=== PATIENT | female | born 1935 | race Caucasian/White ===

== ENCOUNTER 2018-02-11 18:05 | Inpatient (IN) | payer OTHER ==
[2018-02-11 19:30] LABS: Protime INR 1.28
[2018-02-11 19:32] LABS: Absolute Lymphocytes (CBC) 0.6 K/uL (0.7-4.9); Absolute Monocytes 0.7 K/uL (0.1-1.3); Absolute Neutrophil 10.5 K/uL (1.8-8.0); Basophils % 0.3 % (0-1.3); Hematocrit 36.9 % (36.0-45.0); Lymphocytes % 5.2 % (15.3-44.8); MCH 27.1 pg (27.0-35.0); MCV 83.9 fL (80-100); MPV 8.5 fL (7.6-11.3); Monocytes % 6.3 % (3.3-12.3)
--- NOTE | 2018-02-11 19:43 | RAD REPORT ---
EXAM DESCRIPTION: CT - CTHCSPWOC - 02/11/2018 7:22 pm CLINICAL HISTORY: Fall, patient found on ground, dementia, head and neck injury COMPARISON: None. TECHNIQUE: Axial 5 mm thick images of the head were obtained. Axial 2 mm thick images of the cervic al spine were obtained with sagittal and coronal reconstruction images generated and reviewed. All CT scans are performed using dose optimization technique as appropriate and may include automated exposure control or mA/KV adjustment according to patient size. FINDINGS: No intracranial hemorrhage, mass, edema or acute intracranial finding. No cortical edema or sulcal ef facement. Moderate severity atrophy and chronic ischemic changes are present. Ventricles are in propo rtion to volume loss. Mastoid air cells are clear. No significant paranasal sinus finding. Dense deepika rial tree calcifications are present. No globe or orbit abnormality seen. Cervical bodies are normal in height. No fracture or acute vertebral body finding. C3 and C4 retrolis thesis present secondary to facet degenerative change. C3-4 spinal stenosis down to 6-7 mm noted radha g with significant bilateral bony foraminal stenosis. C4-5 spinal stenosis to 6 mm from prominent pos terior endplate spurring. A more mild to moderate bilateral foraminal encroachment is present. Signif icant C6-7 disc space narrowing seen with mild central spinal stenosis. Significant left foraminal en croachment at this level. No pathologic bone process. No paraspinal mass or hematoma. IMPRESSION: Moderate atrophy and chronic ischemic change with no acute intracranial finding. Very advanced degenerative changes are present with multilevel significant central spinal stenosis an d bilateral foraminal stenosis. No fracture is seen. Given the fall history and severity of spinal stenosis, traumatic disc herniatio n or cord contusion cannot be excluded on CT imaging. Negative CT cervical spine examination for acute or significant finding.
[2018-02-11 19:51] LABS: ALT/SGPT 16 U/L (12-78); AST/SGOT 16 U/L (15-37); Albumin 2.6 g/dL (3.4-5.0); Alkaline Phosphatase 111 U/L (45-117); BUN Blood Urea Nitrogen 12 mg/dL (7-18); Bicarbonate 35 mmol/L (21-32); Bilirubin Direct 0.3 mg/dL (0-0.2); Bilirubin Total 0.6 mg/dL (0.2-1.0); Creatine Phosphokinase 68 U/L (26-192); Glucose Level 109 mg/dL (74-106); Magnesium 1.9 mg/dL (1.8-2.4); NT PRO-BNP 710 pg/mL (<450); Potassium 3.1 mmol/L (3.5-5.1); Sodium Level 140 mmol/L (136-145); Troponin (Emerg Dept Use Only) < 0.02 ng/mL (0.0-0.045)
[2018-02-11 19:59] LABS: Anisocytosis SLIGHT; Blood Morphology Comment NOT SEEN (NOT SEEN); Hypochromasia 1+; Platelet Estimate ADEQ; Urine White Blood Cell Casts OK
[2018-02-11 20:00] LABS: Polychromasia SLIGHT
[2018-02-11] MEDS ORDERED: NA CHLORIDE 0.9% 1,000 ML ONE (20:42)
--- NOTE | 2018-02-11 20:55 | RAD REPORT ---
EXAM DESCRIPTION: RAD - Chest Single View - 02/11/2018 7:53 pm CLINICAL HISTORY: Unwitnessed fall, left hip pain COMPARISON: July 2015 TECHNIQUE: AP portable chest image was obtained 1920 hours . FINDINGS: Focal consolidation is present in the left midlung field. In the acute clinical setting th is is likely a consolidated pneumonia. Pulmonary contusion is possible given the fall history. No rib fractures seen in this location. There is no pneumothorax. Heart and vasculature are normal. No sign ificant pleural fluid collection. Skin fold artifact overlies the lateral lower right chest. No acute bony abnormality seen. No acute aortic findings suspected. IMPRESSION: Masslike consolidation in the left midlung field is most likely pneumonia in the acute c linical setting. Malignant mass is not excluded. Pulmonary contusion is not excluded but felt to be less likely.
--- NOTE | 2018-02-11 20:56 | RAD REPORT ---
EXAM DESCRIPTION: RAD - Pelvis - 02/11/2018 7:53 pm CLINICAL HISTORY: Fall, pelvic and hip pain COMPARISON: None. TECHNIQUE: AP imaging of the pelvis was obtained. FINDINGS: Prominent lower lumbar degenerative change present only partially imaged. Moderate severit y SI joint degenerative changes are present. Sacral ala are too obscured for assessment. No fracture of the bony pelvis. No fracture or dislocation of either proximal femur. IMPRESSION: Degenerative change with no fracture identifiable. Sacral ala are obscured.
--- NOTE | 2018-02-11 20:57 | RAD REPORT ---
EXAM DESCRIPTION: RAD - Hip Left 2 View - 02/11/2018 7:53 pm CLINICAL HISTORY: Fall, hip pain COMPARISON: None. FINDINGS: AP and cross-table lateral views were obtained. No acute fracture changes are identifiable . Subcapital region of the proximal left femur is not optimally visualized. No fracture of the bony p maxim. No AVN or focal femoral head abnormality seen. No acute or destructive bony process seen. No soft tissue abnormality. IMPRESSION: No fracture or acute left hip finding identifiable. Positioning is not optimal. If the patient has continued unexplained symptoms, CT imaging of the pelv is could be obtained to fully exclude proximal femur fracture.
--- NOTE | 2018-02-11 22:01 | RAD REPORT ---
EXAM DESCRIPTION: CT - Thorax Wo Con - 02/11/2018 9:48 pm CLINICAL HISTORY: Fall, chest pain COMPARISON: Chest films same TECHNIQUE: Axial 5 mm thick images of the chest were obtained without IV contrast. All CT scans are performed using dose optimization technique as appropriate and may include automated exposure control or mA/KV adjustment according to patient size. FINDINGS: Large 7 centimeter mass is present in the left midlung field. This is localized to the lef t lower lobe. There is extension to the hilum and lateral pleural margin. There are no air bronchogra ms. Patient apparently has no acute pneumonia symptoms. This is most likely a malignancy. A few small nonspecific mediastinal lymph nodes are present. No chest wall mass or abnormal axillary lymphadenop athy. No pneumothorax or pulmonary contusion. No displaced or nondisplaced rib fractures identifiable. No p leural effusion or pneumothorax. IMPRESSION: Large 7 centimeter irregular soft tissue mass in the superior segment left lower lobe. T here is extension to the pleura and hilum. Malignancy is strongly favored over pneumonia. Pulmonary c ontusion is not suspected. Nonspecific mediastinal lymph nodes. No rib fracture or other acute traumatic injury.
--- NOTE | 2018-02-11 22:27 | ER ---
Nurse's Notes [facility] Name: Jeanna Ruvalcaba Age: 82 yrs Sex: Female : 1935 Arrival Date: 02/11/2018 Time: 18:10 Bed 27 Private MD: Issa Holguin T Diagnosis: Fall due to bumping against object;Contusion of left hip;Abnormal findings on diagnostic imaging of lung-7 cm left lung mass;Anemia, unspecified;Hypokalemia;Cystitis;Nondisplaced fracture of base of neck of left femur-[facility] Presentation: 02/11 18:38 Presenting complaint: Child states: Unwitnessed fall at home this afternoon, was home ph alone, found on ground by family who reports that pt was shivering, reports pain in L hip, denies other injury or use of blood thinners, pt does not remember cause of fall, family reports recent dementia dx. Care prior to arrival: Medication(s) given: Motrin, 600 mg, at 1600. Mechanism of Injury: Fall from standing position. Trauma event details: Injury occurred in the [facility], Injury occurred: at home. Injury occurred: February 11, 2018. 18:38 Acuity: MONI 3 ph 18:38 Method Of Arrival: Wheelchair ph 19:00 Transition of care: patient was not received from another setting of care. Onset of bb symptoms was February 11, 2018. Risk Assessment: Do you want to hurt yourself or someone else? Patient reports no desire to harm self or others. Initial Sepsis Screen: Does the patient meet any 2 criteria? No. Patient's initial sepsis screen is negative. Does the patient have a suspected source of infection? No. Patient's initial sepsis screen is negative. Historical: - Allergies: 18:42 No Known Allergies; ph - Home Meds: 18:42 Namenda oral oral [Active]; donepezil oral oral [Active]; levothyroxine oral [Active]; ph - PMHx: 18:42 Dementia; Hypothyroidism; ph - Immunization history: Last tetanus immunization: unknown. - Social history:: Smoking status: unknown. - Family history:: not pertinent. - Ebola Screening: : No symptoms or risks identified at this time. Screenin:38 Abuse screen: Denies threats or abuse. Denies injuries from another. Nutritional ed1 screening: No deficits noted. Tuberculosis screening: No symptoms or risk factors identified. Fall Risk Fall in past 12 months (25 points). No secondary diagnosis (0 pts). IV access (20 points). Ambulatory Aid- None/Bed Rest/Nurse Assist (0 pts). Gait- Normal/Bed Rest/Wheelchair (0 pts). Primary Survey: 18:42 A: Airway: patent, No supplemental oxygen in use on arrival. Oral cavity: clear, ph Trachea midline. Breathing/Chest: Respiratory pattern: regular, Respiratory effort: spontaneous, unlabored, Chest inspection: symmetrical rise and fall of the chest. Circulation: Skin color: pink, Skin temperature: warm, dry. Disability Alert. Secondary Survey: 18:42 HEENT: No deficits noted. Gastrointestinal: No deficits noted. Musculoskeletal: Reports ph pain in left hip. Assessment: 19:40 General: Appears uncomfortable, Behavior is calm, cooperative. Pain: Complains of pain ed1 in pelvis and left hip Pain does not radiate. Pain currently is 7 out of 10 on a pain scale. Quality of pain is described as aching, Pain began 2 hours ago. Is continuous. Neuro: Level of Consciousness is awake, alert, obeys commands, Oriented to person, place, time, situation. Cardiovascular: Denies chest pain, Heart tones S1 S2 present. Respiratory: Airway is patent Respiratory effort is even, unlabored, Respiratory pattern is regular, symmetrical, Breath sounds are clear bilaterally. GI: No signs and/or symptoms were reported involving the gastrointestinal system. : No signs and/or symptoms were reported regarding the genitourinary system. EENT: No signs and/or symptoms were reported regarding the EENT system. Derm: Skin is intact, is healthy with good turgor, Skin is dry, Skin is normal, Skin temperature is warm. Musculoskeletal: Circulation, motion, and sensation intact. Capillary refill < 3 seconds, in bilateral fingers. Range of motion: intact in all extremities, Swelling absent. 20:00 Reassessment: I agree with this assessment. bb 20:36 Reassessment: Patient appears in no apparent distress at this time. No changes from ed1 previously documented assessment. Patient and/or family updated on plan of care and expected duration. Pain level reassessed. Patient is alert, oriented x 3, equal unlabored respirations, skin warm/dry/pink. Patient states symptoms have not improved. 21:30 Reassessment: Patient and/or family updated on plan of care and expected duration. Pain bb level reassessed. Patient is alert, oriented x 3, equal unlabored respirations, skin warm/dry/pink. family at bedside. 22:30 Reassessment: Patient and/or family updated on plan of care and expected duration. Pain bb level reassessed. Patient is alert, oriented x 3, equal unlabored respirations, skin warm/dry/pink. IV site intact, family at bedside. 23:30 Reassessment: pt to CT scan via stretcher with military technology specialist. bb 02/12 01:00 Reassessment: Patient and/or family updated on plan of care and expected duration. Pain bb level reassessed. Patient is alert, oriented x 3, equal unlabored respirations, skin warm/dry/pink. pt resting quietly Dr Cook notified of pt BP new orders received pt medicated see MAR pt awaiting transfer to room until hemodynamically stable, family at bedside, IV is intact, patent with fluids infusing. Vital Signs: 02/11 18:42 BP 125 / 98; Pulse 88; Resp 18; Temp 98.3; Pulse Ox 94% on R/A; Weight 56.25 kg; Height ph 5 ft. 5 in. (165.10 cm); Pain 7/10; 19:40 BP 108 / 76; Pulse 83; Resp 17; Pulse Ox 94% on R/A; Pain 7/10; ed1 20:36 BP 80 / 57; Pulse 73; Resp 18; Temp 97.6(O); Pulse Ox 94% on R/A; Pain 7/10; ed1 21:07 BP 87 / 64; Pulse 72; Resp 18; Temp 97.2(O); Pulse Ox 94% on R/A; Pain 6/10; ed1 22:00 BP 90 / 56; Pulse 90; Resp 18; Pulse Ox 95% ; ms 02/12 00:02 BP 85 / ???; ag4 00:02 BP 85 / 63; Pulse 83; Resp 16; Temp 97.7; Pulse Ox 93% on R/A; ag4 01:00 BP 81 / 62; Pulse 78; Resp 16 S; Temp 99(O); Pulse Ox 92% on R/A; Pain 6/10; bb 01:45 BP 98 / 69; Pulse 78; Resp 16 S; Pulse Ox 92% on R/A; bb 02/11 18:42 Body Mass Index 20.63 (56.25 kg, 165.10 cm) ph 02/11 20:36 Dr. Nicolas notified ed1 [place] Coma Score: 18:42 Eye Response: spontaneous(4). Verbal Response: oriented(5). Motor Response: obeys ph commands(6). Total: 15. Trauma Score (Adult): 18:42 Eye Response: spontaneous(1); Verbal Response: oriented(1); Motor Response: obeys ph commands(2); Systolic BP: > 89 mm Hg(4); Respiratory Rate: 10 to 29 per min(4); [place] Score: 15; Trauma Score: 12 19:40 Eye Response: spontaneous(1); Verbal Response: oriented(1); Motor Response: obeys ed1 commands(2); Systolic BP: > 89 mm Hg(4); Respiratory Rate: 10 to 29 per min(4); [place] Score: 15; Trauma Score: 12 20:36 Eye Response: spontaneous(1); Verbal Response: oriented(1); Motor Response: obeys ed1 commands(2); Systolic BP: > 89 mm Hg(4); Respiratory Rate: 10 to 29 per min(4); [place] Score: 15; Trauma Score: 12 ED Course: 18:10 Patient arrived in ED. mr 18:11 Issa Holguin MD is Private Physician. mr 18:28 Delisa Payne LVN is Primary Nurse. ed1 18:33 Daren Nicolas MD is Attending Physician. gs 18:38 Patient has correct armband on for positive identification. Placed in gown. Bed in low ed1 position. Call light in reach. Side rails up X2. Adult w/ patient. personnel monitor on. Pulse ox on. NIBP on. Warm blanket given. 18:40 Triage completed. ph 18:44 Arm band placed on. ph 19:19 Inserted saline lock: 22 gauge in right antecubital area, using aseptic technique. ag4 forearm, using aseptic technique. Blood collected. 19:22 CT Head C Spine In Process Unspecified. EDMS 19:35 CT completed. Patient tolerated procedure well. Patient moved to CT via stretcher. Patient moved to radiology via stretcher. 19:54 XRAY Chest (1 view) In Process Unspecified. EDMS 19:54 Hip Left 2 View XRAY In Process Unspecified. EDMS 19:54 Pelvis XRAY In Process Unspecified. EDMS 20:45 EKG done, by garage door technician. ag4 21:49 CT Chest Wo Con In Process Unspecified. EDMS 22:05 Primary Nurse role handed off by Delisa Payne LVN ed1 22:18 Attending Physician role handed off by Daren Nicolas MD jennifer 22:18 Jimy Cook MD is Attending Physician. jennifer 22:25 Melyssa Nolen MD is Hospitalizing Provider. jennifer 23:[address] via stretcher. kw1 23:41 Pelvis Wo Cont In Process Unspecified. EDMS 23:45 CT completed. Patient tolerated procedure well. Patient moved back from CT. kw1 12/12 00:43 Humphries cath inserted, using sterile technique, 16 Fr., by dc, balloon inflated, to mt gravity drainage. 01:19 Patient admitted, IV remains in place. bb 01:20 No provider procedures requiring assistance completed. bb Administered Medications: 02/11 20:38 Drug: NS 0.9% 1000 ml Route: IV; Rate: 1 bolus; Site: right antecubital; ed1 21:38 Follow up: IV Status: Completed infusion; IV Intake: 1000ml bb 22:51 Drug: Rocephin - (cefTRIAXone) 1 grams {Note: per protocol 10 mL syringe.} Route: IVPB; bb Infused Over: 30 mins; Site: right antecubital; 22:57 Follow up: IV Status: Completed infusion; IV Intake: 10ml bb 22:51 Drug: Zithromax 500 mg Route: IVPB; Infused Over: 1 hrs; Site: right antecubital; bb 23:51 Follow up: IV Status: Completed infusion; IV Intake: 250ml bb 22:51 Drug: Potassium Effervescent Tablet 25 mEq Route: PO; bb 02/12 01:20 Follow up: Response: No adverse reaction bb 01:09 Drug: NS 0.9% 1000 ml Route: IV; Rate: 1000 ml; Site: right antecubital; bb 01:49 Follow up: IV Status: Infusion continued upon admission; IV Intake: 500ml bb Intake: 02/11 18:42 PO: 0ml; Total: 0ml. ph 19:40 PO: 0ml; Total: 0ml. ed1 20:36 PO: 0ml; Total: 0ml. ed1 21:38 IV: 1000ml; Total: 1000ml. bb 22:57 IV: 10ml; Total: 1010ml. bb 23:51 IV: 250ml; Total: 1260ml. bb 02/12 01:49 IV: 500ml; Total: 1760ml. bb Output: 02/11 18:42 Urine: 0ml; Total: 0ml. ph 19:40 Urine: 0ml; Total: 0ml. ed1 20:36 Urine: 0ml; Total: 0ml. ed1 Outcome: 22:27 Decision to Hospitalize by Provider. jennifer 23:48 Instructed on the need for admit. litzy 02/12 01:49 Admitted to Med/surg accompanied by tech, via stretcher, room 232, on monitor, with litzy chart, Report called to Petra ORTEGA Condition: stable 02:13 Patient left the ED. bb Signatures: Dispatcher [employer] EDMS Jimy Cook MD MD cha Rivera, Shira mr Skyla, Jerrica Montoya, RN RN Obdulia Cotto ms Kerry, Delisa, MEDICAL BILLER CODER MEDICAL BILLER CODER ed1 Dayanara López, RN RN lawrence Lucio, Daren Cruz mt, MD MD gs Wilhelm, Kimberly kw1 Brayan, Thomas ag4
--- NOTE | 2018-02-11 22:27 | EDPHYS ---
Physician Documentation [facility] Name: Jeanna Ruvalcaba Age: 82 yrs Sex: Female : 1935 Arrival Date: 02/11/2018 Time: 18:10 Bed 27 Private MD: Issa Holguin T ED Physician Jimy Cook HPI: 02/11 22:21 This 82 yrs old Female presents to ER via Wheelchair with complaints of Fall jennifer Injury. 22:21 Details of fall: The patient fell from an upright position, while walking. Onset: The jennifer symptoms/episode began/occurred just prior to arrival. Associated injuries: The patient sustained left femoral area and left hip, decreased range of motion, painful injury. Severity of symptoms: At their worst the symptoms were mild, moderate, in the emergency department the symptoms are unchanged. The patient has not experienced similar symptoms in the past. Historical: - Allergies: 18:42 No Known Allergies; ph - Home Meds: 18:42 Namenda oral oral [Active]; donepezil oral oral [Active]; levothyroxine oral [Active]; ph - PMHx: 18:42 Dementia; Hypothyroidism; ph - Immunization history: Last tetanus immunization: unknown. - Social history:: Smoking status: unknown. - Family history:: not pertinent. - Ebola Screening: : No symptoms or risks identified at this time. ROS: 22:21 Constitutional: Negative for fever, chills, and weight loss, Eyes: Negative for injury, jennifer pain, redness, and discharge, ENT: Negative for injury, pain, and discharge, Neck: Negative for injury, pain, and swelling, Cardiovascular: Negative for chest pain, palpitations, and edema, Respiratory: Negative for shortness of breath, cough, wheezing, and pleuritic chest pain, Abdomen/GI: Negative for abdominal pain, nausea, vomiting, diarrhea, and constipation, Back: Negative for injury and pain, : Negative for injury, bleeding, discharge, and swelling, Skin: Negative for injury, rash, and discoloration, Psych: Negative for depression, anxiety, suicide ideation, homicidal ideation, and hallucinations, Allergy/Immunology: Negative for hives, rash, and allergies, Endocrine: Negative for neck swelling, polydipsia, polyuria, polyphagia, and marked weight changes, Hematologic/Lymphatic: Negative for swollen nodes, abnormal bleeding, and unusual bruising. 22:21 MS/extremity: Positive for decreased range of motion, pain, tenderness, of the left hip. Exam: 22:21 Constitutional: This is a well developed, well nourished patient who is awake, alert, jennifer and in no acute distress. Head/Face: Normocephalic, atraumatic. Eyes: Pupils equal round and reactive to light, extra-ocular motions intact. Lids and lashes normal. Conjunctiva and sclera are non-icteric and not injected. Cornea within normal limits. Periorbital areas with no swelling, redness, or edema. ENT: Nares patent. No nasal discharge, no septal abnormalities noted. Tympanic membranes are normal and external auditory canals are clear. Oropharynx with no redness, swelling, or masses, exudates, or evidence of obstruction, uvula midline. Mucous membranes moist. Neck: Trachea midline, no thyromegaly or masses palpated, and no cervical lymphadenopathy. Supple, full range of motion without nuchal rigidity, or vertebral point tenderness. No Meningismus. Chest/axilla: Normal chest wall appearance and motion. Nontender with no deformity. No lesions are appreciated. Cardiovascular: Regular rate and rhythm with a normal S1 and S2. No gallops, murmurs, or rubs. Normal PMI, no JVD. No pulse deficits. Respiratory: Lungs have equal breath sounds bilaterally, clear to auscultation and percussion. No rales, rhonchi or wheezes noted. No increased work of breathing, no retractions or nasal flaring. Abdomen/GI: Soft, non-tender, with normal bowel sounds. No distension or tympany. No guarding or rebound. No evidence of tenderness throughout. Skin: Warm, dry with normal turgor. Normal color with no rashes, no lesions, and no evidence of cellulitis. Neuro: Awake and alert, GCS 15, oriented to person, place, time, and situation. Cranial nerves II-XII grossly intact. Motor strength 5/5 in all extremities. Sensory grossly intact. Cerebellar exam normal. Normal gait. Psych: Awake, alert, with orientation to person, place and time. Behavior, mood, and affect are within normal limits. 22:21 Musculoskeletal/extremity: ROM: limited active range of motion, limited passive range of motion, in the left hip, Circulation is intact in all extremities. Sensation intact. Compartment Syndrome exam of affected extremity: is normal. DVT Exam: negative Homans' sign noted on exam, no appreciated bluish discoloration, no erythema, no increased warmth, pain, swelling, tenderness. Vital Signs: 18:42 BP 125 / 98; Pulse 88; Resp 18; Temp 98.3; Pulse Ox 94% on R/A; Weight 56.25 kg; Height ph 5 ft. 5 in. (165.10 cm); Pain 7/10; 19:40 BP 108 / 76; Pulse 83; Resp 17; Pulse Ox 94% on R/A; Pain 7/10; ed1 20:36 BP 80 / 57; Pulse 73; Resp 18; Temp 97.6(O); Pulse Ox 94% on R/A; Pain 7/10; ed1 21:07 BP 87 / 64; Pulse 72; Resp 18; Temp 97.2(O); Pulse Ox 94% on R/A; Pain 6/10; ed1 22:00 BP 90 / 56; Pulse 90; Resp 18; Pulse Ox 95% ; ms 12/12 00:02 BP 85 / ???; ag4 00:02 BP 85 / 63; Pulse 83; Resp 16; Temp 97.7; Pulse Ox 93% on R/A; ag4 01:00 BP 81 / 62; Pulse 78; Resp 16 S; Temp 99(O); Pulse Ox 92% on R/A; Pain 6/10; bb 01:45 BP 98 / 69; Pulse 78; Resp 16 S; Pulse Ox 92% on R/A; bb 02/11 18:42 Body Mass Index 20.63 (56.25 kg, 165.10 cm) ph 02/11 20:36 Dr. Nicolas notified ed1 Barnard Coma Score: 18:42 Eye Response: spontaneous(4). Verbal Response: oriented(5). Motor Response: obeys ph commands(6). Total: 15. Trauma Score (Adult): 18:42 Eye Response: spontaneous(1); Verbal Response: oriented(1); Motor Response: obeys ph commands(2); Systolic BP: > 89 mm Hg(4); Respiratory Rate: 10 to 29 per min(4); Dea Score: 15; Trauma Score: 12 19:40 Eye Response: spontaneous(1); Verbal Response: oriented(1); Motor Response: obeys ed1 commands(2); Systolic BP: > 89 mm Hg(4); Respiratory Rate: 10 to 29 per min(4); Barnard Score: 15; Trauma Score: 12 20:36 Eye Response: spontaneous(1); Verbal Response: oriented(1); Motor Response: obeys ed1 commands(2); Systolic BP: > 89 mm Hg(4); Respiratory Rate: 10 to 29 per min(4); Dea Score: 15; Trauma Score: 12 MDM: 18:42 Patient medically screened. 22:24 Data reviewed: vital signs, nurses notes, lab test result(s), EKG, radiologic studies, jennifer CT scan, plain films. 02/11 18:43 Order name: Basic Metabolic Panel 02/11 18:43 Order name: CBC with Diff; Complete Time: 20:05 02/11 18:43 Order name: LFT's; Complete Time: 20:05 02/11 18:43 Order name: Magnesium; Complete Time: 20:05 02/11 18:43 Order name: NT PRO-BNP; Complete Time: 20:05 02/11 18:43 Order name: PT-INR; Complete Time: 20:05 02/11 18:43 Order name: Troponin (emerg Dept Use Only); Complete Time: 20:05 02/11 18:43 Order name: CPK; Complete Time: 20:05 02/11 18:44 Order name: Basic Metabolic Panel; Complete Time: 20:05 [facility] 02/11 19:36 Order name: CBC Smear Scan; Complete Time: 20:05 [facility] 02/11 20:32 Order name: Urine Microscopic Only 02/11 21:17 Order name: Blood Culture* 02/11 21:17 Order name: Lactate; Complete Time: 23:42 02/11 21:17 Order name: Procalcitonin; Complete Time: 23:42 02/11 18:43 Order name: XRAY Chest (1 view); Complete Time: 21:16 02/11 18:43 Order name: EKG; Complete Time: 18:44 02/11 18:43 Order name: Cardiac monitoring; Complete Time: 19:26 02/11 18:43 Order name: EKG - Nurse/Tech; Complete Time: 20:39 02/11 18:43 Order name: CT Head C Spine; Complete Time: 20:05 02/11 18:43 Order name: Hip Left 2 View XRAY; Complete Time: 21:16 02/11 18:43 Order name: Pelvis XRAY; Complete Time: 21:16 02/11 21:17 Order name: CT Chest Wo Con; Complete Time: 22:20 02/11 22:32 Order name: Pelvis Wo Cont EDND 02/11 23:36 Order name: Urine Dipstick--Ancillary (enter results); Complete Time: 23:42 gm 02/12 00:15 Order name: Urine Culture EDND 02/11 18:43 Order name: IV Saline Lock; Complete Time: 19:26 02/11 18:43 Order name: Labs collected and sent; Complete Time: 19:26 02/11 18:43 Order name: O2 Per Protocol; Complete Time: 19:26 02/11 18:43 Order name: O2 Sat Monitoring; Complete Time: 19:26 02/11 20:32 Order name: Urine Dipstick-Ancillary (obtain specimen); Complete Time: 01:31 02/11 22:31 Order name: PO challenge: juice; Complete Time: 22:51 jennifer Administered Medications: 20:38 Drug: NS 0.9% 1000 ml Route: IV; Rate: 1 bolus; Site: right antecubital; ed1 21:38 Follow up: IV Status: Completed infusion; IV Intake: 1000ml bb 22:51 Drug: Rocephin - (cefTRIAXone) 1 grams {Note: per protocol 10 mL syringe.} Route: IVPB; bb Infused Over: 30 mins; Site: right antecubital; 22:57 Follow up: IV Status: Completed infusion; IV Intake: 10ml bb 22:51 Drug: Zithromax 500 mg Route: IVPB; Infused Over: 1 hrs; Site: right antecubital; bb 23:51 Follow up: IV Status: Completed infusion; IV Intake: 250ml bb 22:51 Drug: Potassium Effervescent Tablet 25 mEq Route: PO; bb 02/12 01:20 Follow up: Response: No adverse reaction bb 01:09 Drug: NS 0.9% 1000 ml Route: IV; Rate: 1000 ml; Site: right antecubital; bb 01:49 Follow up: IV Status: Infusion continued upon admission; IV Intake: 500ml bb Disposition: 02/11/18 22:27 Hospitalization ordered by Melyssa Nolen for Observation. Preliminary diagnosis are Fall due to bumping against object, Contusion of left hip, Abnormal findings on diagnostic imaging of lung - 7 cm left lung mass, Anemia, unspecified, Hypokalemia, Cystitis, Nondisplaced fracture of base of neck of left femur - [facility]. - Bed requested for Telemetry/MedSurg (observation). - Status is Observation. bb - Condition is Fair. - Problem is new. - Symptoms have improved. UTI on Admission? Yes Signatures: Dispatcher [employer] EDMS Eva Rivas RN RN mw Anderson, Corey, MD MD cha Ballard, Brenda, RN RN bb Riggs, Erika, CREDIT AND COLLECTIONS REPRESENTATIVE CREDIT AND COLLECTIONS REPRESENTATIVE ed1 Dayanara López RN RN Daren Nicolas MD MD gs Corrections: (The following items were deleted from the chart) 02/11 22:32 22:27 Hospitalization Ordered by Melyssa Nolen MD for Observation. Preliminary jennifer diagnosis is Fall due to bumping against object; Contusion of left hip; Abnormal findings on diagnostic imaging of lung - 7 cm left lung mass; Anemia, unspecified. Bed requested for Telemetry/MedSurg (observation). Status is Observation. Condition is Fair. Problem is new. Symptoms have improved. UTI on Admission? No. jennifer 22:52 22:32 02/11/2018 22:27 Hospitalization Ordered by Melyssa Nolen MD for Observation. monika Preliminary diagnosis is Fall due to bumping against object; Contusion of left hip; Abnormal findings on diagnostic imaging of lung - 7 cm left lung mass; Anemia, unspecified; Hypokalemia. Bed requested for Telemetry/MedSurg (observation). Status is Observation. Condition is Fair. Problem is new. Symptoms have improved. UTI on Admission? No. jennifer 23:43 22:52 02/11/2018 22:27 Hospitalization Ordered by Melyssa Nolen MD for Observation. jennifer Preliminary diagnosis is Fall due to bumping against object; Contusion of left hip; Abnormal findings on diagnostic imaging of lung - 7 cm left lung mass; Anemia, unspecified; Hypokalemia. Bed requested for Telemetry/MedSurg (observation). Status is Observation. Condition is Fair. Problem is new. Symptoms have improved. UTI on Admission? No. mw 02/12 00:18 02/11 23:43 02/11/2018 22:27 Hospitalization Ordered by Melyssa Nolen MD for [facility] Observation. Preliminary diagnosis is Fall due to bumping against object; Contusion of left hip; Abnormal findings on diagnostic imaging of lung - 7 cm left lung mass; Anemia, unspecified; Hypokalemia; Cystitis. Bed requested for Telemetry/MedSurg (observation). Status is Observation. Condition is Fair. Problem is new. Symptoms have improved. UTI on Admission? Yes. [facility] 02/12 02:13 00:18 02/11/2018 22:27 Hospitalization Ordered by Melyssa Nolen MD for Observation. bb Preliminary diagnosis is Fall due to bumping against object; Contusion of left hip; Abnormal findings on diagnostic imaging of lung - 7 cm left lung mass; Anemia, unspecified; Hypokalemia; Cystitis; Nondisplaced fracture of base of neck of left femur - [facility]. Bed requested for Telemetry/MedSurg (observation). Status is Observation. Condition is Fair. Problem is new. Symptoms have improved. UTI on Admission? Yes. [facility]
[2018-02-11] MEDS ORDERED: CEFTRIAXONE/SWI 1gm 1 GM/10 ML SYR ONE (22:41)
[2018-02-11] MEDS ORDERED: AZITHROMYCIN 500 MG/250 ML BAG ONE (22:44)
[2018-02-11] MEDS ORDERED: POTASSIUM 25 MEQ EFFERV TAB ONE (22:44)
[2018-02-11 23:41] LABS: Urine Blood TRACE (NEG); Urine Glucose NEGATIVE (NEG); Urine Protein 2+ (NEG); Urine pH 5.5 (5.0-7.0)
[2018-02-12 00:03] LABS: Urine Bacteria 20-50 /HPF (<20); Urine Culture Reflex Order REFLEXED; Urine Mucus HEAVY /HPF (NONE SEEN); Urine RBC <5 /HPF (NONE SEEN)
--- NOTE | 2018-02-12 00:49 | P.HP ---
Certification for Inpatient Patient admitted to: Inpatient With expected LOS: >2 Midnights Practitioner: I am a practitioner with admitting privileges, knowledge of patient current condition, hospital course, and medical plan of care. Services: Services provided to patient in accordance with Admission requirements found in Title 42 Section 412.3 of the Code of Federal Regulations Patient History Date of Service: 02/12/18 Reason for admission: hip fracture History of Present Illness: Ms Ruvalcaba is an 82 years old woman with history of Dementia, hypothyroidism, who sustained an unwitnessed fall today. She was alone at home, and was found by her neighbour. Daughter says that she was shivering. No history of fever or chills. The patient is a heavy smoker, and family noted that she has been coughing more lately, dry cough. The patient has lose significant amount of weight in the last few months. CXR and CT chest remarkable for a 7 cm mass on the left lung, highly suspicious for malignancy. Lab work shows 11.8K WBC, potassium 3.1, UA abnormal consistent with UTI. After the fall, the patient was complaining of severe left hip pain. Plain XR shows no acute abnormalities. Subsequent CT pelvis showed left subcapital non-displaced femoral fracture. Allergies No Known Allergies Allergy (Unverified 02/11/18 22:27) - Past Medical/Surgical History -: dementia -: hypothyroidism Past Surgical History: Reviewed- Non-Contributory - Family History Family History: Reviewed- Non-Contributory - Social History Smoking Status: Current every day smoker Counseled patient to stop smoking for: less than 10 minutes Smoking therapy provided: Yes Patient receptive to therapy: No CD- Drugs: No Place of Residence: Home Review of Systems 10-point ROS is otherwise unremarkable Physical Examination - Physical Exam General: Alert, In no apparent distress HEENT: Atraumatic, PERRLA, Mucous membr. moist/pink, EOMI, Sclerae nonicteric Neck: Supple, 2+ carotid pulse no bruit, No LAD, Without JVD or thyroid abnormality Respiratory: Diminished, Expiratory wheezes Cardiovascular: Regular rate/rhythm, Normal S1 S2 Gastrointestinal: Normal bowel sounds, No tenderness Musculoskeletal: No tenderness Integumentary: No rashes Neurological: Normal speech, Normal tone, Normal affect Lymphatics: No axilla or inguinal lymphadenopathy - Studies Laboratory Data (last 24 hrs) 02/11/18 19:11: PT 15.2 H, INR 1.28 02/11/18 19:11: WBC 11.8 H, Hgb 11.9 L, Hct 36.9, Plt Count 281 02/11/18 19:11: Sodium 140, Potassium 3.1 L, BUN 12, Creatinine 1.10, Glucose 109 H, Magnesium 1.9, Total Bilirubin 0.6, AST 16, ALT 16, Alkaline Phosphatase 111 Assessment and Plan - Problems (Diagnosis) (1) Hip fracture Current Visit: Yes Status: Acute Qualifiers: Encounter type: initial encounter Fracture type: closed Laterality: left Qualified Code(s): S72.002A - Fracture of unspecified part of neck of left femur, initial encounter for closed fracture (2) Lung mass Current Visit: Yes Status: Acute (3) Hypothyroidism Current Visit: Yes Status: Acute Qualifiers: Hypothyroidism type: unspecified Qualified Code(s): E03.9 - Hypothyroidism , unspecified (4) Dementia Current Visit: Yes Status: Acute Qualifiers: Dementia type: Alzheimer's disease Alzheimer's disease onset: late-onset Dementia behavioral disturbance: without behavioral disturbance Qualified Code (s): G30.1 - Alzheimer's disease with late onset; F02.80 - Dementia in other diseases classified elsewhere without behavioral disturbance (5) Fall Current Visit: Yes Status: Acute Qualifiers: Encounter type: initial encounter Qualified Code(s): W19.XXXA - Unspecified fall, initial encounter (6) UTI (urinary tract infection) Current Visit: Yes Status: Acute Qualifiers: Urinary tract infection type: acute cystitis Hematuria presence: without hematuria Qualified Code(s): N30.00 - Acute cystitis without hematuria (7) Hypokalemia Current Visit: Yes Status: Acute - Plan The patient will be admitted to the hospital due to a nondisplaced left subcapital femoral fracture due to a fall at home. She has also a left lung mass suspicious for malignancy, that needs to be addressed down the road. Will consult Dr Prince for evaluation and recommendations on her hip fracute. Will keep her NPO. Order Rocephin for UTI. - Advance Directives Does patient have a Living Will: No Does patient have a Durable POA for Healthcare: No - Code Status/Comfort Care Code Status Assessed: Yes Code Status: Full Code
[2018-02-12] MEDS ORDERED: NA CHLORIDE 0.9% 1,000 ML ONE ×2 (01:21→02:23)
[2018-02-12] MEDS ORDERED: ACETAMINOPHEN 500 MG TAB PO PRN (02:07)
[2018-02-12] MEDS ORDERED: KETOROLAC 30 MG/ML INJ IV PRN ×2 (02:07→02:16)
[2018-02-12] MEDS ORDERED: ONDANSETRON 4 MG/2 ML VIAL IV PRN ×2 (02:07→02:16)
[2018-02-12] MEDS ORDERED: IPRATROPIUM BROM 0.5MG/2.5ML NEB PRN (02:07)
[2018-02-12] MEDS ORDERED: ALBUTEROL 2.5 MG/3 ML NEB SOL NEB PRN ×2 (02:07→02:16)
[2018-02-12] MEDS ORDERED: NA CHLORIDE 0.9% 1,000 ML IV SCH (02:07)
[2018-02-12] MEDS: NA CHLORIDE 0.9% 1,000 ML IV SCH ×2 (02:53→13:00)
[2018-02-12 03:35] VITALS: BMI 20.3
[2018-02-12] MEDS ORDERED: INFLUENZA VACCINE (for 3y+) 0.5 ML DOSE IMVAC ONE (06:00)
[2018-02-12] MEDS ORDERED: PNEUMOCOCCAL VACCINE 0.5 ML IMVAC ONE (06:00)
[2018-02-12 06:12] LABS: Absolute Lymphocytes (CBC) 0.8 K/uL (0.7-4.9); Absolute Monocytes 0.6 K/uL (0.1-1.3); Basophils % 0.8 % (0-1.3); Eosinophils % 2.7 % (0-4.4); Lymphocytes % 10.9 % (15.3-44.8); MCH 28.1 pg (27.0-35.0); MCV 84.2 fL (80-100); MPV 8.2 fL (7.6-11.3); Monocytes % 7.9 % (3.3-12.3); RBC Red Blood Cell Count 3.81 M/uL (3.86-4.86)
[2018-02-12 06:33] LABS: BUN Blood Urea Nitrogen 11 mg/dL (7-18); Bicarbonate 31 mmol/L (21-32); Glucose Level 85 mg/dL (74-106); Sodium Level 142 mmol/L (136-145)
[2018-02-12] MEDS: KCL 20 MEQ/100 mL IVPB 20 MEQ/100 ML BAG IV SCH ×2 (06:43→09:14)
--- NOTE | 2018-02-12 06:59 | EKG ---
Test Date: 2018-02-11 Test Time: 20:41:56 Systems Integration Advisor: [email or web address] MEASUREMENT RESULTS: Intervals: Rate: 71 AL: 166 QRSD: 96 QT: 460 QTc: 499 Sibley: P: 76 AL: 166 QRS: 50 T: 18 INTERPRETIVE STATEMENTS: Normal sinus rhythm Possible Left atrial enlargement Prolonged QT Abnormal ECG Compared to ECG 08/17/2008 07:34:05 Prolonged QT interval now present Electronically Signed On 02-12-18 10:37:45 PROCUREMENT ASSISTANT by Khris Lafleur
--- NOTE | 2018-02-12 08:23 | RAD REPORT ---
EXAM DESCRIPTION: CT - Pelvis Wo Cont - 02/12/2018 2:19 am CLINICAL HISTORY: Left hip pain status post fall COMPARISON: February 11 x-ray TECHNIQUE: Computed axial tomography of the pelvis was obtained with coronal and sagittal reconstruc tion A preliminary report generated by [employer] and reviewed prior to dictation. All CT scans are performed using dose optimization technique as appropriate and may include automated exposure control or mA/KV adjustment according to patient size. FINDINGS: A nondisplaced subcapital left femoral fracture. No dislocation Small to moderate joint effusion. Left hip muscles normal size and density. IMPRESSION: Nondisplaced subcapital left femoral fracture
[2018-02-12] MEDS: ARFORMOTEROL TARTRATE 15 MCG/2 ML VIAL.NEB NEB SCH ×2 (08:35→21:30)
[2018-02-12] MEDS ORDERED: CEFTRIAXONE 1 GM/NS 50 ML 1 GM/50 ML BAG IV SCH ×2 (09:00)
[2018-02-12] MEDS: CEFTRIAXONE/SWI 1gm 1 GM/10 ML SYR IV SCH (09:15)
[2018-02-12] MEDS ORDERED: Ringers Lactate 1,000 ML IV ONE ×2 (13:09→18:11)
--- NOTE | 2018-02-12 15:04 | P.PN ---
Subjective Date of Service: 02/12/18 Primary Care Provider: Dr. Holguin Chief Complaint: hip fracture Subjective: Other (Patient doing well this time.) Physical Examination - Vital Signs Temperature: 97.0 F Blood Pressure: 101/67 Pulse: 88 Respirations: 17 Pulse Ox (%): 97 - Physical Exam General: Alert, In no apparent distress, Cooperative HEENT: Atraumatic Neck: Supple Respiratory: Clear to auscultation bilaterally, Normal air movement Cardiovascular: Normal pulses, Regular rate/rhythm Gastrointestinal: Normal bowel sounds, Soft and benign, Non-distended, No masses , No rebound, No guarding Musculoskeletal: No erythema, No tenderness, No warmth Integumentary: No tenderness/swelling, No erythema, No warmth, No cyanosis Neurological: Normal speech, Normal strength at 5/5 x4 extr, Normal tone, Normal affect, Dementia (Mild dementia) - Studies Laboratory Data (last 24 hrs) 02/11/18 19:11: PT 15.2 H, INR 1.28 02/11/18 19:11: WBC 11.8 H, Hgb 11.9 L, Hct 36.9, Plt Count 281 02/11/18 19:11: Sodium 140, Potassium 3.1 L, BUN 12, Creatinine 1.10, Glucose 109 H, Magnesium 1.9, Total Bilirubin 0.6, AST 16, ALT 16, Alkaline Phosphatase 111 Medications List Reviewed: Yes Assessment & Plan Discharge Plan: Other (Inpatient rehab) Plan to discharge in: Greater than 2 days Physician Review Additional Text: Impression: Fall leading to a nondisplaced subcapital left femoral fracture UTI CT scan showing large 7 cm he regular soft tissue mass in the superior segment of the left lower lobe likely malignant Hypothyroidism Depression Dementia Anemia likely of chronic disease COPD with history of distant tobacco use Plan: Fall leading to a nondisplaced subcapital left femoral fracture: Patient NPO at this time. Case discussed with orthopedics. Orthopedics plans for surgical intervention today. Patient will be a good candidate for inpatient rehab. Will discuss with social services assistant. UTI: Urine culture pending. Will continue with Rocephin. CT scan showing large 7 cm irregular soft tissue mass in the superior segment of the left lower lobe likely malignant: Patient with history of distant tobacco use. Mass may be cancer in nature. Will have pulmonology evaluate this further. Patient may require biopsy in the near future. Hypothyroidism: Will continue with her medication Levoxyl 125 mcg daily Depression: Will need to continue with her medication Lexapro 10 mg daily Dementia: Will continue with Namenda XR 20 mg daily. Dementia mild. Anemia likely of chronic disease: Will monitor closely. Will check iron and B12 studies. COPD with history of distant tobacco use: Will provide COPD treatment. Will maintain sats above 90%. Will provide incentive spirometer after surgery. Time Spent Managing Pts Care (In Minutes): 55
--- NOTE | 2018-02-12 15:16 | CON ---
Date of Consultation: 02/12/2018 Additional Consulting Physician: Dr. Chetan Prince. Reason For Consultation: Left hip pain. History Of Present Illness: Ms. Ruvalcaba is an 82-year-old female who presented to the ER yesterday af ter falling onto her left side with subsequent pain to her left hip. X-rays in the ER demonstrated a left femoral neck fracture. On evaluation, the patient was also noted to have a lung mass noted on chest x-ray as well as CT scan. She has no history of workup for that mass and will be worked up and is currently being evaluated by Dr. Abel. She does have a long smoking history of 1 pack per da y. She denies any other musculoskeletal complaints at this time. Prior to the fall, she did not use any assist devices. Review of Systems: As above, otherwise negative. Past Medical History: Includes dementia, hypothyroidism. Past Surgical History: None. Allergies: NO KNOWN DRUG ALLERGIES. Social History: Reports tobacco use of a pack per day. Physical Examination: General: No apparent distress. HEENT: Normocephalic, atraumatic. Neck: Supple. Cardiovascular: Brisk cap refill to all digits. Chest: Nonlabored breathing. Abdomen: Nondistended. Psychiatric: Response to exam. Musculoskeletal: Bilateral upper extremities functional range of motion without pain, no gross defor mities, no obvious dislocations. Right lower extremity functional range of motion without pain, no g ross deformities, no obvious dislocations. Left lower extremity pain with range of motion of the lef t hip. Tenderness okay to palpation of the left hip. No tenderness to palpation of the left knee, t ibia, or foot. Neurovascularly intact distally. X-rays: X-rays and CAT scan demonstrate a minimally displaced left femoral neck fracture. Assessment And Plan: Ms. Ruvalcaba is an 82-year-old female with a left minimally displaced femoral nec k fracture. I discussed with the patient and her daughter at length her diagnosis as well as risks a nd benefits associated with operative treatment. Given its stable fracture pattern, I recommended cl osed reduction and percutaneous fixation with cannulated screws. Risks and benefits associated with the procedure were discussed with the patient and family at length; they expressed understanding. We will proceed with surgery later this afternoon. She will remain NPO. Dr. Colunga will continue to m onitor the patient medically. CV/MODL Voice ID: [id number] Report ID: [id number]
[2018-02-12] MEDS ORDERED: PROPOFOL 200 MG/20 ML VIAL IV ONE (16:19)
[2018-02-12] MEDS ORDERED: FENTANYL CITR 100 MCG/2 ML ONE (16:19)
[2018-02-12] MEDS ORDERED: BUPIVACA 0.25%/EPI 0.0005% MDV 50 ML VIAL ONE (16:26)
[2018-02-12] MEDS ORDERED: CEFAZOLIN 1GM (PREMIX IV) 1 GM/50 ML BAG ONE (16:58)
[2018-02-12] MEDS ORDERED: Phenylephrine HCl 10 MG/ML 1 ML VIAL ONE (17:02)
--- NOTE | 2018-02-12 17:44 | P.BOP ---
Preoperative diagnosis: left femoral neck fracture Postoperative diagnosis: same Primary procedure: closed reduction percutaneous screw fixation of left femoral neck fracture Scallop Shucker: NONE,NONE Estimated blood loss: 10 cc Specimen: none Findings: see dictation Anesthesia: General Complications: None Implants: 90 mm, 80 mm, 80 mm 6.5 mm cannulated short thread screws Fluids & blood products: per anesthesia Transferred to: Recovery Room Condition: Good
[2018-02-12] MEDS: MORPHINE 4 MG/ML SYR ONE ×3 (18:01→18:10)
[2018-02-12] MEDS ORDERED: KETOROLAC 30 MG/ML INJ ONE (18:05)
[2018-02-12] MEDS ORDERED: DOCUSATE NA 100 MG CAP PO PRN (18:05)
[2018-02-12] MEDS ORDERED: MORPHINE 2 MG/ML SYR IV PRN (18:05)
--- NOTE | 2018-02-12 18:06 | RAD REPORT ---
EXAM DESCRIPTION: RAD - Hip In Or - 02/12/2018 5:55 pm CLINICAL HISTORY: LEFT HIP PINNING COMPARISON: Pelvis dated 02/11/2018; Hip Left 2 View dated 02/11/2018; Pelvis Wo Cont dated 02/12/20 18 FINDINGS: Fluoroscopy is submitted from pinning procedure proximal left femur fracture. Details of p rocedure not available. Total fluoro time 1 minutes.
[2018-02-12] MEDS: NACHLORIDE 0.45% 1,000 ML IV SCH (18:32)
--- NOTE | 2018-02-12 18:38 | RAD REPORT ---
EXAM DESCRIPTION: RAD - Hip Left 2 View - 02/12/2018 6:31 pm CLINICAL HISTORY: post op History of left hip fracture COMPARISON: Hip Left 2 View dated 02/11/2018 FINDINGS: Three dynamic compression screws have been placed in the proximal left femur. No unusual o r unexpected postoperative finding.
[2018-02-12 18:49] LABS: Hematocrit 30.9 % (36.0-45.0)
[2018-02-12] MEDS: IPRATROPIUM BROM 0.5MG/2.5ML NEB PRN (21:35)
[2018-02-12] MEDS: HYDROCODONE/APAP 7.5/325 MG TAB PO PRN (23:26)
[2018-02-13] MEDS: ACETAMINOPHEN 500 MG TAB PO PRN ×2 (00:35→11:55)
--- NOTE | 2018-02-13 04:41 | OP ---
Date of Procedure: 02/12/2018 Surgeon: Chetan Prince MD Preoperative Diagnosis: Left femoral neck fracture. Postoperative Diagnosis: Left femoral neck fracture. Procedure Performed: Closed reduction and percutaneous screw fixation of left femoral neck fracture. Anesthesia: General LMA. Fluids: Per Anesthesia record. Ebl: 10 cc. Implants: Three 6.5 mm cannulated screws, length 80 mm, 80 mm, and 90 mm. Indication For Procedure: Ms. Ruvalcaba is an 82-year-old female, who presented to the ER yesterday aft er sustaining a fall onto her left side with subsequent pain to her left hip and inability to bear we ight. fracture. I discussed with the patient and her family at length risks and benefits associated with operative and nonoperative treatment. She expressed understanding and elected to pro ceed with operative treatment. Description Of Procedure: After informed consent was obtained, the patient was identified in the pre operative holding area. The left lower extremity was marked. The patient was then taken back to the operating room, transferred to the operating table in supine fashion, and placed under general LMA a nesthesia. She was placed on the fracture table with her extremities well padded. Fluoroscopy was t hen used to evaluate the left hip, and there was overall good alignment of the fracture. The left lo wer extremity was then prepped and draped in usual sterile fashion. A time-out was initiated. Corre ct patient and procedure were confirmed and identified. The patient did receive her preoperative pro phylactic antibiotics. Via fluoroscopy, a stab incision was then made over the lateral aspect of the proximal femur. A single pin was then placed over the lateral cortex of the proximal femur in line with the femoral neck and head in the inferior central position. Once into proper position confirmed by fluoroscopy in both the AP and lateral views, 2 stab incisions were made superiorly anterior and posterior to the prior made incision, and 2 more pins were placed in a parallel fashion in a superior -anterior and a superior-posterior position creating an inverted triangle configuration. They were pl aced near the subchondral bone of the femoral head, measured, and the outer cortex was then drilled o francisco javier each pin, and three 6.5 cannulated screws were placed in proper position and confirmed using fluo roscopy. The wounds were then irrigated thoroughly with normal saline. Subcutaneous tissue was appr oximated using a 2-0 Vicryl. The skin was approximated using marisa. Sterile dressings were applie d. The patient was awakened and transferred to PACU in stable condition. Postoperative Plan: Physical therapy will be consulted to aid with mobilization. The patient will b e touchdown weightbearing on her left lower extremity. Dr. Colunga will continue to manage the patien t medically. ESME/FERNANDO Voice ID: [id number] Report ID: [id number]
[2018-02-13 06:21] LABS: Absolute Lymphocytes (CBC) 1.1 K/uL (0.7-4.9); Absolute Monocytes 0.6 K/uL (0.1-1.3); Basophils % 0.8 % (0-1.3); Eosinophils % 6.4 % (0-4.4); Hematocrit 28.4 % (36.0-45.0); Lymphocytes % 15.3 % (15.3-44.8); MCH 27.9 pg (27.0-35.0); MCV 83.9 fL (80-100); MPV 8.9 fL (7.6-11.3); Monocytes % 8.7 % (3.3-12.3); RBC Red Blood Cell Count 3.38 M/uL (3.86-4.86)
[2018-02-13] MEDS: LEVOTHYROXINE SOD 0.125 MG TAB PO SCH (06:41)
[2018-02-13] MEDS: NACHLORIDE 0.45% 1,000 ML IV SCH ×2 (06:41→17:58)
[2018-02-13] MEDS: IPRATROPIUM BROM 0.5MG/2.5ML NEB PRN ×2 (07:30→20:18)
[2018-02-13] MEDS: ARFORMOTEROL TARTRATE 15 MCG/2 ML VIAL.NEB NEB SCH ×2 (07:30→20:00)
[2018-02-13 08:12] LABS: BUN Blood Urea Nitrogen 7 mg/dL (7-18); Bicarbonate 32 mmol/L (21-32); Ferritin 656.8 ng/mL (8-388); Glucose Level 96 mg/dL (74-106); Magnesium 1.8 mg/dL (1.8-2.4); Sodium Level 144 mmol/L (136-145); Transferrin 96 mg/dL (200-360)
[2018-02-13] MEDS ORDERED: POTASSIUM CL SA 10 MEQ TAB PO ONE ×2 (08:21→17:07)
[2018-02-13] MEDS: CEFTRIAXONE/SWI 1gm 1 GM/10 ML SYR IV SCH (09:00)
[2018-02-13] MEDS ORDERED: HOME MED 1 EA UNK (Escitalopram Oxalate [Lexapro] 10 MG) PO SCH (09:00)
[2018-02-13] MEDS ORDERED: HOME MED 1 EA UNK (Memantine Hcl [Namenda Xr] 28 MG) PO SCH (09:00)
[2018-02-13] MEDS: ESCITALOPRAM 20 MG TAB PO SCH (09:32)
[2018-02-13] MEDS: NICOTINE 21 MG/PAT TD SCH (09:32)
[2018-02-13] MEDS: ENOXAPARIN 40 MG/0.4 ML SQ SCH (09:32)
[2018-02-13] MEDS: HYDROCODONE/APAP 7.5/325 MG TAB PO PRN ×2 (09:33→15:09)
--- NOTE | 2018-02-13 11:49 | P.PN ---
Subjective Date of Service: 02/13/18 Primary Care Provider: Dr. Holguin Chief Complaint: hip fracture pain controlled Physical Examination - Vital Signs Temperature: 97.7 F Blood Pressure: 96/55 Pulse: 75 Respirations: 17 Pulse Ox (%): 94 - Physical Exam General: Alert, In no apparent distress Musculoskeletal: Other (LLE: dressing c/d/i; NVI distally; bcr in all digits) - Studies Microbiology Data (last 24 hrs): 02/11/18 23:30 Clean Catch Urine [place] Count - Final <10,000 CFU/ML. 02/11/18 23:30 Clean Catch Urine - Final Medications List Reviewed: Yes Assessment And Plan - Plan Jeanna is an 82 yo female s/p CRPP Left hip POD#1 -PT to mobilize; TDWB LLE -lovenox for DVT prophylaxis -Dr. Colunga for medical management and Dr. Abel for lung mass workup Physician Review Additional Text: Impression: Fall leading to a nondisplaced subcapital left femoral fracture UTI CT scan showing large 7 cm he regular soft tissue mass in the superior segment of the left lower lobe likely malignant Hypothyroidism Depression Dementia Anemia likely of chronic disease COPD with history of distant tobacco use Plan: Fall leading to a nondisplaced subcapital left femoral fracture: Patient NPO at this time. Case discussed with orthopedics. Orthopedics plans for surgical intervention today. Patient will be a good candidate for inpatient rehab. Will discuss with health and social care teacher. UTI: Urine culture pending. Will continue with Rocephin. CT scan showing large 7 cm irregular soft tissue mass in the superior segment of the left lower lobe likely malignant: Patient with history of distant tobacco use. Mass may be cancer in nature. Will have pulmonology evaluate this further. Patient may require biopsy in the near future. Hypothyroidism: Will continue with her medication Levoxyl 125 mcg daily Depression: Will need to continue with her medication Lexapro 10 mg daily Dementia: Will continue with Namenda XR 20 mg daily. Dementia mild. Anemia likely of chronic disease: Will monitor closely. Will check iron and B12 studies. COPD with history of distant tobacco use: Will provide COPD treatment. Will maintain sats above 90%. Will provide incentive spirometer after surgery.
--- NOTE | 2018-02-13 11:50 | P.CNS ---
Date of Consult: 02/13/18 Primary Care Provider: Dr. Holguin Chief Complaint: Left upper lobe mass History of Present Illness: Patient is 82 years of age admitted with a left hip fracture that was repaired yesterday she has a left upper lobe mass. Patient is an active smoker she denies any pulmonary complaints apart from history of significant weight loss denies any hemoptysis of chest pain no prior history of malignancy history of COPD in addition to dementia Allergies No Known Allergies Allergy (Verified 02/12/18 02:27) Home Medications: Escitalopram Oxalate [Lexapro] 10 mg PO DAILY 02/12/18 Fluticasone/Salmeterol [Advair 250-50 Diskus] 1 each IH BID 02/12/18 Levothyroxine [Synthroid] 125 mcg PO [id number] 02/12/18 Memantine HCl [Namenda Xr] 28 mg PO DAILY 02/12/18 - Past Medical/Surgical History Diabetic: No -: Dementia -: Hypothyroidism -: COPD -: BackSurgery -: Cholecystectomy -: Tonsillectomy - Family History Mother Medical History: Cancer - Social History Smoking Status: Unknown if ever smoked Alcohol use: No CD- Drugs: No Caffeine use: Yes Place of Residence: Home Review of Systems Significant weight loss General: Weakness Musculoskeletal: Other (The recent hip replacement left pain) Physical Examination Temp Pulse Resp BP Pulse Ox 97.7 F 75 17 96/55 L 94 02/13/18 08:00 02/13/18 08:00 02/13/18 08:00 02/13/18 08:00 02/13/18 08:00 General: Alert, Oriented x3 HEENT: Atraumatic Respiratory: Clear to auscultation bilaterally, Diminished Cardiovascular: No edema, Regular rate/rhythm, Normal S1 S2 - Problems (1) Lung cancer Current Visit: Yes Status: Acute Plan: Patient is 82 years of age has very large left upper lobe mass extending to the hilum and the chest wall history of COPD active smoker discuss with the patient she is going to need a bronchoscopy was scheduled for Saturday blood pressure is a little low continue with IV fluids discussed with the patient the benefits and risks of bronchoscopy including bleeding infection and lung collapse in the patient and a relative agrees chemistries reviewed mildly anemic Qualifiers: Laterality: left
[2018-02-13] MEDS ORDERED: TRAMADOL HCL 50 MG TAB PO PRN (13:39)
--- NOTE | 2018-02-13 13:39 | P.PN ---
Subjective Date of Service: 02/13/18 Primary Care Provider: Dr. Holguin Chief Complaint: Left upper lobe mass Subjective: Doing well Physical Examination - Vital Signs Temperature: 97.0 F Blood Pressure: 95/61 Pulse: 86 Respirations: 18 Pulse Ox (%): 94 - Physical Exam General: Alert, In no apparent distress, Oriented x3, Cooperative HEENT: Atraumatic Neck: Supple Respiratory: Clear to auscultation bilaterally, Normal air movement Cardiovascular: Normal pulses, Regular rate/rhythm Gastrointestinal: Normal bowel sounds, Soft and benign, Non-distended, No ascites, No tenderness, No masses, No rebound, No guarding Musculoskeletal: No erythema, No tenderness, No warmth Integumentary: No tenderness/swelling, No erythema, No warmth, No cyanosis Neurological: Normal speech, Normal strength at 5/5 x4 extr, Normal tone, Normal affect - Studies Microbiology Data (last 24 hrs): 02/11/18 23:30 Clean Catch Urine [place] Count - Final <10,000 CFU/ML. 02/11/18 23:30 Clean Catch Urine - Final Medications List Reviewed: Yes Assessment & Plan Discharge Plan: Other (Patient Re) Plan to discharge in: Greater than 2 days Physician Review Additional Text: Impression: Fall leading to a nondisplaced subcapital left femoral fracture CT scan showing large 7 cm he regular soft tissue mass in the superior segment of the left lower lobe likely malignant Hypothyroidism Depression Dementia Anemia likely of chronic disease with noted iron and B12 deficiency COPD with history of distant tobacco use Hypokalemia Plan: Fall leading to a nondisplaced subcapital left femoral fracture status post repair, postop day 1: Patient patient doing well this time. Will continue with pain control. Provide incentive spirometer. Patient on DVT prophylaxis. Patient to work with physical therapy. Anticipate possible acceptance to inpatient rehab likely early next week. Discuss case further with orthopedics. No UTI identified. Discontinue Rocephin. CT scan showing large 7 cm irregular soft tissue mass in the superior segment of the left lower lobe likely malignant with prior history of distant tobacco abuse: Patient with history of distant tobacco use. Case discussed with pulmonology. This appears cancer in nature. Pulmonology recommends bronchoscopy likely on Saturday. Hypothyroidism: Will continue with her medication Levoxyl 125 mcg daily Depression: Will need to continue with her medication Lexapro 10 mg daily Dementia: Will continue with Namenda XR 20 mg daily. Dementia mild. Anemia likely of chronic disease with noted iron and B12 deficiency: Will monitor closely. Will start iron supplementation along with B12 supplementation. COPD with history of distant tobacco use: Will continue COPD treatment. Will maintain sats above 90%. Continue with incentive spirometer Hypokalemia: Will continue monitor and adjust appropriately Time Spent Managing Pts Care (In Minutes): 55
[2018-02-13 21:18] VITALS: O2SAT 96
[2018-02-14] MEDS: HYDROCODONE/APAP 7.5/325 MG TAB PO PRN ×2 (00:27→08:49)
[2018-02-14 04:09] VITALS: BP 105/66; TEMP 98.8
[2018-02-14] MEDS: LEVOTHYROXINE SOD 0.125 MG TAB PO SCH (06:18)
[2018-02-14] MEDS: NACHLORIDE 0.45% 1,000 ML IV SCH ×2 (06:18→08:00)
[2018-02-14 06:49] LABS: Absolute Lymphocytes (CBC) 0.9 K/uL (0.7-4.9); Absolute Monocytes 0.6 K/uL (0.1-1.3); Absolute Neutrophil 4.8 K/uL (1.8-8.0); Basophils % 0.8 % (0-1.3); Eosinophils % 6.5 % (0-4.4); Hematocrit 30.6 % (36.0-45.0); MCH 28.6 pg (27.0-35.0); MCV 84.2 fL (80-100); MPV 8.9 fL (7.6-11.3); RBC Red Blood Cell Count 3.63 M/uL (3.86-4.86)
[2018-02-14 07:06] LABS: BUN Blood Urea Nitrogen 6 mg/dL (7-18); Bicarbonate 29 mmol/L (21-32); Glucose Level 82 mg/dL (74-106); Magnesium 1.7 mg/dL (1.8-2.4); Potassium 3.9 mmol/L (3.5-5.1); Sodium Level 142 mmol/L (136-145)
[2018-02-14] MEDS ORDERED: MAGNESIUM SULFATE 1 gm IVPB 1 GM/100 ML BAG IV ONE (07:25)
[2018-02-14] MEDS ORDERED: POTASSIUM CL SA 10 MEQ TAB PO ONE (07:53)
[2018-02-14] MEDS: ARFORMOTEROL TARTRATE 15 MCG/2 ML VIAL.NEB NEB SCH (08:00)
[2018-02-14] MEDS: ESCITALOPRAM 20 MG TAB PO SCH (08:50)
[2018-02-14] MEDS: ENOXAPARIN 40 MG/0.4 ML SQ SCH (08:50)
[2018-02-14] MEDS: NICOTINE 21 MG/PAT TD SCH (08:52)
[2018-02-14] MEDS ORDERED: CYANOCOBALAMIN 1,000 MCG TAB PO SCH (09:00)
[2018-02-14] MEDS ORDERED: SOD FERRIC GLUC COMPLX/SUCROSE 125 MG in NA CHLORIDE 0.9% 100 ML IV SCH (09:00)
--- NOTE | 2018-02-14 10:09 | P.PN ---
Subjective Date of Service: 02/14/18 Primary Care Provider: Dr. Holguin Chief Complaint: s/p left hip fixation Subjective: Ambulating, Working w/ PT pain controlled Physical Examination - Vital Signs Temperature: 98.8 F Blood Pressure: 105/66 Pulse: 77 Respirations: 20 Pulse Ox (%): 94 - Physical Exam General: Alert, In no apparent distress Musculoskeletal: Other (LLE: dressing c/d/i; NVI distally) - Studies Microbiology Data (last 24 hrs): 02/11/18 23:30 Clean Catch Urine [place] Count - Final <10,000 CFU/ML. 02/11/18 23:30 Clean Catch Urine - Final Medications List Reviewed: Yes Assessment And Plan - Plan Jeanna is an 82 yo female s/p CRPP Left hip POD#2 -PT to mobilize; TDWB LLE -lovenox for DVT prophylaxis Physician Review Additional Text: Impression: Fall leading to a nondisplaced subcapital left femoral fracture CT scan showing large 7 cm he regular soft tissue mass in the superior segment of the left lower lobe likely malignant Hypothyroidism Depression Dementia Anemia likely of chronic disease with noted iron and B12 deficiency COPD with history of distant tobacco use Hypokalemia Plan: Fall leading to a nondisplaced subcapital left femoral fracture status post repair, postop day 1: Patient patient doing well this time. Will continue with pain control. Provide incentive spirometer. Patient on DVT prophylaxis. Patient to work with physical therapy. Anticipate possible acceptance to inpatient rehab likely early next week. Discuss case further with orthopedics. No UTI identified. Discontinue Rocephin. CT scan showing large 7 cm irregular soft tissue mass in the superior segment of the left lower lobe likely malignant with prior history of distant tobacco abuse: Patient with history of distant tobacco use. Case discussed with pulmonology. This appears cancer in nature. Pulmonology recommends bronchoscopy likely on Saturday. Hypothyroidism: Will continue with her medication Levoxyl 125 mcg daily Depression: Will need to continue with her medication Lexapro 10 mg daily Dementia: Will continue with Namenda XR 20 mg daily. Dementia mild. Anemia likely of chronic disease with noted iron and B12 deficiency: Will monitor closely. Will start iron supplementation along with B12 supplementation. COPD with history of distant tobacco use: Will continue COPD treatment. Will maintain sats above 90%. Continue with incentive spirometer Hypokalemia: Will continue monitor and adjust appropriately
--- NOTE | 2018-02-14 13:09 | P.DS ---
Admission Date: 02/12/18 Discharge Date: 02/14/18 Primary Care Provider: Dr. Holguin Disposition: TRANSFER TO INPATIENT REHAB Discharge Condition: GOOD Reason for Admission: s/p left hip fixation Consultations: Orthopedics-Dr. Prince Pulmonary-Dr. Abel Procedures: CT chest scan: COMPARISON: Chest films same TECHNIQUE: Axial 5 mm thick images of the chest were obtained without IV contrast. All CT scans are performed using dose optimization technique as appropriate and may include automated exposure control or mA/KV adjustment according to patient size. FINDINGS: Large 7 centimeter mass is present in the left midlung field. This is localized to the left lower lobe. There is extension to the hilum and lateral pleural margin. There are no air bronchograms. Patient apparently has no acute pneumonia symptoms. This is most likely a malignancy. A few small nonspecific mediastinal lymph nodes are present. No chest wall mass or abnormal axillary lymphadenopathy. No pneumothorax or pulmonary contusion. No displaced or nondisplaced rib fractures identifiable. No pleural effusion or pneumothorax. IMPRESSION: Large 7 centimeter irregular soft tissue mass in the superior segment left lower lobe. There is extension to the pleura and hilum. Malignancy is strongly favored over pneumonia. Pulmonary contusion is not suspected. Nonspecific mediastinal lymph nodes. No rib fracture or other acute traumatic injury. CT pelvix: COMPARISON: February 11 x-ray TECHNIQUE: Computed axial tomography of the pelvis was obtained with coronal and sagittal reconstruction A preliminary report generated by [employer] and reviewed prior to dictation. All CT scans are performed using dose optimization technique as appropriate and may include automated exposure control or mA/KV adjustment according to patient size. FINDINGS: A nondisplaced subcapital left femoral fracture. No dislocation Small to moderate joint effusion. Left hip muscles normal size and density. IMPRESSION: Nondisplaced subcapital left femoral fracture Surgery: Date of Procedure: 02/12/2018 Surgeon: Chetan Prince MD Preoperative Diagnosis: Left femoral neck fracture. Postoperative Diagnosis: Left femoral neck fracture. Procedure Performed: Closed reduction and percutaneous screw fixation of left femoral neck fracture. Anesthesia: General LMA. Fluids: Per Anesthesia record. Ebl: 10 cc. Implants: Three 6.5 mm cannulated screws, length 80 mm, 80 mm, and 90 mm. Medical problem list: Fall leading to a nondisplaced subcapital left femoral fracture status post close reduction and percutaneous screw fixation of left femoral neck fracture, postop day [address] scan showing large 7 cm he regular soft tissue mass in the superior segment of the left lower lobe likely malignant Hypothyroidism Depression Dementia Anemia likely of chronic disease with noted iron and B12 deficiency COPD with history of distant tobacco use Hypokalemia Brief History of Present Illness: 82-year-old female presented to the emergency room after a fall. She was found to have a left femur fracture. Patient was admitted for further evaluation. Hospital Course: Patient suffered a fall. Patient found to have nondisplaced subcapital left femoral fracture. Patient seen and evaluated by orthopedics. Orthopedics recommended intervention. Patient had close reduction and percutaneous screw fixation of the left femoral neck fracture. Patient tolerated procedure well. Patient has done well with physical therapy. Patient evaluated for inpatient rehab. Patient has been accepted. Patient will be discharged to inpatient rehab to continue her care. Patient will continue with DVT prophylaxis-Lovenox 40 mg daily and pain control-tramadol 50 mg 1 pill 3 times a day as needed for pain. Fall precautions in place. Patient with history of COPD and distant tobacco abuse. During her workup CT scan revealed a large 7 cm irregular soft tissue mass in the superior segment of the left lower lobe likely malignant. Patient seen and evaluated by pulmonology. Pulmonology recommends bronchoscopy. This will be done as an outpatient after inpatient rehab. Patient will continue with her COPD medication-Advair 1 puff twice daily and Pro air 2 puffs 3 times a day as needed for shortness of breath. Encourage incentive spirometer. Patient to maintain sats above 90%. Oxygen can be weaned off. Patient has hypothyroidism. Patient will continue with her medication Levoxyl 125 mcg daily. Patient with depression. She will continue the medication-Lexapro 10 mg daily. Patient has dementia. This is mild. Patient will continue with Namenda XR 28 mg daily. Patient with anemia. Iron and B12 deficiency noted. Patient will continue with iron and B12 supplementation. Vital Signs/Physical Exam: Temp Pulse Resp BP Pulse Ox 98.8 F 77 20 105/66 94 02/14/18 10:09 02/14/18 10:02/14/18 10:09 02/14/18 10:02/14/18 10:09 General: Alert, In no apparent distress, Oriented x3, Cooperative HEENT: Atraumatic Neck: Supple Respiratory: Clear to auscultation bilaterally, Normal air movement Cardiovascular: Normal pulses, Regular rate/rhythm Gastrointestinal: Normal bowel sounds, Soft and benign, Non-distended, No tenderness, No masses, No rebound, No guarding Musculoskeletal: No erythema, No tenderness, No warmth Integumentary: No tenderness/swelling, No erythema, No warmth, No cyanosis Neurological: Normal speech, Normal strength at 5/5 x4 extr, Normal tone, Normal affect Laboratory Data at Discharge: WBC 6.8 K/uL (4.3-10.9) 02/14/18 06:19 Hgb 10.4 g/dL (12.0-15.0) L 02/14/18 06:19 Hct 30.6 % (36.0-45.0) L 02/14/18 06:19 Plt Count 212 K/uL (152-406) 02/14/18 06:19 PT 15.2 SECONDS (9.5-12.5) H 02/11/18 19:11 INR 1.28 02/11/18 19:11 Sodium 142 mmol/L (136-145) 02/14/18 06:19 Potassium 3.9 mmol/L (3.5-5.1) 02/14/18 06:19 BUN 6 mg/dL (7-18) L 02/14/18 06:19 Creatinine 0.40 mg/dL (0.55-1.3) L 02/14/18 06:19 Glucose 82 mg/dL (74-106) 02/14/18 06:19 Magnesium 1.7 mg/dL (1.8-2.4) L 02/14/18 06:19 Total Bilirubin 0.6 mg/dL (0.2-1.0) 02/11/18 19:11 AST 16 U/L (15-37) 02/11/18 19:11 ALT 16 U/L (12-78) 02/11/18 19:11 Alkaline Phosphatase 111 U/L (45-117) 02/11/18 19:11 Home Medications: Escitalopram Oxalate [Lexapro] 10 mg PO DAILY 02/12/18 Fluticasone/Salmeterol [Advair 250-50 Diskus] 1 each IH BID 02/12/18 Levothyroxine [Synthroid*] 125 mcg PO [id number] 02/12/18 Memantine HCl [Namenda Xr] 28 mg PO DAILY 02/12/18 Albuterol Sulfate [Proair Hfa] 2 puff IH TID PRN #1 hfa.aer.ad 02/14/18 Cyanocobalamin [Vitamin B-12*] 1,000 mcg PO DAILY #90 tab 02/14/18 Docusate [Colace Cap*] 100 mg PO DAILY PRN #30 cap 02/14/18 Ferrous Sulfate [Iron] 325 mg PO DAILY #30 tablet 02/14/18 New Medications: Albuterol Sulfate [Proair Hfa] 2 puff IH TID PRN #1 hfa.aer.ad PRN Reason: Shortness Of Breath Cyanocobalamin [Vitamin B-12*] 1,000 mcg PO DAILY #90 tab Docusate [Colace Cap*] 100 mg PO DAILY PRN #30 cap PRN Reason: Constipation Ferrous Sulfate [Iron] 325 mg PO DAILY #30 tablet Patient Discharge Instructions: 1. Patient will be transferred to inpatient rehab to continue her care. 2. Patient suffered a fall. Patient found to have nondisplaced subcapital left femoral fracture. Patient seen and evaluated by orthopedics. Orthopedics recommended intervention. Patient had close reduction and percutaneous screw fixation of the left femoral neck fracture. Patient tolerated procedure well. Patient has done well with physical therapy. Patient evaluated for inpatient rehab. Patient has been accepted. Patient will be discharged to inpatient rehab to continue her care. Patient will continue with DVT prophylaxis-Lovenox 40 mg daily and pain control-tramadol 50 mg 1 pill 3 times a day as needed for pain. Fall precautions in place. 3. Patient with history of COPD and distant tobacco abuse. During her workup CT scan revealed a large 7 cm irregular soft tissue mass in the superior segment of the left lower lobe likely malignant. Patient seen and evaluated by pulmonology. Pulmonology recommends bronchoscopy. This will be done as an outpatient after inpatient rehab. Patient will continue with her COPD medication-Advair 1 puff twice daily and Pro air 2 puffs 3 times a day as needed for shortness of breath. Encourage incentive spirometer. Patient to maintain sats above 90%. Oxygen can be weaned off. 4. Patient has hypothyroidism. Patient will continue with her medication Levoxyl 125 mcg daily. 5. Patient with depression. She will continue the medication-Lexapro 10 mg daily. 6. Patient has dementia. This is mild. Patient will continue with Namenda XR 28 mg daily. 7. Patient with anemia. Iron and B12 deficiency noted. Patient will continue with iron 325 mg daily and B12 1000 mcg daily. Diet: Regular Activity: Fall precautions Time spent managing pt's care (in minutes): 55
== END 2018-02-14 15:51 | DRG 481 ==
LOC: ER 18:05 → ERHOLD 02-12 00:54 → UNDODISIN 02-12 01:40 → 2ND 02-12 01:51
PROVIDERS: ADMIT Internal Medicine; ATTEND Family Medicine
PROC: 0QS734Z Reposition Left Upper Femur with Internal Fixation Device, Percutaneous Approach (ICD-10-PCS; principal; 2018-02-12 12:15)
DX: S72.012A Unspecified intracapsular fracture of left femur, initial encounter for closed fracture (principal); N39.0 Urinary tract infection, site not specified; C34.32 Malignant neoplasm of lower lobe, left bronchus or lung; W01.0XXA Fall on same level from slipping, tripping and stumbling without subsequent striking against object, initial encounter; Y93.01 Activity, walking, marching and hiking; Y92.019 Unspecified place in single-family (private) house as the place of occurrence of the external cause; E03.9 Hypothyroidism, unspecified; F17.210 Nicotine dependence, cigarettes, uncomplicated; G30.1 Alzheimer's disease with late onset; F02.80 Dementia in other diseases classified elsewhere, unspecified severity, without behavioral disturbance, psychotic disturbance, mood disturbance, and anxiety; E87.6 Hypokalemia; F32.9 Major depressive disorder, single episode, unspecified; D63.8 Anemia in other chronic diseases classified elsewhere; J44.9 Chronic obstructive pulmonary disease, unspecified; E61.1 Iron deficiency; E53.8 Deficiency of other specified B group vitamins
CPT/HCPCS: 36415; 51702; 70450; 71045; 71250; 72125; 72170; 72192; 73530; 80048; 80076; 81003; 81015; 82550; 82607; 82728; 83540; 83605; 83735; 83880; 84132; 84145; 84466; 84484; 85014; 85018; 85025; 85610; 87040; 87086; 87088; 90670; 93005; 94640; 96361; 96365; 96375; 97110; 97116; 97163; 97530; 99285; G0008; G0009; J0456; J0690; J0696; J1650; J2370; J2704; J2916; J3010; J3475; J7030; J7605; Q2035

== ENCOUNTER 2018-02-13 14:31 | Inpatient (IN) | payer OTHER ==
--- NOTE | 2018-02-14 14:06 | R.PREADM ---
SCREENING DATE AND TIME 02/13/2018 15:04 (BACON SKINNER) ANTICIPATED REHAB ADMISSION DATE 02/15/2018 REFERRING FACILITY [facility] REFERRAL DATE AND TIME 02/13/2018 15:07 (BACON SKINNER) ACUTE ADMIT DATE 02/12/2018 Previous Rehabilitation(s): No. REFERRING PHYSICIAN Chetan Prince REHAB FACILITY [facility] CLINICAL LIAISON Jhony Staton PHYSICIAN REVIEWER Dr. Javier Zaldivar M.D. MR# [id number] NAME AKIL BLAKELY AD[address]ESS [address] [id number] [address] [facility] PHONE [facility] [id number] DATE OF 1935 AGE 82 SSN# [id number] GENDER female MARITAL STATUS RACE white ADMIT FROM 02 - [facility] PRE-HOSPITAL LIVING SETTING 01 - Home (private home/apt. board/care, assisted living, retirement, transitional living) HOME TYPE AND DETAILS Type of home: single family house # of steps to enter the residence: 0 # of steps within the residence: 0 # of levels in the residence: 1 PRE-HOSPITAL LIVING WITH Family/Relatives FAMILY SUPPORT Yes PHONE PRIMARY FAMILY CONTACT ON ADM.? no IS PRIMARY FAMILY CONTACT AUTH. REP.? no PHONE 1ST CONTACT ON ADM. no IS 1ST CONTACT AUTH. REP.? no PHONE 2ND CONTACT ON ADM.? no PATIENT EMPLOYMENT STATUS Retired (for age) PATIENT EMPLOYER No Employer PAYOR INFORMATION: 1ST PAYOR NAME MEDICARE 1ST PAYOR PHONE 1ST PAYOR INJURY/ILLNESS DUE TO ACCIDENT? No ANOTHER DEMOCRAT RESPONSIBLE? No PRIMARY REHAB/ACUTE DIAGNOSIS: left femoral neck fracture ONSET DATE 02/12/2018 REHAB IMPAIRMENT CATEGORY (HUNTER): 07 Fracture of LE (FracLE) MEETS 60% rule AFFECTED EXTREMITIES: LLE PRIMARY DIAGNOSIS-RELATED SURGERIES: Emergency closed reduction and percutaneous screw fixation of left femoral neck fracture - performed by Chetan Prince on 02/12/2018 COMORBID REHAB/ACUTE DIAGNOSES: - Non-Tiered dementia uti Hypokalemia (E87.6) - N/A lung mass hypothyroidism SUMMARY OF ACUTE HOSPITALIZATION: Pt. is a 82 yo Right-handed white female. On 02/12/2018 she was admitted to [facility] and underwent emergency surgery fo r left femoral neck fracture (closed reduction and percutaneous screw fixation of left femoral neck f racture) by Chetan Prince. Pre-morbidly, Pt. was independent/mod-I in Self-Care, Sphincter Control, Transfers Control, Communica tion, Social Cognition, and Locomotion; and she had good Sphincter Control. Currently, she has deficits of Endurance, Safety Awareness, Transfers Control, Communication, Social Cognition, Balance, Locomotion, and Self-Care. Pt. is now referred to [facility] for acute in-patient rehabilitation in order to maximize patient's functional independence in activities of daily living, strength, ROM, and mobi lity. Patient has realistic goal of being discharged at assistance level 3-modA to reside at Home with Fam mecca/Relatives. PAST MEDICAL HISTORY Hypokalemia (E87.6) dementia hypothyroidism lung mass uti MEDICATION ALLERGIES: No Known Drug Allergies (NKDA) ENVIRONMENTAL ALLERGIES: - Substance Allergies None Known - Other Allergies None Known CODE STATUS: Do not resuscitate(DNR) WEIGHT/HEIGHT/BMI: WEIGHT 125 lbs HEIGHT 5' 6" BMI 20.2 DIET: - Diet Type Regular - Diet - Solid Texture Regular - Diet - Liquid Texture Regular - Tube Feed N/A SKIN DIAGRAM: Incision on Left hip; extent - small; stage - NS(Not Stageable). Treatment - Per Physician's Orders. REVIEW OF SYSTEMS: - Gen Alert and awake Lying in bed No apparent distress Oriented to: person, time, and place - CVS RRR VITAL SIGNS Temperature: 97.0 F SBP/DBP: 95/61 Pulse: 86 Resp: 18 Vital signs stable, afebrile CURRENT SPHINCTER CONTROL: Pre-hospital bladder status: continent # of bladder accidents in the last 7 days prior to screenin Pre-hospital bowel status: continent # of bowel accidents in the last 7 days prior to screenin Last Bowel Movement Date: 02/13/2018 DETAILED CURRENT FUNCTIONAL STATUS: - Bladder accident frequency: Ind - No accidents in the past 7 days - Bowel accident frequency: Ind - No accidents in the past 7 days - Walking score based on distance walked: 1(<=50ft) FUNCTIONAL STATUS: - Self-Care A. Eating Ind Ind B. Grooming Ind Ind C. Bathing Ind Ind D. Dressing - Upper Ind Ind E. Dressing - Lower Ind modA F. Toileting Ind modA - Sphincter Control G: Bladder control Ind Ind H: Bowel control Ind Ind - Transfers Control I. Bed/Chair/Wheelchair Ind modA J. Toilet Ind modA K. Tub/Shower Ind modA - Locomotion L. Walk/Wheelchair (B) Ind modA M. Stairs Ind ADNO - Communication N. Comprehension (B) Ind sup O. Expression (B) Ind sup - Social Cognition P. Social Interaction Ind sup Q. Problem Solving Ind sup R. Memory Ind sup - Endurance Poor - Balance Poor - Safety Awareness Poor CURRENT FUNC. DEFICITS: Endurance, Safety Awareness, Transfers Control, Communication, Social Cognition, Balance, Locomotion, and Self-Care THERAPY NOTES FROM ACUTE CARE: Attached. SPECIAL NEEDS: - Safety Concerns Skin breakdown precautions needed due to skin breakdown risk PRECAUTIONS: - Posterior Hip Precaution No adduction across midline No external rotation No hip flexion >90 degrees No internal rotation No wheel chair propulsion - Weight Bearing Precaution TTWB left LE PATIENT NEEDS ACTIVE AND ONGOING THERAPEUTIC INTERVENTION OF MULTIPLE THERAPY DISCIPLINES, INCLUDING: - Occupational Therapy Evaluate and Treat. - Physical Therapy Evaluate and Treat. PATIENT NEEDS CLOSE MEDICAL SUPERVISION BY A REHABILITATION PHYSICIAN FOR: Bowel and Bladder Management Coordination of Treatment Team Medical and Co-Morbidity Management Post-Op Complications Wound Care PATIENT REQUIRES 24X7 REHAB NURSING FOR MEDICAL AND FUNCTIONAL MGT. OF THE FOLLOWING DEFICITS: ADL's Ambulation Bowel and Bladder Management Cognition Communication Disease Management Medication Management Patient/Family Education Providing Safe Environment Skin Integrity Transfers PATIENT REQUIRES INTENSIVE, COORDINATED INTERDISCIPLINARY APPROACH TO REHAB: Arranging Home Equipment/Services Discharge Planning Family Intervention/Training Dispensary Attendant/Case Management PATIENT REHAB POTENTIAL: Expected level of measurable improvement will be of a practical value to patient's functional capacit y or adaptations to impairments Has a viable Discharge Plan Medically appropriate; condition is sufficiently stable to participate in intensive rehab program Patient is able and expected to receive 3 hours of individualized therapy daily on at least 5 of ever y 7 days Patient's prognosis for significant practical improvement within a reasonable period of time appears Good DISCHARGE PLAN: - Estimated Length of Stay (days) 14. - Consensus on plan Discharge plan has been discussed with primary caregiver. Patient/Family is in agreement with the randi n. Primary caregiver is in agreement with the plan. - Patient/Family Goals Return home with assistance. - Planned Living Setting Upon Discharge Home, to live with Family/Relatives. RECOMMENDED CARE LEVEL: IRF RECOMMENDATION DETAILS: Recommended Admission to Comprehensive Rehabilitation Program to Increase Functional Kegley SCREENER'S COMPLETENESS CONFIRMATION: - Screening Confirmation The patient data collection on this preadmission screening form is finished - Ms. Blkaely has multiple active medical problems which require close medical observation, supervision and management as provided by our inpatient rehabilitation unit. Furthermore, she requires acute medi jose management following surgical repair of her left hip fracture to manage her wound site, minimize her risk of deep vein thrombosis and address her pain while performing aggressive daily inpatient phy sical and occupational therapy. Admission to the acute inpatient rehabilitation unit is necessary and appropriate. PHYSICIANS REVIEW AND ADMISSION DETERMINATION Admit - Based on my review of the Pre-Admission Screening results, in my medical judgment and experie nce, I concur with the findings and recommend admission to [facility], as this patient requires an IRF level of care. SIGNATURE PANEL: Clinical Liaison - [electronically] signed by Waleska Eaton on 02/13/2018 at 15:24 (BACON SKINNER) Clinical Liaison - [electronically] signed by Jhony Staton on 02/14/2018 at 08:26 (BACON SKINNER) Physician Reviewer - [electronically] signed by Dr. Javier Zaldivar M.D. on 02/14/2018 at 14:04 (BACON SKINNER )
--- NOTE | 2018-02-14 16:32 | FAST ---
ENCOUNTER DATE AND TIME: 02/14/2018 08:00 (TAPPER BALANCE WHEEL SCREW HOLE) NAME AKIL BLAKELY DATE OF : 1935 DATE OF ADMISSION: 02/14/2018 16:03 (TAPPER BALANCE WHEEL SCREW HOLE) PHONE: AGE: 82 N# [id number] GENDER: Female ENCOUNTER PHYSICIAN: Dr. Javier Zaldivar M.D. ADMISSION DIAGNOSIS: - Orthopaedic Disorders 08 - Unilateral Hip Fracture (08.11) left femoral neck fracture. EATING: Activity did not occur on this shift EATING - SCORE: 0-UNK GROOMING: Activity did not occur on this shift GROOMING - SCORE: 0-UNK BATHING: Activity did not occur on this shift BATHING - SCORE: 0-UNK DRESSING - UPPER BODY: Activity did not occur on this shift Patient is not dressing in public clothing ARTICLES SCORE Total number of steps: 0 DRESSING - UPPER BODY - SCORE: 0-UNK DRESSING - LOWER BODY: Activity did not occur on this shift Patient is not dressing in public clothing ARTICLES SCORE Total number of steps: 0 DRESSING - LOWER BODY - SCORE: 0-UNK TOILETING: Activity did not occur on this shift TOILETING - SCORE: 0-UNK BLADDER MANAGEMENT: Activity did not occur on this shift BLADDER MANAGEMENT - SCORE: 7-IND BOWEL MANAGEMENT: Activity did not occur on this shift BOWEL MANAGEMENT - SCORE: 7-IND TRANSFERS: BED, CHAIR, WHEELCHAIR: TRANSFERS: BED, CHAIR, WHEELCHAIR - STEP 1: Does the patient require assistance of a person or device, or need extra time with bed, chair, or whe elchair transfers? Yes. TRANSFERS: BED, CHAIR, WHEELCHAIR - STEP 2: Does the patient require the assistance of a helper? Yes. TRANSFERS: BED, CHAIR, WHEELCHAIR - STEP 3: How much assistance does the patient require from the helper? Lifting of the patient TRANSFERS: BED, CHAIR, WHEELCHAIR - STEP 4: Does the helper lift the patient ONLY up? ONLY down? Up AND Down? ONLY up. TRANSFERS: BED, CHAIR, WHEELCHAIR - SCORE: 3-MOD TRANSFERS: TOILET: Activity did not occur on this shift TRANSFERS: TOILET - SCORE: 0-UNK TRANSFERS: SHOWER: Activity did not occur on this shift TRANSFERS: SHOWER - SCORE: 0-UNK TRANSFERS: TUB: Activity did not occur on this shift TRANSFERS: TUB - SCORE: 0-UNK LOCOMOTION: WALK: Patient walks less than 50 feet LOCOMOTION: WALK - SCORE: 1-DEP LOCOMOTION: WHEELCHAIR: LOCOMOTION: WHEELCHAIR - STEP 1: Does the patient need help to go 150 feet in a wheelchair? Yes. LOCOMOTION: WHEELCHAIR - STEP 2: How much assistance does the patient need from the helper? Patient goes less than 150 feet - but more than 50 feet - with the assistance of only one helper LOCOMOTION: WHEELCHAIR - SCORE: 2-MAX LOCOMOTION: STAIRS: Activity did not occur on this shift LOCOMOTION: STAIRS - SCORE: 0-UNK COMPREHENSION: COMPREHENSION - SCORE: 0-UNK EXPRESSION EXPRESSION - SCORE: 0-UNK SOCIAL INTERACTION: SOCIAL INTERACTION - SCORE: 0-UNK PROBLEM SOLVING: PROBLEM SOLVING - SCORE: 0-UNK MEMORY: MEMORY - SCORE: 0-UNK SIGNATURE PANEL: The following modified sections: Transfers: Bed, Chair, Wheelchair - Score, Transfers: Toilet - Score , Locomotion: Walk - Score, Locomotion: Wheelchair - Score, Locomotion: Stairs - Score were [electron icarebeka] signed by Enrico Valentine PT on SatFeb 14 2018 16:31:14 GMT-0600 (Central Standard Time)
[2018-02-14] MEDS ORDERED: DOCUSATE NA 100 MG CAP PO PRN (16:59)
[2018-02-14] MEDS ORDERED: TRAMADOL HCL 50 MG TAB PO PRN (16:59)
[2018-02-14] MEDS ORDERED: ACETAMINOPHEN 500 MG TAB PO PRN (16:59)
[2018-02-14] MEDS: HYDROCODONE/APAP 7.5/325 MG TAB PO PRN (18:40)
--- NOTE | 2018-02-14 19:34 | RAD REPORT ---
EXAM DESCRIPTION: RAD - Hip Left 2 View - 02/14/2018 7:16 pm CLINICAL HISTORY: Left hip pain FINDINGS: Screws affix a proximal left femoral fracture in good alignment. No dislocation
--- NOTE | 2018-02-14 19:35 | RAD REPORT ---
EXAM DESCRIPTION: RAD - Shoulder Right 2 View - 02/14/2018 7:17 pm CLINICAL HISTORY: Right shoulder pain FINDINGS: No fracture or dislocation is seen. The bones are osteoporotic
--- NOTE | 2018-02-14 19:47 | RAD REPORT ---
EXAM DESCRIPTION: CT - Head Brain Wo Cont - 02/14/2018 6:54 pm CLINICAL HISTORY: Head injury status post fall COMPARISON: February 11, 2018 TECHNIQUE: Computed axial tomography of the head was obtained. IV contrast was not requested. All CT scans are performed using dose optimization technique as appropriate and may include automated exposure control or mA/KV adjustment according to patient size. FINDINGS: An intracranial bleed is not seen . The ventricles are normal in caliber. No extra-axial fluid collection is noted. Fluid within the sinuses/ mastoids is not seen. IMPRESSION: No acute intracranial abnormality is seen. If patient's symptoms persist MRI of the bra in would be recommended.
[2018-02-14] MEDS: ARFORMOTEROL TARTRATE 15 MCG/2 ML VIAL.NEB NEB SCH (19:48)
[2018-02-14] MEDS: DOCUSATE NA/SENNA CONC 1 TAB PO SCH (21:20)
[2018-02-14] MEDS: GABAPENTIN 100 MG CAP PO SCH (21:20)
[2018-02-15] MEDS: TRAMADOL HCL 50 MG TAB PO PRN ×3 (00:06→15:12)
--- NOTE | 2018-02-15 02:10 | FAST ---
SHIFT START DATE/TIME: 02/14/2018 19:00 (FIBER ARTIST) SHIFT END DATE/TIME: 02/15/2018 07:00 (FIBER ARTIST) NAME AKIL BLAKELY DATE OF : 1935 DATE OF ADMISSION: 02/14/2018 16:03 (FIBER ARTIST) PHONE: AGE: 82 SSN# [id number] GENDER: Female ENCOUNTER PHYSICIAN: Dr. Javier Zaldivar M.D. ADMISSION DIAGNOSIS: - Orthopaedic Disorders 08 - Unilateral Hip Fracture (08.11) left femoral neck fracture. EATING: Activity did not occur on this shift EATING - SCORE: 0-UNK GROOMING: Activity did not occur on this shift GROOMING - SCORE: 0-UNK BATHING: Activity did not occur on this shift BATHING - SCORE: 0-UNK DRESSING - UPPER BODY: Patient is not dressing in public clothing ARTICLES SCORE Total number of steps: 0 DRESSING - UPPER BODY - SCORE: 0-UNK DRESSING - LOWER BODY: Patient is not dressing in public clothing ARTICLES SCORE Total number of steps: 0 DRESSING - LOWER BODY - SCORE: 0-UNK TOILETING: TOILETING - STEP 1: Does the patient require the assistance of a person or device, or need extra time with toileting? Yes . TOILETING - STEP 2: Does the patient require the assistance of a helper? Yes. TOILETING - STEP 3: How much assistance does the patient require from the helper? Hands-on assistance from the helper TOILETING - STEP 4: Of the 3 tasks: 1) Adjusting clothing prior to use, 2) Cleansing of perineal area, 3) Adjusting clot abebe after use; How many tasks does the patient perform WITHOUT assistance of the helper? Three tasks with steadying assistance from the helper TOILETING - SCORE: 4-MIN BLADDER MANAGEMENT: [place] cares for thao catheter including emptying drainage bag. BLADDER MANAGEMENT - SCORE: 1-DEP BOWEL MANAGEMENT: BOWEL MANAGEMENT - STEP 1: Does the patient control bowels completely and intentionally without equipment devices or medications AND is always continent? No. BOWEL MANAGEMENT - STEP 2: Does the patient require the assistance of a helper? Yes. BOWEL MANAGEMENT - STEP 3: How much assistance does the patient require from the helper? Patient requires minimal contact assist ance / incidental help to maintain an external device such as removing / applying wafer BOWEL MANAGEMENT - SCORE: 4-MIN TRANSFERS: BED, CHAIR, WHEELCHAIR: TRANSFERS: BED, CHAIR, WHEELCHAIR - STEP 1: Does the patient require assistance of a person or device, or need extra time with bed, chair, or whe elchair transfers? Yes. TRANSFERS: BED, CHAIR, WHEELCHAIR - STEP 2: Does the patient require the assistance of a helper? Yes. TRANSFERS: BED, CHAIR, WHEELCHAIR - STEP 3: How much assistance does the patient require from the helper? Lifting of the legs TRANSFERS: BED, CHAIR, WHEELCHAIR - STEP 4: How many legs does the patient require the helper to lift? both legs TRANSFERS: BED, CHAIR, WHEELCHAIR - SCORE: 3-MOD TRANSFERS: TOILET: TRANSFERS: TOILET - STEP 1: Does the patient require the assistance of a person or device, or need extra time with toilet transfe rs? Yes. TRANSFERS: TOILET - STEP 2: Does the patient require the assistance of a helper? Yes. TRANSFERS: TOILET - STEP 3: How much assistance does the patient require from the helper? Patient performs half or more of the tr ansferring tasks TRANSFERS: TOILET - STEP 4: Does the patient need only incidental help such as contact guard or steadying during toilet transfer? Yes. TRANSFERS: TOILET - SCORE: 4-MIN TRANSFERS: SHOWER: Activity did not occur on this shift TRANSFERS: SHOWER - SCORE: 0-UNK TRANSFERS: TUB: Activity did not occur on this shift TRANSFERS: TUB - SCORE: 0-UNK LOCOMOTION: WALK: Activity did not occur on this shift LOCOMOTION: WALK - SCORE: 0-UNK LOCOMOTION: WHEELCHAIR: Activity did not occur on this shift LOCOMOTION: WHEELCHAIR - SCORE: 0-UNK COMPREHENSION: COMPREHENSION: TYPE: Both COMPREHENSION - STEP 1: Does the patient require help from a person or device, or need extra time to understand complex and a bstract ideas (such as current events, finances, discharge planning, medical issues, relationships, e tc)? Yes. COMPREHENSION - STEP 2: Does the patient require help to understand questions or statements about basic needs or ideas (such as hunger, thirst, sleep, safety, daily schedule, room location, or discomfort) half or more of the t rogelio? No. COMPREHENSION - STEP 3: How often does the patient need help to understand directions and conversation about basic needs? Les s than 10% of the time COMPREHENSION - SCORE: 5-SUP EXPRESSION EXPRESSION: TYPE: Both EXPRESSION - STEP 1: Does the patient require help from a person or device, or need extra time expressing complex and abst ract ideas (such as current events, finances, discharge planning, medical issues, relationships, etc) ? Yes. EXPRESSION - STEP 2: Does the patient require help to express basic necessities or ideas (such as hunger, thirst, sleep, s afety, daily schedule, room location, or discomfort) half or more of the time? No. EXPRESSION - STEP 3: How often does the patient need help to express directions and conversation about basic needs? Less t pastrana 10% of the time EXPRESSION - SCORE: 5-SUP SOCIAL INTERACTION: SOCIAL INTERACTION - STEP 1: Does the patient require a helper to interact with others in social and therapeutic situations? No. SOCIAL INTERACTION - STEP 2: Does the patient need extra time in social situations, OR does s/he interact with staff, other patien ts, and family members ONLY in structured environments, OR does s/he require medication for social in teraction? Yes, patient needs extra time SOCIAL INTERACTION - SCORE: 6-NIKOLAS PROBLEM SOLVING: PROBLEM SOLVING - STEP 1: Does the patient need help from a person or device, or need extra time to solve complex problems such as managing a checking account or confronting interpersonal problems? Yes. PROBLEM SOLVING - STEP 2: Does the patient solve basic routine problems half or more of the time? Yes. PROBLEM SOLVING - STEP 3: How often does the patient need help to solve basic routine problems? Less than 10% of the time PROBLEM SOLVING - SCORE: 5-SUP MEMORY: MEMORY - STEP 1: Does the patient need help from a person or device, or need extra time to remember frequently encount ered people, daily routines, and executing requests? Yes. MEMORY - STEP 2: How often does the patient need help to remember frequently encountered people, daily routines, and e xecuting requests? Less than 10% of the time MEMORY - SCORE: 5-SUP
[2018-02-15] MEDS: HYDROCODONE/APAP 7.5/325 MG TAB PO PRN ×2 (05:15→20:30)
[2018-02-15] MEDS: ALBUTEROL 2.5 MG/3 ML NEB SOL NEB PRN ×2 (05:40→17:46)
[2018-02-15] MEDS ORDERED: LEVOTHYROXINE SOD 0.125 MG TAB PO SCH (06:30)
[2018-02-15] MEDS: ENOXAPARIN 40 MG/0.4 ML SQ SCH (07:21)
[2018-02-15 07:28] LABS: Absolute Lymphocytes (CBC) 0.8 K/uL (0.7-4.9); Absolute Monocytes 0.6 K/uL (0.1-1.3); Basophils % 0.7 % (0-1.3); Eosinophils % 4.9 % (0-4.4); Hematocrit 30.7 % (36.0-45.0); Lymphocytes % 11.5 % (15.3-44.8); MPV 8.8 fL (7.6-11.3); Monocytes % 8.6 % (3.3-12.3); RBC Red Blood Cell Count 3.66 M/uL (3.86-4.86)
[2018-02-15 07:40] LABS: Albumin 1.9 g/dL (3.4-5.0); BUN Blood Urea Nitrogen 4 mg/dL (7-18); Bicarbonate 31 mmol/L (21-32); Glucose Level 82 mg/dL (74-106); Potassium 3.4 mmol/L (3.5-5.1); Prealbumin 4.3 mg/dL (20-40); Sodium Level 140 mmol/L (136-145)
[2018-02-15] MEDS: ARFORMOTEROL TARTRATE 15 MCG/2 ML VIAL.NEB NEB SCH ×2 (08:00→20:10)
[2018-02-15] MEDS: GABAPENTIN 100 MG CAP PO SCH ×2 (08:20→20:30)
[2018-02-15] MEDS: NICOTINE 21 MG/PAT TD SCH (08:20)
[2018-02-15] MEDS: ESCITALOPRAM 20 MG TAB PO SCH (08:20)
[2018-02-15] MEDS: CYANOCOBALAMIN 1,000 MCG TAB PO SCH (08:20)
[2018-02-15] MEDS: FERROUS SULFATE 325 MG TAB PO SCH (08:20)
--- NOTE | 2018-02-15 12:31 | FAST ---
ENCOUNTER DATE AND TIME: 02/15/2018 08:00 (TICKET COUNTER) NAME AKIL BLAKELY DATE OF : 1935 DATE OF ADMISSION: 02/14/2018 16:03 (TICKET COUNTER) PHONE: AGE: 82 N# [id number] GENDER: Female ENCOUNTER PHYSICIAN: Dr. Javier Zaldivar M.D. ADMISSION DIAGNOSIS: - Orthopaedic Disorders 08 - Unilateral Hip Fracture (08.11) left femoral neck fracture. EATING: Activity did not occur on this shift EATING - SCORE: 0-UNK GROOMING: Wash, rinse, and dry face Wash, rinse, and dry hands GROOMING - STEP 1: Does the patient require the assistance of a person or device, or need extra time when grooming? Yes. GROOMING - STEP 2: Does the patient require the assistance of a helper? Yes. GROOMING - STEP 3: How much assistance does the patient require from the helper? Cuing, coaxing, instructions, or encour agement for completion of grooming GROOMING - SCORE: 5-SUP BATHING: Abdomen Buttocks Chest Left arm Left lower leg and foot Left upper leg Perineal area Right arm Right lower leg and foot Right upper leg BATHING - STEP 1: Does the patient require the assistance of a person or device, or need extra time when bathing? Yes. BATHING - STEP 2: Does the patient require the assistance of a helper? Yes. BATHING - STEP 3: How much assistance does the patient require from the helper? Only incidental help such as placement of a wash cloth in his/her hand a few times as s/he bathes OR help to bathe just one or two areas of the body BATHING - SCORE: 4-MIN DRESSING - UPPER BODY: T-shirt/pullover shirt (four steps) ARTICLES SCORE Total number of steps: 4 DRESSING - UPPER BODY - STEP 1: Does the patient require help from a person or device, or need extra time when dressing above the ene st? Yes. DRESSING - UPPER BODY - STEP 2: Does the patient require the assistance of a helper? Yes. DRESSING - UPPER BODY - STEP 3: Does the helper touch the patient while dressing? No. DRESSING - UPPER BODY - SCORE: 5-SUP DRESSING - LOWER BODY: Elastic waist pants (three steps) Sock - Left foot (one step) Sock - Right foot (one step) Underwear (three steps) ARTICLES SCORE Total number of steps: 8 DRESSING - LOWER BODY - STEP 1: Does the patient require help from a person or device, or need extra time when dressing below the ene st? Yes. DRESSING - LOWER BODY - STEP 2: Does the patient require the assistance of a helper? Yes. DRESSING - LOWER BODY - STEP 3: Does the helper touch the patient while dressing? Yes. DRESSING - LOWER BODY - STEP 4: How many of the total steps does the patient complete on his/her own? 5 DRESSING - LOWER BODY - SCORE: 3-MOD TOILETING: TOILETING - STEP 1: Does the patient require the assistance of a person or device, or need extra time with toileting? Yes . TOILETING - STEP 2: Does the patient require the assistance of a helper? Yes. TOILETING - STEP 3: How much assistance does the patient require from the helper? Hands-on assistance from the helper TOILETING - STEP 4: Of the 3 tasks: 1) Adjusting clothing prior to use, 2) Cleansing of perineal area, 3) Adjusting clot abebe after use; How many tasks does the patient perform WITHOUT assistance of the helper? Three tasks with steadying assistance from the helper TOILETING - SCORE: 4-MIN BLADDER MANAGEMENT: Activity did not occur on this shift BLADDER MANAGEMENT - SCORE: 7-IND BOWEL MANAGEMENT: Activity did not occur on this shift BOWEL MANAGEMENT - SCORE: 7-IND TRANSFERS: BED, CHAIR, WHEELCHAIR: Activity did not occur on this shift TRANSFERS: BED, CHAIR, WHEELCHAIR - SCORE: 0-UNK TRANSFERS: TOILET: TRANSFERS: TOILET - STEP 1: Does the patient require the assistance of a person or device, or need extra time with toilet transfe rs? Yes. TRANSFERS: TOILET - STEP 2: Does the patient require the assistance of a helper? Yes. TRANSFERS: TOILET - STEP 3: How much assistance does the patient require from the helper? Patient performs half or more of the tr ansferring tasks TRANSFERS: TOILET - STEP 4: Does the patient need only incidental help such as contact guard or steadying during toilet transfer? Yes. TRANSFERS: TOILET - SCORE: 4-MIN TRANSFERS: SHOWER: Activity did not occur on this shift TRANSFERS: SHOWER - SCORE: 0-UNK TRANSFERS: TUB: TRANSFERS: TUB - STEP 1: Does the patient require the assistance of a person or device, or need extra time with tub transfers? Yes. TRANSFERS: TUB - STEP 2: Does the patient require the assistance of a helper? Yes. TRANSFERS: TUB - STEP 3: How much assistance does the patient require from the helper? Incidental help such as contact guardin g or steadying, OR help to lift one leg into the tub TRANSFERS: TUB - SCORE: 4-MIN LOCOMOTION: WALK: Activity did not occur on this shift LOCOMOTION: WALK - SCORE: 0-UNK LOCOMOTION: WHEELCHAIR: Activity did not occur on this shift LOCOMOTION: WHEELCHAIR - SCORE: 0-UNK LOCOMOTION: STAIRS: Activity did not occur on this shift LOCOMOTION: STAIRS - SCORE: 0-UNK COMPREHENSION: COMPREHENSION: TYPE: Both COMPREHENSION - STEP 1: Does the patient require help from a person or device, or need extra time to understand complex and a bstract ideas (such as current events, finances, discharge planning, medical issues, relationships, e tc)? Yes. COMPREHENSION - STEP 2: Does the patient require help to understand questions or statements about basic needs or ideas (such as hunger, thirst, sleep, safety, daily schedule, room location, or discomfort) half or more of the t rogelio? No. COMPREHENSION - STEP 3: How often does the patient need help to understand directions and conversation about basic needs? 25% - 49% of the time COMPREHENSION - SCORE: 3-MOD EXPRESSION EXPRESSION: TYPE: Both EXPRESSION - STEP 1: Does the patient require help from a person or device, or need extra time expressing complex and abst ract ideas (such as current events, finances, discharge planning, medical issues, relationships, etc) ? Yes. EXPRESSION - STEP 2: Does the patient require help to express basic necessities or ideas (such as hunger, thirst, sleep, s afety, daily schedule, room location, or discomfort) half or more of the time? No. EXPRESSION - STEP 3: How often does the patient need help to express directions and conversation about basic needs? 10-24% of the time EXPRESSION - SCORE: 4-MIN SOCIAL INTERACTION: SOCIAL INTERACTION - STEP 1: Does the patient require a helper to interact with others in social and therapeutic situations? No. SOCIAL INTERACTION - STEP 2: Does the patient need extra time in social situations, OR does s/he interact with staff, other patien ts, and family members ONLY in structured environments, OR does s/he require medication for social in teraction? Yes, patient needs extra time SOCIAL INTERACTION - SCORE: 6-NIKOLAS PROBLEM SOLVING: PROBLEM SOLVING - STEP 1: Does the patient need help from a person or device, or need extra time to solve complex problems such as managing a checking account or confronting interpersonal problems? Yes. PROBLEM SOLVING - STEP 2: Does the patient solve basic routine problems half or more of the time? No. PROBLEM SOLVING - STEP 3: Does the patient need help to solve problems all the time or is s/he unable to solve problems? No. Barron erwin can sometimes solve problems PROBLEM SOLVING - SCORE: 2-MAX MEMORY: MEMORY - STEP 1: Does the patient need help from a person or device, or need extra time to remember frequently encount ered people, daily routines, and executing requests? Yes. MEMORY - STEP 2: How often does the patient need help to remember frequently encountered people, daily routines, and e xecuting requests? More than 50% of the time MEMORY - STEP 3: Does the patient need help to remember all of the time OR does s/he not effectively recognize and rem ember? No. Patient does not need help all the time MEMORY - SCORE: 2-MAX SIGNATURE PANEL: The following modified sections: Eating - Score, Grooming - Score, Bathing - Score, Dressing - Upper Body - Score, Dressing - Lower Body - Score, Toileting - Score, Transfers: Bed, Chair, Wheelchair - S core, Transfers: Toilet - Score, Transfers: Shower - Score, Transfers: Tub - Score, Comprehension - S core, Expression - Score, Social Interaction - Score, Problem Solving - Score, Memory - Score were [e lectronically] signed by Dora Smith OT on SatFeb 15 2018 12:30:25 T-0600 ([facility])
--- NOTE | 2018-02-15 13:53 | FAST ---
SHIFT START DATE/TIME: 02/15/2018 07:00 (ENTRY LEVEL MACHINE OPERATOR) SHIFT END DATE/TIME: 02/15/2018 19:00 (ENTRY LEVEL MACHINE OPERATOR) NAME AKIL BLAKELY DATE OF : 1935 DATE OF ADMISSION: 02/14/2018 16:03 (ENTRY LEVEL MACHINE OPERATOR) PHONE: AGE: 82 N# [id number] GENDER: Female ENCOUNTER PHYSICIAN: Dr. Javier Zaldivar M.D. ADMISSION DIAGNOSIS: - Orthopaedic Disorders 08 - Unilateral Hip Fracture (08.11) left femoral neck fracture. EATING: EATING - STEP 1: Does the patient require the assistance of a person or device, or need extra time when eating? Yes. EATING - STEP 2: Does the patient require the assistance of a helper? Yes. EATING - STEP 3: Does the patient perform half or more of the eating tasks? Yes. EATING - STEP 4: Does the patient need only supervision, cuing, coaxing OR help to apply an orthosis OR help to cut fo od, open containers, pour liquids, or butter bread? Yes. EATING - SCORE: 5-SUP GROOMING: Activity did not occur on this shift GROOMING - SCORE: 0-UNK BATHING: Activity did not occur on this shift BATHING - SCORE: 0-UNK DRESSING - UPPER BODY: Activity did not occur on this shift ARTICLES SCORE Total number of steps: 0 DRESSING - UPPER BODY - SCORE: 0-UNK DRESSING - LOWER BODY: Activity did not occur on this shift ARTICLES SCORE Total number of steps: 0 DRESSING - LOWER BODY - SCORE: 0-UNK TOILETING: TOILETING - STEP 1: Does the patient require the assistance of a person or device, or need extra time with toileting? Yes . TOILETING - STEP 2: Does the patient require the assistance of a helper? Yes. TOILETING - STEP 3: How much assistance does the patient require from the helper? Hands-on assistance from the helper TOILETING - STEP 4: Of the 3 tasks: 1) Adjusting clothing prior to use, 2) Cleansing of perineal area, 3) Adjusting clot abebe after use; How many tasks does the patient perform WITHOUT assistance of the helper? Three tasks with steadying assistance from the helper TOILETING - SCORE: 4-MIN BLADDER MANAGEMENT: BLADDER MANAGEMENT - STEP 1: Does the patient control the bladder completely and intentionally without equipment or devices or med ications, and is always continent? No. BLADDER MANAGEMENT - STEP 2: Does the patient require the assistance of a helper? No, patient requires and independently uses an a ssistive device, such as a urinal, bedpan, bedside commode, catheter, absorbent pad, or collecting de vice BLADDER MANAGEMENT - SCORE: 6-NIKOLAS BOWEL MANAGEMENT: Activity did not occur on this shift BOWEL MANAGEMENT - SCORE: 7-IND TRANSFERS: BED, CHAIR, WHEELCHAIR: TRANSFERS: BED, CHAIR, WHEELCHAIR - STEP 1: Does the patient require assistance of a person or device, or need extra time with bed, chair, or whe elchair transfers? Yes. TRANSFERS: BED, CHAIR, WHEELCHAIR - STEP 2: Does the patient require the assistance of a helper? Yes. TRANSFERS: BED, CHAIR, WHEELCHAIR - STEP 3: How much assistance does the patient require from the helper? Steadying/guiding assistance TRANSFERS: BED, CHAIR, WHEELCHAIR - SCORE: 4-MIN TRANSFERS: TOILET: TRANSFERS: TOILET - STEP 1: Does the patient require the assistance of a person or device, or need extra time with toilet transfe rs? Yes. TRANSFERS: TOILET - STEP 2: Does the patient require the assistance of a helper? Yes. TRANSFERS: TOILET - STEP 3: How much assistance does the patient require from the helper? Patient performs half or more of the tr ansferring tasks TRANSFERS: TOILET - STEP 4: Does the patient need only incidental help such as contact guard or steadying during toilet transfer? No. Patient needs more than incidental help TRANSFERS: TOILET - SCORE: 3-MOD TRANSFERS: SHOWER: Activity did not occur on this shift TRANSFERS: SHOWER - SCORE: 0-UNK TRANSFERS: TUB: Activity did not occur on this shift TRANSFERS: TUB - SCORE: 0-UNK LOCOMOTION: WALK: Activity did not occur on this shift LOCOMOTION: WALK - SCORE: 0-UNK LOCOMOTION: WHEELCHAIR: Activity did not occur on this shift LOCOMOTION: WHEELCHAIR - SCORE: 0-UNK COMPREHENSION: COMPREHENSION: TYPE: Both COMPREHENSION - STEP 1: Does the patient require help from a person or device, or need extra time to understand complex and a bstract ideas (such as current events, finances, discharge planning, medical issues, relationships, e tc)? Yes. COMPREHENSION - STEP 2: Does the patient require help to understand questions or statements about basic needs or ideas (such as hunger, thirst, sleep, safety, daily schedule, room location, or discomfort) half or more of the t rogelio? No. COMPREHENSION - STEP 3: How often does the patient need help to understand directions and conversation about basic needs? Les s than 10% of the time COMPREHENSION - SCORE: 5-SUP EXPRESSION EXPRESSION: TYPE: Both EXPRESSION - STEP 1: Does the patient require help from a person or device, or need extra time expressing complex and abst ract ideas (such as current events, finances, discharge planning, medical issues, relationships, etc) ? Yes. EXPRESSION - STEP 2: Does the patient require help to express basic necessities or ideas (such as hunger, thirst, sleep, s afety, daily schedule, room location, or discomfort) half or more of the time? No. EXPRESSION - STEP 3: How often does the patient need help to express directions and conversation about basic needs? Less t pastrana 10% of the time EXPRESSION - SCORE: 5-SUP SOCIAL INTERACTION: SOCIAL INTERACTION - STEP 1: Does the patient require a helper to interact with others in social and therapeutic situations? Yes. SOCIAL INTERACTION - STEP 2: Does the patient interact appropriately half or more of the time? Yes. SOCIAL INTERACTION - STEP 3: How often does the patient need help to interact appropriately? Less than 10% of the time SOCIAL INTERACTION - SCORE: 5-SUP PROBLEM SOLVING: PROBLEM SOLVING - STEP 1: Does the patient need help from a person or device, or need extra time to solve complex problems such as managing a checking account or confronting interpersonal problems? Yes. PROBLEM SOLVING - STEP 2: Does the patient solve basic routine problems half or more of the time? Yes. PROBLEM SOLVING - STEP 3: How often does the patient need help to solve basic routine problems? Less than 10% of the time PROBLEM SOLVING - SCORE: 5-SUP MEMORY: MEMORY - STEP 1: Does the patient need help from a person or device, or need extra time to remember frequently encount ered people, daily routines, and executing requests? Yes. MEMORY - STEP 2: How often does the patient need help to remember frequently encountered people, daily routines, and e xecuting requests? Less than 10% of the time MEMORY - SCORE: 5-SUP SIGNATURE PANEL: The following modified sections: Eating - Score, Grooming - Score, Bathing - Score, Dressing - Upper Body - Score, Dressing - Lower Body - Score, Toileting - Score, Bladder Management - Score, Bowel Man agement - Score, Transfers: Bed, Chair, Wheelchair - Score, Transfers: Toilet - Score, Transfers: Julianne wer - Score, Transfers: Tub - Score, Locomotion: Walk - Score, Locomotion: Wheelchair - Score, Compre hension - Score, Expression - Score, Social Interaction - Score, Problem Solving - Score, Memory - Sc ore were [electronically] signed by Sav Eduardo on Sat Feb 15 2018 13:52:07 GMT-0600 (Central Standard Time)
[2018-02-15] MEDS: IPRATROPIUM BROM 0.5MG/2.5ML NEB PRN (17:46)
--- NOTE | 2018-02-15 19:09 | R.HP ---
FACILITY: [facility] ENCOUNTER DATE AND TIME: 02/15/2018 19:06 (CONTROL AREA OPERATOR) MR#: [id number] NAME AKIL BLAKELY ADDRESS: [address] [place] [address] CITY: [place] [address]IP [id number] PHONE: DATE OF : 1935 AGE: 82 SSN# [id number] GENDER: Female DEXTERITY Right-handed MARITAL STATUS RACE White PRE-HOSPITAL LIVING SETTING 01 - Home (private home/apt. board/care, assisted living, senior living, transitional living) PRE-HOSPITAL LIVING WITH Family/Relatives ENCOUNTER PHYSICIAN: Dr. Javier Zaldivar M.D. REFERRING DOCTOR: Chetan Prince DATE OF ADMISSION: 02/14/2018 16:03 (CONTROL AREA OPERATOR) REFERRING FACILITY [facility] TYPE AND DETAILS: Type of home: single family house # of steps to enter the residence: 0 # of steps within the residence: 0 # of levels in the residence: 1 ADMISSION DIAGNOSIS: left femoral neck fracture ONSET DATE: 02/12/2018 PRIMARY DIAGNOSIS-RELATED SURGERIES: Emergency closed reduction and percutaneous screw fixation of left femoral neck fracture - performed by Chetan Prince on 02/12/2018 SECONDARY/COMORBID DIAGNOSES (TIERED): - Non-Tiered dementia uti Hypokalemia (E87.6) - N/A lung mass hypothyroidism HISTORY OF PRESENT ILLNESS (HPI): Pt. is a 82 yo Right-handed white female. On 02/12/2018 she was admitted to [facility] and underwent emergency surgery fo r left femoral neck fracture (closed reduction and percutaneous screw fixation of left femoral neck f racture) by Chetan Prince. Pre-morbidly, Pt. was independent/mod-I in Self-Care, Sphincter Control, Transfers Control, Communica tion, Social Cognition, and Locomotion; and she had good Sphincter Control. Currently, she has deficits of Endurance, Safety Awareness, Transfers Control, Communication, Social Cognition, Balance, Locomotion, and Self-Care. Pt. is now referred to [facility] for acute in-patient rehabilitation in order to maximize patient's functional independence in activities of daily living, strength, ROM, and mobi lity. Patient has realistic goal of being discharged at assistance level 3-modA to reside at Home with Fam mecca/Relatives. MEDICATION ALLERGIES: No Known Drug Allergies (NKDA) ENVIRONMENTAL ALLERGIES: - Substance Allergies None Known - Other Allergies None Known PAST MEDICAL HISTORY: Hypokalemia (E87.6) dementia hypothyroidism lung mass uti FAMILY HISTORY: Family history is not contributory. SOCIAL HISTORY: - Home Living Family/Relatives REVIEW OF SYSTEMS: - Gen No Chills Fatigue No Fever - Eyes No Double Vision No itchiness - ENMT No Difficulty Swallowing - CVS No Chest Discomfort No Chest Pain Fatigue No Weight Gain - Resp No Cough No Shortness of Breath - GI Continent No Abdominal Pain No Constipation No Diarrhea - Continent No Kidney Pain No Painful Urination No Urinary Urgency - MSK Joint Pain Muscle Cramps Stiffness - Skin No Itching No Rash No Suspicious Lesions - Neuro Coordination Difficulty No Difficulty with Concentration No Memory Loss No Seizures Weakness - Psych No Anxiety No Depression No HIV Exposure No Persistent Infections No Seasonal Allergies - Endo No Cold/Heat Intolerance No Excessive Hunger No Excessive Thirst No Excessive Urination PHYSICAL EXAM - Gen Alert and awake Lying in bed No apparent distress Oriented to: person, time, and place - Skin No skin breakdown. Normacephalic - Eyes No abnormalities - ENMT No abnormalities - Neck No abnormalities - CVS RRR - Chest No abnormalities - Resp Clear to auscultation - Abd Soft - GI nondistended Deferred - No abnormalities - Ext Mild left lower extremity edema. - MSK 4+/5 weakness in left lower extremity - Neuro 4/5 strength left lower extremity. - Psych No abnormalities VITAL SIGNS Temperature: 97.0 F SBP/DBP: 95/61 Pulse: 86 Resp: 18 NURSING: - Shower allowing shower - Skin care per protocol PRECAUTIONS: - Posterior Hip Precaution No adduction across midline No external rotation No hip flexion >90 degrees No internal rotation No wheel chair propulsion - Weight Bearing Precaution TTWB left LE ACTIVITIES OOB only with supervision FUNCTIONAL STATUS: - Self-Care A. Eating Ind Ind B. Grooming Ind Ind C. Bathing Ind Ind D. Dressing - Upper Ind Ind E. Dressing - Lower Ind modA F. Toileting Ind modA - Sphincter Control G: Bladder control Ind Ind H: Bowel control Ind Ind - Transfers Control I. Bed/Chair/Wheelchair Ind modA J. Toilet Ind modA K. Tub/Shower Ind modA - Locomotion L. Walk/Wheelchair (B) Ind modA M. Stairs Ind ADNO - Communication N. Comprehension (B) Ind sup O. Expression (B) Ind sup - Social Cognition P. Social Interaction Ind sup Q. Problem Solving Ind sup R. Memory Ind sup - Endurance Poor - Balance Poor - Safety Awareness Poor CURRENT FUNC. DEFICITS: Endurance, Safety Awareness, Transfers Control, Communication, Social Cognition, Balance, Locomotion, and Self-Care ASSESSMENT: Pt. is a 82 yo Right-handed white female.On 02/12/2018 she was admitted to [facility] and underwent emergency surgery for left femoral neck fracture (closed reduction and percutane ous screw fixation of left femoral neck fracture) by Chetan Prince.Pre-morbidly, Pt. was independent/m od-I in Self-Care, Sphincter Control, Transfers Control, Communication, Social Cognition, and Locomot ion; and she had good Sphincter Control.Currently, she has deficits of Endurance, Safety Awareness, T ransfers Control, Communication, Social Cognition, Balance, Locomotion, and Self-Care.Pt. is now refe rred to [facility] for acute in-patient rehabilitation in order to maximize harvey erwin's functional independence in activities of daily living, strength, ROM, and mobility.- Rehab Go al Patient has realistic goal of being discharged at assistance level 3-modA to reside at Home with Fam mecca/Relatives. REHAB PLAN: - Physical Therapy Decreased range of motion - to improve, our physical therapists will perform initial evaluation of pt 's status upon admission and devise an individualized program for increasing patient's Range of Motio n. Gait dysfunction - to improve, our physical therapists will perform initial evaluation of pt's status upon admission and devise an individualized program for Gait Training, and Wheel Chair mobility Inability to transfer - to improve, our physical therapists will perform initial evaluation of pt's s tatus upon admission and devise an individualized program for Bed mobility Need for home safety evaluation - to improve, our physical therapists will perform initial evaluation of pt's status upon admission and devise an individualized program for Home Evaluation Need in caregiver upon discharge - to improve, our physical therapists will perform initial evaluatio n of pt's status upon admission and devise an individualized program for Caregiver Training New precaution - to improve, our physical therapists will perform initial evaluation of pt's status u joanne admission and devise an individualized program for Patient precaution education Edema - to improve, our physical therapists will perform initial evaluation of pt's status upon admi ssion and devise an individualized program for Elevation Training, and Lymphedema Therapy Poor balance - to improve, our physical therapists will perform initial evaluation of pt's status upo n admission and devise an individualized program for Balance Training Poor endurance - to improve, our physical therapists will perform initial evaluation of pt's status u joanne admission and devise an individualized program for Endurance Training Weakness - to improve, our physical therapists will perform initial evaluation of pt's status upon ad mission and devise an individualized program for Aquatic Therapy, Neuromuscular Reeducation, and Stre ngthening Achieving independence - to improve, our physical therapists will perform initial evaluation of pt's status upon admission and devise an individualized program for Community Reintegration Activities - Occupational Therapy ADL deficits - to improve, our occupation therapists will perform initial evaluation of pt's status u joanne admission and devise an individualized program for Bathing, Bed mobility, Community Reintegration , Cooking, Dressing, Eating, Fine Motor Skills, Grooming, Homemaking, Kitchen Mobility, Laundry, Lisa ent Education, Safety Awareness, Splinting - Positioning, Transfers(Toilet, Tub, Shower), and Wheel C hair Management Cognitive deficits - to improve, our occupation therapists will perform initial evaluation of pt's st atus upon admission and devise an individualized program for Cognition - orientation Need for career counselor - to improve, our occupation therapists will perform initial evaluation of pt's s tatus upon admission and devise an individualized program for Caregiver Training Weakness - to improve, our occupation therapists will perform initial evaluation of pt's status upon admission and devise an individualized program for Aquatic Therapy, Balance, Endurance, UE ROM, and U E strengthening MEDICAL PLAN: - Anterior Hip Precaution No abduction No active extension No adduction across midline No external rotation No hip flexion >90 degrees No internal rotation - Diet - Liquid Texture Start Regular - Tube Feed Start N/A - Diet Type Start Regular - Posterior Hip Precaution No adduction across midline No external rotation No hip flexion >90 degrees No internal rotation No wheel chair propulsion - Weight Bearing Precaution TTWB left LE - Skin care per protocol - Diet - Solid Texture Regular - Shower shower DISCHARGE PLAN: - Estimated Length of Stay (days) 14. - Consensus on plan Discharge plan has been discussed with primary caregiver. Patient/Family is in agreement with the randi n. Primary caregiver is in agreement with the plan. - Patient/Family Goals Return home with assistance. - Planned Living Setting Upon Discharge Home, to live with Family/Relatives. SIGNATURE PANEL: (CONTROL AREA OPERATOR)
--- NOTE | 2018-02-15 19:10 | PAPE ---
PATIENT: [facility] MR# [id number] REFERRING DOCTOR Chetan Prince EVALUATION DATE AND TIME 02/15/2018 19:09 (DIRT SHOVELER) NAME AKIL BLAKELY DATE OF 1935 AGE 82 PHONE N# [id number] GENDER female EVALUATING PHYSICIAN Dr. Javier Zaldivar M.D. ADMISSION DIAGNOSIS: left femoral neck fracture ONSET DATE 02/12/2018 SECONDARY/COMORBID DIAGNOSES TIERED: - Non-Tiered dementia uti Hypokalemia (E87.6) - N/A lung mass hypothyroidism POST-ADMISSION FUNCTIONAL/MEDICAL STATUS: - Bladder Same accident frequency: Ind - No accidents in the past 7 days - Bowel Same accident frequency: Ind - No accidents in the past 7 days - Walking Same score based on distance walked: 1(<=50ft) STATUS CHANGE EVALUATION: No change in Functional or Medical Status is identified compared with Pre-Admission screening. PATIENT NEEDS CLOSE MEDICAL SUPERVISION BY A REHABILITATION PHYSICIAN FOR: Bowel and Bladder Management Coordination of Treatment Team Medical and Co-Morbidity Management Post-Op Complications Wound Care PATIENT REQUIRES 24X7 REHAB NURSING FOR MEDICAL AND FUNCTIONAL MGT. OF THE FOLLOWING DEFICITS: ADL's Ambulation Bowel and Bladder Management Cognition Communication Disease Management Medication Management Patient/Family Education Providing Safe Environment Skin Integrity Transfers PATIENT REQUIRES INTENSIVE, COORDINATED INTERDISCIPLINARY APPROACH TO REHAB: Arranging Home Equipment/Services Discharge Planning Family Intervention/Training Solution Make Up Operator/Case Management LIST OF IDENTIFIED AND POTENTIAL PROBLEMS: Alteration in leisure activities Bladder, Incontinence Bowel, Incontinence Infection, Actual or Potential Mobility Impaired Pain, Alteration in Comfort Self Care Deficit Skin Integrity, Actual or Potential Urinary Tract Infection (UTI), Actual or Potential PATIENT COULD BE AT RISK FOR COMPLICATIONS FROM ADVERSE MEDICAL CONDITIONS DUE TO HIS/HER COMORBIDITI ES AND THE RIGORS OF THE INTENSIVE REHABILLITATION PROGRAM. METHODS OR INTERVENTIONS TO AVOID COMPLIC ATIONS INCLUDE: - Bleeding Assess lab values and manage abnormalities. Nursing to teach precautions for anti-coagulation therapy . Wound to be assessed every shift. - Infection Clinical staff to assess and manage the signs and symptoms of infection including fever, redness, war mth, etc. - Urinary Tract Infection - Falls Patient will be evaluated for Fall Precautions and will be placed on Fall Precautions as indicated pe r protocol. - Skin Breakdown Nursing will assess skin daily using assessment tool and will place on Skin Breakdown Precautions as indicated per protocol. - Pain Clinical staff may employ non-medication methods such as massage, distraction, decrease stimulus, etc . as needed. Clinical staff will assess patient's pain level every shift per protocol to assess and e nsure pain management effectiveness. Medications will be given and the pain level re-assessed. PRELIMINARY PLAN OF CARE: - Physical Therapy Patient needs Physical Therapy for a daily minimum of 1.5 hours at least 5 out of 7 days, to improve: Mobility, Strengthening, Transfers, Stretching, ROM, Endurance, Ability to manage stairs, Gait, and Balance. - Rehabilitation Nursing Patient requires 24x7 Rehabilitation Nursing for: Pain Issues, Identifying and preventing risk factor s, Monitoring and reporting current medical conditions, Assisting with ambulation and transfer, Kusum ting with all ADL-s, Teaching patients about disease process and medications, Family teaching, Provid ing safe environment, Bowel and Bladder Issues, Skin Integrity, and Medication Management. Patient needs Solution Make Up Operator and/or Case Management for: Discharge Planning, Arranging Home Equipmen t or Services, and Family Interventions. - Dietary and Nutrition Services Patient needs Dietary and Nutrition Services for: Adequate Nutrition, Nutritional Supplements, and Nu tritional Education. - Occupational Therapy Patient needs Occupational Therapy for a daily minimum of 1.5 hours at least 5 out of 7 days, to impr ove Activities of Daily Living, including: Eating, Grooming, Bathing, Dressing, Toileting, Toilet Tra nsfers, Community Reintegration, Higher functional activities, Adaptive Equipment, Splinting, Househo ld Tasks, and Other activities as determined. POTENTIAL FUNCTIONAL GOALS FOR PATIENT TO ACHIEVE BY DISCHARGE: - Safety Precaution Patient will remain free from falls or injury at time of discharge. - Bed Mobility Patient will perform bed mobility at 4-John level of assistance. - Transfers Patient will complete transfers from bed to chair at 4-John level of assistance. - Mobility Patient will ambulate 150 ft with 4-John level of assistance with RW. PATIENT REHAB POTENTIAL Expected level of measurable improvement will be of a practical value to patient's functional capacit y or adaptations to impairments Has a viable Discharge Plan Medically appropriate; condition is sufficiently stable to participate in intensive rehab program Patient is able and expected to receive 3 hours of individualized therapy daily on at least 5 of ever y 7 days Patient's prognosis for significant practical improvement within a reasonable period of time appears Good DISCHARGE PLAN: - Estimated Length of Stay (days) 14. - Consensus on plan Discharge plan has been discussed with primary caregiver. Patient/Family is in agreement with the randi n. Primary caregiver is in agreement with the plan. - Patient/Family Goals Return home with assistance. - Planned Living Setting Upon Discharge Home, to live with Family/Relatives. CONCLUSION ON REHABILITATION NECESSITY: I have evaluated patient's pre-admission functional status and, comparing it to the patient's post-ad mission functional status now, I conclude that the pre-admission assessment was accurate. Patient's c ondition on admission supports the medical necessity of admission to IRF. It is safe to proceed with patient's therapy program. SIGNATURE PANEL: (DIRT SHOVELER)
[2018-02-15] MEDS: CRANBERRY FRUIT EXTRACT 200 MG CAP PO SCH (20:30)
[2018-02-15] MEDS: DOCUSATE NA/SENNA CONC 1 TAB PO SCH (20:30)
[2018-02-15] MEDS: PROMOD 30 ML DOSE PO SCH (20:30)
[2018-02-15] MEDS: MELATONIN 3 MG TABLET PO PRN (20:32)
--- NOTE | 2018-02-16 01:48 | FAST ---
SHIFT START DATE/TIME: 02/15/2018 19:00 (BEAM BUILDER) SHIFT END DATE/TIME: 02/16/2018 07:00 (BEAM BUILDER) NAME AKIL BLAKELY DATE OF : 1935 DATE OF ADMISSION: 02/14/2018 16:03 (BEAM BUILDER) PHONE: AGE: 82 SSN# [id number] GENDER: Female ENCOUNTER PHYSICIAN: Dr. Javier Zaldivar M.D. ADMISSION DIAGNOSIS: - Orthopaedic Disorders 08 - Unilateral Hip Fracture (08.11) left femoral neck fracture. EATING: Activity did not occur on this shift EATING - SCORE: 0-UNK GROOMING: Activity did not occur on this shift GROOMING - SCORE: 0-UNK BATHING: Activity did not occur on this shift BATHING - SCORE: 0-UNK DRESSING - UPPER BODY: Activity did not occur on this shift ARTICLES SCORE Total number of steps: 0 DRESSING - UPPER BODY - SCORE: 0-UNK DRESSING - LOWER BODY: Activity did not occur on this shift ARTICLES SCORE Total number of steps: 0 DRESSING - LOWER BODY - SCORE: 0-UNK TOILETING: TOILETING - STEP 1: Does the patient require the assistance of a person or device, or need extra time with toileting? Yes . TOILETING - STEP 2: Does the patient require the assistance of a helper? Yes. TOILETING - STEP 3: How much assistance does the patient require from the helper? Hands-on assistance from the helper TOILETING - STEP 4: Of the 3 tasks: 1) Adjusting clothing prior to use, 2) Cleansing of perineal area, 3) Adjusting clot abebe after use; How many tasks does the patient perform WITHOUT assistance of the helper? Three tasks with steadying assistance from the helper TOILETING - SCORE: 4-MIN BLADDER MANAGEMENT: BLADDER MANAGEMENT - STEP 1: Does the patient control the bladder completely and intentionally without equipment or devices or med ications, and is always continent? No. BLADDER MANAGEMENT - STEP 2: Does the patient require the assistance of a helper? Yes. BLADDER MANAGEMENT - STEP 3: How much assistance does the patient require from the helper? Only supervision, stand-by, cuing, or c oaxing BLADDER MANAGEMENT - SCORE: 5-SUP BOWEL MANAGEMENT: Activity did not occur on this shift BOWEL MANAGEMENT - SCORE: 7-IND TRANSFERS: BED, CHAIR, WHEELCHAIR: TRANSFERS: BED, CHAIR, WHEELCHAIR - STEP 1: Does the patient require assistance of a person or device, or need extra time with bed, chair, or whe elchair transfers? Yes. TRANSFERS: BED, CHAIR, WHEELCHAIR - STEP 2: Does the patient require the assistance of a helper? Yes. TRANSFERS: BED, CHAIR, WHEELCHAIR - STEP 3: How much assistance does the patient require from the helper? Lifting of the legs TRANSFERS: BED, CHAIR, WHEELCHAIR - STEP 4: How many legs does the patient require the helper to lift? one leg TRANSFERS: BED, CHAIR, WHEELCHAIR - SCORE: 4-MIN TRANSFERS: TOILET: TRANSFERS: TOILET - STEP 1: Does the patient require the assistance of a person or device, or need extra time with toilet transfe rs? Yes. TRANSFERS: TOILET - STEP 2: Does the patient require the assistance of a helper? Yes. TRANSFERS: TOILET - STEP 3: How much assistance does the patient require from the helper? Patient performs half or more of the tr ansferring tasks TRANSFERS: TOILET - STEP 4: Does the patient need only incidental help such as contact guard or steadying during toilet transfer? Yes. TRANSFERS: TOILET - SCORE: 4-MIN TRANSFERS: SHOWER: Activity did not occur on this shift TRANSFERS: SHOWER - SCORE: 0-UNK TRANSFERS: TUB: Activity did not occur on this shift TRANSFERS: TUB - SCORE: 0-UNK LOCOMOTION: WALK: Activity did not occur on this shift LOCOMOTION: WALK - SCORE: 0-UNK LOCOMOTION: WHEELCHAIR: Activity did not occur on this shift LOCOMOTION: WHEELCHAIR - SCORE: 0-UNK COMPREHENSION: COMPREHENSION: TYPE: Both COMPREHENSION - STEP 1: Does the patient require help from a person or device, or need extra time to understand complex and a bstract ideas (such as current events, finances, discharge planning, medical issues, relationships, e tc)? Yes. COMPREHENSION - STEP 2: Does the patient require help to understand questions or statements about basic needs or ideas (such as hunger, thirst, sleep, safety, daily schedule, room location, or discomfort) half or more of the t rogelio? No. COMPREHENSION - STEP 3: How often does the patient need help to understand directions and conversation about basic needs? Les s than 10% of the time COMPREHENSION - SCORE: 5-SUP EXPRESSION EXPRESSION: TYPE: Both EXPRESSION - STEP 1: Does the patient require help from a person or device, or need extra time expressing complex and abst ract ideas (such as current events, finances, discharge planning, medical issues, relationships, etc) ? Yes. EXPRESSION - STEP 2: Does the patient require help to express basic necessities or ideas (such as hunger, thirst, sleep, s afety, daily schedule, room location, or discomfort) half or more of the time? No. EXPRESSION - STEP 3: How often does the patient need help to express directions and conversation about basic needs? Less t pastrana 10% of the time EXPRESSION - SCORE: 5-SUP SOCIAL INTERACTION: SOCIAL INTERACTION - STEP 1: Does the patient require a helper to interact with others in social and therapeutic situations? Yes. SOCIAL INTERACTION - STEP 2: Does the patient interact appropriately half or more of the time? Yes. SOCIAL INTERACTION - STEP 3: How often does the patient need help to interact appropriately? Less than 10% of the time SOCIAL INTERACTION - SCORE: 5-SUP PROBLEM SOLVING: Patient requires bed/chair alarms due to attempts to get up unassisted when helper is needed. PROBLEM SOLVING - STEP 1: How often do the bed/chair alarms go off? Most of the time - the alarms go off about 75% of the time PROBLEM SOLVING - SCORE: 2-MAX MEMORY: MEMORY - STEP 1: How often do the bed/chair alarms go off? Most of the time - the alarms go off about 75% of the time MEMORY - SCORE: 2-MAX SIGNATURE PANEL: The following modified sections: Eating - Score, Grooming - Score, Bathing - Score, Dressing - Upper Body - Score, Dressing - Lower Body - Score, Toileting - Score, Bladder Management - Score, Bowel Man agement - Score, Transfers: Bed, Chair, Wheelchair - Score, Transfers: Toilet - Score, Transfers: Julianne wer - Score, Transfers: Tub - Score, Locomotion: Walk - Score, Locomotion: Wheelchair - Score, Compre hension - Score, Expression - Score, Social Interaction - Score, Problem Solving - Score, Memory - Sc ore were [electronically] signed by Katie Walker RN on SatFeb 16 2018 01:36:02 GMT-0600 (Central Stand nargis Time)
[2018-02-16] MEDS: LEVOTHYROXINE SOD 0.125 MG TAB PO SCH (05:09)
[2018-02-16] MEDS: ARFORMOTEROL TARTRATE 15 MCG/2 ML VIAL.NEB NEB SCH ×2 (07:30→20:32)
[2018-02-16] MEDS: PROMOD 30 ML DOSE PO SCH ×2 (08:00→20:08)
[2018-02-16] MEDS: CRANBERRY FRUIT EXTRACT 200 MG CAP PO SCH ×2 (08:13→20:09)
[2018-02-16] MEDS: ENOXAPARIN 40 MG/0.4 ML SQ SCH (08:14)
[2018-02-16] MEDS: FERROUS SULFATE 325 MG TAB PO SCH (08:14)
[2018-02-16] MEDS: GABAPENTIN 100 MG CAP PO SCH ×2 (08:14→20:09)
[2018-02-16] MEDS: CYANOCOBALAMIN 1,000 MCG TAB PO SCH (08:14)
[2018-02-16] MEDS: ESCITALOPRAM 20 MG TAB PO SCH (08:14)
[2018-02-16] MEDS: NICOTINE 21 MG/PAT TD SCH (08:55)
[2018-02-16] MEDS: TRAMADOL HCL 50 MG TAB PO PRN (08:55)
[2018-02-16] MEDS: guaiFENesin 100 MG/5 ML UCUP PO PRN (12:09)
[2018-02-16] MEDS: POLYETHYL GLY 3350 17 GM/DOSE PO PRN (12:10)
--- NOTE | 2018-02-16 12:47 | FAST ---
SHIFT START DATE/TIME: 02/16/2018 07:00 (CERAMIC WORKER) SHIFT END DATE/TIME: 02/16/2018 19:00 (CERAMIC WORKER) NAME AKIL BLAKELY DATE OF : 1935 DATE OF ADMISSION: 02/14/2018 16:03 (CERAMIC WORKER) PHONE: AGE: 82 N# [id number] GENDER: Female ENCOUNTER PHYSICIAN: Dr. Javier Zaldivar M.D. ADMISSION DIAGNOSIS: - Orthopaedic Disorders 08 - Unilateral Hip Fracture (08.11) left femoral neck fracture. EATING: EATING - STEP 1: Does the patient require the assistance of a person or device, or need extra time when eating? Yes. EATING - STEP 2: Does the patient require the assistance of a helper? Yes. EATING - STEP 3: Does the patient perform half or more of the eating tasks? Yes. EATING - STEP 4: Does the patient need only supervision, cuing, coaxing OR help to apply an orthosis OR help to cut fo od, open containers, pour liquids, or butter bread? Yes. EATING - SCORE: 5-SUP GROOMING: Comb/brush hair Oral care GROOMING - STEP 1: Does the patient require the assistance of a person or device, or need extra time when grooming? Yes. GROOMING - STEP 2: Does the patient require the assistance of a helper? Yes. GROOMING - STEP 3: How much assistance does the patient require from the helper? Only prior equipment preparation/set up from the helper GROOMING - SCORE: 5-SUP BATHING: Activity did not occur on this shift BATHING - SCORE: 0-UNK DRESSING - UPPER BODY: T-shirt/pullover shirt (four steps) ARTICLES SCORE Total number of steps: 4 DRESSING - UPPER BODY - STEP 1: Does the patient require help from a person or device, or need extra time when dressing above the ene st? Yes. DRESSING - UPPER BODY - STEP 2: Does the patient require the assistance of a helper? Yes. DRESSING - UPPER BODY - STEP 3: Does the helper touch the patient while dressing? Yes. DRESSING - UPPER BODY - STEP 4: How many of the total steps does the patient complete on his/her own? 4 DRESSING - UPPER BODY - SCORE: 4-MIN DRESSING - LOWER BODY: ARTICLES SCORE Total number of steps: 3 DRESSING - LOWER BODY - STEP 1: Does the patient require help from a person or device, or need extra time when dressing below the ene st? Yes. DRESSING - LOWER BODY - STEP 2: Does the patient require the assistance of a helper? Yes. DRESSING - LOWER BODY - STEP 3: Does the helper touch the patient while dressing? Yes. DRESSING - LOWER BODY - STEP 4: How many of the total steps does the patient complete on his/her own? 2 DRESSING - LOWER BODY - SCORE: 3-MOD TOILETING: TOILETING - STEP 1: Does the patient require the assistance of a person or device, or need extra time with toileting? Yes . TOILETING - STEP 2: Does the patient require the assistance of a helper? Yes. TOILETING - STEP 3: How much assistance does the patient require from the helper? Hands-on assistance from the helper TOILETING - STEP 4: Of the 3 tasks: 1) Adjusting clothing prior to use, 2) Cleansing of perineal area, 3) Adjusting clot abebe after use; How many tasks does the patient perform WITHOUT assistance of the helper? Two tasks TOILETING - SCORE: 3-MOD BLADDER MANAGEMENT: BLADDER MANAGEMENT - STEP 1: Does the patient control the bladder completely and intentionally without equipment or devices or med ications, and is always continent? No. BLADDER MANAGEMENT - STEP 2: Does the patient require the assistance of a helper? No, patient only requires medication for control , such as Ditropan, uripas, urecholine, detrol, etc. BLADDER MANAGEMENT - SCORE: 6-NIKOLAS BOWEL MANAGEMENT: Activity did not occur on this shift BOWEL MANAGEMENT - SCORE: 7-IND TRANSFERS: BED, CHAIR, WHEELCHAIR: TRANSFERS: BED, CHAIR, WHEELCHAIR - STEP 1: Does the patient require assistance of a person or device, or need extra time with bed, chair, or whe elchair transfers? Yes. TRANSFERS: BED, CHAIR, WHEELCHAIR - STEP 2: Does the patient require the assistance of a helper? Yes. TRANSFERS: BED, CHAIR, WHEELCHAIR - STEP 3: How much assistance does the patient require from the helper? Steadying/guiding assistance TRANSFERS: BED, CHAIR, WHEELCHAIR - SCORE: 4-MIN TRANSFERS: TOILET: TRANSFERS: TOILET - STEP 1: Does the patient require the assistance of a person or device, or need extra time with toilet transfe rs? Yes. TRANSFERS: TOILET - STEP 2: Does the patient require the assistance of a helper? Yes. TRANSFERS: TOILET - STEP 3: How much assistance does the patient require from the helper? Patient performs half or more of the tr ansferring tasks TRANSFERS: TOILET - STEP 4: Does the patient need only incidental help such as contact guard or steadying during toilet transfer? Yes. TRANSFERS: TOILET - SCORE: 4-MIN TRANSFERS: SHOWER: Activity did not occur on this shift TRANSFERS: SHOWER - SCORE: 0-UNK TRANSFERS: TUB: Activity did not occur on this shift TRANSFERS: TUB - SCORE: 0-UNK LOCOMOTION: WALK: Activity did not occur on this shift LOCOMOTION: WALK - SCORE: 0-UNK LOCOMOTION: WHEELCHAIR: Activity did not occur on this shift LOCOMOTION: WHEELCHAIR - SCORE: 0-UNK COMPREHENSION: COMPREHENSION: TYPE: Both COMPREHENSION - STEP 1: Does the patient require help from a person or device, or need extra time to understand complex and a bstract ideas (such as current events, finances, discharge planning, medical issues, relationships, e tc)? Yes. COMPREHENSION - STEP 2: Does the patient require help to understand questions or statements about basic needs or ideas (such as hunger, thirst, sleep, safety, daily schedule, room location, or discomfort) half or more of the t rogelio? No. COMPREHENSION - STEP 3: How often does the patient need help to understand directions and conversation about basic needs? 10% - 24% of the time COMPREHENSION - SCORE: 4-MIN EXPRESSION EXPRESSION: TYPE: Both EXPRESSION - STEP 1: Does the patient require help from a person or device, or need extra time expressing complex and abst ract ideas (such as current events, finances, discharge planning, medical issues, relationships, etc) ? Yes. EXPRESSION - STEP 2: Does the patient require help to express basic necessities or ideas (such as hunger, thirst, sleep, s afety, daily schedule, room location, or discomfort) half or more of the time? No. EXPRESSION - STEP 3: How often does the patient need help to express directions and conversation about basic needs? Less t pastrana 10% of the time EXPRESSION - SCORE: 5-SUP SOCIAL INTERACTION: SOCIAL INTERACTION - STEP 1: Does the patient require a helper to interact with others in social and therapeutic situations? Yes. SOCIAL INTERACTION - STEP 2: Does the patient interact appropriately half or more of the time? Yes. SOCIAL INTERACTION - STEP 3: How often does the patient need help to interact appropriately? Less than 10% of the time SOCIAL INTERACTION - SCORE: 5-SUP PROBLEM SOLVING: PROBLEM SOLVING - STEP 1: Does the patient need help from a person or device, or need extra time to solve complex problems such as managing a checking account or confronting interpersonal problems? Yes. PROBLEM SOLVING - STEP 2: Does the patient solve basic routine problems half or more of the time? Yes. PROBLEM SOLVING - STEP 3: How often does the patient need help to solve basic routine problems? Less than 10% of the time PROBLEM SOLVING - SCORE: 5-SUP MEMORY: MEMORY - STEP 1: Does the patient need help from a person or device, or need extra time to remember frequently encount ered people, daily routines, and executing requests? Yes. MEMORY - STEP 2: How often does the patient need help to remember frequently encountered people, daily routines, and e xecuting requests? 10% - 24% of the time MEMORY - SCORE: 4-MIN SIGNATURE PANEL: The following modified sections: Eating - Score, Grooming - Score, Bathing - Score, Dressing - Upper Body - Score, Dressing - Lower Body - Score, Toileting - Score, Bladder Management - Score, Bowel Man agement - Score, Transfers: Bed, Chair, Wheelchair - Score, Transfers: Toilet - Score, Transfers: Julianne wer - Score, Transfers: Tub - Score, Locomotion: Walk - Score, Locomotion: Wheelchair - Score, Compre hension - Score, Expression - Score, Social Interaction - Score, Problem Solving - Score, Memory - Sc ore were [electronically] signed by Sav Eduardo on SatFeb 16 2018 12:46:14 GMT-0600 (Central Standard Time)
[2018-02-16] MEDS: MELATONIN 3 MG TABLET PO PRN (20:09)
[2018-02-16] MEDS: DOCUSATE NA/SENNA CONC 1 TAB PO SCH (20:09)
--- NOTE | 2018-02-17 01:23 | FAST ---
SHIFT START DATE/TIME: 02/16/2018 19:00 (BOX TOE CEMENTER) SHIFT END DATE/TIME: 02/17/2018 07:00 (BOX TOE CEMENTER) NAME AKIL BLAKELY DATE OF : 1935 DATE OF ADMISSION: 02/14/2018 16:03 (BOX TOE CEMENTER) PHONE: AGE: 82 SSN# [id number] GENDER: Female ENCOUNTER PHYSICIAN: Dr. Javier Zaldivar M.D. ADMISSION DIAGNOSIS: - Orthopaedic Disorders 08 - Unilateral Hip Fracture (08.11) left femoral neck fracture. EATING: Activity did not occur on this shift EATING - SCORE: 0-UNK GROOMING: Activity did not occur on this shift GROOMING - SCORE: 0-UNK BATHING: Activity did not occur on this shift BATHING - SCORE: 0-UNK DRESSING - UPPER BODY: Patient is not dressing in public clothing ARTICLES SCORE Total number of steps: 0 DRESSING - UPPER BODY - SCORE: 0-UNK DRESSING - LOWER BODY: Patient is not dressing in public clothing ARTICLES SCORE Total number of steps: 0 DRESSING - LOWER BODY - SCORE: 0-UNK TOILETING: TOILETING - STEP 1: Does the patient require the assistance of a person or device, or need extra time with toileting? Yes . TOILETING - STEP 2: Does the patient require the assistance of a helper? Yes. TOILETING - STEP 3: How much assistance does the patient require from the helper? Hands-on assistance from the helper TOILETING - STEP 4: Of the 3 tasks: 1) Adjusting clothing prior to use, 2) Cleansing of perineal area, 3) Adjusting clot abebe after use; How many tasks does the patient perform WITHOUT assistance of the helper? Three tasks with steadying assistance from the helper TOILETING - SCORE: 4-MIN BLADDER MANAGEMENT: BLADDER MANAGEMENT - STEP 1: Does the patient control the bladder completely and intentionally without equipment or devices or med ications, and is always continent? Yes. BLADDER MANAGEMENT - SCORE: 7-IND BOWEL MANAGEMENT: Activity did not occur on this shift BOWEL MANAGEMENT - SCORE: 7-IND TRANSFERS: BED, CHAIR, WHEELCHAIR: TRANSFERS: BED, CHAIR, WHEELCHAIR - STEP 1: Does the patient require assistance of a person or device, or need extra time with bed, chair, or whe elchair transfers? Yes. TRANSFERS: BED, CHAIR, WHEELCHAIR - STEP 2: Does the patient require the assistance of a helper? Yes. TRANSFERS: BED, CHAIR, WHEELCHAIR - STEP 3: How much assistance does the patient require from the helper? Steadying/guiding assistance TRANSFERS: BED, CHAIR, WHEELCHAIR - SCORE: 4-MIN TRANSFERS: TOILET: TRANSFERS: TOILET - STEP 1: Does the patient require the assistance of a person or device, or need extra time with toilet transfe rs? Yes. TRANSFERS: TOILET - STEP 2: Does the patient require the assistance of a helper? Yes. TRANSFERS: TOILET - STEP 3: How much assistance does the patient require from the helper? Only supervision, cuing, coaxing, OR he lp to set out transfer equipment or to lock brakes and/or lift foot rests TRANSFERS: TOILET - SCORE: 5-SUP TRANSFERS: SHOWER: Activity did not occur on this shift TRANSFERS: SHOWER - SCORE: 0-UNK TRANSFERS: TUB: Activity did not occur on this shift TRANSFERS: TUB - SCORE: 0-UNK LOCOMOTION: WALK: Activity did not occur on this shift LOCOMOTION: WALK - SCORE: 0-UNK LOCOMOTION: WHEELCHAIR: Activity did not occur on this shift LOCOMOTION: WHEELCHAIR - SCORE: 0-UNK COMPREHENSION: COMPREHENSION: TYPE: Both COMPREHENSION - STEP 1: Does the patient require help from a person or device, or need extra time to understand complex and a bstract ideas (such as current events, finances, discharge planning, medical issues, relationships, e tc)? Yes. COMPREHENSION - STEP 2: Does the patient require help to understand questions or statements about basic needs or ideas (such as hunger, thirst, sleep, safety, daily schedule, room location, or discomfort) half or more of the t rogelio? No. COMPREHENSION - STEP 3: How often does the patient need help to understand directions and conversation about basic needs? 10% - 24% of the time COMPREHENSION - SCORE: 4-MIN EXPRESSION EXPRESSION: TYPE: Both EXPRESSION - STEP 1: Does the patient require help from a person or device, or need extra time expressing complex and abst ract ideas (such as current events, finances, discharge planning, medical issues, relationships, etc) ? No. EXPRESSION - STEP 2: Does the patient need extra time, require an assistive device (such as augmentive communication syste m or a communication board), OR does s/he have mild difficulty expressing complex and abstract ideas (including mild dysarthria or mild word-find problems)? No. EXPRESSION - SCORE: 7-IND SOCIAL INTERACTION: SOCIAL INTERACTION - STEP 1: Does the patient require a helper to interact with others in social and therapeutic situations? No. SOCIAL INTERACTION - STEP 2: Does the patient need extra time in social situations, OR does s/he interact with staff, other patien ts, and family members ONLY in structured environments, OR does s/he require medication for social in teraction? Yes, patient needs extra time SOCIAL INTERACTION - SCORE: 6-NIKOLAS PROBLEM SOLVING: Patient requires bed/chair alarms due to attempts to get up unassisted when helper is needed. PROBLEM SOLVING - STEP 1: How often do the bed/chair alarms go off? Sometimes - the alarms go off about half the time PROBLEM SOLVING - SCORE: 3-MOD MEMORY: MEMORY - STEP 1: How often do the bed/chair alarms go off? Sometimes - the alarms go off about half the time MEMORY - SCORE: 3-MOD SIGNATURE PANEL: The following modified sections: Eating - Score, Grooming - Score, Dressing - Upper Body - Score, Rich ssing - Lower Body - Score, Toileting - Score, Bladder Management - Score, Bowel Management - Score, Transfers: Bed, Chair, Wheelchair - Score, Transfers: Toilet - Score, Transfers: Shower - Score, Hand sfers: Tub - Score, Locomotion: Walk - Score, Locomotion: Wheelchair - Score, Comprehension - Score, Expression - Score, Social Interaction - Score, Problem Solving - Score, Memory - Score were [electro nically] signed by Loretta Witt CNA on SatFeb 17 2018 01:22:06 GMT-0600 (Central Standard Time)
[2018-02-17] MEDS: LEVOTHYROXINE SOD 0.125 MG TAB PO SCH (05:01)
[2018-02-17] MEDS: ARFORMOTEROL TARTRATE 15 MCG/2 ML VIAL.NEB NEB SCH ×2 (08:00→20:32)
[2018-02-17] MEDS: PROMOD 30 ML DOSE PO SCH ×2 (08:00→20:13)
[2018-02-17] MEDS: POLYETHYL GLY 3350 17 GM/DOSE PO PRN (08:11)
[2018-02-17] MEDS: NICOTINE 21 MG/PAT TD SCH (08:13)
[2018-02-17] MEDS: GABAPENTIN 100 MG CAP PO SCH ×2 (08:14→20:12)
[2018-02-17] MEDS: CRANBERRY FRUIT EXTRACT 200 MG CAP PO SCH ×2 (08:14→20:13)
[2018-02-17] MEDS: CYANOCOBALAMIN 1,000 MCG TAB PO SCH (08:14)
[2018-02-17] MEDS: FERROUS SULFATE 325 MG TAB PO SCH (08:14)
[2018-02-17] MEDS: ESCITALOPRAM 20 MG TAB PO SCH (08:14)
[2018-02-17] MEDS: TRAMADOL HCL 50 MG TAB PO PRN ×3 (08:15→20:14)
[2018-02-17] MEDS: ENOXAPARIN 40 MG/0.4 ML SQ SCH (08:19)
[2018-02-17] MEDS ORDERED: BISACODYL 10 MG RECTAL SUPP PR PRN (12:51)
[2018-02-17] MEDS: guaiFENesin 100 MG/5 ML UCUP PO PRN (12:57)
--- NOTE | 2018-02-17 14:01 | FAST ---
ENCOUNTER DATE AND TIME: 02/17/2018 08:00 (SMALL LOT OPERATOR) NAME AKIL BLAKELY DATE OF : 1935 DATE OF ADMISSION: 02/14/2018 16:03 (SMALL LOT OPERATOR) PHONE: AGE: 82 N# [id number] GENDER: Female ENCOUNTER PHYSICIAN: Dr. Javier Zaldivar M.D. ADMISSION DIAGNOSIS: - Orthopaedic Disorders 08 - Unilateral Hip Fracture (08.11) left femoral neck fracture. EATING: Activity did not occur on this shift EATING - SCORE: 0-UNK GROOMING: Activity did not occur on this shift GROOMING - SCORE: 0-UNK BATHING: Activity did not occur on this shift BATHING - SCORE: 0-UNK DRESSING - UPPER BODY: Activity did not occur on this shift Patient is not dressing in public clothing ARTICLES SCORE Total number of steps: 0 DRESSING - UPPER BODY - SCORE: 0-UNK DRESSING - LOWER BODY: Activity did not occur on this shift Patient is not dressing in public clothing ARTICLES SCORE Total number of steps: 0 DRESSING - LOWER BODY - SCORE: 0-UNK TOILETING: Activity did not occur on this shift TOILETING - SCORE: 0-UNK BLADDER MANAGEMENT: Activity did not occur on this shift BLADDER MANAGEMENT - SCORE: 7-IND BOWEL MANAGEMENT: Activity did not occur on this shift BOWEL MANAGEMENT - SCORE: 7-IND TRANSFERS: BED, CHAIR, WHEELCHAIR: TRANSFERS: BED, CHAIR, WHEELCHAIR - STEP 1: Does the patient require assistance of a person or device, or need extra time with bed, chair, or whe elchair transfers? Yes. TRANSFERS: BED, CHAIR, WHEELCHAIR - STEP 2: Does the patient require the assistance of a helper? Yes. TRANSFERS: BED, CHAIR, WHEELCHAIR - STEP 3: How much assistance does the patient require from the helper? Lifting of the patient TRANSFERS: BED, CHAIR, WHEELCHAIR - STEP 4: Does the helper lift the patient ONLY up? ONLY down? Up AND Down? ONLY up. TRANSFERS: BED, CHAIR, WHEELCHAIR - SCORE: 3-MOD TRANSFERS: TOILET: Activity did not occur on this shift TRANSFERS: TOILET - SCORE: 0-UNK TRANSFERS: SHOWER: Activity did not occur on this shift TRANSFERS: SHOWER - SCORE: 0-UNK TRANSFERS: TUB: Activity did not occur on this shift TRANSFERS: TUB - SCORE: 0-UNK LOCOMOTION: WALK: LOCOMOTION: WALK - STEP 1: Does the patient need help from a person or device, or need extra time to walk 150 feet? Yes. LOCOMOTION: WALK - STEP 2: How much assistance does the patient require to walk a minimum of 150 feet? Patient walks less than 1 50 feet - but more than 50 feet - with the assistance of only one helper LOCOMOTION: WALK - SCORE: 2-MAX LOCOMOTION: WHEELCHAIR: Activity did not occur on this shift LOCOMOTION: WHEELCHAIR - SCORE: 0-UNK LOCOMOTION: STAIRS: Activity did not occur on this shift LOCOMOTION: STAIRS - SCORE: 0-UNK COMPREHENSION: COMPREHENSION - SCORE: 0-UNK EXPRESSION EXPRESSION - SCORE: 0-UNK SOCIAL INTERACTION: SOCIAL INTERACTION - SCORE: 0-UNK PROBLEM SOLVING: PROBLEM SOLVING - SCORE: 0-UNK MEMORY: MEMORY - SCORE: 0-UNK SIGNATURE PANEL: The following modified sections: Transfers: Bed, Chair, Wheelchair - Score, Transfers: Toilet - Score , Locomotion: Walk - Score, Locomotion: Wheelchair - Score, Locomotion: Stairs - Score were [roosevelt carter] signed by Enrico Valentine PT on SatFeb 17 2018 14:01:05 GMT-0600 (Central Standard Time)
--- NOTE | 2018-02-17 14:10 | FAST ---
SHIFT START DATE/TIME: 02/17/2018 07:00 (TAX SERVICES MANAGER) SHIFT END DATE/TIME: 02/17/2018 19:00 (TAX SERVICES MANAGER) NAME AKIL BLAKELY DATE OF : 1935 DATE OF ADMISSION: 02/14/2018 16:03 (TAX SERVICES MANAGER) PHONE: AGE: 82 N# [id number] GENDER: Female ENCOUNTER PHYSICIAN: Dr. Javier Zaldivar M.D. ADMISSION DIAGNOSIS: - Orthopaedic Disorders 08 - Unilateral Hip Fracture (08.11) left femoral neck fracture. EATING: EATING - STEP 1: Does the patient require the assistance of a person or device, or need extra time when eating? Yes. EATING - STEP 2: Does the patient require the assistance of a helper? Yes. EATING - STEP 3: Does the patient perform half or more of the eating tasks? Yes. EATING - STEP 4: Does the patient need only supervision, cuing, coaxing OR help to apply an orthosis OR help to cut fo od, open containers, pour liquids, or butter bread? Yes. EATING - SCORE: 5-SUP GROOMING: Comb/brush hair Oral care Wash, rinse, and dry face GROOMING - STEP 1: Does the patient require the assistance of a person or device, or need extra time when grooming? Yes. GROOMING - STEP 2: Does the patient require the assistance of a helper? Yes. GROOMING - STEP 3: How much assistance does the patient require from the helper? Only prior equipment preparation/set up from the helper GROOMING - SCORE: 5-SUP BATHING: Activity did not occur on this shift BATHING - SCORE: 0-UNK DRESSING - UPPER BODY: T-shirt/pullover shirt (four steps) ARTICLES SCORE Total number of steps: 4 DRESSING - UPPER BODY - STEP 1: Does the patient require help from a person or device, or need extra time when dressing above the ene st? Yes. DRESSING - UPPER BODY - STEP 2: Does the patient require the assistance of a helper? Yes. DRESSING - UPPER BODY - STEP 3: Does the helper touch the patient while dressing? Yes. DRESSING - UPPER BODY - STEP 4: How many of the total steps does the patient complete on his/her own? 4 DRESSING - UPPER BODY - SCORE: 4-MIN DRESSING - LOWER BODY: Elastic waist pants (three steps) ARTICLES SCORE Total number of steps: 3 DRESSING - LOWER BODY - STEP 1: Does the patient require help from a person or device, or need extra time when dressing below the ene st? Yes. DRESSING - LOWER BODY - STEP 2: Does the patient require the assistance of a helper? Yes. DRESSING - LOWER BODY - STEP 3: Does the helper touch the patient while dressing? Yes. DRESSING - LOWER BODY - STEP 4: How many of the total steps does the patient complete on his/her own? 2 DRESSING - LOWER BODY - SCORE: 3-MOD TOILETING: TOILETING - STEP 1: Does the patient require the assistance of a person or device, or need extra time with toileting? Yes . TOILETING - STEP 2: Does the patient require the assistance of a helper? Yes. TOILETING - STEP 3: How much assistance does the patient require from the helper? Hands-on assistance from the helper TOILETING - STEP 4: Of the 3 tasks: 1) Adjusting clothing prior to use, 2) Cleansing of perineal area, 3) Adjusting clot abebe after use; How many tasks does the patient perform WITHOUT assistance of the helper? Two tasks TOILETING - SCORE: 3-MOD BLADDER MANAGEMENT: BLADDER MANAGEMENT - STEP 1: Does the patient control the bladder completely and intentionally without equipment or devices or med ications, and is always continent? No. BLADDER MANAGEMENT - STEP 2: Does the patient require the assistance of a helper? No, patient only requires extra time BLADDER MANAGEMENT - SCORE: 6-NIKOLAS BLADDER MANAGEMENT - FREQUENCY OF ACCIDENTS: BLADDER MANAGEMENT(FA) - STEP 1: How many accidents has the patient had during the current shift? 0 BOWEL MANAGEMENT: Activity did not occur on this shift BOWEL MANAGEMENT - SCORE: 7-IND BOWEL MANAGEMENT - FREQUENCY OF ACCIDENTS: BOWEL MANAGEMENT(FA) - STEP 1: How many accidents has the patient had during the current shift? 0 TRANSFERS: BED, CHAIR, WHEELCHAIR: TRANSFERS: BED, CHAIR, WHEELCHAIR - STEP 1: Does the patient require assistance of a person or device, or need extra time with bed, chair, or whe elchair transfers? Yes. TRANSFERS: BED, CHAIR, WHEELCHAIR - STEP 2: Does the patient require the assistance of a helper? Yes. TRANSFERS: BED, CHAIR, WHEELCHAIR - STEP 3: How much assistance does the patient require from the helper? Steadying/guiding assistance TRANSFERS: BED, CHAIR, WHEELCHAIR - SCORE: 4-MIN TRANSFERS: TOILET: TRANSFERS: TOILET - STEP 1: Does the patient require the assistance of a person or device, or need extra time with toilet transfe rs? Yes. TRANSFERS: TOILET - STEP 2: Does the patient require the assistance of a helper? Yes. TRANSFERS: TOILET - STEP 3: How much assistance does the patient require from the helper? Patient performs half or more of the tr ansferring tasks TRANSFERS: TOILET - STEP 4: Does the patient need only incidental help such as contact guard or steadying during toilet transfer? Yes. TRANSFERS: TOILET - SCORE: 4-MIN TRANSFERS: SHOWER: Activity did not occur on this shift TRANSFERS: SHOWER - SCORE: 0-UNK TRANSFERS: TUB: Activity did not occur on this shift TRANSFERS: TUB - SCORE: 0-UNK LOCOMOTION: WALK: Activity did not occur on this shift LOCOMOTION: WALK - SCORE: 0-UNK LOCOMOTION: WHEELCHAIR: Activity did not occur on this shift LOCOMOTION: WHEELCHAIR - SCORE: 0-UNK COMPREHENSION: COMPREHENSION: TYPE: Both COMPREHENSION - STEP 1: Does the patient require help from a person or device, or need extra time to understand complex and a bstract ideas (such as current events, finances, discharge planning, medical issues, relationships, e tc)? Yes. COMPREHENSION - STEP 2: Does the patient require help to understand questions or statements about basic needs or ideas (such as hunger, thirst, sleep, safety, daily schedule, room location, or discomfort) half or more of the t rogelio? No. COMPREHENSION - STEP 3: How often does the patient need help to understand directions and conversation about basic needs? Les s than 10% of the time COMPREHENSION - SCORE: 5-SUP EXPRESSION EXPRESSION: TYPE: Both EXPRESSION - STEP 1: Does the patient require help from a person or device, or need extra time expressing complex and abst ract ideas (such as current events, finances, discharge planning, medical issues, relationships, etc) ? Yes. EXPRESSION - STEP 2: Does the patient require help to express basic necessities or ideas (such as hunger, thirst, sleep, s afety, daily schedule, room location, or discomfort) half or more of the time? No. EXPRESSION - STEP 3: How often does the patient need help to express directions and conversation about basic needs? Less t pastrana 10% of the time EXPRESSION - SCORE: 5-SUP SOCIAL INTERACTION: SOCIAL INTERACTION - STEP 1: Does the patient require a helper to interact with others in social and therapeutic situations? Yes. SOCIAL INTERACTION - STEP 2: Does the patient interact appropriately half or more of the time? Yes. SOCIAL INTERACTION - STEP 3: How often does the patient need help to interact appropriately? Less than 10% of the time SOCIAL INTERACTION - SCORE: 5-SUP PROBLEM SOLVING: PROBLEM SOLVING - STEP 1: Does the patient need help from a person or device, or need extra time to solve complex problems such as managing a checking account or confronting interpersonal problems? Yes. PROBLEM SOLVING - STEP 2: Does the patient solve basic routine problems half or more of the time? Yes. PROBLEM SOLVING - STEP 3: How often does the patient need help to solve basic routine problems? Less than 10% of the time PROBLEM SOLVING - SCORE: 5-SUP MEMORY: MEMORY - STEP 1: Does the patient need help from a person or device, or need extra time to remember frequently encount ered people, daily routines, and executing requests? Yes. MEMORY - STEP 2: How often does the patient need help to remember frequently encountered people, daily routines, and e xecuting requests? Less than 10% of the time MEMORY - SCORE: 5-SUP SIGNATURE PANEL: The following modified sections: Eating - Score, Grooming - Score, Bathing - Score, Dressing - Upper Body - Score, Dressing - Lower Body - Score, Toileting - Score, Bladder Management - Score, Bowel Man agement - Score, Transfers: Bed, Chair, Wheelchair - Score, Transfers: Toilet - Score, Transfers: Julianne wer - Score, Transfers: Tub - Score, Locomotion: Walk - Score, Locomotion: Wheelchair - Score, Compre hension - Score, Expression - Score, Social Interaction - Score, Problem Solving - Score, Memory - Sc ore were [electronically] signed by Jesusita FletcherNRoxann on SatFeb 17 2018 14:09:18 GMT-0600 ([facility] Standard Time)
--- NOTE | 2018-02-17 18:08 | R.PN ---
ENCOUNTER DATE AND TIME: 02/17/2018 18:04 (SUPERVISING LIBRARIAN) NAME AKIL BLAKELY DATE OF : 1935 DATE OF ADMISSION: 02/14/2018 16:03 (SUPERVISING LIBRARIAN) left femoral neck fractureCHIEF COMPLAINT: Left hip fracture SUBJECTIVE: Pt denied any depression. Pt denied any Shortness of Breath. Activities of daily living was done with minimal assistance to independence. Ambulated 270' with cont act guard assistance using a rolling walker. VITAL SIGNS Temperature: 97.6 F SBP/DBP: 104/66 Pulse: 82 Resp: 16 MEDICATION ALLERGIES: No Known Drug Allergies (NKDA) ENVIRONMENTAL ALLERGIES: - Substance Allergies None Known - Other Allergies None Known NURSING: - Shower allowing shower - Skin care per protocol PRECAUTIONS: - Posterior Hip Precaution No adduction across midline No external rotation No hip flexion >90 degrees No internal rotation No wheel chair propulsion - Weight Bearing Precaution TTWB left LE ACTIVITIES OOB only with supervision THERAPIES: - Occupational Therapy Evaluate and Treat. - Physical Therapy Evaluate and Treat. PHYSICAL EXAM - Gen Alert and awake Lying in bed No apparent distress Oriented to: person, time, and place - Skin No skin breakdown. Normacephalic - Eyes No abnormalities - ENMT No abnormalities - Neck No abnormalities - CVS RRR - Chest No abnormalities - Resp Clear to auscultation - Abd Soft - GI nondistended Deferred - No abnormalities - Ext Mild left lower extremity edema. - MSK 4+/5 weakness in left lower extremity - Neuro 4/5 strength left lower extremity. - Psych No abnormalities ASSESSMENT: Pt. is a 82 yo Right-handed white female.On 02/12/2018 she was admitted to [facility] and underwent emergency surgery for left femoral neck fracture (closed reduction and percutane ous screw fixation of left femoral neck fracture) by Chetan Prince.Pre-morbidly, Pt. was independent/m od-I in Self-Care, Sphincter Control, Transfers Control, Communication, Social Cognition, and Locomot ion; and she had good Sphincter Control.Currently, she has deficits of Endurance, Safety Awareness, T ransfers Control, Communication, Social Cognition, Balance, Locomotion, and Self-Care.Pt. is now refe rred to [facility] for acute in-patient rehabilitation in order to maximize harvey erwin's functional independence in activities of daily living, strength, ROM, and mobility.- Rehab Go al Patient has realistic goal of being discharged at assistance level 3-modA to reside at Home with Fam mecca/Relatives. MDM/PLAN: - Physical Therapy Decreased range of motion - to improve, our physical therapists will perform initial evaluation of p t's status upon admission and devise an individualized program for increasing patient's Range of Renny on. Gait dysfunction - to improve, our physical therapists will perform initial evaluation of pt's statu s upon admission and devise an individualized program for Gait Training, and Wheel Chair mobility Inability to transfer - to improve, our physical therapists will perform initial evaluation of pt's status upon admission and devise an individualized program for Bed mobility Need for home safety evaluation - to improve, our physical therapists will perform initial evaluatio n of pt's status upon admission and devise an individualized program for Home Evaluation Need in caregiver upon discharge - to improve, our physical therapists will perform initial evaluati on of pt's status upon admission and devise an individualized program for Caregiver Training New precaution - to improve, our physical therapists will perform initial evaluation of pt's status upon admission and devise an individualized program for Patient precaution education Edema - to improve, our physical therapists will perform initial evaluation of pt's status upon admis corona and devise an individualized program for Elevation Training, and Lymphedema Therapy Poor balance - to improve, our physical therapists will perform initial evaluation of pt's status up on admission and devise an individualized program for Balance Training Poor endurance - to improve, our physical therapists will perform initial evaluation of pt's status upon admission and devise an individualized program for Endurance Training Weakness - to improve, our physical therapists will perform initial evaluation of pt's status upon a dmission and devise an individualized program for Aquatic Therapy, Neuromuscular Reeducation, and Str engthening Achieving independence - to improve, our physical therapists will perform initial evaluation of pt's status upon admission and devise an individualized program for Community Reintegration Activities - Occupational Therapy ADL deficits - to improve, our occupation therapists will perform initial evaluation of pt's status upon admission and devise an individualized program for Bathing, Bed mobility, Community Reintegratio n, Cooking, Dressing, Eating, Fine Motor Skills, Grooming, Homemaking, Kitchen Mobility, Laundry, Pat ient Education, Safety Awareness, Splinting - Positioning, Transfers(Toilet, Tub, Shower), and Wheel Chair Management Cognitive deficits - to improve, our occupation therapists will perform initial evaluation of pt's s tatus upon admission and devise an individualized program for Cognition - orientation Need for career services director - to improve, our occupation therapists will perform initial evaluation of pt's status upon admission and devise an individualized program for Caregiver Training Weakness - to improve, our occupation therapists will perform initial evaluation of pt's status upon admission and devise an individualized program for Aquatic Therapy, Balance, Endurance, UE ROM, and UE strengthening - Anterior Hip Precaution No abduction No active extension No adduction across midline No external rotation No hip flexion >90 degrees No internal rotation - Diet - Liquid Texture Continue Regular - Tube Feed Continue N/A - Diet Type Continue Regular - Posterior Hip Precaution No adduction across midline No external rotation No hip flexion >90 degrees No internal rotation No wheel chair propulsion - Weight Bearing Precaution TTWB left LE - Skin care per protocol - Diet - Solid Texture Continue Regular - Shower allowing shower FUNCTIONAL STATUS: UPDATED AT WEEKLY TEAM CONFERENCE - Bladder Same accident frequency: 7-Ind - No accidents in the past 7 days - Bowel Same accident frequency: 7-Ind - No accidents in the past 7 days - Walking Same score based on distance walked: 1(<=50ft) FUNCTIONAL STATUS: - Self-Care A. Eating Ind B. Grooming Ind C. Bathing Ind D. Dressing - Upper Ind E. Dressing - Lower modA F. Toileting modA - Sphincter Control G: Bladder control Ind H: Bowel control Ind - Transfers Control I. Bed/Chair/Wheelchair modA J. Toilet modA K. Tub/Shower modA - Locomotion L. Walk/Wheelchair (B) modA M. Stairs ADNO - Communication N. Comprehension (B) sup O. Expression (B) sup - Social Cognition P. Social Interaction sup Q. Problem Solving sup R. Memory sup - Endurance Poor - Balance Poor - Safety Awareness Poor CURRENT FUNC. DEFICITS: Endurance, Safety Awareness, Transfers Control, Communication, Social Cognition, Balance, Locomotion, and Self-Care SIGNATURE PANEL: ([facility])
[2018-02-17] MEDS: DOCUSATE NA/SENNA CONC 1 TAB PO SCH (20:13)
[2018-02-17] MEDS: IPRATROPIUM BROM 0.5MG/2.5ML NEB PRN ×2 (20:32→21:23)
--- NOTE | 2018-02-18 01:01 | FAST ---
SHIFT START DATE/TIME: 02/17/2018 19:00 (BILLING COORDINATOR) SHIFT END DATE/TIME: 02/18/2018 07:00 (BILLING COORDINATOR) NAME AKIL BLAKELY DATE OF : 1935 DATE OF ADMISSION: 02/14/2018 16:03 (BILLING COORDINATOR) PHONE: AGE: 82 SSN# [id number] GENDER: Female ENCOUNTER PHYSICIAN: Dr. Javier Zaldivar M.D. ADMISSION DIAGNOSIS: - Orthopaedic Disorders 08 - Unilateral Hip Fracture (08.11) left femoral neck fracture. EATING: Activity did not occur on this shift EATING - SCORE: 0-UNK GROOMING: Activity did not occur on this shift GROOMING - SCORE: 0-UNK BATHING: Activity did not occur on this shift BATHING - SCORE: 0-UNK DRESSING - UPPER BODY: Patient is not dressing in public clothing ARTICLES SCORE Total number of steps: 0 DRESSING - UPPER BODY - SCORE: 0-UNK DRESSING - LOWER BODY: Patient is not dressing in public clothing ARTICLES SCORE Total number of steps: 0 DRESSING - LOWER BODY - SCORE: 0-UNK TOILETING: TOILETING - STEP 1: Does the patient require the assistance of a person or device, or need extra time with toileting? Yes . TOILETING - STEP 2: Does the patient require the assistance of a helper? Yes. TOILETING - STEP 3: How much assistance does the patient require from the helper? Hands-on assistance from the helper TOILETING - STEP 4: Of the 3 tasks: 1) Adjusting clothing prior to use, 2) Cleansing of perineal area, 3) Adjusting clot abebe after use; How many tasks does the patient perform WITHOUT assistance of the helper? Three tasks with steadying assistance from the helper TOILETING - SCORE: 4-MIN BLADDER MANAGEMENT: BLADDER MANAGEMENT - STEP 1: Does the patient control the bladder completely and intentionally without equipment or devices or med ications, and is always continent? Yes. BLADDER MANAGEMENT - SCORE: 7-IND BOWEL MANAGEMENT: Activity did not occur on this shift BOWEL MANAGEMENT - SCORE: 7-IND TRANSFERS: BED, CHAIR, WHEELCHAIR: TRANSFERS: BED, CHAIR, WHEELCHAIR - STEP 1: Does the patient require assistance of a person or device, or need extra time with bed, chair, or whe elchair transfers? Yes. TRANSFERS: BED, CHAIR, WHEELCHAIR - STEP 2: Does the patient require the assistance of a helper? Yes. TRANSFERS: BED, CHAIR, WHEELCHAIR - STEP 3: How much assistance does the patient require from the helper? Steadying/guiding assistance TRANSFERS: BED, CHAIR, WHEELCHAIR - SCORE: 4-MIN TRANSFERS: TOILET: TRANSFERS: TOILET - STEP 1: Does the patient require the assistance of a person or device, or need extra time with toilet transfe rs? Yes. TRANSFERS: TOILET - STEP 2: Does the patient require the assistance of a helper? Yes. TRANSFERS: TOILET - STEP 3: How much assistance does the patient require from the helper? Only supervision, cuing, coaxing, OR he lp to set out transfer equipment or to lock brakes and/or lift foot rests TRANSFERS: TOILET - SCORE: 5-SUP TRANSFERS: SHOWER: Activity did not occur on this shift TRANSFERS: SHOWER - SCORE: 0-UNK TRANSFERS: TUB: Activity did not occur on this shift TRANSFERS: TUB - SCORE: 0-UNK LOCOMOTION: WALK: Activity did not occur on this shift LOCOMOTION: WALK - SCORE: 0-UNK LOCOMOTION: WHEELCHAIR: Activity did not occur on this shift LOCOMOTION: WHEELCHAIR - SCORE: 0-UNK COMPREHENSION: COMPREHENSION: TYPE: Both COMPREHENSION - STEP 1: Does the patient require help from a person or device, or need extra time to understand complex and a bstract ideas (such as current events, finances, discharge planning, medical issues, relationships, e tc)? No. COMPREHENSION - STEP 2: Does the patient need extra time, require an assistive device (such as glasses for visual comprehensi on or a hearing aid for auditory comprehension) or does s/he have mild difficulty understanding compl ex and abstract information? Yes. COMPREHENSION - SCORE: 6-NIKOLAS EXPRESSION EXPRESSION: TYPE: Both EXPRESSION - STEP 1: Does the patient require help from a person or device, or need extra time expressing complex and abst ract ideas (such as current events, finances, discharge planning, medical issues, relationships, etc) ? No. EXPRESSION - STEP 2: Does the patient need extra time, require an assistive device (such as augmentive communication syste m or a communication board), OR does s/he have mild difficulty expressing complex and abstract ideas (including mild dysarthria or mild word-find problems)? Yes. EXPRESSION - SCORE: 6-NIKOLAS SOCIAL INTERACTION: SOCIAL INTERACTION - STEP 1: Does the patient require a helper to interact with others in social and therapeutic situations? No. SOCIAL INTERACTION - STEP 2: Does the patient need extra time in social situations, OR does s/he interact with staff, other patien ts, and family members ONLY in structured environments, OR does s/he require medication for social in teraction? Yes, patient needs extra time SOCIAL INTERACTION - SCORE: 6-NIKOLAS PROBLEM SOLVING: PROBLEM SOLVING - STEP 1: Does the patient need help from a person or device, or need extra time to solve complex problems such as managing a checking account or confronting interpersonal problems? Yes. PROBLEM SOLVING - STEP 2: Does the patient solve basic routine problems half or more of the time? Yes. PROBLEM SOLVING - STEP 3: How often does the patient need help to solve basic routine problems? 10%-24% of the time PROBLEM SOLVING - SCORE: 4-MIN MEMORY: MEMORY - STEP 1: Does the patient need help from a person or device, or need extra time to remember frequently encount ered people, daily routines, and executing requests? No. MEMORY - STEP 2: Does the patient have slight difficulty recognizing frequently encountered people, daily routines, or executing requests without the need for repetition or using self-initiated or environmental cues to remember? Yes. MEMORY - SCORE: 6-NIKOLAS SIGNATURE PANEL: The following modified sections: Eating - Score, Grooming - Score, Dressing - Upper Body - Score, Rich ssing - Lower Body - Score, Toileting - Score, Bladder Management - Score, Bowel Management - Score, Transfers: Bed, Chair, Wheelchair - Score, Transfers: Toilet - Score, Transfers: Shower - Score, Hand sfers: Tub - Score, Locomotion: Walk - Score, Locomotion: Wheelchair - Score, Comprehension - Score, Expression - Score, Social Interaction - Score, Problem Solving - Score, Memory - Score were [electro nically] signed by Loretta Witt CNA on SatFeb 18 2018 01:00:30 GMT-0600 (Central Standard Time)
[2018-02-18] MEDS: LEVOTHYROXINE SOD 0.125 MG TAB PO SCH (05:09)
[2018-02-18] MEDS: NYSTATIN PWDR 100000 UNIT/GM TOP PRN (07:00)
[2018-02-18] MEDS: ENOXAPARIN 40 MG/0.4 ML SQ SCH (07:00)
[2018-02-18] MEDS: NICOTINE 21 MG/PAT TD SCH (07:01)
[2018-02-18] MEDS: CRANBERRY FRUIT EXTRACT 200 MG CAP PO SCH ×2 (08:15→20:51)
[2018-02-18] MEDS: FERROUS SULFATE 325 MG TAB PO SCH (08:16)
[2018-02-18] MEDS: GABAPENTIN 100 MG CAP PO SCH ×2 (08:16→20:49)
[2018-02-18] MEDS: HYDROCODONE/APAP 7.5/325 MG TAB PO PRN (08:17)
[2018-02-18] MEDS: PROMOD 30 ML DOSE PO SCH ×2 (08:17→20:51)
[2018-02-18] MEDS: CYANOCOBALAMIN 1,000 MCG TAB PO SCH (08:17)
[2018-02-18] MEDS: ESCITALOPRAM 20 MG TAB PO SCH (08:17)
[2018-02-18] MEDS: ARFORMOTEROL TARTRATE 15 MCG/2 ML VIAL.NEB NEB SCH ×2 (08:50→19:40)
--- NOTE | 2018-02-18 10:28 | FAST ---
ENCOUNTER DATE AND TIME: 02/18/2018 08:00 (HUMAN RESOURCE ADVISOR) NAME AKIL BLAKELY DATE OF : 1935 DATE OF ADMISSION: 02/14/2018 16:03 (HUMAN RESOURCE ADVISOR) PHONE: AGE: 82 N# [id number] GENDER: Female ENCOUNTER PHYSICIAN: Dr. Javier Zaldivar M.D. ADMISSION DIAGNOSIS: - Orthopaedic Disorders 08 - Unilateral Hip Fracture (08.11) left femoral neck fracture. EATING: Activity did not occur on this shift EATING - SCORE: 0-UNK GROOMING: Activity did not occur on this shift GROOMING - SCORE: 0-UNK BATHING: Activity did not occur on this shift BATHING - SCORE: 0-UNK DRESSING - UPPER BODY: Activity did not occur on this shift Patient is not dressing in public clothing ARTICLES SCORE Total number of steps: 0 DRESSING - UPPER BODY - SCORE: 0-UNK DRESSING - LOWER BODY: Activity did not occur on this shift Patient is not dressing in public clothing ARTICLES SCORE Total number of steps: 0 DRESSING - LOWER BODY - SCORE: 0-UNK TOILETING: Activity did not occur on this shift TOILETING - SCORE: 0-UNK BLADDER MANAGEMENT: Activity did not occur on this shift BLADDER MANAGEMENT - SCORE: 7-IND BOWEL MANAGEMENT: Activity did not occur on this shift BOWEL MANAGEMENT - SCORE: 7-IND TRANSFERS: BED, CHAIR, WHEELCHAIR: TRANSFERS: BED, CHAIR, WHEELCHAIR - STEP 1: Does the patient require assistance of a person or device, or need extra time with bed, chair, or whe elchair transfers? Yes. TRANSFERS: BED, CHAIR, WHEELCHAIR - STEP 2: Does the patient require the assistance of a helper? Yes. TRANSFERS: BED, CHAIR, WHEELCHAIR - STEP 3: How much assistance does the patient require from the helper? Steadying/guiding assistance TRANSFERS: BED, CHAIR, WHEELCHAIR - SCORE: 4-MIN TRANSFERS: TOILET: Activity did not occur on this shift TRANSFERS: TOILET - SCORE: 0-UNK TRANSFERS: SHOWER: Activity did not occur on this shift TRANSFERS: SHOWER - SCORE: 0-UNK TRANSFERS: TUB: Activity did not occur on this shift TRANSFERS: TUB - SCORE: 0-UNK LOCOMOTION: WALK: LOCOMOTION: WALK - STEP 1: Does the patient need help from a person or device, or need extra time to walk 150 feet? Yes. LOCOMOTION: WALK - STEP 2: How much assistance does the patient require to walk a minimum of 150 feet? Patient walks less than 1 50 feet - but more than 50 feet - with the assistance of only one helper LOCOMOTION: WALK - SCORE: 2-MAX LOCOMOTION: WHEELCHAIR: Activity did not occur on this shift LOCOMOTION: WHEELCHAIR - SCORE: 0-UNK LOCOMOTION: STAIRS: Activity did not occur on this shift LOCOMOTION: STAIRS - SCORE: 0-UNK COMPREHENSION: COMPREHENSION - SCORE: 0-UNK EXPRESSION EXPRESSION - SCORE: 0-UNK SOCIAL INTERACTION: SOCIAL INTERACTION - SCORE: 0-UNK PROBLEM SOLVING: PROBLEM SOLVING - SCORE: 0-UNK MEMORY: MEMORY - SCORE: 0-UNK SIGNATURE PANEL: The following modified sections: Transfers: Bed, Chair, Wheelchair - Score, Transfers: Toilet - Score , Locomotion: Walk - Score, Locomotion: Wheelchair - Score, Locomotion: Stairs - Score were [electron ically] signed by Enrico Valentine PT on SatFeb 18 2018 10:27:21 T-0600 (Central Standard Time)
--- NOTE | 2018-02-18 14:33 | FAST ---
SHIFT START DATE/TIME: 02/18/2018 07:00 (MARKET SURVEY REPRESENTATIVE) SHIFT END DATE/TIME: 02/18/2018 19:00 (MARKET SURVEY REPRESENTATIVE) NAME AKIL BLAKELY DATE OF : 1935 DATE OF ADMISSION: 02/14/2018 16:03 (MARKET SURVEY REPRESENTATIVE) PHONE: AGE: 82 N# [id number] GENDER: Female ENCOUNTER PHYSICIAN: Dr. Javier Zaldivar M.D. ADMISSION DIAGNOSIS: - Orthopaedic Disorders 08 - Unilateral Hip Fracture (08.11) left femoral neck fracture. EATING: EATING - STEP 1: Does the patient require the assistance of a person or device, or need extra time when eating? Yes. EATING - STEP 2: Does the patient require the assistance of a helper? Yes. EATING - STEP 3: Does the patient perform half or more of the eating tasks? Yes. EATING - STEP 4: Does the patient need only supervision, cuing, coaxing OR help to apply an orthosis OR help to cut fo od, open containers, pour liquids, or butter bread? Yes. EATING - SCORE: 5-SUP GROOMING: Oral care Wash, rinse, and dry face Wash, rinse, and dry hands GROOMING - STEP 1: Does the patient require the assistance of a person or device, or need extra time when grooming? Yes. GROOMING - STEP 2: Does the patient require the assistance of a helper? Yes. GROOMING - STEP 3: How much assistance does the patient require from the helper? Only prior equipment preparation/set up from the helper GROOMING - SCORE: 5-SUP BATHING: Activity did not occur on this shift BATHING - SCORE: 0-UNK DRESSING - UPPER BODY: T-shirt/pullover shirt (four steps) ARTICLES SCORE Total number of steps: 4 DRESSING - UPPER BODY - STEP 1: Does the patient require help from a person or device, or need extra time when dressing above the ene st? Yes. DRESSING - UPPER BODY - STEP 2: Does the patient require the assistance of a helper? Yes. DRESSING - UPPER BODY - STEP 3: Does the helper touch the patient while dressing? Yes. DRESSING - UPPER BODY - STEP 4: How many of the total steps does the patient complete on his/her own? 4 DRESSING - UPPER BODY - SCORE: 4-MIN DRESSING - LOWER BODY: Elastic waist pants (three steps) Slip-on shoe - Left foot (one step) Slip-on shoe - Right foot (one step) ARTICLES SCORE Total number of steps: 5 DRESSING - LOWER BODY - STEP 1: Does the patient require help from a person or device, or need extra time when dressing below the ene st? Yes. DRESSING - LOWER BODY - STEP 2: Does the patient require the assistance of a helper? Yes. DRESSING - LOWER BODY - STEP 3: Does the helper touch the patient while dressing? Yes. DRESSING - LOWER BODY - STEP 4: How many of the total steps does the patient complete on his/her own? 3 DRESSING - LOWER BODY - SCORE: 3-MOD TOILETING: TOILETING - STEP 1: Does the patient require the assistance of a person or device, or need extra time with toileting? Yes . TOILETING - STEP 2: Does the patient require the assistance of a helper? Yes. TOILETING - STEP 3: How much assistance does the patient require from the helper? Hands-on assistance from the helper TOILETING - STEP 4: Of the 3 tasks: 1) Adjusting clothing prior to use, 2) Cleansing of perineal area, 3) Adjusting clot abebe after use; How many tasks does the patient perform WITHOUT assistance of the helper? Two tasks TOILETING - SCORE: 3-MOD BLADDER MANAGEMENT: BLADDER MANAGEMENT - STEP 1: Does the patient control the bladder completely and intentionally without equipment or devices or med ications, and is always continent? No. BLADDER MANAGEMENT - STEP 2: Does the patient require the assistance of a helper? No, patient only requires extra time BLADDER MANAGEMENT - SCORE: 6-NIKOLAS BLADDER MANAGEMENT - FREQUENCY OF ACCIDENTS: BLADDER MANAGEMENT(FA) - STEP 1: How many accidents has the patient had during the current shift? 0 BOWEL MANAGEMENT: Activity did not occur on this shift BOWEL MANAGEMENT - SCORE: 7-IND TRANSFERS: BED, CHAIR, WHEELCHAIR: TRANSFERS: BED, CHAIR, WHEELCHAIR - STEP 1: Does the patient require assistance of a person or device, or need extra time with bed, chair, or whe elchair transfers? Yes. TRANSFERS: BED, CHAIR, WHEELCHAIR - STEP 2: Does the patient require the assistance of a helper? Yes. TRANSFERS: BED, CHAIR, WHEELCHAIR - STEP 3: How much assistance does the patient require from the helper? Steadying/guiding assistance TRANSFERS: BED, CHAIR, WHEELCHAIR - SCORE: 4-MIN TRANSFERS: TOILET: TRANSFERS: TOILET - STEP 1: Does the patient require the assistance of a person or device, or need extra time with toilet transfe rs? Yes. TRANSFERS: TOILET - STEP 2: Does the patient require the assistance of a helper? Yes. TRANSFERS: TOILET - STEP 3: How much assistance does the patient require from the helper? Patient performs half or more of the tr ansferring tasks TRANSFERS: TOILET - STEP 4: Does the patient need only incidental help such as contact guard or steadying during toilet transfer? Yes. TRANSFERS: TOILET - SCORE: 4-MIN TRANSFERS: SHOWER: Activity did not occur on this shift TRANSFERS: SHOWER - SCORE: 0-UNK TRANSFERS: TUB: Activity did not occur on this shift TRANSFERS: TUB - SCORE: 0-UNK LOCOMOTION: WALK: Activity did not occur on this shift LOCOMOTION: WALK - SCORE: 0-UNK LOCOMOTION: WHEELCHAIR: Activity did not occur on this shift LOCOMOTION: WHEELCHAIR - SCORE: 0-UNK COMPREHENSION: COMPREHENSION: TYPE: Both COMPREHENSION - STEP 1: Does the patient require help from a person or device, or need extra time to understand complex and a bstract ideas (such as current events, finances, discharge planning, medical issues, relationships, e tc)? Yes. COMPREHENSION - STEP 2: Does the patient require help to understand questions or statements about basic needs or ideas (such as hunger, thirst, sleep, safety, daily schedule, room location, or discomfort) half or more of the t rogelio? No. COMPREHENSION - STEP 3: How often does the patient need help to understand directions and conversation about basic needs? Les s than 10% of the time COMPREHENSION - SCORE: 5-SUP EXPRESSION EXPRESSION: TYPE: Both EXPRESSION - STEP 1: Does the patient require help from a person or device, or need extra time expressing complex and abst ract ideas (such as current events, finances, discharge planning, medical issues, relationships, etc) ? No. EXPRESSION - STEP 2: Does the patient need extra time, require an assistive device (such as augmentive communication syste m or a communication board), OR does s/he have mild difficulty expressing complex and abstract ideas (including mild dysarthria or mild word-find problems)? Yes. EXPRESSION - SCORE: 6-NIKOLAS SOCIAL INTERACTION: SOCIAL INTERACTION - STEP 1: Does the patient require a helper to interact with others in social and therapeutic situations? No. SOCIAL INTERACTION - STEP 2: Does the patient need extra time in social situations, OR does s/he interact with staff, other patien ts, and family members ONLY in structured environments, OR does s/he require medication for social in teraction? Yes, patient needs extra time SOCIAL INTERACTION - SCORE: 6-NIKOLAS PROBLEM SOLVING: PROBLEM SOLVING - STEP 1: Does the patient need help from a person or device, or need extra time to solve complex problems such as managing a checking account or confronting interpersonal problems? Yes. PROBLEM SOLVING - STEP 2: Does the patient solve basic routine problems half or more of the time? Yes. PROBLEM SOLVING - STEP 3: How often does the patient need help to solve basic routine problems? Less than 10% of the time PROBLEM SOLVING - SCORE: 5-SUP MEMORY: MEMORY - STEP 1: Does the patient need help from a person or device, or need extra time to remember frequently encount ered people, daily routines, and executing requests? Yes. MEMORY - STEP 2: How often does the patient need help to remember frequently encountered people, daily routines, and e xecuting requests? Less than 10% of the time MEMORY - SCORE: 5-SUP SIGNATURE PANEL: The following modified sections: Eating - Score, Grooming - Score, Bathing - Score, Dressing - Upper Body - Score, Dressing - Lower Body - Score, Toileting - Score, Bladder Management - Score, Bowel Man agement - Score, Transfers: Bed, Chair, Wheelchair - Score, Transfers: Toilet - Score, Transfers: Julianne wer - Score, Transfers: Tub - Score, Locomotion: Walk - Score, Locomotion: Wheelchair - Score, Compre hension - Score, Expression - Score, Social Interaction - Score, Problem Solving - Score, Memory - Sc ore were [electronically] signed by Lizzy Jain C.N.A. on SatFeb 18 2018 14:33:01 GMT-0600 (Centra l Standard Time)
--- NOTE | 2018-02-18 19:04 | R.PN ---
ENCOUNTER DATE AND TIME: 02/18/2018 19:01 (HOSTAGE NEGOTIATOR) NAME AKIL BLAKELY DATE OF : 1935 DATE OF ADMISSION: 02/14/2018 16:03 (HOSTAGE NEGOTIATOR) left femoral neck fractureCHIEF COMPLAINT: Left hip fracture SUBJECTIVE: Pt denied any depression. Pt denied any Shortness of Breath. Activities of daily living was done with minimal assistance to independence. Ambulated 250' with cont act guard assistance using a rolling walker. VITAL SIGNS Temperature: 97.6 F SBP/DBP: 110/66 Pulse: 74 Resp: 14 MEDICATION ALLERGIES: No Known Drug Allergies (NKDA) ENVIRONMENTAL ALLERGIES: - Substance Allergies None Known - Other Allergies None Known NURSING: - Shower allowing shower - Skin care per protocol PRECAUTIONS: - Posterior Hip Precaution No adduction across midline No external rotation No hip flexion >90 degrees No internal rotation No wheel chair propulsion - Weight Bearing Precaution TTWB left LE ACTIVITIES OOB only with supervision THERAPIES: - Occupational Therapy Evaluate and Treat. - Physical Therapy Evaluate and Treat. PHYSICAL EXAM - Gen Alert and awake Lying in bed No apparent distress Oriented to: person, time, and place - Skin No skin breakdown. Normacephalic - Eyes No abnormalities - ENMT No abnormalities - Neck No abnormalities - CVS RRR - Chest No abnormalities - Resp Clear to auscultation - Abd Soft - GI nondistended Deferred - No abnormalities - Ext Mild left lower extremity edema. - MSK 4+/5 weakness in left lower extremity - Neuro 4/5 strength left lower extremity. - Psych No abnormalities ASSESSMENT: Pt. is a 82 yo Right-handed white female.On 02/12/2018 she was admitted to [facility] and underwent emergency surgery for left femoral neck fracture (closed reduction and percutane ous screw fixation of left femoral neck fracture) by Chetan Prince.Pre-morbidly, Pt. was independent/m od-I in Self-Care, Sphincter Control, Transfers Control, Communication, Social Cognition, and Locomot ion; and she had good Sphincter Control.Currently, she has deficits of Endurance, Safety Awareness, T ransfers Control, Communication, Social Cognition, Balance, Locomotion, and Self-Care.Pt. is now refe rred to [facility] for acute in-patient rehabilitation in order to maximize harvey erwin's functional independence in activities of daily living, strength, ROM, and mobility.- Rehab Go al Patient has realistic goal of being discharged at assistance level 3-modA to reside at Home with Fam mecca/Relatives. MDM/PLAN: - Physical Therapy Decreased range of motion - to improve, our physical therapists will perform initial evaluation of p t's status upon admission and devise an individualized program for increasing patient's Range of Renny on. Gait dysfunction - to improve, our physical therapists will perform initial evaluation of pt's statu s upon admission and devise an individualized program for Gait Training, and Wheel Chair mobility Inability to transfer - to improve, our physical therapists will perform initial evaluation of pt's status upon admission and devise an individualized program for Bed mobility Need for home safety evaluation - to improve, our physical therapists will perform initial evaluatio n of pt's status upon admission and devise an individualized program for Home Evaluation Need in caregiver upon discharge - to improve, our physical therapists will perform initial evaluati on of pt's status upon admission and devise an individualized program for Caregiver Training New precaution - to improve, our physical therapists will perform initial evaluation of pt's status upon admission and devise an individualized program for Patient precaution education Edema - to improve, our physical therapists will perform initial evaluation of pt's status upon admi ssion and devise an individualized program for Elevation Training, and Lymphedema Therapy Poor balance - to improve, our physical therapists will perform initial evaluation of pt's status up on admission and devise an individualized program for Balance Training Poor endurance - to improve, our physical therapists will perform initial evaluation of pt's status upon admission and devise an individualized program for Endurance Training Weakness - to improve, our physical therapists will perform initial evaluation of pt's status upon a dmission and devise an individualized program for Aquatic Therapy, Neuromuscular Reeducation, and Str engthening Achieving independence - to improve, our physical therapists will perform initial evaluation of pt's status upon admission and devise an individualized program for Community Reintegration Activities - Occupational Therapy ADL deficits - to improve, our occupation therapists will perform initial evaluation of pt's status upon admission and devise an individualized program for Bathing, Bed mobility, Community Reintegratio n, Cooking, Dressing, Eating, Fine Motor Skills, Grooming, Homemaking, Kitchen Mobility, Laundry, Pat ient Education, Safety Awareness, Splinting - Positioning, Transfers(Toilet, Tub, Shower), and Wheel Chair Management Cognitive deficits - to improve, our occupation therapists will perform initial evaluation of pt's s tatus upon admission and devise an individualized program for Cognition - orientation Need for healthcare administration internship - to improve, our occupation therapists will perform initial evaluation of pt's status upon admission and devise an individualized program for Caregiver Training Weakness - to improve, our occupation therapists will perform initial evaluation of pt's status upon admission and devise an individualized program for Aquatic Therapy, Balance, Endurance, UE ROM, and UE strengthening - Anterior Hip Precaution No abduction No active extension No adduction across midline No external rotation No hip flexion >90 degrees No internal rotation - Diet - Liquid Texture Continue Regular - Tube Feed Continue N/A - Diet Type Continue Regular - Posterior Hip Precaution No adduction across midline No external rotation No hip flexion >90 degrees No internal rotation No wheel chair propulsion - Weight Bearing Precaution TTWB left LE - Skin care per protocol - Diet - Solid Texture Continue Regular - Shower allowing shower FUNCTIONAL STATUS: UPDATED AT WEEKLY TEAM CONFERENCE - Bladder Same accident frequency: 7-Ind - No accidents in the past 7 days - Bowel Same accident frequency: 7-Ind - No accidents in the past 7 days - Walking Same score based on distance walked: 1(<=50ft) FUNCTIONAL STATUS: - Self-Care A. Eating Ind B. Grooming Ind C. Bathing Ind D. Dressing - Upper Ind E. Dressing - Lower modA F. Toileting modA - Sphincter Control G: Bladder control Ind H: Bowel control Ind - Transfers Control I. Bed/Chair/Wheelchair modA J. Toilet modA K. Tub/Shower modA - Locomotion L. Walk/Wheelchair (B) modA M. Stairs ADNO - Communication N. Comprehension (B) sup O. Expression (B) sup - Social Cognition P. Social Interaction sup Q. Problem Solving sup R. Memory sup - Endurance Poor - Balance Poor - Safety Awareness Poor CURRENT FUNC. DEFICITS: Endurance, Safety Awareness, Transfers Control, Communication, Social Cognition, Balance, Locomotion, and Self-Care SIGNATURE PANEL: ([facility])
[2018-02-18] MEDS: IPRATROPIUM BROM 0.5MG/2.5ML NEB PRN (19:40)
[2018-02-18] MEDS: TRAMADOL HCL 50 MG TAB PO PRN (20:50)
[2018-02-18] MEDS: MELATONIN 3 MG TABLET PO PRN (20:50)
[2018-02-18] MEDS: DOCUSATE NA/SENNA CONC 1 TAB PO SCH (20:51)
[2018-02-19] MEDS: LEVOTHYROXINE SOD 0.125 MG TAB PO SCH (05:09)
[2018-02-19] MEDS: ENOXAPARIN 40 MG/0.4 ML SQ SCH (07:01)
[2018-02-19] MEDS: PROMOD 30 ML DOSE PO SCH ×2 (08:04→19:57)
[2018-02-19] MEDS: NICOTINE 21 MG/PAT TD SCH (08:05)
[2018-02-19] MEDS: ESCITALOPRAM 20 MG TAB PO SCH (08:05)
[2018-02-19] MEDS: CYANOCOBALAMIN 1,000 MCG TAB PO SCH (08:06)
[2018-02-19] MEDS: GABAPENTIN 100 MG CAP PO SCH ×2 (08:06→19:59)
[2018-02-19] MEDS: CRANBERRY FRUIT EXTRACT 200 MG CAP PO SCH ×2 (08:06→19:59)
[2018-02-19] MEDS: FERROUS SULFATE 325 MG TAB PO SCH (08:06)
[2018-02-19] MEDS: ARFORMOTEROL TARTRATE 15 MCG/2 ML VIAL.NEB NEB SCH ×2 (09:08→20:54)
[2018-02-19] MEDS: TRAMADOL HCL 50 MG TAB PO PRN (09:21)
--- NOTE | 2018-02-19 14:16 | FAST ---
SHIFT START DATE/TIME: 02/19/2018 07:00 (TRIMMING MACHINE OPERATOR) SHIFT END DATE/TIME: 02/19/2018 19:00 (TRIMMING MACHINE OPERATOR) NAME AKIL BLAKELY DATE OF : 1935 DATE OF ADMISSION: 02/14/2018 16:03 (TRIMMING MACHINE OPERATOR) PHONE: AGE: 82 N# [id number] GENDER: Female ENCOUNTER PHYSICIAN: Dr. Javier Zaldivar M.D. ADMISSION DIAGNOSIS: - Orthopaedic Disorders 08 - Unilateral Hip Fracture (08.11) left femoral neck fracture. EATING: EATING - STEP 1: Does the patient require the assistance of a person or device, or need extra time when eating? Yes. EATING - STEP 2: Does the patient require the assistance of a helper? Yes. EATING - STEP 3: Does the patient perform half or more of the eating tasks? Yes. EATING - STEP 4: Does the patient need only supervision, cuing, coaxing OR help to apply an orthosis OR help to cut fo od, open containers, pour liquids, or butter bread? Yes. EATING - SCORE: 5-SUP GROOMING: Comb/brush hair Oral care GROOMING - STEP 1: Does the patient require the assistance of a person or device, or need extra time when grooming? Yes. GROOMING - STEP 2: Does the patient require the assistance of a helper? No. The patient only requires an assistive devic e, OR takes more than reasonable time to groom, OR there is a concern for safety as the patient groom s GROOMING - SCORE: 6-NIKOLAS BATHING: Activity did not occur on this shift BATHING - SCORE: 0-UNK DRESSING - UPPER BODY: Activity did not occur on this shift ARTICLES SCORE Total number of steps: 0 DRESSING - UPPER BODY - SCORE: 0-UNK DRESSING - LOWER BODY: Activity did not occur on this shift ARTICLES SCORE Total number of steps: 0 DRESSING - LOWER BODY - SCORE: 0-UNK TOILETING: TOILETING - STEP 1: Does the patient require the assistance of a person or device, or need extra time with toileting? Yes . TOILETING - STEP 2: Does the patient require the assistance of a helper? Yes. TOILETING - STEP 3: How much assistance does the patient require from the helper? Hands-on assistance from the helper TOILETING - STEP 4: Of the 3 tasks: 1) Adjusting clothing prior to use, 2) Cleansing of perineal area, 3) Adjusting clot abebe after use; How many tasks does the patient perform WITHOUT assistance of the helper? Two tasks TOILETING - SCORE: 3-MOD BLADDER MANAGEMENT: BLADDER MANAGEMENT - STEP 1: Does the patient control the bladder completely and intentionally without equipment or devices or med ications, and is always continent? No. BLADDER MANAGEMENT - STEP 2: Does the patient require the assistance of a helper? No, patient requires and independently uses an a ssistive device, such as a urinal, bedpan, bedside commode, catheter, absorbent pad, or collecting de vice BLADDER MANAGEMENT - SCORE: 6-NIKOLAS BOWEL MANAGEMENT: BOWEL MANAGEMENT - STEP 1: Does the patient control bowels completely and intentionally without equipment devices or medications AND is always continent? No. BOWEL MANAGEMENT - STEP 2: Does the patient require the assistance of a helper? No, patient requires medication for control such as stool softeners, suppositories, laxatives, enemas, or OTC medications BOWEL MANAGEMENT - SCORE: 6-NIKOLAS TRANSFERS: BED, CHAIR, WHEELCHAIR: TRANSFERS: BED, CHAIR, WHEELCHAIR - STEP 1: Does the patient require assistance of a person or device, or need extra time with bed, chair, or whe elchair transfers? Yes. TRANSFERS: BED, CHAIR, WHEELCHAIR - STEP 2: Does the patient require the assistance of a helper? Yes. TRANSFERS: BED, CHAIR, WHEELCHAIR - STEP 3: How much assistance does the patient require from the helper? Lifting of the legs TRANSFERS: BED, CHAIR, WHEELCHAIR - STEP 4: How many legs does the patient require the helper to lift? one leg TRANSFERS: BED, CHAIR, WHEELCHAIR - SCORE: 4-MIN TRANSFERS: TOILET: TRANSFERS: TOILET - STEP 1: Does the patient require the assistance of a person or device, or need extra time with toilet transfe rs? Yes. TRANSFERS: TOILET - STEP 2: Does the patient require the assistance of a helper? Yes. TRANSFERS: TOILET - STEP 3: How much assistance does the patient require from the helper? Patient performs half or more of the tr ansferring tasks TRANSFERS: TOILET - STEP 4: Does the patient need only incidental help such as contact guard or steadying during toilet transfer? Yes. TRANSFERS: TOILET - SCORE: 4-MIN TRANSFERS: SHOWER: Activity did not occur on this shift TRANSFERS: SHOWER - SCORE: 0-UNK TRANSFERS: TUB: Activity did not occur on this shift TRANSFERS: TUB - SCORE: 0-UNK LOCOMOTION: WALK: Activity did not occur on this shift LOCOMOTION: WALK - SCORE: 0-UNK LOCOMOTION: WHEELCHAIR: Activity did not occur on this shift LOCOMOTION: WHEELCHAIR - SCORE: 0-UNK COMPREHENSION: COMPREHENSION: TYPE: Both COMPREHENSION - STEP 1: Does the patient require help from a person or device, or need extra time to understand complex and a bstract ideas (such as current events, finances, discharge planning, medical issues, relationships, e tc)? No. COMPREHENSION - STEP 2: Does the patient need extra time, require an assistive device (such as glasses for visual comprehensi on or a hearing aid for auditory comprehension) or does s/he have mild difficulty understanding compl ex and abstract information? Yes. COMPREHENSION - SCORE: 6-NIKOLAS EXPRESSION EXPRESSION: TYPE: Both EXPRESSION - STEP 1: Does the patient require help from a person or device, or need extra time expressing complex and abst ract ideas (such as current events, finances, discharge planning, medical issues, relationships, etc) ? Yes. EXPRESSION - STEP 2: Does the patient require help to express basic necessities or ideas (such as hunger, thirst, sleep, s afety, daily schedule, room location, or discomfort) half or more of the time? No. EXPRESSION - STEP 3: How often does the patient need help to express directions and conversation about basic needs? Less t pasrtana 10% of the time EXPRESSION - SCORE: 5-SUP SOCIAL INTERACTION: SOCIAL INTERACTION - STEP 1: Does the patient require a helper to interact with others in social and therapeutic situations? No. SOCIAL INTERACTION - STEP 2: Does the patient need extra time in social situations, OR does s/he interact with staff, other patien ts, and family members ONLY in structured environments, OR does s/he require medication for social in teraction? Yes, patient needs extra time SOCIAL INTERACTION - SCORE: 6-NIKOLAS PROBLEM SOLVING: PROBLEM SOLVING - STEP 1: Does the patient need help from a person or device, or need extra time to solve complex problems such as managing a checking account or confronting interpersonal problems? Yes. PROBLEM SOLVING - STEP 2: Does the patient solve basic routine problems half or more of the time? Yes. PROBLEM SOLVING - STEP 3: How often does the patient need help to solve basic routine problems? Less than 10% of the time PROBLEM SOLVING - SCORE: 5-SUP MEMORY: MEMORY - STEP 1: Does the patient need help from a person or device, or need extra time to remember frequently encount ered people, daily routines, and executing requests? Yes. MEMORY - STEP 2: How often does the patient need help to remember frequently encountered people, daily routines, and e xecuting requests? Less than 10% of the time MEMORY - SCORE: 5-SUP SIGNATURE PANEL: The following modified sections: Eating - Score, Grooming - Score, Bathing - Score, Dressing - Upper Body - Score, Dressing - Lower Body - Score, Toileting - Score, Bladder Management - Score, Bowel Man agement - Score, Transfers: Bed, Chair, Wheelchair - Score, Transfers: Toilet - Score, Transfers: Julianne wer - Score, Transfers: Tub - Score, Locomotion: Walk - Score, Locomotion: Wheelchair - Score, Compre hension - Score, Expression - Score, Social Interaction - Score, Problem Solving - Score, Memory - Sc ore were [electronically] signed by Sav Eduardo on SatFeb 19 2018 14:14:47 GMT-0600 (Central Standard Time)
--- NOTE | 2018-02-19 16:48 | R.PN ---
ENCOUNTER DATE AND TIME: 02/19/2018 16:45 (EQUIPMENT OPERATING ENGINEER) NAME AKIL BLAKELY DATE OF : 1935 DATE OF ADMISSION: 02/14/2018 16:03 (EQUIPMENT OPERATING ENGINEER) left femoral neck fractureCHIEF COMPLAINT: Left hip fracture SUBJECTIVE: Pt denied any depression. Pt denied any Shortness of Breath. Activities of daily living was done with minimal assistance to independence. Ambulated 400' with cont act guard assistance using a rolling walker. VITAL SIGNS Temperature: 97.6 F SBP/DBP: 92/60 Pulse: 83 Resp: 16 MEDICATION ALLERGIES: No Known Drug Allergies (NKDA) ENVIRONMENTAL ALLERGIES: - Substance Allergies None Known - Other Allergies None Known NURSING: - Shower allowing shower - Skin care per protocol PRECAUTIONS: - Posterior Hip Precaution No adduction across midline No external rotation No hip flexion >90 degrees No internal rotation No wheel chair propulsion - Weight Bearing Precaution TTWB left LE ACTIVITIES OOB only with supervision THERAPIES: - Occupational Therapy Evaluate and Treat. - Physical Therapy Evaluate and Treat. PHYSICAL EXAM - Gen Alert and awake Lying in bed No apparent distress Oriented to: person, time, and place - Skin No skin breakdown. Normacephalic - Eyes No abnormalities - ENMT No abnormalities - Neck No abnormalities - CVS RRR - Chest No abnormalities - Resp Clear to auscultation - Abd Soft - GI nondistended Deferred - No abnormalities - Ext Mild left lower extremity edema. - MSK 4+/5 weakness in left lower extremity - Neuro 4/5 strength left lower extremity. - Psych No abnormalities ASSESSMENT: Pt. is a 82 yo Right-handed white female.On 02/12/2018 she was admitted to [facility] and underwent emergency surgery for left femoral neck fracture (closed reduction and percutane ous screw fixation of left femoral neck fracture) by Chetan Prince.Pre-morbidly, Pt. was independent/m od-I in Self-Care, Sphincter Control, Transfers Control, Communication, Social Cognition, and Locomot ion; and she had good Sphincter Control.Currently, she has deficits of Endurance, Safety Awareness, T ransfers Control, Communication, Social Cognition, Balance, Locomotion, and Self-Care.Pt. is now refe rred to [facility] for acute in-patient rehabilitation in order to maximize harvey erwin's functional independence in activities of daily living, strength, ROM, and mobility.- Rehab Go al Patient has realistic goal of being discharged at assistance level 3-modA to reside at Home with Fam mecca/Relatives. MDM/PLAN: - Physical Therapy Decreased range of motion - to improve, our physical therapists will perform initial evaluation of p t's status upon admission and devise an individualized program for increasing patient's Range of Renny on. Gait dysfunction - to improve, our physical therapists will perform initial evaluation of pt's statu s upon admission and devise an individualized program for Gait Training, and Wheel Chair mobility Inability to transfer - to improve, our physical therapists will perform initial evaluation of pt's status upon admission and devise an individualized program for Bed mobility Need for home safety evaluation - to improve, our physical therapists will perform initial evaluatio n of pt's status upon admission and devise an individualized program for Home Evaluation Need in caregiver upon discharge - to improve, our physical therapists will perform initial evaluati on of pt's status upon admission and devise an individualized program for Caregiver Training New precaution - to improve, our physical therapists will perform initial evaluation of pt's status upon admission and devise an individualized program for Patient precaution education Edema - to improve, our physical therapists will perform initial evaluation of pt's status upon admi ssion and devise an individualized program for Elevation Training, and Lymphedema Therapy Poor balance - to improve, our physical therapists will perform initial evaluation of pt's status up on admission and devise an individualized program for Balance Training Poor endurance - to improve, our physical therapists will perform initial evaluation of pt's status upon admission and devise an individualized program for Endurance Training Weakness - to improve, our physical therapists will perform initial evaluation of pt's status upon a dmission and devise an individualized program for Aquatic Therapy, Neuromuscular Reeducation, and Str engthening Achieving independence - to improve, our physical therapists will perform initial evaluation of pt's status upon admission and devise an individualized program for Community Reintegration Activities - Occupational Therapy ADL deficits - to improve, our occupation therapists will perform initial evaluation of pt's status upon admission and devise an individualized program for Bathing, Bed mobility, Community Reintegratio n, Cooking, Dressing, Eating, Fine Motor Skills, Grooming, Homemaking, Kitchen Mobility, Laundry, Pat ient Education, Safety Awareness, Splinting - Positioning, Transfers(Toilet, Tub, Shower), and Wheel Chair Management Cognitive deficits - to improve, our occupation therapists will perform initial evaluation of pt's s tatus upon admission and devise an individualized program for Cognition - orientation Need for palliative care coordinator - to improve, our occupation therapists will perform initial evaluation of pt's status upon admission and devise an individualized program for Caregiver Training Weakness - to improve, our occupation therapists will perform initial evaluation of pt's status upon admission and devise an individualized program for Aquatic Therapy, Balance, Endurance, UE ROM, and UE strengthening - Anterior Hip Precaution No abduction No active extension No adduction across midline No external rotation No hip flexion >90 degrees No internal rotation - Diet - Liquid Texture Continue Regular - Tube Feed Continue N/A - Diet Type Continue Regular - Posterior Hip Precaution No adduction across midline No external rotation No hip flexion >90 degrees No internal rotation No wheel chair propulsion - Weight Bearing Precaution TTWB left LE - Skin care per protocol - Diet - Solid Texture Continue Regular - Shower allowing shower FUNCTIONAL STATUS: UPDATED AT WEEKLY TEAM CONFERENCE - Bladder Same accident frequency: 7-Ind - No accidents in the past 7 days - Bowel Same accident frequency: 7-Ind - No accidents in the past 7 days - Walking Same score based on distance walked: 1(<=50ft) FUNCTIONAL STATUS: - Self-Care A. Eating Ind B. Grooming Ind C. Bathing Ind D. Dressing - Upper Ind E. Dressing - Lower modA F. Toileting modA - Sphincter Control G: Bladder control Ind H: Bowel control Ind - Transfers Control I. Bed/Chair/Wheelchair modA J. Toilet modA K. Tub/Shower modA - Locomotion L. Walk/Wheelchair (B) modA M. Stairs ADNO - Communication N. Comprehension (B) sup O. Expression (B) sup - Social Cognition P. Social Interaction sup Q. Problem Solving sup R. Memory sup - Endurance Poor - Balance Poor - Safety Awareness Poor CURRENT FUNC. DEFICITS: Endurance, Safety Awareness, Transfers Control, Communication, Social Cognition, Balance, Locomotion, and Self-Care SIGNATURE PANEL: (EQUIPMENT OPERATING ENGINEER)
--- NOTE | 2018-02-19 17:13 | FAST ---
ENCOUNTER DATE AND TIME: 02/19/2018 08:00 (PAVING AND SURFACING LABOURER) NAME AKIL BLAKELY DATE OF : 1935 DATE OF ADMISSION: 02/14/2018 16:03 (PAVING AND SURFACING LABOURER) PHONE: AGE: 82 N# [id number] GENDER: Female ENCOUNTER PHYSICIAN: Dr. Javier Zaldivar M.D. ADMISSION DIAGNOSIS: - Orthopaedic Disorders 08 - Unilateral Hip Fracture (08.11) left femoral neck fracture. EATING: Activity did not occur on this shift EATING - SCORE: 0-UNK GROOMING: Activity did not occur on this shift GROOMING - SCORE: 0-UNK BATHING: Activity did not occur on this shift BATHING - SCORE: 0-UNK DRESSING - UPPER BODY: Activity did not occur on this shift Patient is not dressing in public clothing ARTICLES SCORE Total number of steps: 0 DRESSING - UPPER BODY - SCORE: 0-UNK DRESSING - LOWER BODY: Activity did not occur on this shift Patient is not dressing in public clothing ARTICLES SCORE Total number of steps: 0 DRESSING - LOWER BODY - SCORE: 0-UNK TOILETING: Activity did not occur on this shift TOILETING - SCORE: 0-UNK BLADDER MANAGEMENT: Activity did not occur on this shift BLADDER MANAGEMENT - SCORE: 7-IND BOWEL MANAGEMENT: Activity did not occur on this shift BOWEL MANAGEMENT - SCORE: 7-IND TRANSFERS: BED, CHAIR, WHEELCHAIR: TRANSFERS: BED, CHAIR, WHEELCHAIR - STEP 1: Does the patient require assistance of a person or device, or need extra time with bed, chair, or whe elchair transfers? Yes. TRANSFERS: BED, CHAIR, WHEELCHAIR - STEP 2: Does the patient require the assistance of a helper? Yes. TRANSFERS: BED, CHAIR, WHEELCHAIR - STEP 3: How much assistance does the patient require from the helper? Only supervision TRANSFERS: BED, CHAIR, WHEELCHAIR - SCORE: 5-SUP TRANSFERS: TOILET: Activity did not occur on this shift TRANSFERS: TOILET - SCORE: 0-UNK TRANSFERS: SHOWER: Activity did not occur on this shift TRANSFERS: SHOWER - SCORE: 0-UNK TRANSFERS: TUB: Activity did not occur on this shift TRANSFERS: TUB - SCORE: 0-UNK LOCOMOTION: WALK: LOCOMOTION: WALK - STEP 1: Does the patient need help from a person or device, or need extra time to walk 150 feet? Yes. LOCOMOTION: WALK - STEP 2: How much assistance does the patient require to walk a minimum of 150 feet? Only incidental help such as contact guarding or steadying LOCOMOTION: WALK - SCORE: 4-MIN LOCOMOTION: WHEELCHAIR: Activity did not occur on this shift LOCOMOTION: WHEELCHAIR - SCORE: 0-UNK LOCOMOTION: STAIRS: Activity did not occur on this shift LOCOMOTION: STAIRS - SCORE: 0-UNK COMPREHENSION: COMPREHENSION - SCORE: 0-UNK EXPRESSION EXPRESSION - SCORE: 0-UNK SOCIAL INTERACTION: SOCIAL INTERACTION - SCORE: 0-UNK PROBLEM SOLVING: PROBLEM SOLVING - SCORE: 0-UNK MEMORY: MEMORY - SCORE: 0-UNK SIGNATURE PANEL: The following modified sections: Transfers: Bed, Chair, Wheelchair - Score, Transfers: Toilet - Score , Locomotion: Walk - Score, Locomotion: Wheelchair - Score, Locomotion: Stairs - Score were [electron ically] signed by Enrico Valentine PT on SatFeb 19 2018 17:12:25 GMT-0600 (Central Standard Time)
[2018-02-19] MEDS: DOCUSATE NA/SENNA CONC 1 TAB PO SCH (19:59)
[2018-02-19] MEDS: IPRATROPIUM BROM 0.5MG/2.5ML NEB PRN (20:54)
[2018-02-19] MEDS: MELATONIN 3 MG TABLET PO PRN (21:18)
--- NOTE | 2018-02-20 01:14 | FAST ---
SHIFT START DATE/TIME: 02/19/2018 19:00 (TOURIST INFORMATION ASSISTANT) SHIFT END DATE/TIME: 02/20/2018 07:00 (TOURIST INFORMATION ASSISTANT) NAME AKIL BLAKELY DATE OF : 1935 DATE OF ADMISSION: 02/14/2018 16:03 (TOURIST INFORMATION ASSISTANT) PHONE: AGE: 82 SSN# [id number] GENDER: Female ENCOUNTER PHYSICIAN: Dr. Javier Zaldivar M.D. ADMISSION DIAGNOSIS: - Orthopaedic Disorders 08 - Unilateral Hip Fracture (08.11) left femoral neck fracture. EATING: Activity did not occur on this shift EATING - SCORE: 0-UNK GROOMING: Activity did not occur on this shift GROOMING - SCORE: 0-UNK BATHING: Activity did not occur on this shift BATHING - SCORE: 0-UNK DRESSING - UPPER BODY: Patient is not dressing in public clothing ARTICLES SCORE Total number of steps: 0 DRESSING - UPPER BODY - SCORE: 0-UNK DRESSING - LOWER BODY: Patient is not dressing in public clothing ARTICLES SCORE Total number of steps: 0 DRESSING - LOWER BODY - SCORE: 0-UNK TOILETING: TOILETING - STEP 1: Does the patient require the assistance of a person or device, or need extra time with toileting? Yes . TOILETING - STEP 2: Does the patient require the assistance of a helper? Yes. TOILETING - STEP 3: How much assistance does the patient require from the helper? Only supervision TOILETING - SCORE: 5-SUP BLADDER MANAGEMENT: BLADDER MANAGEMENT - STEP 1: Does the patient control the bladder completely and intentionally without equipment or devices or med ications, and is always continent? Yes. BLADDER MANAGEMENT - SCORE: 7-IND BOWEL MANAGEMENT: Activity did not occur on this shift BOWEL MANAGEMENT - SCORE: 7-IND TRANSFERS: BED, CHAIR, WHEELCHAIR: TRANSFERS: BED, CHAIR, WHEELCHAIR - STEP 1: Does the patient require assistance of a person or device, or need extra time with bed, chair, or whe elchair transfers? Yes. TRANSFERS: BED, CHAIR, WHEELCHAIR - STEP 2: Does the patient require the assistance of a helper? Yes. TRANSFERS: BED, CHAIR, WHEELCHAIR - STEP 3: How much assistance does the patient require from the helper? Steadying/guiding assistance TRANSFERS: BED, CHAIR, WHEELCHAIR - SCORE: 4-MIN TRANSFERS: TOILET: TRANSFERS: TOILET - STEP 1: Does the patient require the assistance of a person or device, or need extra time with toilet transfe rs? Yes. TRANSFERS: TOILET - STEP 2: Does the patient require the assistance of a helper? Yes. TRANSFERS: TOILET - STEP 3: How much assistance does the patient require from the helper? Only supervision, cuing, coaxing, OR he lp to set out transfer equipment or to lock brakes and/or lift foot rests TRANSFERS: TOILET - SCORE: 5-SUP TRANSFERS: SHOWER: Activity did not occur on this shift TRANSFERS: SHOWER - SCORE: 0-UNK TRANSFERS: TUB: Activity did not occur on this shift TRANSFERS: TUB - SCORE: 0-UNK LOCOMOTION: WALK: Activity did not occur on this shift LOCOMOTION: WALK - SCORE: 0-UNK LOCOMOTION: WHEELCHAIR: Activity did not occur on this shift LOCOMOTION: WHEELCHAIR - SCORE: 0-UNK COMPREHENSION: COMPREHENSION: TYPE: Both COMPREHENSION - STEP 1: Does the patient require help from a person or device, or need extra time to understand complex and a bstract ideas (such as current events, finances, discharge planning, medical issues, relationships, e tc)? Yes. COMPREHENSION - STEP 2: Does the patient require help to understand questions or statements about basic needs or ideas (such as hunger, thirst, sleep, safety, daily schedule, room location, or discomfort) half or more of the t rogelio? No. COMPREHENSION - STEP 3: How often does the patient need help to understand directions and conversation about basic needs? 10% - 24% of the time COMPREHENSION - SCORE: 4-MIN EXPRESSION EXPRESSION: TYPE: Both EXPRESSION - STEP 1: Does the patient require help from a person or device, or need extra time expressing complex and abst ract ideas (such as current events, finances, discharge planning, medical issues, relationships, etc) ? No. EXPRESSION - STEP 2: Does the patient need extra time, require an assistive device (such as augmentive communication syste m or a communication board), OR does s/he have mild difficulty expressing complex and abstract ideas (including mild dysarthria or mild word-find problems)? Yes. EXPRESSION - SCORE: 6-NIKOLAS SOCIAL INTERACTION: SOCIAL INTERACTION - STEP 1: Does the patient require a helper to interact with others in social and therapeutic situations? No. SOCIAL INTERACTION - STEP 2: Does the patient need extra time in social situations, OR does s/he interact with staff, other patien ts, and family members ONLY in structured environments, OR does s/he require medication for social in teraction? Yes, patient needs extra time SOCIAL INTERACTION - SCORE: 6-NIKOLAS PROBLEM SOLVING: Patient requires bed/chair alarms due to attempts to get up unassisted when helper is needed. PROBLEM SOLVING - STEP 1: How often do the bed/chair alarms go off? Sometimes - the alarms go off about half the time PROBLEM SOLVING - SCORE: 3-MOD MEMORY: MEMORY - STEP 1: How often do the bed/chair alarms go off? Sometimes - the alarms go off about half the time MEMORY - SCORE: 3-MOD SIGNATURE PANEL: The following modified sections: Eating - Score, Grooming - Score, Dressing - Upper Body - Score, Rich ssing - Lower Body - Score, Toileting - Score, Bladder Management - Score, Bowel Management - Score, Transfers: Bed, Chair, Wheelchair - Score, Transfers: Toilet - Score, Transfers: Shower - Score, Ahnd sfers: Tub - Score, Locomotion: Walk - Score, Locomotion: Wheelchair - Score, Comprehension - Score, Expression - Score, Social Interaction - Score, Problem Solving - Score, Memory - Score were [electro nically] signed by Loretta Witt CNA on SatFeb 20 2018 01:13:26 GMT-0600 (Central Standard Time)
[2018-02-20] MEDS: LEVOTHYROXINE SOD 0.125 MG TAB PO SCH (05:10)
[2018-02-20 06:39] LABS: Absolute Lymphocytes (CBC) 1.1 K/uL (0.7-4.9); Absolute Monocytes 0.8 K/uL (0.1-1.3); Absolute Neutrophil 3.9 K/uL (1.8-8.0); Basophils % 0.6 % (0-1.3); Eosinophils % 4.5 % (0-4.4); Hematocrit 30.3 % (36.0-45.0); Lymphocytes % 17.6 % (15.3-44.8); MPV 8.1 fL (7.6-11.3); Monocytes % 12.9 % (3.3-12.3); RBC Red Blood Cell Count 3.61 M/uL (3.86-4.86)
[2018-02-20 06:54] LABS: BUN Blood Urea Nitrogen 7 mg/dL (7-18); Bicarbonate 34 mmol/L (21-32); Glucose Level 88 mg/dL (74-106); Potassium 3.6 mmol/L (3.5-5.1); Prealbumin 5.8 mg/dL (20-40); Sodium Level 139 mmol/L (136-145)
[2018-02-20] MEDS: ENOXAPARIN 40 MG/0.4 ML SQ SCH (07:16)
[2018-02-20] MEDS: ARFORMOTEROL TARTRATE 15 MCG/2 ML VIAL.NEB NEB SCH ×2 (07:45→20:00)
[2018-02-20] MEDS: NICOTINE 21 MG/PAT TD SCH (08:22)
[2018-02-20] MEDS: HYDROCODONE/APAP 7.5/325 MG TAB PO PRN (08:23)
[2018-02-20] MEDS: CYANOCOBALAMIN 1,000 MCG TAB PO SCH (08:23)
[2018-02-20] MEDS: CRANBERRY FRUIT EXTRACT 200 MG CAP PO SCH ×2 (08:23→19:22)
[2018-02-20] MEDS: FERROUS SULFATE 325 MG TAB PO SCH (08:24)
[2018-02-20] MEDS: PROMOD 30 ML DOSE PO SCH ×2 (08:24→19:22)
[2018-02-20] MEDS: GABAPENTIN 100 MG CAP PO SCH ×2 (08:24→19:22)
[2018-02-20] MEDS: ESCITALOPRAM 20 MG TAB PO SCH (08:24)
--- NOTE | 2018-02-20 11:49 | FAST ---
SHIFT START DATE/TIME: 02/20/2018 07:00 (MIDDLE SCHOOL PROFESSIONAL) SHIFT END DATE/TIME: 02/20/2018 19:00 (MIDDLE SCHOOL PROFESSIONAL) NAME AKIL BLAKELY DATE OF : 1935 DATE OF ADMISSION: 02/14/2018 16:03 (MIDDLE SCHOOL PROFESSIONAL) PHONE: AGE: 82 N# [id number] GENDER: Female ENCOUNTER PHYSICIAN: Dr. Javier Zaldivar M.D. ADMISSION DIAGNOSIS: - Orthopaedic Disorders 08 - Unilateral Hip Fracture (08.11) left femoral neck fracture. EATING: EATING - STEP 1: Does the patient require the assistance of a person or device, or need extra time when eating? Yes. EATING - STEP 2: Does the patient require the assistance of a helper? No, patient only requires an assistive device, O R s/he takes more than reasonable time to eat, OR there is a safety concern, OR s/he requires modifie d food consistency EATING - SCORE: 6-NIKOLAS GROOMING: Activity did not occur on this shift GROOMING - SCORE: 0-UNK BATHING: Activity did not occur on this shift BATHING - SCORE: 0-UNK DRESSING - UPPER BODY: T-shirt/pullover shirt (four steps) ARTICLES SCORE Total number of steps: 4 DRESSING - UPPER BODY - STEP 1: Does the patient require help from a person or device, or need extra time when dressing above the ene st? Yes. DRESSING - UPPER BODY - STEP 2: Does the patient require the assistance of a helper? Yes. DRESSING - UPPER BODY - STEP 3: Does the helper touch the patient while dressing? No. DRESSING - UPPER BODY - SCORE: 5-SUP DRESSING - LOWER BODY: ARTICLES SCORE Total number of steps: 3 DRESSING - LOWER BODY - STEP 1: Does the patient require help from a person or device, or need extra time when dressing below the ene st? Yes. DRESSING - LOWER BODY - STEP 2: Does the patient require the assistance of a helper? Yes. DRESSING - LOWER BODY - STEP 3: Does the helper touch the patient while dressing? Yes. DRESSING - LOWER BODY - STEP 4: How many of the total steps does the patient complete on his/her own? 3 DRESSING - LOWER BODY - SCORE: 4-MIN TOILETING: TOILETING - STEP 1: Does the patient require the assistance of a person or device, or need extra time with toileting? Yes . TOILETING - STEP 2: Does the patient require the assistance of a helper? Yes. TOILETING - STEP 3: How much assistance does the patient require from the helper? Hands-on assistance from the helper TOILETING - STEP 4: Of the 3 tasks: 1) Adjusting clothing prior to use, 2) Cleansing of perineal area, 3) Adjusting clot abebe after use; How many tasks does the patient perform WITHOUT assistance of the helper? Two tasks TOILETING - SCORE: 3-MOD BLADDER MANAGEMENT: BLADDER MANAGEMENT - STEP 1: Does the patient control the bladder completely and intentionally without equipment or devices or med ications, and is always continent? No. BLADDER MANAGEMENT - STEP 2: Does the patient require the assistance of a helper? No, patient requires and independently uses an a ssistive device, such as a urinal, bedpan, bedside commode, catheter, absorbent pad, or collecting de vice BLADDER MANAGEMENT - SCORE: 6-NIKOLAS BOWEL MANAGEMENT: Activity did not occur on this shift BOWEL MANAGEMENT - SCORE: 7-IND TRANSFERS: BED, CHAIR, WHEELCHAIR: TRANSFERS: BED, CHAIR, WHEELCHAIR - STEP 1: Does the patient require assistance of a person or device, or need extra time with bed, chair, or whe elchair transfers? Yes. TRANSFERS: BED, CHAIR, WHEELCHAIR - STEP 2: Does the patient require the assistance of a helper? Yes. TRANSFERS: BED, CHAIR, WHEELCHAIR - STEP 3: How much assistance does the patient require from the helper? Steadying/guiding assistance TRANSFERS: BED, CHAIR, WHEELCHAIR - SCORE: 4-MIN TRANSFERS: TOILET: TRANSFERS: TOILET - STEP 1: Does the patient require the assistance of a person or device, or need extra time with toilet transfe rs? Yes. TRANSFERS: TOILET - STEP 2: Does the patient require the assistance of a helper? Yes. TRANSFERS: TOILET - STEP 3: How much assistance does the patient require from the helper? Patient performs half or more of the tr ansferring tasks TRANSFERS: TOILET - STEP 4: Does the patient need only incidental help such as contact guard or steadying during toilet transfer? Yes. TRANSFERS: TOILET - SCORE: 4-MIN TRANSFERS: SHOWER: Activity did not occur on this shift TRANSFERS: SHOWER - SCORE: 0-UNK TRANSFERS: TUB: Activity did not occur on this shift TRANSFERS: TUB - SCORE: 0-UNK LOCOMOTION: WALK: Activity did not occur on this shift LOCOMOTION: WALK - SCORE: 0-UNK LOCOMOTION: WHEELCHAIR: Activity did not occur on this shift LOCOMOTION: WHEELCHAIR - SCORE: 0-UNK COMPREHENSION: COMPREHENSION: TYPE: Both COMPREHENSION - STEP 1: Does the patient require help from a person or device, or need extra time to understand complex and a bstract ideas (such as current events, finances, discharge planning, medical issues, relationships, e tc)? No. COMPREHENSION - STEP 2: Does the patient need extra time, require an assistive device (such as glasses for visual comprehensi on or a hearing aid for auditory comprehension) or does s/he have mild difficulty understanding compl ex and abstract information? Yes. COMPREHENSION - SCORE: 6-NIKOLAS EXPRESSION EXPRESSION: TYPE: Both EXPRESSION - STEP 1: Does the patient require help from a person or device, or need extra time expressing complex and abst ract ideas (such as current events, finances, discharge planning, medical issues, relationships, etc) ? Yes. EXPRESSION - STEP 2: Does the patient require help to express basic necessities or ideas (such as hunger, thirst, sleep, s afety, daily schedule, room location, or discomfort) half or more of the time? No. EXPRESSION - STEP 3: How often does the patient need help to express directions and conversation about basic needs? Less t pastrana 10% of the time EXPRESSION - SCORE: 5-SUP SOCIAL INTERACTION: SOCIAL INTERACTION - STEP 1: Does the patient require a helper to interact with others in social and therapeutic situations? No. SOCIAL INTERACTION - STEP 2: Does the patient need extra time in social situations, OR does s/he interact with staff, other patien ts, and family members ONLY in structured environments, OR does s/he require medication for social in teraction? Yes, patient needs extra time SOCIAL INTERACTION - SCORE: 6-NIKOLAS PROBLEM SOLVING: PROBLEM SOLVING - STEP 1: Does the patient need help from a person or device, or need extra time to solve complex problems such as managing a checking account or confronting interpersonal problems? No. PROBLEM SOLVING - STEP 2: Does the patient require extra time to make decisions or solve problems, OR does s/he have slight dif ficulty reading, initiating, or self-correcting in unfamiliar situations? Yes, patient needs extra ti me. PROBLEM SOLVING - SCORE: 6-NIKOLAS MEMORY: MEMORY - STEP 1: Does the patient need help from a person or device, or need extra time to remember frequently encount ered people, daily routines, and executing requests? Yes. MEMORY - STEP 2: How often does the patient need help to remember frequently encountered people, daily routines, and e xecuting requests? Less than 10% of the time MEMORY - SCORE: 5-SUP SIGNATURE PANEL: The following modified sections: Eating - Score, Grooming - Score, Bathing - Score, Dressing - Upper Body - Score, Dressing - Lower Body - Score, Toileting - Score, Bladder Management - Score, Bowel Man agement - Score, Transfers: Bed, Chair, Wheelchair - Score, Transfers: Toilet - Score, Transfers: Julianne wer - Score, Transfers: Tub - Score, Locomotion: Walk - Score, Locomotion: Wheelchair - Score, Compre hension - Score, Expression - Score, Social Interaction - Score, Problem Solving - Score, Memory - Sc ore were [electronically] signed by Sav Eduardo on SatFeb 20 2018 11:47:25 GMT-0600 (Central Standard Time)
--- NOTE | 2018-02-20 15:35 | FAST ---
ENCOUNTER DATE AND TIME: 02/20/2018 08:00 (PIZZA DELIVERY DRIVER) NAME AKIL BLAKELY DATE OF : 1935 DATE OF ADMISSION: 02/14/2018 16:03 (PIZZA DELIVERY DRIVER) PHONE: AGE: 82 N# [id number] GENDER: Female ENCOUNTER PHYSICIAN: Dr. Javier Zaldivar M.D. ADMISSION DIAGNOSIS: - Orthopaedic Disorders 08 - Unilateral Hip Fracture (08.11) left femoral neck fracture. EATING: Activity did not occur on this shift EATING - SCORE: 0-UNK GROOMING: Activity did not occur on this shift GROOMING - SCORE: 0-UNK BATHING: Activity did not occur on this shift BATHING - SCORE: 0-UNK DRESSING - UPPER BODY: Activity did not occur on this shift Patient is not dressing in public clothing ARTICLES SCORE Total number of steps: 0 DRESSING - UPPER BODY - SCORE: 0-UNK DRESSING - LOWER BODY: Activity did not occur on this shift Patient is not dressing in public clothing ARTICLES SCORE Total number of steps: 0 DRESSING - LOWER BODY - SCORE: 0-UNK TOILETING: Activity did not occur on this shift TOILETING - SCORE: 0-UNK BLADDER MANAGEMENT: Activity did not occur on this shift BLADDER MANAGEMENT - SCORE: 7-IND BOWEL MANAGEMENT: Activity did not occur on this shift BOWEL MANAGEMENT - SCORE: 7-IND TRANSFERS: BED, CHAIR, WHEELCHAIR: TRANSFERS: BED, CHAIR, WHEELCHAIR - STEP 1: Does the patient require assistance of a person or device, or need extra time with bed, chair, or whe elchair transfers? Yes. TRANSFERS: BED, CHAIR, WHEELCHAIR - STEP 2: Does the patient require the assistance of a helper? Yes. TRANSFERS: BED, CHAIR, WHEELCHAIR - STEP 3: How much assistance does the patient require from the helper? Only supervision TRANSFERS: BED, CHAIR, WHEELCHAIR - SCORE: 5-SUP TRANSFERS: TOILET: Activity did not occur on this shift TRANSFERS: TOILET - SCORE: 0-UNK TRANSFERS: SHOWER: Activity did not occur on this shift TRANSFERS: SHOWER - SCORE: 0-UNK TRANSFERS: TUB: Activity did not occur on this shift TRANSFERS: TUB - SCORE: 0-UNK LOCOMOTION: WALK: LOCOMOTION: WALK - STEP 1: Does the patient need help from a person or device, or need extra time to walk 150 feet? Yes. LOCOMOTION: WALK - STEP 2: How much assistance does the patient require to walk a minimum of 150 feet? Only incidental help such as contact guarding or steadying LOCOMOTION: WALK - SCORE: 4-MIN LOCOMOTION: WHEELCHAIR: LOCOMOTION: WHEELCHAIR - STEP 1: Does the patient need help to go 150 feet in a wheelchair? Yes. LOCOMOTION: WHEELCHAIR - STEP 2: How much assistance does the patient need from the helper? Only supervision, cuing, or coaxing LOCOMOTION: WHEELCHAIR - SCORE: 5-SUP LOCOMOTION: STAIRS: Activity did not occur on this shift LOCOMOTION: STAIRS - SCORE: 0-UNK COMPREHENSION: COMPREHENSION - SCORE: 0-UNK EXPRESSION EXPRESSION - SCORE: 0-UNK SOCIAL INTERACTION: SOCIAL INTERACTION - SCORE: 0-UNK PROBLEM SOLVING: PROBLEM SOLVING - SCORE: 0-UNK MEMORY: MEMORY - SCORE: 0-UNK SIGNATURE PANEL: The following modified sections: Transfers: Bed, Chair, Wheelchair - Score, Transfers: Toilet - Score , Locomotion: Walk - Score, Locomotion: Wheelchair - Score, Locomotion: Stairs - Score were [electron raul] signed by Ryan Duong PTA on SatFeb 20 2018 15:34:42 GMT-0600 (Central Standard Time)
--- NOTE | 2018-02-20 17:22 | R.PN ---
ENCOUNTER DATE AND TIME: 02/20/2018 17:19 (MANAGER BUDGET) NAME AKIL BLAKELY DATE OF : 1935 DATE OF ADMISSION: 02/14/2018 16:03 (MANAGER BUDGET) left femoral neck fractureCHIEF COMPLAINT: Left hip fracture SUBJECTIVE: Pt denied any depression. Pt denied any Shortness of Breath. Activities of daily living was done with minimal assistance to independence. Ambulated 400' with cont act guard assistance using a rolling walker. Propelled wheelchair 250' with standby assistance. VITAL SIGNS Temperature: 97.9 F SBP/DBP: 87/55 Pulse: 75 Resp: 16 MEDICATION ALLERGIES: No Known Drug Allergies (NKDA) ENVIRONMENTAL ALLERGIES: - Substance Allergies None Known - Other Allergies None Known NURSING: - Shower allowing shower - Skin care per protocol PRECAUTIONS: - Posterior Hip Precaution No adduction across midline No external rotation No hip flexion >90 degrees No internal rotation No wheel chair propulsion - Weight Bearing Precaution TTWB left LE ACTIVITIES OOB only with supervision THERAPIES: - Occupational Therapy Evaluate and Treat. - Physical Therapy Evaluate and Treat. PHYSICAL EXAM - Gen Alert and awake Lying in bed No apparent distress Oriented to: person, time, and place - Skin No skin breakdown. Normacephalic - Eyes No abnormalities - ENMT No abnormalities - Neck No abnormalities - CVS RRR - Chest No abnormalities - Resp Clear to auscultation - Abd Soft - GI nondistended Deferred - No abnormalities - Ext Mild left lower extremity edema. - MSK 4+/5 weakness in left lower extremity - Neuro 4/5 strength left lower extremity. - Psych No abnormalities ASSESSMENT: Pt. is a 82 yo Right-handed white female.On 02/12/2018 she was admitted to [facility] and underwent emergency surgery for left femoral neck fracture (closed reduction and percutane ous screw fixation of left femoral neck fracture) by Chetan Prince.Pre-morbidly, Pt. was independent/m od-I in Self-Care, Sphincter Control, Transfers Control, Communication, Social Cognition, and Locomot ion; and she had good Sphincter Control.Currently, she has deficits of Endurance, Safety Awareness, T ransfers Control, Communication, Social Cognition, Balance, Locomotion, and Self-Care.Pt. is now refe rred to [facility] for acute in-patient rehabilitation in order to maximize pa tient's functional independence in activities of daily living, strength, ROM, and mobility.- Rehab Go al Patient has realistic goal of being discharged at assistance level 3-modA to reside at Home with Fam mecca/Relatives. MDM/PLAN: - Physical Therapy Decreased range of motion - to improve, our physical therapists will perform initial evaluation of p t's status upon admission and devise an individualized program for increasing patient's Range of Renny on. Gait dysfunction - to improve, our physical therapists will perform initial evaluation of pt's statu s upon admission and devise an individualized program for Gait Training, and Wheel Chair mobility Inability to transfer - to improve, our physical therapists will perform initial evaluation of pt's status upon admission and devise an individualized program for Bed mobility Need for home safety evaluation - to improve, our physical therapists will perform initial evaluatio n of pt's status upon admission and devise an individualized program for Home Evaluation Need in caregiver upon discharge - to improve, our physical therapists will perform initial evaluati on of pt's status upon admission and devise an individualized program for Caregiver Training New precaution - to improve, our physical therapists will perform initial evaluation of pt's status upon admission and devise an individualized program for Patient precaution education Edema - to improve, our physical therapists will perform initial evaluation of pt's status upon admi ssion and devise an individualized program for Elevation Training, and Lymphedema Therapy Poor balance - to improve, our physical therapists will perform initial evaluation of pt's status up on admission and devise an individualized program for Balance Training Poor endurance - to improve, our physical therapists will perform initial evaluation of pt's status upon admission and devise an individualized program for Endurance Training Weakness - to improve, our physical therapists will perform initial evaluation of pt's status upon a dmission and devise an individualized program for Aquatic Therapy, Neuromuscular Reeducation, and Str engthening Achieving independence - to improve, our physical therapists will perform initial evaluation of pt's status upon admission and devise an individualized program for Community Reintegration Activities - Occupational Therapy ADL deficits - to improve, our occupation therapists will perform initial evaluation of pt's status upon admission and devise an individualized program for Bathing, Bed mobility, Community Reintegratio n, Cooking, Dressing, Eating, Fine Motor Skills, Grooming, Homemaking, Kitchen Mobility, Laundry, Pat ient Education, Safety Awareness, Splinting - Positioning, Transfers(Toilet, Tub, Shower), and Wheel Chair Management Cognitive deficits - to improve, our occupation therapists will perform initial evaluation of pt's s tatus upon admission and devise an individualized program for Cognition - orientation Need for transitional care nurse - to improve, our occupation therapists will perform initial evaluation of pt's status upon admission and devise an individualized program for Caregiver Training Weakness - to improve, our occupation therapists will perform initial evaluation of pt's status upon admission and devise an individualized program for Aquatic Therapy, Balance, Endurance, UE ROM, and UE strengthening - Anterior Hip Precaution No abduction No active extension No adduction across midline No external rotation No hip flexion >90 degrees No internal rotation - Diet - Liquid Texture Continue Regular - Tube Feed Continue N/A - Diet Type Continue Regular - Posterior Hip Precaution No adduction across midline No external rotation No hip flexion >90 degrees No internal rotation No wheel chair propulsion - Weight Bearing Precaution TTWB left LE - Skin care per protocol - Diet - Solid Texture Continue Regular - Shower allowing shower FUNCTIONAL STATUS: UPDATED AT WEEKLY TEAM CONFERENCE - Bladder Same accident frequency: 7-Ind - No accidents in the past 7 days - Bowel Same accident frequency: 7-Ind - No accidents in the past 7 days - Walking Same score based on distance walked: 1(<=50ft) FUNCTIONAL STATUS: - Self-Care A. Eating Ind B. Grooming Ind C. Bathing Ind D. Dressing - Upper Ind E. Dressing - Lower modA F. Toileting modA - Sphincter Control G: Bladder control Ind H: Bowel control Ind - Transfers Control I. Bed/Chair/Wheelchair modA J. Toilet modA K. Tub/Shower modA - Locomotion L. Walk/Wheelchair (B) modA M. Stairs ADNO - Communication N. Comprehension (B) sup O. Expression (B) sup - Social Cognition P. Social Interaction sup Q. Problem Solving sup R. Memory sup - Endurance Poor - Balance Poor - Safety Awareness Poor CURRENT FUNC. DEFICITS: Endurance, Safety Awareness, Transfers Control, Communication, Social Cognition, Balance, Locomotion, and Self-Care SIGNATURE PANEL: ([facility])
[2018-02-20] MEDS: DOCUSATE NA/SENNA CONC 1 TAB PO SCH (21:03)
[2018-02-20] MEDS: MELATONIN 3 MG TABLET PO PRN (21:03)
[2018-02-20] MEDS: guaiFENesin 100 MG/5 ML UCUP PO PRN (23:52)
--- NOTE | 2018-02-21 02:30 | FAST ---
SHIFT START DATE/TIME: 02/20/2018 19:00 (CORPORATE TRAVEL EXPERT) SHIFT END DATE/TIME: 02/21/2018 07:00 (CORPORATE TRAVEL EXPERT) NAME AKIL BLAKELY DATE OF : 1935 DATE OF ADMISSION: 02/14/2018 16:03 (CORPORATE TRAVEL EXPERT) PHONE: AGE: 82 SSN# [id number] GENDER: Female ENCOUNTER PHYSICIAN: Dr. Javier Zaldivar M.D. ADMISSION DIAGNOSIS: - Orthopaedic Disorders 08 - Unilateral Hip Fracture (08.11) left femoral neck fracture. EATING: Activity did not occur on this shift EATING - SCORE: 0-UNK GROOMING: Activity did not occur on this shift GROOMING - SCORE: 0-UNK BATHING: Activity did not occur on this shift BATHING - SCORE: 0-UNK DRESSING - UPPER BODY: Patient is not dressing in public clothing ARTICLES SCORE Total number of steps: 0 DRESSING - UPPER BODY - SCORE: 0-UNK DRESSING - LOWER BODY: Patient is not dressing in public clothing ARTICLES SCORE Total number of steps: 0 DRESSING - LOWER BODY - SCORE: 0-UNK TOILETING: TOILETING - STEP 1: Does the patient require the assistance of a person or device, or need extra time with toileting? Yes . TOILETING - STEP 2: Does the patient require the assistance of a helper? Yes. TOILETING - STEP 3: How much assistance does the patient require from the helper? Only supervision TOILETING - SCORE: 5-SUP BLADDER MANAGEMENT: BLADDER MANAGEMENT - STEP 1: Does the patient control the bladder completely and intentionally without equipment or devices or med ications, and is always continent? No. BLADDER MANAGEMENT - STEP 2: Does the patient require the assistance of a helper? No, patient only requires extra time BLADDER MANAGEMENT - SCORE: 6-NIKOLAS BOWEL MANAGEMENT: Activity did not occur on this shift BOWEL MANAGEMENT - SCORE: 7-IND TRANSFERS: BED, CHAIR, WHEELCHAIR: TRANSFERS: BED, CHAIR, WHEELCHAIR - STEP 1: Does the patient require assistance of a person or device, or need extra time with bed, chair, or whe elchair transfers? Yes. TRANSFERS: BED, CHAIR, WHEELCHAIR - STEP 2: Does the patient require the assistance of a helper? Yes. TRANSFERS: BED, CHAIR, WHEELCHAIR - STEP 3: How much assistance does the patient require from the helper? Steadying/guiding assistance TRANSFERS: BED, CHAIR, WHEELCHAIR - SCORE: 4-MIN TRANSFERS: TOILET: TRANSFERS: TOILET - STEP 1: Does the patient require the assistance of a person or device, or need extra time with toilet transfe rs? Yes. TRANSFERS: TOILET - STEP 2: Does the patient require the assistance of a helper? Yes. TRANSFERS: TOILET - STEP 3: How much assistance does the patient require from the helper? Only supervision, cuing, coaxing, OR he lp to set out transfer equipment or to lock brakes and/or lift foot rests TRANSFERS: TOILET - SCORE: 5-SUP TRANSFERS: SHOWER: Activity did not occur on this shift TRANSFERS: SHOWER - SCORE: 0-UNK TRANSFERS: TUB: Activity did not occur on this shift TRANSFERS: TUB - SCORE: 0-UNK LOCOMOTION: WALK: Activity did not occur on this shift LOCOMOTION: WALK - SCORE: 0-UNK LOCOMOTION: WHEELCHAIR: Activity did not occur on this shift LOCOMOTION: WHEELCHAIR - SCORE: 0-UNK COMPREHENSION: COMPREHENSION: TYPE: Both COMPREHENSION - STEP 1: Does the patient require help from a person or device, or need extra time to understand complex and a bstract ideas (such as current events, finances, discharge planning, medical issues, relationships, e tc)? Yes. COMPREHENSION - STEP 2: Does the patient require help to understand questions or statements about basic needs or ideas (such as hunger, thirst, sleep, safety, daily schedule, room location, or discomfort) half or more of the t rogelio? No. COMPREHENSION - STEP 3: How often does the patient need help to understand directions and conversation about basic needs? Les s than 10% of the time COMPREHENSION - SCORE: 5-SUP EXPRESSION EXPRESSION: TYPE: Both EXPRESSION - STEP 1: Does the patient require help from a person or device, or need extra time expressing complex and abst ract ideas (such as current events, finances, discharge planning, medical issues, relationships, etc) ? No. EXPRESSION - STEP 2: Does the patient need extra time, require an assistive device (such as augmentive communication syste m or a communication board), OR does s/he have mild difficulty expressing complex and abstract ideas (including mild dysarthria or mild word-find problems)? Yes. EXPRESSION - SCORE: 6-NIKOLAS SOCIAL INTERACTION: SOCIAL INTERACTION - STEP 1: Does the patient require a helper to interact with others in social and therapeutic situations? No. SOCIAL INTERACTION - STEP 2: Does the patient need extra time in social situations, OR does s/he interact with staff, other patien ts, and family members ONLY in structured environments, OR does s/he require medication for social in teraction? Yes, patient needs extra time SOCIAL INTERACTION - SCORE: 6-NIKOLAS PROBLEM SOLVING: PROBLEM SOLVING - STEP 1: Does the patient need help from a person or device, or need extra time to solve complex problems such as managing a checking account or confronting interpersonal problems? Yes. PROBLEM SOLVING - STEP 2: Does the patient solve basic routine problems half or more of the time? Yes. PROBLEM SOLVING - STEP 3: How often does the patient need help to solve basic routine problems? Less than 10% of the time PROBLEM SOLVING - SCORE: 5-SUP MEMORY: MEMORY - STEP 1: Does the patient need help from a person or device, or need extra time to remember frequently encount ered people, daily routines, and executing requests? Yes. MEMORY - STEP 2: How often does the patient need help to remember frequently encountered people, daily routines, and e xecuting requests? Less than 10% of the time MEMORY - SCORE: 5-SUP
[2018-02-21] MEDS: LEVOTHYROXINE SOD 0.125 MG TAB PO SCH (05:00)
[2018-02-21] MEDS: ARFORMOTEROL TARTRATE 15 MCG/2 ML VIAL.NEB NEB SCH ×2 (08:00→19:36)
[2018-02-21] MEDS: GABAPENTIN 100 MG CAP PO SCH ×2 (08:41→20:29)
[2018-02-21] MEDS: ENOXAPARIN 40 MG/0.4 ML SQ SCH (08:42)
[2018-02-21] MEDS: NICOTINE 21 MG/PAT TD SCH (08:42)
[2018-02-21] MEDS: FERROUS SULFATE 325 MG TAB PO SCH (08:42)
[2018-02-21] MEDS: NYSTATIN PWDR 100000 UNIT/GM TOP PRN (08:42)
[2018-02-21] MEDS: CRANBERRY FRUIT EXTRACT 200 MG CAP PO SCH ×2 (08:42→20:29)
[2018-02-21] MEDS: CYANOCOBALAMIN 1,000 MCG TAB PO SCH (08:42)
[2018-02-21] MEDS: PROMOD 30 ML DOSE PO SCH ×2 (08:43→20:00)
[2018-02-21] MEDS: ESCITALOPRAM 20 MG TAB PO SCH (08:43)
--- NOTE | 2018-02-21 10:04 | P.RH.PN ---
Estimated Length of Stay: 13 Expected Discharge Date: 02/27/18 Discharge Disposition Plan: Home Family Support: Yes Correction Goal: Mobility, Transfers, Self Care Vital Signs: Last Vital Signs Temp 97.8 F 02/21/18 09:23 Pulse 81 02/21/18 09:23 Resp 16 02/21/18 09:23 BP 91/61 02/21/18 09:23 Pulse Ox 98 02/21/18 09:23 Laboratory: Laboratory Last Values WBC 6.0 K/uL (4.3-10.9) 02/20/18 06:01 RBC 3.61 M/uL (3.86-4.86) L 02/20/18 06:01 Hgb 10.1 g/dL (12.0-15.0) L 02/20/18 06:01 Hct 30.3 % (36.0-45.0) L 02/20/18 06:01 MCV 84.0 fL (80-100) 02/20/18 06:01 MCH 27.9 pg (27.0-35.0) 02/20/18 06:01 MCHC 33.3 g/dL (32.0-36.0) 02/20/18 06:01 RDW 15.4 % (12.1-15.2) H 02/20/18 06:01 Plt Count 267 K/uL (152-406) 02/20/18 06:01 MPV 8.1 fL (7.6-11.3) 02/20/18 06:01 Neutrophils % 64.4 % (41.7-73.7) 02/20/18 06:01 Lymphocytes % 17.6 % (15.3-44.8) 02/20/18 06:01 Monocytes % 12.9 % (3.3-12.3) H 02/20/18 06:01 Eosinophils % 4.5 % (0-4.4) H 02/20/18 06:01 Basophils % 0.6 % (0-1.3) 02/20/18 06:01 Absolute Neutrophils 3.9 K/uL (1.8-8.0) 02/20/18 06:01 Absolute Lymphocytes 1.1 K/uL (0.7-4.9) 02/20/18 06:01 Absolute Monocytes 0.8 K/uL (0.1-1.3) 02/20/18 06:01 Absolute Eosinophils 0.3 K/uL (0-0.5) 02/20/18 06:01 Absolute Basophils 0.0 K/uL (0-0.5) 02/20/18 06:01 Sodium 139 mmol/L (136-145) 02/20/18 06:01 Potassium 3.6 mmol/L (3.5-5.1) 02/20/18 06:01 Chloride 101 mmol/L (98-107) 02/20/18 06:01 Carbon Dioxide 34 mmol/L (21-32) H 02/20/18 06:01 BUN 7 mg/dL (7-18) 02/20/18 06:01 Creatinine 0.30 mg/dL (0.55-1.3) L 02/20/18 06:01 Estimated GFR > 90 mL/min (=/>90) 02/20/18 06:01 Glucose 88 mg/dL (74-106) 02/20/18 06:01 Calcium 8.6 mg/dL (8.5-10.1) 02/20/18 06:01 Magnesium 2.0 mg/dL (1.8-2.4) 02/15/18 06:14 Albumin 2.0 g/dL (3.4-5.0) L 02/20/18 06:01 Prealbumin 5.8 mg/dL (20-40) L 02/20/18 06:01 Urine Color Cancelled 02/15/18 01:56 Urine Appearance Cancelled 02/15/18 01:56 Urine pH Cancelled 02/15/18 01:56 Ur Specific [place] Cancelled 02/15/18 01:56 Urine Ketones Cancelled 02/15/18 01:56 Urine Blood Cancelled 02/15/18 01:56 Urine Nitrite Cancelled 02/15/18 01:56 Urine Bilirubin Cancelled 02/15/18 01:56 Urine Urobilinogen Cancelled 02/15/18 01:56 Ur Leukocyte Esterase Cancelled 02/15/18 01:56 Urine RBC Cancelled 02/15/18 01:56 Urine WBC Cancelled 02/15/18 01:56 Ur Squamous Epith Cells Cancelled 02/15/18 01:56 Ur Urothelial Cells Cancelled 02/15/18 01:56 Calcium Oxalate Crystal Cancelled 02/15/18 01:56 Uric Acid Crystals Cancelled 02/15/18 01:56 Triple Phos Crystals Cancelled 02/15/18 01:56 Other Crystals Cancelled 02/15/18 01:56 Amorphous Sediment Cancelled 02/15/18 01:56 Glitter Cells Cancelled 02/15/18 01:56 Urine Bacteria Cancelled 02/15/18 01:56 Hyaline Casts Cancelled 02/15/18 01:56 Fine Granular Casts Cancelled 02/15/18 01:56 Coarse Granular Casts Cancelled 02/15/18 01:56 Waxy Casts Cancelled 02/15/18 01:56 RBC Casts Cancelled 02/15/18 01:56 WBC Casts Cancelled 02/15/18 01:56 Urine Mucus Cancelled 02/15/18 01:56 Urine Other Cancelled 02/15/18 01:56 Urine Trichomonas Cancelled 02/15/18 01:56 Urine Yeast Cancelled 02/15/18 01:56 Ur Yeast w Hyphae Cancelled 02/15/18 01:56 Urine Yeast (Budding) Cancelled 02/15/18 01:56 Urine Sperm Cancelled 02/15/18 01:56 Urine Culture Reflexed Cancelled 02/15/18 01:56 Urine Total Volume Cancelled 02/15/18 01:56 Urine Glucose Cancelled 02/15/18 01:56 Urine Total Protein Cancelled 02/15/18 01:56 Weight: 132 lb 12.8 oz Wound Present: No Closed Surgical Incision Present: Yes Negative Pressure Wound Therapy Present: No Physician Update: She is at standby assistance with a walker up to 150'. She is at supervision with occupational therapy. She has poor memory and problem solving. She requires moderate assistance for cognition. Her labs have been reviewed. Hgb is 10.1 and stable. Her prealbumin is low at 5.8. She is taking promod and hemocyte plus. Medical Issues: DVT Prophylaxis- Lovenox 40mg SQ Daily Pain Issues: [place] 7.5mg Q4H PRN. Tramadol 50mg Q4H PRN Functional Improvement: Patient has met all short-term goals at this time and is progressing well toward long-term goals. Patient follows TDWB well throughout transfers and gait tx. Functional Improvement Occupational Therapy: pt can benifit with further therapy to address pt's UB strength to assist with sit to stands and static standing balance to assist with LB due to TDWB on the left. Cont to increase pt' s Adl tasks by training pt on using A/E as needed. Cont with the POC and the goals by the supervising OTR. Speech Therapy Update: Patient is at MIN A for auditory comprehension, SUPERVISION for verbal expression, MOD I for social interactions, MOD A for problem solving, and MAX A for memory. She cont to require moderate prompts and cues for use of compensatory strategies and is very forgetful of new information. She requires frequent repetition and simplification of complex commands to facilitate carryover and safety within tasks. Summary: Patient's care plan and retirement goals have been reviewed and revised as necessary. Please see the Rehabilitation Signature page for all necessary signatures.
--- NOTE | 2018-02-21 13:08 | FAST ---
SHIFT START DATE/TIME: 02/21/2018 07:00 (BOWL ATTENDANT) SHIFT END DATE/TIME: 02/21/2018 19:00 (BOWL ATTENDANT) NAME AKIL BLAKELY DATE OF : 1935 DATE OF ADMISSION: 02/14/2018 16:03 (BOWL ATTENDANT) PHONE: AGE: 82 N# [id number] GENDER: Female ENCOUNTER PHYSICIAN: Dr. Javier Zaldivar M.D. ADMISSION DIAGNOSIS: - Orthopaedic Disorders 08 - Unilateral Hip Fracture (08.11) left femoral neck fracture. EATING: EATING - STEP 1: Does the patient require the assistance of a person or device, or need extra time when eating? No. EATING - SCORE: 7-IND GROOMING: GROOMING - STEP 1: Does the patient require the assistance of a person or device, or need extra time when grooming? Yes. GROOMING - STEP 2: Does the patient require the assistance of a helper? No. The patient only requires an assistive devic e, OR takes more than reasonable time to groom, OR there is a concern for safety as the patient groom s GROOMING - SCORE: 6-NIKOLAS BATHING: Activity did not occur on this shift BATHING - SCORE: 0-UNK DRESSING - UPPER BODY: Activity did not occur on this shift ARTICLES SCORE Total number of steps: 0 DRESSING - UPPER BODY - SCORE: 0-UNK DRESSING - LOWER BODY: Activity did not occur on this shift ARTICLES SCORE Total number of steps: 0 DRESSING - LOWER BODY - SCORE: 0-UNK TOILETING: TOILETING - STEP 1: Does the patient require the assistance of a person or device, or need extra time with toileting? Yes . TOILETING - STEP 2: Does the patient require the assistance of a helper? Yes. TOILETING - STEP 3: How much assistance does the patient require from the helper? Only supervision TOILETING - SCORE: 5-SUP BLADDER MANAGEMENT: BLADDER MANAGEMENT - STEP 1: Does the patient control the bladder completely and intentionally without equipment or devices or med ications, and is always continent? Yes. BLADDER MANAGEMENT - SCORE: 7-IND BLADDER MANAGEMENT - FREQUENCY OF ACCIDENTS: BLADDER MANAGEMENT(FA) - STEP 1: How many accidents has the patient had during the current shift? 0 BOWEL MANAGEMENT: BOWEL MANAGEMENT - STEP 1: Does the patient control bowels completely and intentionally without equipment devices or medications AND is always continent? Yes. BOWEL MANAGEMENT - SCORE: 7-IND BOWEL MANAGEMENT - FREQUENCY OF ACCIDENTS: BOWEL MANAGEMENT(FA) - STEP 1: How many accidents has the patient had during the current shift? 0 TRANSFERS: BED, CHAIR, WHEELCHAIR: TRANSFERS: BED, CHAIR, WHEELCHAIR - STEP 1: Does the patient require assistance of a person or device, or need extra time with bed, chair, or whe elchair transfers? Yes. TRANSFERS: BED, CHAIR, WHEELCHAIR - STEP 2: Does the patient require the assistance of a helper? Yes. TRANSFERS: BED, CHAIR, WHEELCHAIR - STEP 3: How much assistance does the patient require from the helper? Steadying/guiding assistance TRANSFERS: BED, CHAIR, WHEELCHAIR - SCORE: 4-MIN TRANSFERS: TOILET: TRANSFERS: TOILET - STEP 1: Does the patient require the assistance of a person or device, or need extra time with toilet transfe rs? Yes. TRANSFERS: TOILET - STEP 2: Does the patient require the assistance of a helper? Yes. TRANSFERS: TOILET - STEP 3: How much assistance does the patient require from the helper? Patient performs half or more of the tr ansferring tasks TRANSFERS: TOILET - STEP 4: Does the patient need only incidental help such as contact guard or steadying during toilet transfer? Yes. TRANSFERS: TOILET - SCORE: 4-MIN TRANSFERS: SHOWER: Activity did not occur on this shift TRANSFERS: SHOWER - SCORE: 0-UNK TRANSFERS: TUB: Activity did not occur on this shift TRANSFERS: TUB - SCORE: 0-UNK LOCOMOTION: WALK: Activity did not occur on this shift LOCOMOTION: WALK - SCORE: 0-UNK LOCOMOTION: WHEELCHAIR: Activity did not occur on this shift LOCOMOTION: WHEELCHAIR - SCORE: 0-UNK COMPREHENSION: COMPREHENSION - SCORE: 0-UNK EXPRESSION EXPRESSION - SCORE: 0-UNK SOCIAL INTERACTION: SOCIAL INTERACTION - SCORE: 0-UNK PROBLEM SOLVING: PROBLEM SOLVING - SCORE: 0-UNK MEMORY: MEMORY - SCORE: 0-UNK SIGNATURE PANEL: The following modified sections: Eating - Score, Grooming - Score, Bathing - Score, Dressing - Upper Body - Score, Dressing - Lower Body - Score, Toileting - Score, Bladder Management - Score, Bowel Man agement - Score, Transfers: Bed, Chair, Wheelchair - Score, Transfers: Toilet - Score, Transfers: Julianne wer - Score, Transfers: Tub - Score, Locomotion: Walk - Score, Locomotion: Wheelchair - Score, Compre hension - Score, Expression - Score, Social Interaction - Score, Problem Solving - Score, Memory - Sc ore were [electronically] signed by Celi Wren CNA on SatFeb 21 2018 13:07:35 GMT-0600 ([facility] Time)
--- NOTE | 2018-02-21 13:23 | FAST ---
ENCOUNTER DATE AND TIME: 02/17/2018 08:00 (FIELD MERCHANDISER) NAME AKIL BLAKELY DATE OF : 1935 DATE OF ADMISSION: 02/14/2018 16:03 (FIELD MERCHANDISER) PHONE: AGE: 82 N# [id number] GENDER: Female ENCOUNTER PHYSICIAN: Dr. Javier Zaldivar M.D. ADMISSION DIAGNOSIS: - Orthopaedic Disorders 08 - Unilateral Hip Fracture (08.11) left femoral neck fracture. EATING: Activity did not occur on this shift EATING - SCORE: 0-UNK GROOMING: Comb/brush hair Oral care Wash, rinse, and dry face Wash, rinse, and dry hands GROOMING - STEP 1: Does the patient require the assistance of a person or device, or need extra time when grooming? No. GROOMING - SCORE: 7-IND BATHING: Abdomen Buttocks Chest Left arm Left lower leg and foot Left upper leg Perineal area Right arm Right lower leg and foot Right upper leg BATHING - STEP 1: Does the patient require the assistance of a person or device, or need extra time when bathing? Yes. BATHING - STEP 2: Does the patient require the assistance of a helper? Yes. BATHING - STEP 3: How much assistance does the patient require from the helper? Only incidental help such as placement of a wash cloth in his/her hand a few times as s/he bathes OR help to bathe just one or two areas of the body BATHING - SCORE: 4-MIN DRESSING - UPPER BODY: T-shirt/pullover shirt (four steps) ARTICLES SCORE Total number of steps: 4 DRESSING - UPPER BODY - STEP 1: Does the patient require help from a person or device, or need extra time when dressing above the ene st? No. DRESSING - UPPER BODY - SCORE: 7-IND DRESSING - LOWER BODY: Elastic waist pants (three steps) Slip-on shoe - Left foot (one step) Slip-on shoe - Right foot (one step) Underwear (three steps) ARTICLES SCORE Total number of steps: 8 DRESSING - LOWER BODY - STEP 1: Does the patient require help from a person or device, or need extra time when dressing below the ene st? Yes. DRESSING - LOWER BODY - STEP 2: Does the patient require the assistance of a helper? Yes. DRESSING - LOWER BODY - STEP 3: Does the helper touch the patient while dressing? Yes. DRESSING - LOWER BODY - STEP 4: How many of the total steps does the patient complete on his/her own? 8 DRESSING - LOWER BODY - SCORE: 4-MIN TOILETING: Activity did not occur on this shift TOILETING - SCORE: 0-UNK BLADDER MANAGEMENT: Activity did not occur on this shift BLADDER MANAGEMENT - SCORE: 7-IND BOWEL MANAGEMENT: Activity did not occur on this shift BOWEL MANAGEMENT - SCORE: 7-IND TRANSFERS: BED, CHAIR, WHEELCHAIR: Activity did not occur on this shift TRANSFERS: BED, CHAIR, WHEELCHAIR - SCORE: 0-UNK TRANSFERS: TOILET: Activity did not occur on this shift TRANSFERS: TOILET - SCORE: 0-UNK TRANSFERS: SHOWER: Activity did not occur on this shift TRANSFERS: SHOWER - SCORE: 0-UNK TRANSFERS: TUB: TRANSFERS: TUB - STEP 1: Does the patient require the assistance of a person or device, or need extra time with tub transfers? Yes. TRANSFERS: TUB - STEP 2: Does the patient require the assistance of a helper? Yes. TRANSFERS: TUB - STEP 3: How much assistance does the patient require from the helper? Incidental help such as contact guardin g or steadying, OR help to lift one leg into the tub TRANSFERS: TUB - SCORE: 4-MIN LOCOMOTION: WALK: Activity did not occur on this shift LOCOMOTION: WALK - SCORE: 0-UNK LOCOMOTION: WHEELCHAIR: Activity did not occur on this shift LOCOMOTION: WHEELCHAIR - SCORE: 0-UNK LOCOMOTION: STAIRS: Activity did not occur on this shift LOCOMOTION: STAIRS - SCORE: 0-UNK COMPREHENSION: COMPREHENSION: TYPE: Both COMPREHENSION - STEP 1: Does the patient require help from a person or device, or need extra time to understand complex and a bstract ideas (such as current events, finances, discharge planning, medical issues, relationships, e tc)? No. COMPREHENSION - STEP 2: Does the patient need extra time, require an assistive device (such as glasses for visual comprehensi on or a hearing aid for auditory comprehension) or does s/he have mild difficulty understanding compl ex and abstract information? Yes. COMPREHENSION - SCORE: 6-NIKOLAS EXPRESSION EXPRESSION: TYPE: Both EXPRESSION - STEP 1: Does the patient require help from a person or device, or need extra time expressing complex and abst ract ideas (such as current events, finances, discharge planning, medical issues, relationships, etc) ? No. EXPRESSION - STEP 2: Does the patient need extra time, require an assistive device (such as augmentive communication syste m or a communication board), OR does s/he have mild difficulty expressing complex and abstract ideas (including mild dysarthria or mild word-find problems)? Yes. EXPRESSION - SCORE: 6-NIKOLAS SOCIAL INTERACTION: SOCIAL INTERACTION - STEP 1: Does the patient require a helper to interact with others in social and therapeutic situations? No. SOCIAL INTERACTION - STEP 2: Does the patient need extra time in social situations, OR does s/he interact with staff, other patien ts, and family members ONLY in structured environments, OR does s/he require medication for social in teraction? No. SOCIAL INTERACTION - SCORE: 7-IND PROBLEM SOLVING: PROBLEM SOLVING - STEP 1: Does the patient need help from a person or device, or need extra time to solve complex problems such as managing a checking account or confronting interpersonal problems? Yes. PROBLEM SOLVING - STEP 2: Does the patient solve basic routine problems half or more of the time? Yes. PROBLEM SOLVING - STEP 3: How often does the patient need help to solve basic routine problems? 10%-24% of the time PROBLEM SOLVING - SCORE: 4-MIN MEMORY: MEMORY - STEP 1: Does the patient need help from a person or device, or need extra time to remember frequently encount ered people, daily routines, and executing requests? Yes. MEMORY - STEP 2: How often does the patient need help to remember frequently encountered people, daily routines, and e xecuting requests? 10% - 24% of the time MEMORY - SCORE: 4-MIN SIGNATURE PANEL: The following modified sections: Eating - Score, Grooming - Score, Bathing - Score, Dressing - Upper Body - Score, Dressing - Lower Body - Score, Toileting - Score, Transfers: Bed, Chair, Wheelchair - S core, Transfers: Toilet - Score, Transfers: Shower - Score, Transfers: Tub - Score, Comprehension - S core, Expression - Score, Social Interaction - Score, Problem Solving - Score, Memory - Score were [e lectronically] signed by July Traylor OT on SatFeb 21 2018 13:23:14 T-0600 (Central Standard T rogelio)
[2018-02-21] MEDS: TRAMADOL HCL 50 MG TAB PO PRN (13:27)
--- NOTE | 2018-02-21 14:17 | FAST ---
ENCOUNTER DATE AND TIME: 02/21/2018 08:00 (TRANSPORTATION ATTENDANT) NAME AKIL BLAKELY DATE OF : 1935 DATE OF ADMISSION: 02/14/2018 16:03 (TRANSPORTATION ATTENDANT) PHONE: AGE: 82 N# [id number] GENDER: Female ENCOUNTER PHYSICIAN: Dr. Javier Zaldivar M.D. ADMISSION DIAGNOSIS: - Orthopaedic Disorders 08 - Unilateral Hip Fracture (08.11) left femoral neck fracture. EATING: Activity did not occur on this shift EATING - SCORE: 0-UNK GROOMING: Comb/brush hair Wash, rinse, and dry face Wash, rinse, and dry hands GROOMING - STEP 1: Does the patient require the assistance of a person or device, or need extra time when grooming? No. GROOMING - SCORE: 7-IND BATHING: Abdomen Buttocks Chest Left arm Left lower leg and foot Left upper leg Perineal area Right arm Right lower leg and foot Right upper leg BATHING - STEP 1: Does the patient require the assistance of a person or device, or need extra time when bathing? Yes. BATHING - STEP 2: Does the patient require the assistance of a helper? Yes. BATHING - STEP 3: How much assistance does the patient require from the helper? Only incidental help such as placement of a wash cloth in his/her hand a few times as s/he bathes OR help to bathe just one or two areas of the body BATHING - SCORE: 4-MIN DRESSING - UPPER BODY: T-shirt/pullover shirt (four steps) ARTICLES SCORE Total number of steps: 4 DRESSING - UPPER BODY - STEP 1: Does the patient require help from a person or device, or need extra time when dressing above the ene st? No. DRESSING - UPPER BODY - SCORE: 7-IND DRESSING - LOWER BODY: Elastic waist pants (three steps) Sock - Left foot (one step) Sock - Right foot (one step) Underwear (three steps) ARTICLES SCORE Total number of steps: 8 DRESSING - LOWER BODY - STEP 1: Does the patient require help from a person or device, or need extra time when dressing below the ene st? Yes. DRESSING - LOWER BODY - STEP 2: Does the patient require the assistance of a helper? Yes. DRESSING - LOWER BODY - STEP 3: Does the helper touch the patient while dressing? Yes. DRESSING - LOWER BODY - STEP 4: How many of the total steps does the patient complete on his/her own? 8 DRESSING - LOWER BODY - SCORE: 4-MIN TOILETING: Activity did not occur on this shift TOILETING - SCORE: 0-UNK BLADDER MANAGEMENT: Activity did not occur on this shift BLADDER MANAGEMENT - SCORE: 7-IND BOWEL MANAGEMENT: Activity did not occur on this shift BOWEL MANAGEMENT - SCORE: 7-IND TRANSFERS: BED, CHAIR, WHEELCHAIR: Activity did not occur on this shift TRANSFERS: BED, CHAIR, WHEELCHAIR - SCORE: 0-UNK TRANSFERS: TOILET: Activity did not occur on this shift TRANSFERS: TOILET - SCORE: 0-UNK TRANSFERS: SHOWER: Activity did not occur on this shift TRANSFERS: SHOWER - SCORE: 0-UNK TRANSFERS: TUB: TRANSFERS: TUB - STEP 1: Does the patient require the assistance of a person or device, or need extra time with tub transfers? Yes. TRANSFERS: TUB - STEP 2: Does the patient require the assistance of a helper? Yes. TRANSFERS: TUB - STEP 3: How much assistance does the patient require from the helper? Only supervision, cuing, coaxing, or he lp to set out transfer equipment or to lock brakes and/or lift foot rests TRANSFERS: TUB - SCORE: 5-SUP LOCOMOTION: WALK: Activity did not occur on this shift LOCOMOTION: WALK - SCORE: 0-UNK LOCOMOTION: WHEELCHAIR: Activity did not occur on this shift LOCOMOTION: WHEELCHAIR - SCORE: 0-UNK LOCOMOTION: STAIRS: Activity did not occur on this shift LOCOMOTION: STAIRS - SCORE: 0-UNK COMPREHENSION: COMPREHENSION: TYPE: Both COMPREHENSION - STEP 1: Does the patient require help from a person or device, or need extra time to understand complex and a bstract ideas (such as current events, finances, discharge planning, medical issues, relationships, e tc)? Yes. COMPREHENSION - STEP 2: Does the patient require help to understand questions or statements about basic needs or ideas (such as hunger, thirst, sleep, safety, daily schedule, room location, or discomfort) half or more of the t rogelio? No. COMPREHENSION - STEP 3: How often does the patient need help to understand directions and conversation about basic needs? Les s than 10% of the time COMPREHENSION - SCORE: 5-SUP EXPRESSION EXPRESSION: TYPE: Both EXPRESSION - STEP 1: Does the patient require help from a person or device, or need extra time expressing complex and abst ract ideas (such as current events, finances, discharge planning, medical issues, relationships, etc) ? Yes. EXPRESSION - STEP 2: Does the patient require help to express basic necessities or ideas (such as hunger, thirst, sleep, s afety, daily schedule, room location, or discomfort) half or more of the time? No. EXPRESSION - STEP 3: How often does the patient need help to express directions and conversation about basic needs? Less t pastrana 10% of the time EXPRESSION - SCORE: 5-SUP SOCIAL INTERACTION: SOCIAL INTERACTION - STEP 1: Does the patient require a helper to interact with others in social and therapeutic situations? No. SOCIAL INTERACTION - STEP 2: Does the patient need extra time in social situations, OR does s/he interact with staff, other patien ts, and family members ONLY in structured environments, OR does s/he require medication for social in teraction? Yes, patient needs extra time SOCIAL INTERACTION - SCORE: 6-NIKOLAS PROBLEM SOLVING: PROBLEM SOLVING - STEP 1: Does the patient need help from a person or device, or need extra time to solve complex problems such as managing a checking account or confronting interpersonal problems? Yes. PROBLEM SOLVING - STEP 2: Does the patient solve basic routine problems half or more of the time? Yes. PROBLEM SOLVING - STEP 3: How often does the patient need help to solve basic routine problems? 25%-49% of the time PROBLEM SOLVING - SCORE: 3-MOD MEMORY: MEMORY - STEP 1: Does the patient need help from a person or device, or need extra time to remember frequently encount ered people, daily routines, and executing requests? Yes. MEMORY - STEP 2: How often does the patient need help to remember frequently encountered people, daily routines, and e xecuting requests? More than 50% of the time MEMORY - STEP 3: Does the patient need help to remember all of the time OR does s/he not effectively recognize and rem ember? No. Patient does not need help all the time MEMORY - SCORE: 2-MAX SIGNATURE PANEL: The following modified sections: Eating - Score, Grooming - Score, Bathing - Score, Dressing - Upper Body - Score, Dressing - Lower Body - Score, Toileting - Score, Transfers: Bed, Chair, Wheelchair - S core, Transfers: Toilet - Score, Transfers: Shower - Score, Transfers: Tub - Score, Comprehension - S core, Expression - Score, Social Interaction - Score, Problem Solving - Score, Memory - Score were [e lectronically] signed by Dora Smith OT on SatFeb 21 2018 14:16:50 GMT-0600 ([facility]ard Time)
--- NOTE | 2018-02-21 14:43 | FAST ---
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 Javier Zaldivar M.D. ADMISSION DIAGNOSIS: - Orthopaedic Disorders 08 - Unilateral Hip Fracture (08.11) left femoral neck fracture. EATING: Activity did not occur on this shift EATING - SCORE: 0-UNK GROOMING: Activity did not occur on this shift GROOMING - SCORE: 0-UNK BATHING: Activity did not occur on this shift BATHING - SCORE: 0-UNK DRESSING - UPPER BODY: Activity did not occur on this shift Patient is not dressing in public clothing ARTICLES SCORE Total number of steps: 0 DRESSING - UPPER BODY - SCORE: 0-UNK DRESSING - LOWER BODY: Activity did not occur on this shift Patient is not dressing in public clothing ARTICLES SCORE Total number of steps: 0 DRESSING - LOWER BODY - SCORE: 0-UNK TOILETING: Activity did not occur on this shift TOILETING - SCORE: 0-UNK BLADDER MANAGEMENT: Activity did not occur on this shift BLADDER MANAGEMENT - SCORE: 7-IND BOWEL MANAGEMENT: Activity did not occur on this shift BOWEL MANAGEMENT - SCORE: 7-IND TRANSFERS: BED, CHAIR, WHEELCHAIR: TRANSFERS: BED, CHAIR, WHEELCHAIR - STEP 1: Does the patient require assistance of a person or device, or need extra time with bed, chair, or whe elchair transfers? Yes. TRANSFERS: BED, CHAIR, WHEELCHAIR - STEP 2: Does the patient require the assistance of a helper? Yes. TRANSFERS: BED, CHAIR, WHEELCHAIR - STEP 3: How much assistance does the patient require from the helper? Only supervision TRANSFERS: BED, CHAIR, WHEELCHAIR - SCORE: 5-SUP TRANSFERS: TOILET: Activity did not occur on this shift TRANSFERS: TOILET - SCORE: 0-UNK TRANSFERS: SHOWER: Activity did not occur on this shift TRANSFERS: SHOWER - SCORE: 0-UNK TRANSFERS: TUB: Activity did not occur on this shift TRANSFERS: TUB - SCORE: 0-UNK LOCOMOTION: WALK: LOCOMOTION: WALK - STEP 1: Does the patient need help from a person or device, or need extra time to walk 150 feet? Yes. LOCOMOTION: WALK - STEP 2: How much assistance does the patient require to walk a minimum of 150 feet? Only incidental help such as contact guarding or steadying LOCOMOTION: WALK - SCORE: 4-MIN LOCOMOTION: WHEELCHAIR: LOCOMOTION: WHEELCHAIR - STEP 1: Does the patient need help to go 150 feet in a wheelchair? Yes. LOCOMOTION: WHEELCHAIR - STEP 2: How much assistance does the patient need from the helper? Only supervision, cuing, or coaxing LOCOMOTION: WHEELCHAIR - SCORE: 5-SUP LOCOMOTION: STAIRS: Activity did not occur on this shift LOCOMOTION: STAIRS - SCORE: 0-UNK COMPREHENSION: COMPREHENSION - SCORE: 0-UNK EXPRESSION EXPRESSION - SCORE: 0-UNK SOCIAL INTERACTION: SOCIAL INTERACTION - SCORE: 0-UNK PROBLEM SOLVING: PROBLEM SOLVING - SCORE: 0-UNK MEMORY: MEMORY - SCORE: 0-UNK SIGNATURE PANEL: The following modified sections: Transfers: Bed, Chair, Wheelchair - Score, Transfers: Toilet - Score , Locomotion: Walk - Score, Locomotion: Wheelchair - Score, Locomotion: Stairs - Score were [roosevelt carter] signed by Ryan Duong PTA on SatFeb 21 2018 14:42:45 GMT-0600 (Central Standard Time)
[2018-02-21] MEDS: DOCUSATE NA/SENNA CONC 1 TAB PO SCH (20:29)
[2018-02-21] MEDS: MELATONIN 3 MG TABLET PO PRN (20:30)
--- NOTE | 2018-02-22 02:14 | FAST ---
SHIFT START DATE/TIME: 02/21/2018 19:00 (AUTO DEALER) SHIFT END DATE/TIME: 02/22/2018 07:00 (AUTO DEALER) NAME AKIL BLAKELY DATE OF : 1935 DATE OF ADMISSION: 02/14/2018 16:03 (AUTO DEALER) PHONE: AGE: 82 SSN# [id number] GENDER: Female ENCOUNTER PHYSICIAN: Dr. Javier Zaldivar M.D. ADMISSION DIAGNOSIS: - Orthopaedic Disorders 08 - Unilateral Hip Fracture (08.11) left femoral neck fracture. EATING: Activity did not occur on this shift EATING - SCORE: 0-UNK GROOMING: Activity did not occur on this shift GROOMING - SCORE: 0-UNK BATHING: Activity did not occur on this shift BATHING - SCORE: 0-UNK DRESSING - UPPER BODY: Patient is not dressing in public clothing ARTICLES SCORE Total number of steps: 0 DRESSING - UPPER BODY - SCORE: 0-UNK DRESSING - LOWER BODY: Patient is not dressing in public clothing ARTICLES SCORE Total number of steps: 0 DRESSING - LOWER BODY - SCORE: 0-UNK TOILETING: TOILETING - STEP 1: Does the patient require the assistance of a person or device, or need extra time with toileting? Yes . TOILETING - STEP 2: Does the patient require the assistance of a helper? Yes. TOILETING - STEP 3: How much assistance does the patient require from the helper? Hands-on assistance from the helper TOILETING - STEP 4: Of the 3 tasks: 1) Adjusting clothing prior to use, 2) Cleansing of perineal area, 3) Adjusting clot abebe after use; How many tasks does the patient perform WITHOUT assistance of the helper? Three tasks with steadying assistance from the helper TOILETING - SCORE: 4-MIN BLADDER MANAGEMENT: BLADDER MANAGEMENT - STEP 1: Does the patient control the bladder completely and intentionally without equipment or devices or med ications, and is always continent? No. BLADDER MANAGEMENT - STEP 2: Does the patient require the assistance of a helper? No, patient requires and independently uses an a ssistive device, such as a urinal, bedpan, bedside commode, catheter, absorbent pad, or collecting de vice BLADDER MANAGEMENT - SCORE: 6-NIKOLAS BOWEL MANAGEMENT: Activity did not occur on this shift BOWEL MANAGEMENT - SCORE: 7-IND TRANSFERS: BED, CHAIR, WHEELCHAIR: TRANSFERS: BED, CHAIR, WHEELCHAIR - STEP 1: Does the patient require assistance of a person or device, or need extra time with bed, chair, or whe elchair transfers? Yes. TRANSFERS: BED, CHAIR, WHEELCHAIR - STEP 2: Does the patient require the assistance of a helper? Yes. TRANSFERS: BED, CHAIR, WHEELCHAIR - STEP 3: How much assistance does the patient require from the helper? Steadying/guiding assistance TRANSFERS: BED, CHAIR, WHEELCHAIR - SCORE: 4-MIN TRANSFERS: TOILET: TRANSFERS: TOILET - STEP 1: Does the patient require the assistance of a person or device, or need extra time with toilet transfe rs? Yes. TRANSFERS: TOILET - STEP 2: Does the patient require the assistance of a helper? Yes. TRANSFERS: TOILET - STEP 3: How much assistance does the patient require from the helper? Only supervision, cuing, coaxing, OR he lp to set out transfer equipment or to lock brakes and/or lift foot rests TRANSFERS: TOILET - SCORE: 5-SUP TRANSFERS: SHOWER: Activity did not occur on this shift TRANSFERS: SHOWER - SCORE: 0-UNK TRANSFERS: TUB: Activity did not occur on this shift TRANSFERS: TUB - SCORE: 0-UNK LOCOMOTION: WALK: Activity did not occur on this shift LOCOMOTION: WALK - SCORE: 0-UNK LOCOMOTION: WHEELCHAIR: Activity did not occur on this shift LOCOMOTION: WHEELCHAIR - SCORE: 0-UNK COMPREHENSION: COMPREHENSION: TYPE: Both COMPREHENSION - STEP 1: Does the patient require help from a person or device, or need extra time to understand complex and a bstract ideas (such as current events, finances, discharge planning, medical issues, relationships, e tc)? Yes. COMPREHENSION - STEP 2: Does the patient require help to understand questions or statements about basic needs or ideas (such as hunger, thirst, sleep, safety, daily schedule, room location, or discomfort) half or more of the t rogelio? No. COMPREHENSION - STEP 3: How often does the patient need help to understand directions and conversation about basic needs? Les s than 10% of the time COMPREHENSION - SCORE: 5-SUP EXPRESSION EXPRESSION: TYPE: Both EXPRESSION - STEP 1: Does the patient require help from a person or device, or need extra time expressing complex and abst ract ideas (such as current events, finances, discharge planning, medical issues, relationships, etc) ? No. EXPRESSION - STEP 2: Does the patient need extra time, require an assistive device (such as augmentive communication syste m or a communication board), OR does s/he have mild difficulty expressing complex and abstract ideas (including mild dysarthria or mild word-find problems)? Yes. EXPRESSION - SCORE: 6-NIKOLAS SOCIAL INTERACTION: SOCIAL INTERACTION - STEP 1: Does the patient require a helper to interact with others in social and therapeutic situations? No. SOCIAL INTERACTION - STEP 2: Does the patient need extra time in social situations, OR does s/he interact with staff, other patien ts, and family members ONLY in structured environments, OR does s/he require medication for social in teraction? Yes, patient needs extra time SOCIAL INTERACTION - SCORE: 6-NIKOLAS PROBLEM SOLVING: PROBLEM SOLVING - STEP 1: Does the patient need help from a person or device, or need extra time to solve complex problems such as managing a checking account or confronting interpersonal problems? Yes. PROBLEM SOLVING - STEP 2: Does the patient solve basic routine problems half or more of the time? Yes. PROBLEM SOLVING - STEP 3: How often does the patient need help to solve basic routine problems? Less than 10% of the time PROBLEM SOLVING - SCORE: 5-SUP MEMORY: MEMORY - STEP 1: Does the patient need help from a person or device, or need extra time to remember frequently encount ered people, daily routines, and executing requests? Yes. MEMORY - STEP 2: How often does the patient need help to remember frequently encountered people, daily routines, and e xecuting requests? Less than 10% of the time MEMORY - SCORE: 5-SUP
[2018-02-22] MEDS: guaiFENesin 100 MG/5 ML UCUP PO PRN (02:40)
[2018-02-22] MEDS: LEVOTHYROXINE SOD 0.125 MG TAB PO SCH (05:17)
[2018-02-22 05:46] VITALS: BMI 20.5
[2018-02-22] MEDS: CRANBERRY FRUIT EXTRACT 200 MG CAP PO SCH ×2 (07:50→19:32)
[2018-02-22] MEDS: ESCITALOPRAM 20 MG TAB PO SCH (07:50)
[2018-02-22] MEDS: CYANOCOBALAMIN 1,000 MCG TAB PO SCH (07:50)
[2018-02-22] MEDS: GABAPENTIN 100 MG CAP PO SCH ×2 (07:50→19:40)
[2018-02-22] MEDS: FERROUS SULFATE 325 MG TAB PO SCH (07:51)
[2018-02-22] MEDS: PROMOD 30 ML DOSE PO SCH ×2 (07:52→19:30)
[2018-02-22] MEDS: NICOTINE 21 MG/PAT TD SCH (07:52)
[2018-02-22] MEDS: ENOXAPARIN 40 MG/0.4 ML SQ SCH (09:09)
[2018-02-22] MEDS: TRAMADOL HCL 50 MG TAB PO PRN (13:56)
[2018-02-22] MEDS: ARFORMOTEROL TARTRATE 15 MCG/2 ML VIAL.NEB NEB SCH ×2 (14:28→20:11)
[2018-02-22] MEDS: APIXABAN 2.5 MG TABLET PO SCH (19:32)
[2018-02-22] MEDS: DOCUSATE NA/SENNA CONC 1 TAB PO SCH (19:32)
[2018-02-22] MEDS: MELATONIN 3 MG TABLET PO PRN (19:37)
[2018-02-23] MEDS: TRAMADOL HCL 50 MG TAB PO PRN ×3 (00:05→19:53)
[2018-02-23] MEDS: LEVOTHYROXINE SOD 0.125 MG TAB PO SCH (05:01)
[2018-02-23] MEDS ORDERED: NA CHLORIDE 0.9% 1,000 ML ONE (07:26)
[2018-02-23] MEDS ORDERED: NA CHLORIDE 0.9% 1,000 ML IV SCH (08:00)
[2018-02-23] MEDS: ARFORMOTEROL TARTRATE 15 MCG/2 ML VIAL.NEB NEB SCH ×2 (08:00→20:03)
[2018-02-23] MEDS: ESCITALOPRAM 20 MG TAB PO SCH (08:13)
[2018-02-23] MEDS: CRANBERRY FRUIT EXTRACT 200 MG CAP PO SCH ×2 (08:14→19:48)
[2018-02-23] MEDS: FERROUS SULFATE 325 MG TAB PO SCH (08:14)
[2018-02-23] MEDS: APIXABAN 2.5 MG TABLET PO SCH ×2 (08:14→19:48)
[2018-02-23] MEDS: CYANOCOBALAMIN 1,000 MCG TAB PO SCH (08:14)
[2018-02-23] MEDS: NICOTINE 21 MG/PAT TD SCH (08:14)
[2018-02-23] MEDS: GABAPENTIN 100 MG CAP PO SCH ×2 (08:14→19:48)
[2018-02-23] MEDS: PROMOD 30 ML DOSE PO SCH ×2 (08:15→19:48)
[2018-02-23] MEDS ORDERED: NA CHLORIDE 0.9% 1,000 ML IV ONE (08:30)
--- NOTE | 2018-02-23 11:29 | FAST ---
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 Javier Zaldivar M.D. ADMISSION DIAGNOSIS: - Orthopaedic Disorders 08 - Unilateral Hip Fracture (08.11) left femoral neck fracture. EATING: Activity did not occur on this shift EATING - SCORE: 0-UNK GROOMING: Comb/brush hair Oral care Wash, rinse, and dry face Wash, rinse, and dry hands GROOMING - STEP 1: Does the patient require the assistance of a person or device, or need extra time when grooming? No. GROOMING - SCORE: 7-IND BATHING: Abdomen Buttocks Chest Left arm Left lower leg and foot Left upper leg Perineal area Right arm Right lower leg and foot Right upper leg BATHING - STEP 1: Does the patient require the assistance of a person or device, or need extra time when bathing? Yes. BATHING - STEP 2: Does the patient require the assistance of a helper? Yes. BATHING - STEP 3: How much assistance does the patient require from the helper? Only incidental help such as placement of a wash cloth in his/her hand a few times as s/he bathes OR help to bathe just one or two areas of the body BATHING - SCORE: 4-MIN DRESSING - UPPER BODY: Bra (three steps) T-shirt/pullover shirt (four steps) ARTICLES SCORE Total number of steps: 7 DRESSING - UPPER BODY - STEP 1: Does the patient require help from a person or device, or need extra time when dressing above the ene st? Yes. DRESSING - UPPER BODY - STEP 2: Does the patient require the assistance of a helper? No. Patient only requires an assistive device, s uch as a button hook, velcro, or timber spotter. OR s/he takes more than reasonable time as s/he dresses the upper body. OR there is a concern for safety when s/he dresses the upper body DRESSING - UPPER BODY - SCORE: 6-NIKOLAS DRESSING - LOWER BODY: Elastic waist pants (three steps) Sock - Left foot (one step) Sock - Right foot (one step) Underwear (three steps) ARTICLES SCORE Total number of steps: 8 DRESSING - LOWER BODY - STEP 1: Does the patient require help from a person or device, or need extra time when dressing below the ene st? Yes. DRESSING - LOWER BODY - STEP 2: Does the patient require the assistance of a helper? Yes. DRESSING - LOWER BODY - STEP 3: Does the helper touch the patient while dressing? Yes. DRESSING - LOWER BODY - STEP 4: How many of the total steps does the patient complete on his/her own? 8 DRESSING - LOWER BODY - SCORE: 4-MIN TOILETING: TOILETING - STEP 1: Does the patient require the assistance of a person or device, or need extra time with toileting? Yes . TOILETING - STEP 2: Does the patient require the assistance of a helper? Yes. TOILETING - STEP 3: How much assistance does the patient require from the helper? Hands-on assistance from the helper TOILETING - STEP 4: Of the 3 tasks: 1) Adjusting clothing prior to use, 2) Cleansing of perineal area, 3) Adjusting clot abebe after use; How many tasks does the patient perform WITHOUT assistance of the helper? Three tasks with steadying assistance from the helper TOILETING - SCORE: 4-MIN BLADDER MANAGEMENT: Activity did not occur on this shift BLADDER MANAGEMENT - SCORE: 7-IND BOWEL MANAGEMENT: Activity did not occur on this shift BOWEL MANAGEMENT - SCORE: 7-IND TRANSFERS: BED, CHAIR, WHEELCHAIR: Activity did not occur on this shift TRANSFERS: BED, CHAIR, WHEELCHAIR - SCORE: 0-UNK TRANSFERS: TOILET: TRANSFERS: TOILET - STEP 1: Does the patient require the assistance of a person or device, or need extra time with toilet transfe rs? Yes. TRANSFERS: TOILET - STEP 2: Does the patient require the assistance of a helper? Yes. TRANSFERS: TOILET - STEP 3: How much assistance does the patient require from the helper? Patient performs half or more of the tr ansferring tasks TRANSFERS: TOILET - STEP 4: Does the patient need only incidental help such as contact guard or steadying during toilet transfer? Yes. TRANSFERS: TOILET - SCORE: 4-MIN TRANSFERS: SHOWER: TRANSFERS: SHOWER - STEP 1: Does the patient require the assistance of a person or device, or need extra time with shower transfe rs? Yes. TRANSFERS: SHOWER - STEP 2: Does the patient require the assistance of a helper? Yes. TRANSFERS: SHOWER - STEP 3: How much assistance does the patient require from the helper? Only incidental help such as contact gu arding or steadying during shower transfers, or help to lift one leg into the shower TRANSFERS: SHOWER - SCORE: 4-MIN TRANSFERS: TUB: Activity did not occur on this shift TRANSFERS: TUB - SCORE: 0-UNK LOCOMOTION: WALK: Activity did not occur on this shift LOCOMOTION: WALK - SCORE: 0-UNK LOCOMOTION: WHEELCHAIR: Activity did not occur on this shift LOCOMOTION: WHEELCHAIR - SCORE: 0-UNK LOCOMOTION: STAIRS: Activity did not occur on this shift LOCOMOTION: STAIRS - SCORE: 0-UNK COMPREHENSION: COMPREHENSION: TYPE: Visual COMPREHENSION - STEP 1: Does the patient require help from a person or device, or need extra time to understand complex and a bstract ideas (such as current events, finances, discharge planning, medical issues, relationships, e tc)? Yes. COMPREHENSION - STEP 2: Does the patient require help to understand questions or statements about basic needs or ideas (such as hunger, thirst, sleep, safety, daily schedule, room location, or discomfort) half or more of the t rogelio? No. COMPREHENSION - STEP 3: How often does the patient need help to understand directions and conversation about basic needs? Les s than 10% of the time COMPREHENSION - SCORE: 5-SUP EXPRESSION EXPRESSION: TYPE: Non-Vocal EXPRESSION - STEP 1: Does the patient require help from a person or device, or need extra time expressing complex and abst ract ideas (such as current events, finances, discharge planning, medical issues, relationships, etc) ? No. EXPRESSION - STEP 2: Does the patient need extra time, require an assistive device (such as augmentive communication syste m or a communication board), OR does s/he have mild difficulty expressing complex and abstract ideas (including mild dysarthria or mild word-find problems)? No. EXPRESSION - SCORE: 7-IND SOCIAL INTERACTION: SOCIAL INTERACTION - STEP 1: Does the patient require a helper to interact with others in social and therapeutic situations? No. SOCIAL INTERACTION - STEP 2: Does the patient need extra time in social situations, OR does s/he interact with staff, other patien ts, and family members ONLY in structured environments, OR does s/he require medication for social in teraction? No. SOCIAL INTERACTION - SCORE: 7-IND PROBLEM SOLVING: PROBLEM SOLVING - STEP 1: Does the patient need help from a person or device, or need extra time to solve complex problems such as managing a checking account or confronting interpersonal problems? Yes. PROBLEM SOLVING - STEP 2: Does the patient solve basic routine problems half or more of the time? Yes. PROBLEM SOLVING - STEP 3: How often does the patient need help to solve basic routine problems? 10%-24% of the time PROBLEM SOLVING - SCORE: 4-MIN MEMORY: MEMORY - STEP 1: Does the patient need help from a person or device, or need extra time to remember frequently encount ered people, daily routines, and executing requests? Yes. MEMORY - STEP 2: How often does the patient need help to remember frequently encountered people, daily routines, and e xecuting requests? 10% - 24% of the time MEMORY - SCORE: 4-MIN SIGNATURE PANEL: The following modified sections: Eating - Score, Grooming - Score, Bathing - Score, Dressing - Upper Body - Score, Dressing - Lower Body - Score, Toileting - Score, Transfers: Bed, Chair, Wheelchair - S core, Transfers: Toilet - Score, Transfers: Shower - Score, Transfers: Tub - Score, Comprehension - S core, Expression - Score, Social Interaction - Score, Problem Solving - Score, Memory - Score were [e lectronically] signed by ALHAJI Ku on SatFeb 23 2018 11:27:58 T-0600 (Central [place] Time)
[2018-02-23 13:49] LABS: Urine Appearance CLEAR; Urine Bilirubin NEGATIVE (NEG); Urine Blood NEGATIVE (NEG); Urine Color YELLOW; Urine Glucose NEGATIVE (NEG); Urine Protein NEGATIVE (NEG); Urine Specific Gravity 1.015 (1.005-1.030); Urine Urobilinogen 0.2 mg/dL (0.2-1.0)
[2018-02-23 13:54] LABS: Urine Microscopic Reflex NO UMIC
--- NOTE | 2018-02-23 16:57 | FAST ---
SHIFT START DATE/TIME: 02/22/2018 07:00 (HARDENER HELPER) SHIFT END DATE/TIME: 02/22/2018 19:00 (HARDENER HELPER) NAME AKIL BLAKELY DATE OF : 1935 DATE OF ADMISSION: 02/14/2018 16:03 (HARDENER HELPER) PHONE: AGE: 82 N# [id number] GENDER: Female ENCOUNTER PHYSICIAN: Dr. Javier Zaldivar M.D. ADMISSION DIAGNOSIS: - Orthopaedic Disorders 08 - Unilateral Hip Fracture (08.11) left femoral neck fracture. EATING: EATING - STEP 1: Does the patient require the assistance of a person or device, or need extra time when eating? Yes. EATING - STEP 2: Does the patient require the assistance of a helper? Yes. EATING - STEP 3: Does the patient perform half or more of the eating tasks? Yes. EATING - STEP 4: Does the patient need only supervision, cuing, coaxing OR help to apply an orthosis OR help to cut fo od, open containers, pour liquids, or butter bread? Yes. EATING - SCORE: 5-SUP GROOMING: Comb/brush hair Wash, rinse, and dry face Wash, rinse, and dry hands GROOMING - STEP 1: Does the patient require the assistance of a person or device, or need extra time when grooming? Yes. GROOMING - STEP 2: Does the patient require the assistance of a helper? Yes. GROOMING - STEP 3: How much assistance does the patient require from the helper? Only prior equipment preparation/set up from the helper GROOMING - SCORE: 5-SUP BATHING: Activity did not occur on this shift BATHING - SCORE: 0-UNK DRESSING - UPPER BODY: T-shirt/pullover shirt (four steps) ARTICLES SCORE Total number of steps: 4 DRESSING - UPPER BODY - STEP 1: Does the patient require help from a person or device, or need extra time when dressing above the ene st? Yes. DRESSING - UPPER BODY - STEP 2: Does the patient require the assistance of a helper? Yes. DRESSING - UPPER BODY - STEP 3: Does the helper touch the patient while dressing? Yes. DRESSING - UPPER BODY - STEP 4: How many of the total steps does the patient complete on his/her own? 4 DRESSING - UPPER BODY - SCORE: 4-MIN DRESSING - LOWER BODY: Elastic waist pants (three steps) ARTICLES SCORE Total number of steps: 3 DRESSING - LOWER BODY - STEP 1: Does the patient require help from a person or device, or need extra time when dressing below the ene st? Yes. DRESSING - LOWER BODY - STEP 2: Does the patient require the assistance of a helper? Yes. DRESSING - LOWER BODY - STEP 3: Does the helper touch the patient while dressing? Yes. DRESSING - LOWER BODY - STEP 4: How many of the total steps does the patient complete on his/her own? 2 DRESSING - LOWER BODY - SCORE: 3-MOD TOILETING: TOILETING - STEP 1: Does the patient require the assistance of a person or device, or need extra time with toileting? Yes . TOILETING - STEP 2: Does the patient require the assistance of a helper? Yes. TOILETING - STEP 3: How much assistance does the patient require from the helper? Hands-on assistance from the helper TOILETING - STEP 4: Of the 3 tasks: 1) Adjusting clothing prior to use, 2) Cleansing of perineal area, 3) Adjusting clot abebe after use; How many tasks does the patient perform WITHOUT assistance of the helper? Two tasks TOILETING - SCORE: 3-MOD BLADDER MANAGEMENT: BLADDER MANAGEMENT - STEP 1: Does the patient control the bladder completely and intentionally without equipment or devices or med ications, and is always continent? No. BLADDER MANAGEMENT - STEP 2: Does the patient require the assistance of a helper? No, patient only requires extra time BLADDER MANAGEMENT - SCORE: 6-NIKOLAS BLADDER MANAGEMENT - FREQUENCY OF ACCIDENTS: BLADDER MANAGEMENT(FA) - STEP 1: How many accidents has the patient had during the current shift? 0 BOWEL MANAGEMENT: Activity did not occur on this shift BOWEL MANAGEMENT - SCORE: 7-IND BOWEL MANAGEMENT - FREQUENCY OF ACCIDENTS: BOWEL MANAGEMENT(FA) - STEP 1: How many accidents has the patient had during the current shift? 0 TRANSFERS: BED, CHAIR, WHEELCHAIR: TRANSFERS: BED, CHAIR, WHEELCHAIR - STEP 1: Does the patient require assistance of a person or device, or need extra time with bed, chair, or whe elchair transfers? Yes. TRANSFERS: BED, CHAIR, WHEELCHAIR - STEP 2: Does the patient require the assistance of a helper? Yes. TRANSFERS: BED, CHAIR, WHEELCHAIR - STEP 3: How much assistance does the patient require from the helper? Steadying/guiding assistance TRANSFERS: BED, CHAIR, WHEELCHAIR - SCORE: 4-MIN TRANSFERS: TOILET: TRANSFERS: TOILET - STEP 1: Does the patient require the assistance of a person or device, or need extra time with toilet transfe rs? Yes. TRANSFERS: TOILET - STEP 2: Does the patient require the assistance of a helper? Yes. TRANSFERS: TOILET - STEP 3: How much assistance does the patient require from the helper? Patient performs half or more of the tr ansferring tasks TRANSFERS: TOILET - STEP 4: Does the patient need only incidental help such as contact guard or steadying during toilet transfer? Yes. TRANSFERS: TOILET - SCORE: 4-MIN TRANSFERS: SHOWER: Activity did not occur on this shift TRANSFERS: SHOWER - SCORE: 0-UNK TRANSFERS: TUB: Activity did not occur on this shift TRANSFERS: TUB - SCORE: 0-UNK LOCOMOTION: WALK: Activity did not occur on this shift LOCOMOTION: WALK - SCORE: 0-UNK LOCOMOTION: WHEELCHAIR: Activity did not occur on this shift LOCOMOTION: WHEELCHAIR - SCORE: 0-UNK COMPREHENSION: COMPREHENSION: TYPE: Both COMPREHENSION - STEP 1: Does the patient require help from a person or device, or need extra time to understand complex and a bstract ideas (such as current events, finances, discharge planning, medical issues, relationships, e tc)? Yes. COMPREHENSION - STEP 2: Does the patient require help to understand questions or statements about basic needs or ideas (such as hunger, thirst, sleep, safety, daily schedule, room location, or discomfort) half or more of the t rogelio? No. COMPREHENSION - STEP 3: How often does the patient need help to understand directions and conversation about basic needs? Les s than 10% of the time COMPREHENSION - SCORE: 5-SUP EXPRESSION EXPRESSION: TYPE: Both EXPRESSION - STEP 1: Does the patient require help from a person or device, or need extra time expressing complex and abst ract ideas (such as current events, finances, discharge planning, medical issues, relationships, etc) ? Yes. EXPRESSION - STEP 2: Does the patient require help to express basic necessities or ideas (such as hunger, thirst, sleep, s afety, daily schedule, room location, or discomfort) half or more of the time? No. EXPRESSION - STEP 3: How often does the patient need help to express directions and conversation about basic needs? Less t pastrana 10% of the time EXPRESSION - SCORE: 5-SUP SOCIAL INTERACTION: SOCIAL INTERACTION - STEP 1: Does the patient require a helper to interact with others in social and therapeutic situations? Yes. SOCIAL INTERACTION - STEP 2: Does the patient interact appropriately half or more of the time? Yes. SOCIAL INTERACTION - STEP 3: How often does the patient need help to interact appropriately? Less than 10% of the time SOCIAL INTERACTION - SCORE: 5-SUP PROBLEM SOLVING: PROBLEM SOLVING - STEP 1: Does the patient need help from a person or device, or need extra time to solve complex problems such as managing a checking account or confronting interpersonal problems? Yes. PROBLEM SOLVING - STEP 2: Does the patient solve basic routine problems half or more of the time? Yes. PROBLEM SOLVING - STEP 3: How often does the patient need help to solve basic routine problems? Less than 10% of the time PROBLEM SOLVING - SCORE: 5-SUP MEMORY: MEMORY - STEP 1: Does the patient need help from a person or device, or need extra time to remember frequently encount ered people, daily routines, and executing requests? Yes. MEMORY - STEP 2: How often does the patient need help to remember frequently encountered people, daily routines, and e xecuting requests? Less than 10% of the time MEMORY - SCORE: 5-SUP SIGNATURE PANEL: The following modified sections: Eating - Score, Grooming - Score, Bathing - Score, Dressing - Upper Body - Score, Dressing - Lower Body - Score, Toileting - Score, Bladder Management - Score, Bowel Man agement - Score, Transfers: Bed, Chair, Wheelchair - Score, Transfers: Shower - Score, Transfers: Tub - Score, Locomotion: Walk - Score, Locomotion: Wheelchair - Score, Comprehension - Score, Expression - Score, Social Interaction - Score, Problem Solving - Score, Memory - Score, Transfers: Toilet - Sc ore were [electronically] signed by Lizzy Jain C.N.A. on SatFeb 23 2018 15:28:33 GMT-0600 (Centra l Standard Time)
--- NOTE | 2018-02-23 16:58 | FAST ---
SHIFT START DATE/TIME: 02/23/2018 07:00 (PRODUCT TRAINER) SHIFT END DATE/TIME: 02/23/2018 19:00 (PRODUCT TRAINER) NAME AKIL BLAKELY DATE OF : 1935 DATE OF ADMISSION: 02/14/2018 16:03 (PRODUCT TRAINER) PHONE: AGE: 82 N# [id number] GENDER: Female ENCOUNTER PHYSICIAN: Dr. Javier Zaldivar M.D. ADMISSION DIAGNOSIS: - Orthopaedic Disorders 08 - Unilateral Hip Fracture (08.11) left femoral neck fracture. EATING: EATING - STEP 1: Does the patient require the assistance of a person or device, or need extra time when eating? Yes. EATING - STEP 2: Does the patient require the assistance of a helper? Yes. EATING - STEP 3: Does the patient perform half or more of the eating tasks? Yes. EATING - STEP 4: Does the patient need only supervision, cuing, coaxing OR help to apply an orthosis OR help to cut fo od, open containers, pour liquids, or butter bread? Yes. EATING - SCORE: 5-SUP GROOMING: Activity did not occur on this shift GROOMING - SCORE: 0-UNK GROOMING - COMMENTS: Pt up to shower with therapist BATHING: Activity did not occur on this shift BATHING - SCORE: 0-UNK DRESSING - UPPER BODY: Activity did not occur on this shift ARTICLES SCORE Total number of steps: 0 DRESSING - UPPER BODY - SCORE: 0-UNK DRESSING - UPPER BODY - COMMENTS: Up to shower with therapist DRESSING - LOWER BODY: Activity did not occur on this shift ARTICLES SCORE Total number of steps: 0 DRESSING - LOWER BODY - SCORE: 0-UNK DRESSING - LOWER BODY - COMMENTS: Pt up to shower with therapist TOILETING: TOILETING - STEP 1: Does the patient require the assistance of a person or device, or need extra time with toileting? Yes . TOILETING - STEP 2: Does the patient require the assistance of a helper? Yes. TOILETING - STEP 3: How much assistance does the patient require from the helper? Only supervision TOILETING - SCORE: 5-SUP BLADDER MANAGEMENT: BLADDER MANAGEMENT - STEP 1: Does the patient control the bladder completely and intentionally without equipment or devices or med ications, and is always continent? No. BLADDER MANAGEMENT - STEP 2: Does the patient require the assistance of a helper? No, patient only requires extra time BLADDER MANAGEMENT - SCORE: 6-NIKOLAS BLADDER MANAGEMENT - FREQUENCY OF ACCIDENTS: BLADDER MANAGEMENT(FA) - STEP 1: How many accidents has the patient had during the current shift? 0 BOWEL MANAGEMENT: Activity did not occur on this shift BOWEL MANAGEMENT - SCORE: 7-IND BOWEL MANAGEMENT - FREQUENCY OF ACCIDENTS: BOWEL MANAGEMENT(FA) - STEP 1: How many accidents has the patient had during the current shift? 0 TRANSFERS: BED, CHAIR, WHEELCHAIR: TRANSFERS: BED, CHAIR, WHEELCHAIR - STEP 1: Does the patient require assistance of a person or device, or need extra time with bed, chair, or whe elchair transfers? Yes. TRANSFERS: BED, CHAIR, WHEELCHAIR - STEP 2: Does the patient require the assistance of a helper? Yes. TRANSFERS: BED, CHAIR, WHEELCHAIR - STEP 3: How much assistance does the patient require from the helper? Only supervision TRANSFERS: BED, CHAIR, WHEELCHAIR - SCORE: 5-SUP TRANSFERS: TOILET: TRANSFERS: TOILET - STEP 1: Does the patient require the assistance of a person or device, or need extra time with toilet transfe rs? Yes. TRANSFERS: TOILET - STEP 2: Does the patient require the assistance of a helper? Yes. TRANSFERS: TOILET - STEP 3: How much assistance does the patient require from the helper? Only supervision, cuing, coaxing, OR he lp to set out transfer equipment or to lock brakes and/or lift foot rests TRANSFERS: TOILET - SCORE: 5-SUP TRANSFERS: SHOWER: Activity did not occur on this shift TRANSFERS: SHOWER - SCORE: 0-UNK TRANSFERS: TUB: Activity did not occur on this shift TRANSFERS: TUB - SCORE: 0-UNK LOCOMOTION: WALK: Activity did not occur on this shift LOCOMOTION: WALK - SCORE: 0-UNK LOCOMOTION: WHEELCHAIR: Activity did not occur on this shift LOCOMOTION: WHEELCHAIR - SCORE: 0-UNK COMPREHENSION: COMPREHENSION: TYPE: Both COMPREHENSION - STEP 1: Does the patient require help from a person or device, or need extra time to understand complex and a bstract ideas (such as current events, finances, discharge planning, medical issues, relationships, e tc)? Yes. COMPREHENSION - STEP 2: Does the patient require help to understand questions or statements about basic needs or ideas (such as hunger, thirst, sleep, safety, daily schedule, room location, or discomfort) half or more of the t rogelio? No. COMPREHENSION - STEP 3: How often does the patient need help to understand directions and conversation about basic needs? Les s than 10% of the time COMPREHENSION - SCORE: 5-SUP EXPRESSION EXPRESSION: TYPE: Both EXPRESSION - STEP 1: Does the patient require help from a person or device, or need extra time expressing complex and abst ract ideas (such as current events, finances, discharge planning, medical issues, relationships, etc) ? Yes. EXPRESSION - STEP 2: Does the patient require help to express basic necessities or ideas (such as hunger, thirst, sleep, s afety, daily schedule, room location, or discomfort) half or more of the time? No. EXPRESSION - STEP 3: How often does the patient need help to express directions and conversation about basic needs? Less t pastrana 10% of the time EXPRESSION - SCORE: 5-SUP SOCIAL INTERACTION: SOCIAL INTERACTION - STEP 1: Does the patient require a helper to interact with others in social and therapeutic situations? No. SOCIAL INTERACTION - STEP 2: Does the patient need extra time in social situations, OR does s/he interact with staff, other patien ts, and family members ONLY in structured environments, OR does s/he require medication for social in teraction? Yes, patient needs extra time SOCIAL INTERACTION - SCORE: 6-NIKOLAS PROBLEM SOLVING: PROBLEM SOLVING - STEP 1: Does the patient need help from a person or device, or need extra time to solve complex problems such as managing a checking account or confronting interpersonal problems? Yes. PROBLEM SOLVING - STEP 2: Does the patient solve basic routine problems half or more of the time? Yes. PROBLEM SOLVING - STEP 3: How often does the patient need help to solve basic routine problems? Less than 10% of the time PROBLEM SOLVING - SCORE: 5-SUP MEMORY: MEMORY - STEP 1: Does the patient need help from a person or device, or need extra time to remember frequently encount ered people, daily routines, and executing requests? Yes. MEMORY - STEP 2: How often does the patient need help to remember frequently encountered people, daily routines, and e xecuting requests? Less than 10% of the time MEMORY - SCORE: 5-SUP SIGNATURE PANEL: The following modified sections: Eating - Score, Grooming - Score, Bathing - Score, Dressing - Upper Body - Score, Dressing - Upper Body - Comments:, Grooming - Comments:, Dressing - Lower Body - Score, Dressing - Lower Body - Comments:, Toileting - Score, Bladder Management - Score, Bowel Management - Score, Transfers: Bed, Chair, Wheelchair - Score, Transfers: Toilet - Score, Transfers: Shower - Sco re, Transfers: Tub - Score, Locomotion: Walk - Score, Locomotion: Wheelchair - Score, Comprehension - Score, Expression - Score, Social Interaction - Score, Problem Solving - Score, Memory - Score were [electronically] signed by Lizzy Jain C.N.A. on SatFeb 23 2018 15:38:31 [facility]-0600 (Central Standar d Time)
[2018-02-23] MEDS: MEMANTINE HCL 28 MG PO SCH (19:48)
[2018-02-23] MEDS: DOCUSATE NA/SENNA CONC 1 TAB PO SCH (19:48)
[2018-02-24] MEDS: LEVOTHYROXINE SOD 0.125 MG TAB PO SCH (05:05)
[2018-02-24] MEDS: TRAMADOL HCL 50 MG TAB PO PRN (06:49)
[2018-02-24] MEDS: PROMOD 30 ML DOSE PO SCH ×2 (08:00→20:21)
[2018-02-24] MEDS: GABAPENTIN 100 MG CAP PO SCH ×2 (08:14→20:21)
[2018-02-24] MEDS: FERROUS SULFATE 325 MG TAB PO SCH (08:14)
[2018-02-24] MEDS: CRANBERRY FRUIT EXTRACT 200 MG CAP PO SCH ×2 (08:14→20:21)
[2018-02-24] MEDS: ESCITALOPRAM 20 MG TAB PO SCH (08:15)
[2018-02-24] MEDS: CYANOCOBALAMIN 1,000 MCG TAB PO SCH (08:15)
[2018-02-24] MEDS: APIXABAN 2.5 MG TABLET PO SCH ×2 (08:15→20:21)
[2018-02-24] MEDS: NICOTINE 21 MG/PAT TD SCH (08:15)
[2018-02-24] MEDS: MEMANTINE HCL 28 MG PO SCH (08:16)
[2018-02-24] MEDS: ARFORMOTEROL TARTRATE 15 MCG/2 ML VIAL.NEB NEB SCH ×2 (10:16→20:10)
--- NOTE | 2018-02-24 12:17 | R.PN ---
ENCOUNTER DATE AND TIME: 02/24/2018 12:13 (INSULATION BLANKET MAKER) NAME AKIL BLAKELY DATE OF : 1935 DATE OF ADMISSION: 02/14/2018 16:03 (INSULATION BLANKET MAKER) left femoral neck fractureCHIEF COMPLAINT: Left hip fracture SUBJECTIVE: Pt denied any depression. Pt denied any Shortness of Breath. Activities of daily living was done with minimal assistance to independence. Ambulated 150' with mini mum assistance using a rolling walker. Propelled wheelchair 250' with standby assistance. VITAL SIGNS Temperature: 97.9 F SBP/DBP: 87/55 Pulse: 75 Resp: 16 MEDICATION ALLERGIES: No Known Drug Allergies (NKDA) ENVIRONMENTAL ALLERGIES: - Substance Allergies None Known - Other Allergies None Known NURSING: - Shower allowing shower - Skin care per protocol PRECAUTIONS: - Posterior Hip Precaution No adduction across midline No external rotation No hip flexion >90 degrees No internal rotation No wheel chair propulsion - Weight Bearing Precaution TTWB left LE ACTIVITIES OOB only with supervision THERAPIES: - Occupational Therapy Evaluate and Treat. - Physical Therapy Evaluate and Treat. PHYSICAL EXAM - Gen Alert and awake Lying in bed No apparent distress Oriented to: person, time, and place - Skin No skin breakdown. Normacephalic - Eyes No abnormalities - ENMT No abnormalities - Neck No abnormalities - CVS RRR - Chest No abnormalities - Resp Clear to auscultation - Abd Soft - GI nondistended Deferred - No abnormalities - Ext Mild left lower extremity edema. - MSK 4+/5 weakness in left lower extremity - Neuro 4/5 strength left lower extremity. - Psych No abnormalities ASSESSMENT: Pt. is a 82 yo Right-handed white female.On 02/12/2018 she was admitted to [facility] and underwent emergency surgery for left femoral neck fracture (closed reduction and percutane ous screw fixation of left femoral neck fracture) by Chetan Prince.Pre-morbidly, Pt. was independent/m od-I in Self-Care, Sphincter Control, Transfers Control, Communication, Social Cognition, and Locomot ion; and she had good Sphincter Control.Currently, she has deficits of Endurance, Safety Awareness, T ransfers Control, Communication, Social Cognition, Balance, Locomotion, and Self-Care.Pt. is now refe rred to [facility] for acute in-patient rehabilitation in order to maximize pa tient's functional independence in activities of daily living, strength, ROM, and mobility.- Rehab Go al Patient has realistic goal of being discharged at assistance level 3-modA to reside at Home with Fam mecca/Relatives. MDM/PLAN: - Physical Therapy Decreased range of motion - to improve, our physical therapists will perform initial evaluation of p t's status upon admission and devise an individualized program for increasing patient's Range of Renny on. Gait dysfunction - to improve, our physical therapists will perform initial evaluation of pt's statu s upon admission and devise an individualized program for Gait Training, and Wheel Chair mobility Inability to transfer - to improve, our physical therapists will perform initial evaluation of pt's status upon admission and devise an individualized program for Bed mobility Need for home safety evaluation - to improve, our physical therapists will perform initial evaluatio n of pt's status upon admission and devise an individualized program for Home Evaluation Need in caregiver upon discharge - to improve, our physical therapists will perform initial evaluati on of pt's status upon admission and devise an individualized program for Caregiver Training New precaution - to improve, our physical therapists will perform initial evaluation of pt's status upon admission and devise an individualized program for Patient precaution education Edema - to improve, our physical therapists will perform initial evaluation of pt's status upon admi ssion and devise an individualized program for Elevation Training, and Lymphedema Therapy Poor balance - to improve, our physical therapists will perform initial evaluation of pt's status up on admission and devise an individualized program for Balance Training Poor endurance - to improve, our physical therapists will perform initial evaluation of pt's status upon admission and devise an individualized program for Endurance Training Weakness - to improve, our physical therapists will perform initial evaluation of pt's status upon a dmission and devise an individualized program for Aquatic Therapy, Neuromuscular Reeducation, and Str engthening Achieving independence - to improve, our physical therapists will perform initial evaluation of pt's status upon admission and devise an individualized program for Community Reintegration Activities - Occupational Therapy ADL deficits - to improve, our occupation therapists will perform initial evaluation of pt's status upon admission and devise an individualized program for Bathing, Bed mobility, Community Reintegratio n, Cooking, Dressing, Eating, Fine Motor Skills, Grooming, Homemaking, Kitchen Mobility, Laundry, Pat ient Education, Safety Awareness, Splinting - Positioning, Transfers(Toilet, Tub, Shower), and Wheel Chair Management Cognitive deficits - to improve, our occupation therapists will perform initial evaluation of pt's s tatus upon admission and devise an individualized program for Cognition - orientation Need for chronic care nurse - to improve, our occupation therapists will perform initial evaluation of pt's status upon admission and devise an individualized program for Caregiver Training Weakness - to improve, our occupation therapists will perform initial evaluation of pt's status upon admission and devise an individualized program for Aquatic Therapy, Balance, Endurance, UE ROM, and UE strengthening - Anterior Hip Precaution No abduction No active extension No adduction across midline No external rotation No hip flexion >90 degrees No internal rotation - Diet - Liquid Texture Continue Regular - Tube Feed Continue N/A - Diet Type Continue Regular - Posterior Hip Precaution No adduction across midline No external rotation No hip flexion >90 degrees No internal rotation No wheel chair propulsion - Weight Bearing Precaution TTWB left LE - Skin care per protocol - Diet - Solid Texture Continue Regular - Shower allowing shower FUNCTIONAL STATUS: UPDATED AT WEEKLY TEAM CONFERENCE - Bladder Same accident frequency: 7-Ind - No accidents in the past 7 days - Bowel Same accident frequency: 7-Ind - No accidents in the past 7 days - Walking Same score based on distance walked: 1(<=50ft) FUNCTIONAL STATUS: - Self-Care A. Eating Ind B. Grooming Ind C. Bathing Ind D. Dressing - Upper Ind E. Dressing - Lower modA F. Toileting modA - Sphincter Control G: Bladder control Ind H: Bowel control Ind - Transfers Control I. Bed/Chair/Wheelchair modA J. Toilet modA K. Tub/Shower modA - Locomotion L. Walk/Wheelchair (B) modA M. Stairs ADNO - Communication N. Comprehension (B) sup O. Expression (B) sup - Social Cognition P. Social Interaction sup Q. Problem Solving sup R. Memory sup - Endurance Poor - Balance Poor - Safety Awareness Poor CURRENT FUNC. DEFICITS: Endurance, Safety Awareness, Transfers Control, Communication, Social Cognition, Balance, Locomotion, and Self-Care SIGNATURE PANEL: ([facility])
--- NOTE | 2018-02-24 15:03 | FAST ---
SHIFT START DATE/TIME: 02/24/2018 07:00 (WEB APPLICATIONS ARCHITECT) SHIFT END DATE/TIME: 02/24/2018 19:00 (WEB APPLICATIONS ARCHITECT) NAME AKIL BLAKELY DATE OF : 1935 DATE OF ADMISSION: 02/14/2018 16:03 (WEB APPLICATIONS ARCHITECT) PHONE: AGE: 82 N# [id number] GENDER: Female ENCOUNTER PHYSICIAN: Dr. Javier Zaldivar M.D. ADMISSION DIAGNOSIS: - Orthopaedic Disorders 08 - Unilateral Hip Fracture (08.11) left femoral neck fracture. EATING: EATING - STEP 1: Does the patient require the assistance of a person or device, or need extra time when eating? Yes. EATING - STEP 2: Does the patient require the assistance of a helper? Yes. EATING - STEP 3: Does the patient perform half or more of the eating tasks? Yes. EATING - STEP 4: Does the patient need only supervision, cuing, coaxing OR help to apply an orthosis OR help to cut fo od, open containers, pour liquids, or butter bread? Yes. EATING - SCORE: 5-SUP GROOMING: Activity did not occur on this shift GROOMING - SCORE: 0-UNK BATHING: Activity did not occur on this shift BATHING - SCORE: 0-UNK DRESSING - UPPER BODY: T-shirt/pullover shirt (four steps) ARTICLES SCORE Total number of steps: 4 DRESSING - UPPER BODY - STEP 1: Does the patient require help from a person or device, or need extra time when dressing above the ene st? Yes. DRESSING - UPPER BODY - STEP 2: Does the patient require the assistance of a helper? Yes. DRESSING - UPPER BODY - STEP 3: Does the helper touch the patient while dressing? No. DRESSING - UPPER BODY - SCORE: 5-SUP DRESSING - LOWER BODY: ARTICLES SCORE Total number of steps: 3 DRESSING - LOWER BODY - STEP 1: Does the patient require help from a person or device, or need extra time when dressing below the ene st? Yes. DRESSING - LOWER BODY - STEP 2: Does the patient require the assistance of a helper? Yes. DRESSING - LOWER BODY - STEP 3: Does the helper touch the patient while dressing? No. DRESSING - LOWER BODY - SCORE: 5-SUP TOILETING: TOILETING - STEP 1: Does the patient require the assistance of a person or device, or need extra time with toileting? Yes . TOILETING - STEP 2: Does the patient require the assistance of a helper? Yes. TOILETING - STEP 3: How much assistance does the patient require from the helper? Hands-on assistance from the helper TOILETING - STEP 4: Of the 3 tasks: 1) Adjusting clothing prior to use, 2) Cleansing of perineal area, 3) Adjusting clot abebe after use; How many tasks does the patient perform WITHOUT assistance of the helper? Three tasks with steadying assistance from the helper TOILETING - SCORE: 4-MIN BLADDER MANAGEMENT: BLADDER MANAGEMENT - STEP 1: Does the patient control the bladder completely and intentionally without equipment or devices or med ications, and is always continent? No. BLADDER MANAGEMENT - STEP 2: Does the patient require the assistance of a helper? No, patient requires and independently uses an a ssistive device, such as a urinal, bedpan, bedside commode, catheter, absorbent pad, or collecting de vice BLADDER MANAGEMENT - SCORE: 6-NIKOLAS BOWEL MANAGEMENT: Activity did not occur on this shift BOWEL MANAGEMENT - SCORE: 7-IND TRANSFERS: BED, CHAIR, WHEELCHAIR: TRANSFERS: BED, CHAIR, WHEELCHAIR - STEP 1: Does the patient require assistance of a person or device, or need extra time with bed, chair, or whe elchair transfers? Yes. TRANSFERS: BED, CHAIR, WHEELCHAIR - STEP 2: Does the patient require the assistance of a helper? Yes. TRANSFERS: BED, CHAIR, WHEELCHAIR - STEP 3: How much assistance does the patient require from the helper? Steadying/guiding assistance TRANSFERS: BED, CHAIR, WHEELCHAIR - SCORE: 4-MIN TRANSFERS: TOILET: TRANSFERS: TOILET - STEP 1: Does the patient require the assistance of a person or device, or need extra time with toilet transfe rs? Yes. TRANSFERS: TOILET - STEP 2: Does the patient require the assistance of a helper? Yes. TRANSFERS: TOILET - STEP 3: How much assistance does the patient require from the helper? Patient performs half or more of the tr ansferring tasks TRANSFERS: TOILET - STEP 4: Does the patient need only incidental help such as contact guard or steadying during toilet transfer? Yes. TRANSFERS: TOILET - SCORE: 4-MIN TRANSFERS: SHOWER: Activity did not occur on this shift TRANSFERS: SHOWER - SCORE: 0-UNK TRANSFERS: TUB: Activity did not occur on this shift TRANSFERS: TUB - SCORE: 0-UNK LOCOMOTION: WALK: Activity did not occur on this shift LOCOMOTION: WALK - SCORE: 0-UNK LOCOMOTION: WHEELCHAIR: Activity did not occur on this shift LOCOMOTION: WHEELCHAIR - SCORE: 0-UNK COMPREHENSION: COMPREHENSION: TYPE: Both COMPREHENSION - STEP 1: Does the patient require help from a person or device, or need extra time to understand complex and a bstract ideas (such as current events, finances, discharge planning, medical issues, relationships, e tc)? No. COMPREHENSION - STEP 2: Does the patient need extra time, require an assistive device (such as glasses for visual comprehensi on or a hearing aid for auditory comprehension) or does s/he have mild difficulty understanding compl ex and abstract information? Yes. COMPREHENSION - SCORE: 6-NIKOLAS EXPRESSION EXPRESSION: TYPE: Both EXPRESSION - STEP 1: Does the patient require help from a person or device, or need extra time expressing complex and abst ract ideas (such as current events, finances, discharge planning, medical issues, relationships, etc) ? Yes. EXPRESSION - STEP 2: Does the patient require help to express basic necessities or ideas (such as hunger, thirst, sleep, s afety, daily schedule, room location, or discomfort) half or more of the time? No. EXPRESSION - STEP 3: How often does the patient need help to express directions and conversation about basic needs? Less t pastrana 10% of the time EXPRESSION - SCORE: 5-SUP SOCIAL INTERACTION: SOCIAL INTERACTION - STEP 1: Does the patient require a helper to interact with others in social and therapeutic situations? No. SOCIAL INTERACTION - STEP 2: Does the patient need extra time in social situations, OR does s/he interact with staff, other patien ts, and family members ONLY in structured environments, OR does s/he require medication for social in teraction? Yes, patient needs extra time SOCIAL INTERACTION - SCORE: 6-NIKOLAS PROBLEM SOLVING: PROBLEM SOLVING - STEP 1: Does the patient need help from a person or device, or need extra time to solve complex problems such as managing a checking account or confronting interpersonal problems? Yes. PROBLEM SOLVING - STEP 2: Does the patient solve basic routine problems half or more of the time? Yes. PROBLEM SOLVING - STEP 3: How often does the patient need help to solve basic routine problems? Less than 10% of the time PROBLEM SOLVING - SCORE: 5-SUP MEMORY: MEMORY - STEP 1: Does the patient need help from a person or device, or need extra time to remember frequently encount ered people, daily routines, and executing requests? Yes. MEMORY - STEP 2: How often does the patient need help to remember frequently encountered people, daily routines, and e xecuting requests? 10% - 24% of the time MEMORY - SCORE: 4-MIN SIGNATURE PANEL: The following modified sections: Eating - Score, Grooming - Score, Bathing - Score, Dressing - Upper Body - Score, Dressing - Lower Body - Score, Toileting - Score, Bladder Management - Score, Bowel Man agement - Score, Transfers: Bed, Chair, Wheelchair - Score, Transfers: Toilet - Score, Transfers: Julianne wer - Score, Transfers: Tub - Score, Locomotion: Walk - Score, Locomotion: Wheelchair - Score, Compre hension - Score, Expression - Score, Social Interaction - Score, Problem Solving - Score, Memory - Sc ore were [electronically] signed by Sav Eduardo on SatFeb 24 2018 15:02:43 GMT-0600 (Central Standard Time)
--- NOTE | 2018-02-24 15:21 | FAST ---
ENCOUNTER DATE AND TIME: 02/24/2018 08:00 (PARTS ADVISOR) NAME AKIL BLAKELY DATE OF : 1935 DATE OF ADMISSION: 02/14/2018 16:03 (PARTS ADVISOR) PHONE: AGE: 82 N# [id number] GENDER: Female ENCOUNTER PHYSICIAN: Dr. Javier Zaldivar M.D. ADMISSION DIAGNOSIS: - Orthopaedic Disorders 08 - Unilateral Hip Fracture (08.11) left femoral neck fracture. EATING: Activity did not occur on this shift EATING - SCORE: 0-UNK GROOMING: Activity did not occur on this shift GROOMING - SCORE: 0-UNK BATHING: Activity did not occur on this shift BATHING - SCORE: 0-UNK DRESSING - UPPER BODY: Activity did not occur on this shift Patient is not dressing in public clothing ARTICLES SCORE Total number of steps: 0 DRESSING - UPPER BODY - SCORE: 0-UNK DRESSING - LOWER BODY: Activity did not occur on this shift Patient is not dressing in public clothing ARTICLES SCORE Total number of steps: 0 DRESSING - LOWER BODY - SCORE: 0-UNK TOILETING: Activity did not occur on this shift TOILETING - SCORE: 0-UNK BLADDER MANAGEMENT: Activity did not occur on this shift BLADDER MANAGEMENT - SCORE: 7-IND BOWEL MANAGEMENT: Activity did not occur on this shift BOWEL MANAGEMENT - SCORE: 7-IND TRANSFERS: BED, CHAIR, WHEELCHAIR: TRANSFERS: BED, CHAIR, WHEELCHAIR - STEP 1: Does the patient require assistance of a person or device, or need extra time with bed, chair, or whe elchair transfers? Yes. TRANSFERS: BED, CHAIR, WHEELCHAIR - STEP 2: Does the patient require the assistance of a helper? Yes. TRANSFERS: BED, CHAIR, WHEELCHAIR - STEP 3: How much assistance does the patient require from the helper? Only supervision TRANSFERS: BED, CHAIR, WHEELCHAIR - SCORE: 5-SUP TRANSFERS: TOILET: Activity did not occur on this shift TRANSFERS: TOILET - SCORE: 0-UNK TRANSFERS: SHOWER: Activity did not occur on this shift TRANSFERS: SHOWER - SCORE: 0-UNK TRANSFERS: TUB: Activity did not occur on this shift TRANSFERS: TUB - SCORE: 0-UNK LOCOMOTION: WALK: LOCOMOTION: WALK - STEP 1: Does the patient need help from a person or device, or need extra time to walk 150 feet? Yes. LOCOMOTION: WALK - STEP 2: How much assistance does the patient require to walk a minimum of 150 feet? Only supervision, cuing, or coaxing LOCOMOTION: WALK - SCORE: 5-SUP LOCOMOTION: WHEELCHAIR: LOCOMOTION: WHEELCHAIR - STEP 1: Does the patient need help to go 150 feet in a wheelchair? Yes. LOCOMOTION: WHEELCHAIR - STEP 2: How much assistance does the patient need from the helper? Only supervision, cuing, or coaxing LOCOMOTION: WHEELCHAIR - SCORE: 5-SUP LOCOMOTION: STAIRS: Activity did not occur on this shift LOCOMOTION: STAIRS - SCORE: 0-UNK COMPREHENSION: COMPREHENSION - SCORE: 0-UNK EXPRESSION EXPRESSION - SCORE: 0-UNK SOCIAL INTERACTION: SOCIAL INTERACTION - SCORE: 0-UNK PROBLEM SOLVING: PROBLEM SOLVING - SCORE: 0-UNK MEMORY: MEMORY - SCORE: 0-UNK SIGNATURE PANEL: The following modified sections: Transfers: Bed, Chair, Wheelchair - Score, Transfers: Toilet - Score , Locomotion: Walk - Score, Locomotion: Wheelchair - Score, Locomotion: Stairs - Score were [roosevelt carter] signed by Ryan Duong PTA on SatFeb 24 2018 15:20:23 GMT-0600 (Central Standard Time)
[2018-02-24] MEDS: DOCUSATE NA/SENNA CONC 1 TAB PO SCH (20:21)
[2018-02-25] MEDS: LEVOTHYROXINE SOD 0.125 MG TAB PO SCH (05:23)
[2018-02-25] MEDS: ARFORMOTEROL TARTRATE 15 MCG/2 ML VIAL.NEB NEB SCH ×2 (07:00→20:00)
[2018-02-25] MEDS: FERROUS SULFATE 325 MG TAB PO SCH (08:29)
[2018-02-25] MEDS: CRANBERRY FRUIT EXTRACT 200 MG CAP PO SCH ×2 (08:29→19:59)
[2018-02-25] MEDS: GABAPENTIN 100 MG CAP PO SCH ×2 (08:30→19:59)
[2018-02-25] MEDS: APIXABAN 2.5 MG TABLET PO SCH ×2 (08:30→19:59)
[2018-02-25] MEDS: TRAMADOL HCL 50 MG TAB PO PRN (08:30)
[2018-02-25] MEDS: ESCITALOPRAM 20 MG TAB PO SCH (08:30)
[2018-02-25] MEDS: CYANOCOBALAMIN 1,000 MCG TAB PO SCH (08:31)
[2018-02-25] MEDS: NICOTINE 21 MG/PAT TD SCH (08:31)
[2018-02-25] MEDS: MEMANTINE HCL 28 MG PO SCH (08:33)
[2018-02-25] MEDS: PROMOD 30 ML DOSE PO SCH ×2 (08:34→19:59)
--- NOTE | 2018-02-25 14:23 | FAST ---
SHIFT START DATE/TIME: 02/25/2018 07:00 (DIRECTOR OF EVENT MARKETING) SHIFT END DATE/TIME: 02/25/2018 19:00 (DIRECTOR OF EVENT MARKETING) NAME AKIL BLAKELY DATE OF : 1935 DATE OF ADMISSION: 02/14/2018 16:03 (DIRECTOR OF EVENT MARKETING) PHONE: AGE: 82 N# [id number] GENDER: Female ENCOUNTER PHYSICIAN: Dr. Javier Zaldivar M.D. ADMISSION DIAGNOSIS: - Orthopaedic Disorders 08 - Unilateral Hip Fracture (08.11) left femoral neck fracture. EATING: EATING - STEP 1: Does the patient require the assistance of a person or device, or need extra time when eating? Yes. EATING - STEP 2: Does the patient require the assistance of a helper? Yes. EATING - STEP 3: Does the patient perform half or more of the eating tasks? Yes. EATING - STEP 4: Does the patient need only supervision, cuing, coaxing OR help to apply an orthosis OR help to cut fo od, open containers, pour liquids, or butter bread? Yes. EATING - SCORE: 5-SUP GROOMING: Activity did not occur on this shift GROOMING - SCORE: 0-UNK BATHING: Activity did not occur on this shift BATHING - SCORE: 0-UNK DRESSING - UPPER BODY: Bra (three steps) T-shirt/pullover shirt (four steps) ARTICLES SCORE Total number of steps: 7 DRESSING - UPPER BODY - STEP 1: Does the patient require help from a person or device, or need extra time when dressing above the ene st? Yes. DRESSING - UPPER BODY - STEP 2: Does the patient require the assistance of a helper? Yes. DRESSING - UPPER BODY - STEP 3: Does the helper touch the patient while dressing? No. DRESSING - UPPER BODY - SCORE: 5-SUP DRESSING - LOWER BODY: ARTICLES SCORE Total number of steps: 8 DRESSING - LOWER BODY - STEP 1: Does the patient require help from a person or device, or need extra time when dressing below the ene st? Yes. DRESSING - LOWER BODY - STEP 2: Does the patient require the assistance of a helper? Yes. DRESSING - LOWER BODY - STEP 3: Does the helper touch the patient while dressing? No. DRESSING - LOWER BODY - SCORE: 5-SUP TOILETING: TOILETING - STEP 1: Does the patient require the assistance of a person or device, or need extra time with toileting? Yes . TOILETING - STEP 2: Does the patient require the assistance of a helper? Yes. TOILETING - STEP 3: How much assistance does the patient require from the helper? Hands-on assistance from the helper TOILETING - STEP 4: Of the 3 tasks: 1) Adjusting clothing prior to use, 2) Cleansing of perineal area, 3) Adjusting clot abebe after use; How many tasks does the patient perform WITHOUT assistance of the helper? Three tasks with steadying assistance from the helper TOILETING - SCORE: 4-MIN BLADDER MANAGEMENT: BLADDER MANAGEMENT - STEP 1: Does the patient control the bladder completely and intentionally without equipment or devices or med ications, and is always continent? Yes. BLADDER MANAGEMENT - SCORE: 7-IND BOWEL MANAGEMENT: Activity did not occur on this shift BOWEL MANAGEMENT - SCORE: 7-IND TRANSFERS: BED, CHAIR, WHEELCHAIR: TRANSFERS: BED, CHAIR, WHEELCHAIR - STEP 1: Does the patient require assistance of a person or device, or need extra time with bed, chair, or whe elchair transfers? Yes. TRANSFERS: BED, CHAIR, WHEELCHAIR - STEP 2: Does the patient require the assistance of a helper? Yes. TRANSFERS: BED, CHAIR, WHEELCHAIR - STEP 3: How much assistance does the patient require from the helper? Steadying/guiding assistance TRANSFERS: BED, CHAIR, WHEELCHAIR - SCORE: 4-MIN TRANSFERS: TOILET: TRANSFERS: TOILET - STEP 1: Does the patient require the assistance of a person or device, or need extra time with toilet transfe rs? Yes. TRANSFERS: TOILET - STEP 2: Does the patient require the assistance of a helper? Yes. TRANSFERS: TOILET - STEP 3: How much assistance does the patient require from the helper? Patient performs half or more of the tr ansferring tasks TRANSFERS: TOILET - STEP 4: Does the patient need only incidental help such as contact guard or steadying during toilet transfer? Yes. TRANSFERS: TOILET - SCORE: 4-MIN TRANSFERS: SHOWER: Activity did not occur on this shift TRANSFERS: SHOWER - SCORE: 0-UNK TRANSFERS: TUB: Activity did not occur on this shift TRANSFERS: TUB - SCORE: 0-UNK LOCOMOTION: WALK: Activity did not occur on this shift LOCOMOTION: WALK - SCORE: 0-UNK LOCOMOTION: WHEELCHAIR: Activity did not occur on this shift LOCOMOTION: WHEELCHAIR - SCORE: 0-UNK COMPREHENSION: COMPREHENSION: TYPE: Both COMPREHENSION - STEP 1: Does the patient require help from a person or device, or need extra time to understand complex and a bstract ideas (such as current events, finances, discharge planning, medical issues, relationships, e tc)? No. COMPREHENSION - STEP 2: Does the patient need extra time, require an assistive device (such as glasses for visual comprehensi on or a hearing aid for auditory comprehension) or does s/he have mild difficulty understanding compl ex and abstract information? Yes. COMPREHENSION - SCORE: 6-NIKOLAS EXPRESSION EXPRESSION: TYPE: Both EXPRESSION - STEP 1: Does the patient require help from a person or device, or need extra time expressing complex and abst ract ideas (such as current events, finances, discharge planning, medical issues, relationships, etc) ? No. EXPRESSION - STEP 2: Does the patient need extra time, require an assistive device (such as augmentive communication syste m or a communication board), OR does s/he have mild difficulty expressing complex and abstract ideas (including mild dysarthria or mild word-find problems)? Yes. EXPRESSION - SCORE: 6-NIKOLAS SOCIAL INTERACTION: SOCIAL INTERACTION - STEP 1: Does the patient require a helper to interact with others in social and therapeutic situations? No. SOCIAL INTERACTION - STEP 2: Does the patient need extra time in social situations, OR does s/he interact with staff, other patien ts, and family members ONLY in structured environments, OR does s/he require medication for social in teraction? Yes, patient needs extra time SOCIAL INTERACTION - SCORE: 6-NIKOLAS PROBLEM SOLVING: PROBLEM SOLVING - STEP 1: Does the patient need help from a person or device, or need extra time to solve complex problems such as managing a checking account or confronting interpersonal problems? No. PROBLEM SOLVING - STEP 2: Does the patient require extra time to make decisions or solve problems, OR does s/he have slight dif ficulty reading, initiating, or self-correcting in unfamiliar situations? Yes, patient needs extra ti me. PROBLEM SOLVING - SCORE: 6-NIKOLAS MEMORY: MEMORY - STEP 1: Does the patient need help from a person or device, or need extra time to remember frequently encount ered people, daily routines, and executing requests? No. MEMORY - STEP 2: Does the patient have slight difficulty recognizing frequently encountered people, daily routines, or executing requests without the need for repetition or using self-initiated or environmental cues to remember? Yes. MEMORY - SCORE: 6-NIKOLAS SIGNATURE PANEL: The following modified sections: Eating - Score, Grooming - Score, Bathing - Score, Dressing - Upper Body - Score, Dressing - Lower Body - Score, Toileting - Score, Bladder Management - Score, Bowel Man agement - Score, Transfers: Bed, Chair, Wheelchair - Score, Transfers: Toilet - Score, Transfers: Julianne wer - Score, Transfers: Tub - Score, Locomotion: Walk - Score, Locomotion: Wheelchair - Score, Compre hension - Score, Expression - Score, Social Interaction - Score, Problem Solving - Score, Memory - Sc ore were [electronically] signed by Sav Eduardo on SatFeb 25 2018 14:23:06 GMT-0600 (Central Standard Time)
[2018-02-25] MEDS: MELATONIN 3 MG TABLET PO PRN (19:59)
[2018-02-25] MEDS: DOCUSATE NA/SENNA CONC 1 TAB PO SCH (20:00)
--- NOTE | 2018-02-26 02:04 | FAST ---
SHIFT START DATE/TIME: 02/25/2018 19:00 (SCRAP COLLECTOR) SHIFT END DATE/TIME: 02/26/2018 07:00 (SCRAP COLLECTOR) NAME AKIL BLAKELY DATE OF : 1935 DATE OF ADMISSION: 02/14/2018 16:03 (SCRAP COLLECTOR) PHONE: AGE: 82 SSN# [id number] GENDER: Female ENCOUNTER PHYSICIAN: Dr. Javier Zaldivar M.D. ADMISSION DIAGNOSIS: - Orthopaedic Disorders 08 - Unilateral Hip Fracture (08.11) left femoral neck fracture. EATING: Activity did not occur on this shift EATING - SCORE: 0-UNK GROOMING: Activity did not occur on this shift GROOMING - SCORE: 0-UNK BATHING: Activity did not occur on this shift BATHING - SCORE: 0-UNK DRESSING - UPPER BODY: Patient is not dressing in public clothing ARTICLES SCORE Total number of steps: 0 DRESSING - UPPER BODY - SCORE: 0-UNK DRESSING - LOWER BODY: Patient is not dressing in public clothing ARTICLES SCORE Total number of steps: 0 DRESSING - LOWER BODY - SCORE: 0-UNK TOILETING: TOILETING - STEP 1: Does the patient require the assistance of a person or device, or need extra time with toileting? Yes . TOILETING - STEP 2: Does the patient require the assistance of a helper? Yes. TOILETING - STEP 3: How much assistance does the patient require from the helper? Only supervision TOILETING - SCORE: 5-SUP BLADDER MANAGEMENT: BLADDER MANAGEMENT - STEP 1: Does the patient control the bladder completely and intentionally without equipment or devices or med ications, and is always continent? Yes. BLADDER MANAGEMENT - SCORE: 7-IND BOWEL MANAGEMENT: Activity did not occur on this shift BOWEL MANAGEMENT - SCORE: 7-IND TRANSFERS: BED, CHAIR, WHEELCHAIR: TRANSFERS: BED, CHAIR, WHEELCHAIR - STEP 1: Does the patient require assistance of a person or device, or need extra time with bed, chair, or whe elchair transfers? Yes. TRANSFERS: BED, CHAIR, WHEELCHAIR - STEP 2: Does the patient require the assistance of a helper? Yes. TRANSFERS: BED, CHAIR, WHEELCHAIR - STEP 3: How much assistance does the patient require from the helper? Steadying/guiding assistance TRANSFERS: BED, CHAIR, WHEELCHAIR - SCORE: 4-MIN TRANSFERS: TOILET: TRANSFERS: TOILET - STEP 1: Does the patient require the assistance of a person or device, or need extra time with toilet transfe rs? Yes. TRANSFERS: TOILET - STEP 2: Does the patient require the assistance of a helper? Yes. TRANSFERS: TOILET - STEP 3: How much assistance does the patient require from the helper? Only supervision, cuing, coaxing, OR he lp to set out transfer equipment or to lock brakes and/or lift foot rests TRANSFERS: TOILET - SCORE: 5-SUP TRANSFERS: SHOWER: Activity did not occur on this shift TRANSFERS: SHOWER - SCORE: 0-UNK TRANSFERS: TUB: Activity did not occur on this shift TRANSFERS: TUB - SCORE: 0-UNK LOCOMOTION: WALK: Activity did not occur on this shift LOCOMOTION: WALK - SCORE: 0-UNK LOCOMOTION: WHEELCHAIR: Activity did not occur on this shift LOCOMOTION: WHEELCHAIR - SCORE: 0-UNK COMPREHENSION: COMPREHENSION: TYPE: Both COMPREHENSION - STEP 1: Does the patient require help from a person or device, or need extra time to understand complex and a bstract ideas (such as current events, finances, discharge planning, medical issues, relationships, e tc)? No. COMPREHENSION - STEP 2: Does the patient need extra time, require an assistive device (such as glasses for visual comprehensi on or a hearing aid for auditory comprehension) or does s/he have mild difficulty understanding compl ex and abstract information? Yes. COMPREHENSION - SCORE: 6-NIKOLAS EXPRESSION EXPRESSION: TYPE: Both EXPRESSION - STEP 1: Does the patient require help from a person or device, or need extra time expressing complex and abst ract ideas (such as current events, finances, discharge planning, medical issues, relationships, etc) ? No. EXPRESSION - STEP 2: Does the patient need extra time, require an assistive device (such as augmentive communication syste m or a communication board), OR does s/he have mild difficulty expressing complex and abstract ideas (including mild dysarthria or mild word-find problems)? Yes. EXPRESSION - SCORE: 6-NIKOLAS SOCIAL INTERACTION: SOCIAL INTERACTION - STEP 1: Does the patient require a helper to interact with others in social and therapeutic situations? No. SOCIAL INTERACTION - STEP 2: Does the patient need extra time in social situations, OR does s/he interact with staff, other patien ts, and family members ONLY in structured environments, OR does s/he require medication for social in teraction? Yes, patient needs extra time SOCIAL INTERACTION - SCORE: 6-NIKOLAS PROBLEM SOLVING: Patient requires bed/chair alarms due to attempts to get up unassisted when helper is needed. PROBLEM SOLVING - STEP 1: How often do the bed/chair alarms go off? Most of the time - the alarms go off about 75% of the time PROBLEM SOLVING - SCORE: 2-MAX MEMORY: MEMORY - STEP 1: How often do the bed/chair alarms go off? Most of the time - the alarms go off about 75% of the time MEMORY - SCORE: 2-MAX SIGNATURE PANEL: The following modified sections: Eating - Score, Grooming - Score, Dressing - Upper Body - Score, Rich ssing - Lower Body - Score, Toileting - Score, Bladder Management - Score, Bowel Management - Score, Transfers: Bed, Chair, Wheelchair - Score, Transfers: Toilet - Score, Transfers: Shower - Score, Hand sfers: Tub - Score, Locomotion: Walk - Score, Locomotion: Wheelchair - Score, Comprehension - Score, Expression - Score, Social Interaction - Score, Problem Solving - Score, Memory - Score were [electro nically] signed by Loretta Witt CNA on SatFeb 26 2018 01:57:28 GMT-0600 (Central Standard Time)
[2018-02-26] MEDS: LEVOTHYROXINE SOD 0.125 MG TAB PO SCH (05:07)
[2018-02-26 06:07] LABS: Absolute Monocytes 0.8 K/uL (0.1-1.3); Absolute Neutrophil 4.8 K/uL (1.8-8.0); Basophils % 0.7 % (0-1.3); Eosinophils % 4.5 % (0-4.4); Hematocrit 31.9 % (36.0-45.0); Lymphocytes % 14.1 % (15.3-44.8); MPV 7.8 fL (7.6-11.3); Monocytes % 11.6 % (3.3-12.3); RBC Red Blood Cell Count 3.82 M/uL (3.86-4.86)
[2018-02-26 06:23] LABS: Albumin 2.1 g/dL (3.4-5.0); BUN Blood Urea Nitrogen 8 mg/dL (7-18); Bicarbonate 34 mmol/L (21-32); Glucose Level 91 mg/dL (74-106); Potassium 4.1 mmol/L (3.5-5.1); Prealbumin 5.3 mg/dL (20-40); Sodium Level 137 mmol/L (136-145)
[2018-02-26] MEDS: GABAPENTIN 100 MG CAP PO SCH ×2 (08:03→19:50)
[2018-02-26] MEDS: NICOTINE 21 MG/PAT TD SCH (08:03)
[2018-02-26] MEDS: CRANBERRY FRUIT EXTRACT 200 MG CAP PO SCH ×2 (08:04→19:50)
[2018-02-26] MEDS: ESCITALOPRAM 20 MG TAB PO SCH (08:04)
[2018-02-26] MEDS: CYANOCOBALAMIN 1,000 MCG TAB PO SCH (08:04)
[2018-02-26] MEDS: FERROUS SULFATE 325 MG TAB PO SCH (08:04)
[2018-02-26] MEDS: APIXABAN 2.5 MG TABLET PO SCH ×2 (08:04→19:50)
[2018-02-26] MEDS: MEMANTINE HCL 28 MG PO SCH (08:05)
[2018-02-26] MEDS: TRAMADOL HCL 50 MG TAB PO PRN (08:05)
[2018-02-26] MEDS: PROMOD 30 ML DOSE PO SCH ×2 (08:05→19:48)
--- NOTE | 2018-02-26 10:35 | P.RH.PN ---
Estimated Length of Stay: 13 Expected Discharge Date: 02/27/18 Discharge Disposition Plan: Home Family Support: Yes [facility] Goal: Mobility, Transfers, Self Care Vital Signs: Last Vital Signs Temp 97.4 F 02/26/18 06:57 Pulse 79 02/26/18 06:57 Resp 16 02/26/18 06:57 BP 92/58 L 02/26/18 06:57 Pulse Ox 92 02/26/18 06:57 Laboratory: Laboratory Last Values WBC 6.9 K/uL (4.3-10.9) D 02/26/18 05:45 RBC 3.82 M/uL (3.86-4.86) L 02/26/18 05:45 Hgb 10.8 g/dL (12.0-15.0) L 02/26/18 05:45 Hct 31.9 % (36.0-45.0) L 02/26/18 05:45 MCV 83.5 fL (80-100) 02/26/18 05:45 MCH 28.2 pg (27.0-35.0) 02/26/18 05:45 MCHC 33.7 g/dL (32.0-36.0) 02/26/18 05:45 RDW 15.2 % (12.1-15.2) 02/26/18 05:45 Plt Count 348 K/uL (152-406) D 02/26/18 05:45 MPV 7.8 fL (7.6-11.3) 02/26/18 05:45 Neutrophils % 69.1 % (41.7-73.7) 02/26/18 05:45 Lymphocytes % 14.1 % (15.3-44.8) L 02/26/18 05:45 Monocytes % 11.6 % (3.3-12.3) 02/26/18 05:45 Eosinophils % 4.5 % (0-4.4) H 02/26/18 05:45 Basophils % 0.7 % (0-1.3) 02/26/18 05:45 Absolute Neutrophils 4.8 K/uL (1.8-8.0) 02/26/18 05:45 Absolute Lymphocytes 1.0 K/uL (0.7-4.9) 02/26/18 05:45 Absolute Monocytes 0.8 K/uL (0.1-1.3) 02/26/18 05:45 Absolute Eosinophils 0.3 K/uL (0-0.5) 02/26/18 05:45 Absolute Basophils 0.0 K/uL (0-0.5) 02/26/18 05:45 Sodium 137 mmol/L (136-145) 02/26/18 05:45 Potassium 4.1 mmol/L (3.5-5.1) 02/26/18 05:45 Chloride 99 mmol/L (98-107) 02/26/18 05:45 Carbon Dioxide 34 mmol/L (21-32) H 02/26/18 05:45 BUN 8 mg/dL (7-18) 02/26/18 05:45 Creatinine 0.38 mg/dL (0.55-1.3) L 02/26/18 05:45 Estimated GFR > 90 mL/min (=/>90) 02/26/18 05:45 Glucose 91 mg/dL (74-106) 02/26/18 05:45 Calcium 9.0 mg/dL (8.5-10.1) 02/26/18 05:45 Magnesium 2.0 mg/dL (1.8-2.4) 02/15/18 06:14 Albumin 2.1 g/dL (3.4-5.0) L 02/26/18 05:45 Prealbumin 5.3 mg/dL (20-40) L 02/26/18 05:45 Urine Color Yellow 02/23/18 13:20 Urine Appearance Clear 02/23/18 13:20 Urine pH 7.0 (5.0-7.0) 02/23/18 13:20 Ur Specific [place] 1.015 (1.005-1.030) 02/23/18 13:20 Urine Ketones Negative (NEG) 02/23/18 13:20 Urine Blood Negative (NEG) 02/23/18 13:20 Urine Nitrite Negative (NEG) 02/23/18 13:20 Urine Bilirubin Negative (NEG) 02/23/18 13:20 Urine Urobilinogen 0.2 mg/dL (0.2-1.0) 02/23/18 13:20 Ur Leukocyte Esterase Negative (NEG) 02/23/18 13:20 Urine RBC Cancelled 02/15/18 01:56 Urine WBC Cancelled 02/15/18 01:56 Ur Squamous Epith Cells Cancelled 02/15/18 01:56 Ur Urothelial Cells Cancelled 02/15/18 01:56 Calcium Oxalate Crystal Cancelled 02/15/18 01:56 Uric Acid Crystals Cancelled 02/15/18 01:56 Triple Phos Crystals Cancelled 02/15/18 01:56 Other Crystals Cancelled 02/15/18 01:56 Amorphous Sediment Cancelled 02/15/18 01:56 Glitter Cells Cancelled 02/15/18 01:56 Urine Bacteria Cancelled 02/15/18 01:56 Hyaline Casts Cancelled 02/15/18 01:56 Fine Granular Casts Cancelled 02/15/18 01:56 Coarse Granular Casts Cancelled 02/15/18 01:56 Waxy Casts Cancelled 02/15/18 01:56 RBC Casts Cancelled 02/15/18 01:56 WBC Casts Cancelled 02/15/18 01:56 Urine Mucus Cancelled 02/15/18 01:56 Urine Other Cancelled 02/15/18 01:56 Urine Trichomonas Cancelled 02/15/18 01:56 Urine Yeast Cancelled 02/15/18 01:56 Ur Yeast w Hyphae Cancelled 02/15/18 01:56 Urine Yeast (Budding) Cancelled 02/15/18 01:56 Urine Sperm Cancelled 02/15/18 01:56 Urine Culture Reflexed Cancelled 02/15/18 01:56 Urine Total Volume Cancelled 02/15/18 01:56 Urine Glucose Negative (NEG) 02/23/18 13:20 Urine Total Protein Negative (NEG) 02/23/18 13:20 Weight: 127 lb 1.6 oz Wound Present: No Closed Surgical Incision Present: Yes Negative Pressure Wound Therapy Present: No Physician Update: She has a persistently low prealbumin and creatinine despite a high protein diet most likely due to possible lung cancer. She is doing well at supervision due to cognitive difficulties. She is walking 250' without oxygen but her level was 88% at the end of ambulation. She is able to keep touch down weight bearing status. She has problems with short term memory requiring frequent reminders. She will go home with her daughter in the AM. Medical Issues: DVT prophylaxis - Eliquis 2.5mg BID PO Pain Issues: Hilham 7.5mg/325mg Q4H PRN. Tramadol 50mg Q4H PRN Functional Improvement: Patient has met all short-term goals at this time and is progressing well toward long-term goals. Patient follows TDWB well throughout transfers and gait tx. Functional Improvement Occupational Therapy: pt can benifit with further therapy to address pt's UB strength to assist with sit to stands and static standing balance to assist with LB due to TDWB on the left. Cont to increase pt' s Adl tasks by training pt on using A/E as needed. Cont with the POC and the goals by the supervising OTR. Speech Therapy Update: Patient is at MIN A for auditory comprehension, SUPERVISION for verbal expression, MOD I for social interactions, MOD A for problem solving, and MAX A for memory. She cont to require moderate prompts and cues for use of compensatory strategies and is very forgetful of new information. She requires frequent repetition and simplification of complex commands to facilitate carryover and safety within tasks. Summary: Patient's care plan and assisted goals have been reviewed and revised as necessary. Please see the Rehabilitation Signature page for all necessary signatures.
--- NOTE | 2018-02-26 11:36 | FAST ---
ENCOUNTER DATE AND TIME: 02/26/2018 08:00 (MARINE STEWARD) NAME AKIL BLAKELY DATE OF : 1935 DATE OF ADMISSION: 02/14/2018 16:03 (MARINE STEWARD) PHONE: AGE: 82 SSN# [id number] GENDER: Female ENCOUNTER PHYSICIAN: Dr. Javier Zaldivar M.D. ADMISSION DIAGNOSIS: - Orthopaedic Disorders 08 - Unilateral Hip Fracture (08.11) left femoral neck fracture. EATING: Activity did not occur on this shift EATING - SCORE: 0-UNK GROOMING: Activity did not occur on this shift GROOMING - SCORE: 0-UNK BATHING: Activity did not occur on this shift BATHING - SCORE: 0-UNK DRESSING - UPPER BODY: Activity did not occur on this shift Patient is not dressing in public clothing ARTICLES SCORE Total number of steps: 0 DRESSING - UPPER BODY - SCORE: 0-UNK DRESSING - LOWER BODY: Activity did not occur on this shift Patient is not dressing in public clothing ARTICLES SCORE Total number of steps: 0 DRESSING - LOWER BODY - SCORE: 0-UNK TOILETING: Activity did not occur on this shift TOILETING - SCORE: 0-UNK BLADDER MANAGEMENT: Activity did not occur on this shift BLADDER MANAGEMENT - SCORE: 7-IND BOWEL MANAGEMENT: Activity did not occur on this shift BOWEL MANAGEMENT - SCORE: 7-IND TRANSFERS: BED, CHAIR, WHEELCHAIR: TRANSFERS: BED, CHAIR, WHEELCHAIR - STEP 1: Does the patient require assistance of a person or device, or need extra time with bed, chair, or whe elchair transfers? Yes. TRANSFERS: BED, CHAIR, WHEELCHAIR - STEP 2: Does the patient require the assistance of a helper? No. Patient only requires an assistive device fo r bed, chair, wheelchair transfers such as a sliding board, grab bar, or brace, OR s/he takes more th an reasonable time, OR there is a safety concern when s/he performs the transfers TRANSFERS: BED, CHAIR, WHEELCHAIR - SCORE: 6-NIKOLAS TRANSFERS: TOILET: Activity did not occur on this shift TRANSFERS: TOILET - SCORE: 0-UNK TRANSFERS: SHOWER: Activity did not occur on this shift TRANSFERS: SHOWER - SCORE: 0-UNK TRANSFERS: TUB: Activity did not occur on this shift TRANSFERS: TUB - SCORE: 0-UNK LOCOMOTION: WALK: LOCOMOTION: WALK - STEP 1: Does the patient need help from a person or device, or need extra time to walk 150 feet? Yes. LOCOMOTION: WALK - STEP 2: How much assistance does the patient require to walk a minimum of 150 feet? Only supervision, cuing, or coaxing LOCOMOTION: WALK - SCORE: 5-SUP LOCOMOTION: WHEELCHAIR: LOCOMOTION: WHEELCHAIR - STEP 1: Does the patient need help to go 150 feet in a wheelchair? Yes. LOCOMOTION: WHEELCHAIR - STEP 2: How much assistance does the patient need from the helper? Only supervision, cuing, or coaxing LOCOMOTION: WHEELCHAIR - SCORE: 5-SUP LOCOMOTION: STAIRS: Activity did not occur on this shift LOCOMOTION: STAIRS - SCORE: 0-UNK COMPREHENSION: COMPREHENSION - SCORE: 0-UNK EXPRESSION EXPRESSION - SCORE: 0-UNK SOCIAL INTERACTION: SOCIAL INTERACTION - SCORE: 0-UNK PROBLEM SOLVING: PROBLEM SOLVING - SCORE: 0-UNK MEMORY: MEMORY - SCORE: 0-UNK SIGNATURE PANEL: The following modified sections: Transfers: Bed, Chair, Wheelchair - Score, Transfers: Toilet - Score , Locomotion: Walk - Score, Locomotion: Wheelchair - Score, Locomotion: Stairs - Score were [electron ically] signed by Rayn Duong PTA on SatFeb 26 2018 11:35:17 GMT-0600 (Central Standard Time)
--- NOTE | 2018-02-26 13:34 | FAST ---
SHIFT START DATE/TIME: 02/26/2018 07:00 (PSYCHOLOGICAL ANTHROPOLOGIST) SHIFT END DATE/TIME: 02/26/2018 19:00 (PSYCHOLOGICAL ANTHROPOLOGIST) NAME AKIL BLAKELY DATE OF : 1935 DATE OF ADMISSION: 02/14/2018 16:03 (PSYCHOLOGICAL ANTHROPOLOGIST) PHONE: AGE: 82 N# [id number] GENDER: Female ENCOUNTER PHYSICIAN: Dr. Javier Zaldivar M.D. ADMISSION DIAGNOSIS: - Orthopaedic Disorders 08 - Unilateral Hip Fracture (08.11) left femoral neck fracture. EATING: EATING - STEP 1: Does the patient require the assistance of a person or device, or need extra time when eating? Yes. EATING - STEP 2: Does the patient require the assistance of a helper? No, patient only requires an assistive device, O R s/he takes more than reasonable time to eat, OR there is a safety concern, OR s/he requires modifie d food consistency EATING - SCORE: 6-NIKOLAS GROOMING: Comb/brush hair Wash, rinse, and dry face Wash, rinse, and dry hands GROOMING - STEP 1: Does the patient require the assistance of a person or device, or need extra time when grooming? Yes. GROOMING - STEP 2: Does the patient require the assistance of a helper? No. The patient only requires an assistive devic e, OR takes more than reasonable time to groom, OR there is a concern for safety as the patient groom s GROOMING - SCORE: 6-NIKOLAS BATHING: Activity did not occur on this shift BATHING - SCORE: 0-UNK DRESSING - UPPER BODY: Activity did not occur on this shift ARTICLES SCORE Total number of steps: 0 DRESSING - UPPER BODY - SCORE: 0-UNK DRESSING - UPPER BODY - COMMENTS: Pt up going to shower with therapist DRESSING - LOWER BODY: Activity did not occur on this shift ARTICLES SCORE Total number of steps: 0 DRESSING - LOWER BODY - SCORE: 0-UNK DRESSING - LOWER BODY - COMMENTS: Pt up going to shower with therapist TOILETING: TOILETING - STEP 1: Does the patient require the assistance of a person or device, or need extra time with toileting? Yes . TOILETING - STEP 2: Does the patient require the assistance of a helper? Yes. TOILETING - STEP 3: How much assistance does the patient require from the helper? Only supervision TOILETING - SCORE: 5-SUP BLADDER MANAGEMENT: BLADDER MANAGEMENT - STEP 1: Does the patient control the bladder completely and intentionally without equipment or devices or med ications, and is always continent? No. BLADDER MANAGEMENT - STEP 2: Does the patient require the assistance of a helper? No, patient only requires extra time BLADDER MANAGEMENT - SCORE: 6-NIKOLAS BLADDER MANAGEMENT - FREQUENCY OF ACCIDENTS: BLADDER MANAGEMENT(FA) - STEP 1: How many accidents has the patient had during the current shift? 0 BOWEL MANAGEMENT: BOWEL MANAGEMENT - STEP 1: Does the patient control bowels completely and intentionally without equipment devices or medications AND is always continent? No. BOWEL MANAGEMENT - STEP 2: Does the patient require the assistance of a helper? No, patient requires extra time BOWEL MANAGEMENT - SCORE: 6-NIKOLAS BOWEL MANAGEMENT - FREQUENCY OF ACCIDENTS: BOWEL MANAGEMENT(FA) - STEP 1: How many accidents has the patient had during the current shift? 0 TRANSFERS: BED, CHAIR, WHEELCHAIR: TRANSFERS: BED, CHAIR, WHEELCHAIR - STEP 1: Does the patient require assistance of a person or device, or need extra time with bed, chair, or whe elchair transfers? Yes. TRANSFERS: BED, CHAIR, WHEELCHAIR - STEP 2: Does the patient require the assistance of a helper? Yes. TRANSFERS: BED, CHAIR, WHEELCHAIR - STEP 3: How much assistance does the patient require from the helper? Only supervision TRANSFERS: BED, CHAIR, WHEELCHAIR - SCORE: 5-SUP TRANSFERS: TOILET: TRANSFERS: TOILET - STEP 1: Does the patient require the assistance of a person or device, or need extra time with toilet transfe rs? Yes. TRANSFERS: TOILET - STEP 2: Does the patient require the assistance of a helper? No. Patient only requires an assistive device pena ch as a grab bar or special seat, OR s/he takes more than reasonable time to perform toilet transfers , OR there is a safety concern when s/he performs toilet transfers. TRANSFERS: TOILET - SCORE: 6-NIKOLAS TRANSFERS: SHOWER: Activity did not occur on this shift TRANSFERS: SHOWER - SCORE: 0-UNK TRANSFERS: TUB: Activity did not occur on this shift TRANSFERS: TUB - SCORE: 0-UNK LOCOMOTION: WALK: Activity did not occur on this shift LOCOMOTION: WALK - SCORE: 0-UNK LOCOMOTION: WHEELCHAIR: Activity did not occur on this shift LOCOMOTION: WHEELCHAIR - SCORE: 0-UNK COMPREHENSION: COMPREHENSION: TYPE: Both COMPREHENSION - STEP 1: Does the patient require help from a person or device, or need extra time to understand complex and a bstract ideas (such as current events, finances, discharge planning, medical issues, relationships, e tc)? No. COMPREHENSION - STEP 2: Does the patient need extra time, require an assistive device (such as glasses for visual comprehensi on or a hearing aid for auditory comprehension) or does s/he have mild difficulty understanding compl ex and abstract information? Yes. COMPREHENSION - SCORE: 6-NIKOLAS EXPRESSION EXPRESSION: TYPE: Both EXPRESSION - STEP 1: Does the patient require help from a person or device, or need extra time expressing complex and abst ract ideas (such as current events, finances, discharge planning, medical issues, relationships, etc) ? No. EXPRESSION - STEP 2: Does the patient need extra time, require an assistive device (such as augmentive communication syste m or a communication board), OR does s/he have mild difficulty expressing complex and abstract ideas (including mild dysarthria or mild word-find problems)? Yes. EXPRESSION - SCORE: 6-NIKOLAS SOCIAL INTERACTION: SOCIAL INTERACTION - STEP 1: Does the patient require a helper to interact with others in social and therapeutic situations? No. SOCIAL INTERACTION - STEP 2: Does the patient need extra time in social situations, OR does s/he interact with staff, other patien ts, and family members ONLY in structured environments, OR does s/he require medication for social in teraction? Yes, patient needs extra time SOCIAL INTERACTION - SCORE: 6-NIKOLAS PROBLEM SOLVING: PROBLEM SOLVING - STEP 1: Does the patient need help from a person or device, or need extra time to solve complex problems such as managing a checking account or confronting interpersonal problems? No. PROBLEM SOLVING - STEP 2: Does the patient require extra time to make decisions or solve problems, OR does s/he have slight dif ficulty reading, initiating, or self-correcting in unfamiliar situations? Yes, patient needs extra ti me. PROBLEM SOLVING - SCORE: 6-NIKOLAS MEMORY: MEMORY - STEP 1: Does the patient need help from a person or device, or need extra time to remember frequently encount ered people, daily routines, and executing requests? No. MEMORY - STEP 2: Does the patient have slight difficulty recognizing frequently encountered people, daily routines, or executing requests without the need for repetition or using self-initiated or environmental cues to remember? Yes. MEMORY - SCORE: 6-NIKOLAS SIGNATURE PANEL: The following modified sections: Eating - Score, Grooming - Score, Bathing - Score, Dressing - Upper Body - Score, Dressing - Upper Body - Comments:, Dressing - Lower Body - Score, Dressing - Lower Body - Comments:, Toileting - Score, Bladder Management - Score, Bowel Management - Score, Transfers: Bed , Chair, Wheelchair - Score, Transfers: Toilet - Score, Transfers: Shower - Score, Transfers: Tub - S core, Locomotion: Walk - Score, Locomotion: Wheelchair - Score, Comprehension - Score, Expression - S core, Social Interaction - Score, Problem Solving - Score, Memory - Score were [electronically] alessandro d by Jesusita FletcherNRoxann on SatFeb 26 2018 13:34:02 [facility]-0600 (Central Standard Time)
[2018-02-26] MEDS: ARFORMOTEROL TARTRATE 15 MCG/2 ML VIAL.NEB NEB SCH ×2 (13:50→20:21)
--- NOTE | 2018-02-26 15:38 | FAST ---
ENCOUNTER DATE AND TIME: 02/26/2018 08:00 (IDEA MAN) NAME AKLI BLAKELY DATE OF : 1935 DATE OF ADMISSION: 02/14/2018 16:03 (IDEA MAN) PHONE: AGE: 82 N# [id number] GENDER: Female ENCOUNTER PHYSICIAN: Dr. Javier Zaldivar M.D. ADMISSION DIAGNOSIS: - Orthopaedic Disorders 08 - Unilateral Hip Fracture (08.11) left femoral neck fracture. EATING: Activity did not occur on this shift EATING - SCORE: 0-UNK GROOMING: Wash, rinse, and dry face Wash, rinse, and dry hands GROOMING - STEP 1: Does the patient require the assistance of a person or device, or need extra time when grooming? No. GROOMING - SCORE: 7-IND BATHING: Abdomen Buttocks Chest Left arm Left lower leg and foot Left upper leg Perineal area Right arm Right lower leg and foot BATHING - STEP 1: Does the patient require the assistance of a person or device, or need extra time when bathing? Yes. BATHING - STEP 2: Does the patient require the assistance of a helper? No. The patient only requires an assistive devic e such as a bath gris, OR the patient takes more than reasonable time to bathe, OR there is a concern for safety such as regulating water temperature as the patient bathes. BATHING - SCORE: 6-NIKOLAS DRESSING - UPPER BODY: T-shirt/pullover shirt (four steps) ARTICLES SCORE Total number of steps: 4 DRESSING - UPPER BODY - STEP 1: Does the patient require help from a person or device, or need extra time when dressing above the ene st? No. DRESSING - UPPER BODY - SCORE: 7-IND DRESSING - LOWER BODY: Elastic waist pants (three steps) Slip-on shoe - Left foot (one step) Slip-on shoe - Right foot (one step) Underwear (three steps) ARTICLES SCORE Total number of steps: 8 DRESSING - LOWER BODY - STEP 1: Does the patient require help from a person or device, or need extra time when dressing below the ene st? Yes. DRESSING - LOWER BODY - STEP 2: Does the patient require the assistance of a helper? No. Patient requires an assistive device such as a rubber splicer. OR s/he takes more than reasonable time as s/he dresses the lower body, OR there is a con cern for safety when s/he dresses the lower body DRESSING - LOWER BODY - SCORE: 6-NIKOLAS TOILETING: Activity did not occur on this shift TOILETING - SCORE: 0-UNK BLADDER MANAGEMENT: Activity did not occur on this shift BLADDER MANAGEMENT - SCORE: 7-IND BOWEL MANAGEMENT: Activity did not occur on this shift BOWEL MANAGEMENT - SCORE: 7-IND TRANSFERS: BED, CHAIR, WHEELCHAIR: Activity did not occur on this shift TRANSFERS: BED, CHAIR, WHEELCHAIR - SCORE: 0-UNK TRANSFERS: TOILET: Activity did not occur on this shift TRANSFERS: TOILET - SCORE: 0-UNK TRANSFERS: SHOWER: Activity did not occur on this shift TRANSFERS: SHOWER - SCORE: 0-UNK TRANSFERS: TUB: TRANSFERS: TUB - STEP 1: Does the patient require the assistance of a person or device, or need extra time with tub transfers? Yes. TRANSFERS: TUB - STEP 2: Does the patient require the assistance of a helper? No. Only requires the assistance of an assistive device, OR takes more than reasonable time, OR there is a concern for safety when s/he performs tub transfers TRANSFERS: TUB - SCORE: 6-NIKOLAS LOCOMOTION: WALK: Activity did not occur on this shift LOCOMOTION: WALK - SCORE: 0-UNK LOCOMOTION: WHEELCHAIR: Activity did not occur on this shift LOCOMOTION: WHEELCHAIR - SCORE: 0-UNK LOCOMOTION: STAIRS: Activity did not occur on this shift LOCOMOTION: STAIRS - SCORE: 0-UNK COMPREHENSION: COMPREHENSION: TYPE: Visual COMPREHENSION - STEP 1: Does the patient require help from a person or device, or need extra time to understand complex and a bstract ideas (such as current events, finances, discharge planning, medical issues, relationships, e tc)? No. COMPREHENSION - STEP 2: Does the patient need extra time, require an assistive device (such as glasses for visual comprehensi on or a hearing aid for auditory comprehension) or does s/he have mild difficulty understanding compl ex and abstract information? Yes. COMPREHENSION - SCORE: 6-NIKOLAS EXPRESSION EXPRESSION: TYPE: Non-Vocal EXPRESSION - STEP 1: Does the patient require help from a person or device, or need extra time expressing complex and abst ract ideas (such as current events, finances, discharge planning, medical issues, relationships, etc) ? No. EXPRESSION - STEP 2: Does the patient need extra time, require an assistive device (such as augmentive communication syste m or a communication board), OR does s/he have mild difficulty expressing complex and abstract ideas (including mild dysarthria or mild word-find problems)? No. EXPRESSION - SCORE: 7-IND SOCIAL INTERACTION: SOCIAL INTERACTION - STEP 1: Does the patient require a helper to interact with others in social and therapeutic situations? No. SOCIAL INTERACTION - STEP 2: Does the patient need extra time in social situations, OR does s/he interact with staff, other patien ts, and family members ONLY in structured environments, OR does s/he require medication for social in teraction? No. SOCIAL INTERACTION - SCORE: 7-IND PROBLEM SOLVING: PROBLEM SOLVING - STEP 1: Does the patient need help from a person or device, or need extra time to solve complex problems such as managing a checking account or confronting interpersonal problems? No. PROBLEM SOLVING - STEP 2: Does the patient require extra time to make decisions or solve problems, OR does s/he have slight dif ficulty reading, initiating, or self-correcting in unfamiliar situations? Yes, patient needs extra ti me. PROBLEM SOLVING - SCORE: 6-NIKOLAS MEMORY: MEMORY - STEP 1: Does the patient need help from a person or device, or need extra time to remember frequently encount ered people, daily routines, and executing requests? No. MEMORY - STEP 2: Does the patient have slight difficulty recognizing frequently encountered people, daily routines, or executing requests without the need for repetition or using self-initiated or environmental cues to remember? Yes. MEMORY - SCORE: 6-NIKOLAS SIGNATURE PANEL: The following modified sections: Eating - Score, Grooming - Score, Bathing - Score, Dressing - Upper Body - Score, Dressing - Lower Body - Score, Toileting - Score, Transfers: Bed, Chair, Wheelchair - S core, Transfers: Toilet - Score, Transfers: Shower - Score, Transfers: Tub - Score, Comprehension - S core, Expression - Score, Social Interaction - Score, Problem Solving - Score, Memory - Score were [e lectronically] signed by ALHAJI Ku on SatFeb 26 2018 15:37:55 GMT-0600 ([place] Time)
[2018-02-26] MEDS: MELATONIN 3 MG TABLET PO PRN (19:49)
[2018-02-26] MEDS: DOCUSATE NA/SENNA CONC 1 TAB PO SCH (19:57)
--- NOTE | 2018-02-27 01:25 | FAST ---
SHIFT START DATE/TIME: 02/26/2018 19:00 (GEOSCIENCES ASSOCIATE PROFESSOR) SHIFT END DATE/TIME: 02/27/2018 07:00 (GEOSCIENCES ASSOCIATE PROFESSOR) NAME AKIL BLAKELY DATE OF : 1935 DATE OF ADMISSION: 02/14/2018 16:03 (GEOSCIENCES ASSOCIATE PROFESSOR) PHONE: AGE: 82 SSN# [id number] GENDER: Female ENCOUNTER PHYSICIAN: Dr. Javier Zaldivar M.D. ADMISSION DIAGNOSIS: - Orthopaedic Disorders 08 - Unilateral Hip Fracture (08.11) left femoral neck fracture. EATING: Activity did not occur on this shift EATING - SCORE: 0-UNK GROOMING: Activity did not occur on this shift GROOMING - SCORE: 0-UNK BATHING: Activity did not occur on this shift BATHING - SCORE: 0-UNK DRESSING - UPPER BODY: Patient is not dressing in public clothing ARTICLES SCORE Total number of steps: 0 DRESSING - UPPER BODY - SCORE: 0-UNK DRESSING - LOWER BODY: Patient is not dressing in public clothing ARTICLES SCORE Total number of steps: 0 DRESSING - LOWER BODY - SCORE: 0-UNK TOILETING: TOILETING - STEP 1: Does the patient require the assistance of a person or device, or need extra time with toileting? Yes . TOILETING - STEP 2: Does the patient require the assistance of a helper? Yes. TOILETING - STEP 3: How much assistance does the patient require from the helper? Hands-on assistance from the helper TOILETING - STEP 4: Of the 3 tasks: 1) Adjusting clothing prior to use, 2) Cleansing of perineal area, 3) Adjusting clot abebe after use; How many tasks does the patient perform WITHOUT assistance of the helper? Three tasks with steadying assistance from the helper TOILETING - SCORE: 4-MIN BLADDER MANAGEMENT: BLADDER MANAGEMENT - STEP 1: Does the patient control the bladder completely and intentionally without equipment or devices or med ications, and is always continent? Yes. BLADDER MANAGEMENT - SCORE: 7-IND BOWEL MANAGEMENT: Activity did not occur on this shift BOWEL MANAGEMENT - SCORE: 7-IND TRANSFERS: BED, CHAIR, WHEELCHAIR: TRANSFERS: BED, CHAIR, WHEELCHAIR - STEP 1: Does the patient require assistance of a person or device, or need extra time with bed, chair, or whe elchair transfers? Yes. TRANSFERS: BED, CHAIR, WHEELCHAIR - STEP 2: Does the patient require the assistance of a helper? Yes. TRANSFERS: BED, CHAIR, WHEELCHAIR - STEP 3: How much assistance does the patient require from the helper? Steadying/guiding assistance TRANSFERS: BED, CHAIR, WHEELCHAIR - SCORE: 4-MIN TRANSFERS: TOILET: TRANSFERS: TOILET - STEP 1: Does the patient require the assistance of a person or device, or need extra time with toilet transfe rs? Yes. TRANSFERS: TOILET - STEP 2: Does the patient require the assistance of a helper? Yes. TRANSFERS: TOILET - STEP 3: How much assistance does the patient require from the helper? Only supervision, cuing, coaxing, OR he lp to set out transfer equipment or to lock brakes and/or lift foot rests TRANSFERS: TOILET - SCORE: 5-SUP TRANSFERS: SHOWER: Activity did not occur on this shift TRANSFERS: SHOWER - SCORE: 0-UNK TRANSFERS: TUB: Activity did not occur on this shift TRANSFERS: TUB - SCORE: 0-UNK LOCOMOTION: WALK: Activity did not occur on this shift LOCOMOTION: WALK - SCORE: 0-UNK LOCOMOTION: WHEELCHAIR: Activity did not occur on this shift LOCOMOTION: WHEELCHAIR - SCORE: 0-UNK COMPREHENSION: COMPREHENSION: TYPE: Both COMPREHENSION - STEP 1: Does the patient require help from a person or device, or need extra time to understand complex and a bstract ideas (such as current events, finances, discharge planning, medical issues, relationships, e tc)? Yes. COMPREHENSION - STEP 2: Does the patient require help to understand questions or statements about basic needs or ideas (such as hunger, thirst, sleep, safety, daily schedule, room location, or discomfort) half or more of the t rogelio? No. COMPREHENSION - STEP 3: How often does the patient need help to understand directions and conversation about basic needs? 10% - 24% of the time COMPREHENSION - SCORE: 4-MIN EXPRESSION EXPRESSION: TYPE: Both EXPRESSION - STEP 1: Does the patient require help from a person or device, or need extra time expressing complex and abst ract ideas (such as current events, finances, discharge planning, medical issues, relationships, etc) ? No. EXPRESSION - STEP 2: Does the patient need extra time, require an assistive device (such as augmentive communication syste m or a communication board), OR does s/he have mild difficulty expressing complex and abstract ideas (including mild dysarthria or mild word-find problems)? Yes. EXPRESSION - SCORE: 6-NIKOLAS SOCIAL INTERACTION: SOCIAL INTERACTION - STEP 1: Does the patient require a helper to interact with others in social and therapeutic situations? No. SOCIAL INTERACTION - STEP 2: Does the patient need extra time in social situations, OR does s/he interact with staff, other patien ts, and family members ONLY in structured environments, OR does s/he require medication for social in teraction? Yes, patient needs extra time SOCIAL INTERACTION - SCORE: 6-NIKOLAS PROBLEM SOLVING: Patient requires bed/chair alarms due to attempts to get up unassisted when helper is needed. PROBLEM SOLVING - STEP 1: How often do the bed/chair alarms go off? Most of the time - the alarms go off about 75% of the time PROBLEM SOLVING - SCORE: 2-MAX MEMORY: MEMORY - STEP 1: How often do the bed/chair alarms go off? Most of the time - the alarms go off about 75% of the time MEMORY - SCORE: 2-MAX SIGNATURE PANEL: The following modified sections: Eating - Score, Grooming - Score, Dressing - Upper Body - Score, Rich ssing - Lower Body - Score, Toileting - Score, Bladder Management - Score, Bowel Management - Score, Transfers: Bed, Chair, Wheelchair - Score, Transfers: Toilet - Score, Transfers: Shower - Score, Hand sfers: Tub - Score, Locomotion: Walk - Score, Locomotion: Wheelchair - Score, Comprehension - Score, Expression - Score, Social Interaction - Score, Problem Solving - Score, Memory - Score were [electro nically] signed by Loretta Witt CNA on SatFeb 27 2018 01:24:09 GMT-0600 (Central Standard Time)
[2018-02-27] MEDS: LEVOTHYROXINE SOD 0.125 MG TAB PO SCH (05:03)
[2018-02-27] MEDS: NICOTINE 21 MG/PAT TD SCH (07:04)
[2018-02-27] MEDS: MEMANTINE HCL 28 MG PO SCH (07:09)
[2018-02-27] MEDS: NYSTATIN PWDR 100000 UNIT/GM TOP PRN (07:09)
[2018-02-27 07:23] VITALS: BP 87/61; TEMP 97.6
[2018-02-27] MEDS: ARFORMOTEROL TARTRATE 15 MCG/2 ML VIAL.NEB NEB SCH (07:39)
[2018-02-27] MEDS: CRANBERRY FRUIT EXTRACT 200 MG CAP PO SCH (08:05)
[2018-02-27] MEDS: APIXABAN 2.5 MG TABLET PO SCH (08:06)
[2018-02-27] MEDS: FERROUS SULFATE 325 MG TAB PO SCH (08:06)
[2018-02-27] MEDS: CYANOCOBALAMIN 1,000 MCG TAB PO SCH (08:06)
[2018-02-27] MEDS: GABAPENTIN 100 MG CAP PO SCH (08:07)
[2018-02-27] MEDS: ESCITALOPRAM 20 MG TAB PO SCH (08:07)
[2018-02-27] MEDS: PROMOD 30 ML DOSE PO SCH (08:08)
[2018-02-27] MEDS: HYDROCODONE/APAP 7.5/325 MG TAB PO PRN (08:08)
[2018-02-27 09:26] VITALS: O2SAT 94
--- NOTE | 2018-02-27 15:43 | FAST ---
ENCOUNTER DATE AND TIME: 02/27/2018 08:00 (RENTAL COUNTER CLERK) NAME AKIL BLAKELY DATE OF : 1935 DATE OF ADMISSION: 02/14/2018 16:03 (RENTAL COUNTER CLERK) PHONE: AGE: 82 SSN# [id number] GENDER: Female ENCOUNTER PHYSICIAN: Dr. Javier Zaldivar M.D. ADMISSION DIAGNOSIS: - Orthopaedic Disorders 08 - Unilateral Hip Fracture (08.11) left femoral neck fracture. EATING: Activity did not occur on this shift EATING - SCORE: 0-UNK GROOMING: Activity did not occur on this shift GROOMING - SCORE: 0-UNK BATHING: Activity did not occur on this shift BATHING - SCORE: 0-UNK DRESSING - UPPER BODY: Activity did not occur on this shift Patient is not dressing in public clothing ARTICLES SCORE Total number of steps: 0 DRESSING - UPPER BODY - SCORE: 0-UNK DRESSING - LOWER BODY: Activity did not occur on this shift Patient is not dressing in public clothing ARTICLES SCORE Total number of steps: 0 DRESSING - LOWER BODY - SCORE: 0-UNK TOILETING: Activity did not occur on this shift TOILETING - SCORE: 0-UNK BLADDER MANAGEMENT: Activity did not occur on this shift BLADDER MANAGEMENT - SCORE: 7-IND BOWEL MANAGEMENT: Activity did not occur on this shift BOWEL MANAGEMENT - SCORE: 7-IND TRANSFERS: BED, CHAIR, WHEELCHAIR: TRANSFERS: BED, CHAIR, WHEELCHAIR - STEP 1: Does the patient require assistance of a person or device, or need extra time with bed, chair, or whe elchair transfers? Yes. TRANSFERS: BED, CHAIR, WHEELCHAIR - STEP 2: Does the patient require the assistance of a helper? No. Patient only requires an assistive device fo r bed, chair, wheelchair transfers such as a sliding board, grab bar, or brace, OR s/he takes more th an reasonable time, OR there is a safety concern when s/he performs the transfers TRANSFERS: BED, CHAIR, WHEELCHAIR - SCORE: 6-NIKOLAS TRANSFERS: TOILET: Activity did not occur on this shift TRANSFERS: TOILET - SCORE: 0-UNK TRANSFERS: SHOWER: Activity did not occur on this shift TRANSFERS: SHOWER - SCORE: 0-UNK TRANSFERS: TUB: Activity did not occur on this shift TRANSFERS: TUB - SCORE: 0-UNK LOCOMOTION: WALK: LOCOMOTION: WALK - STEP 1: Does the patient need help from a person or device, or need extra time to walk 150 feet? No. LOCOMOTION: WALK - STEP 2: Does the patient need an assistive device (such as an orthosis, prosthesis, crutches, or walker) to g o 150 feet, OR does s/he take more than reasonable time, OR is there a concern for safety? Yes, the p atient needs an assistive device LOCOMOTION: WALK - SCORE: 6-NIKOLAS LOCOMOTION: WHEELCHAIR: LOCOMOTION: WHEELCHAIR - STEP 1: Does the patient need help to go 150 feet in a wheelchair? No. LOCOMOTION: WHEELCHAIR - SCORE: 6-NIKOLAS LOCOMOTION: STAIRS: Activity did not occur on this shift LOCOMOTION: STAIRS - SCORE: 0-UNK COMPREHENSION: COMPREHENSION - SCORE: 0-UNK EXPRESSION EXPRESSION - SCORE: 0-UNK SOCIAL INTERACTION: SOCIAL INTERACTION - SCORE: 0-UNK PROBLEM SOLVING: PROBLEM SOLVING - SCORE: 0-UNK MEMORY: MEMORY - SCORE: 0-UNK SIGNATURE PANEL: The following modified sections: Transfers: Bed, Chair, Wheelchair - Score, Transfers: Toilet - Score , Locomotion: Walk - Score, Locomotion: Wheelchair - Score, Locomotion: Stairs - Score were [electron ically] signed by Ryan Duong PTA on SatFeb 27 2018 15:42:48 GMT-0600 (Central Standard Time)
--- NOTE | 2018-02-27 15:52 | FAST ---
SHIFT START DATE/TIME: 02/27/2018 07:00 (REQUIREMENTS MANAGER) SHIFT END DATE/TIME: 02/27/2018 19:00 (REQUIREMENTS MANAGER) NAME AKIL BLAKELY DATE OF : 1935 DATE OF ADMISSION: 02/14/2018 16:03 (REQUIREMENTS MANAGER) PHONE: AGE: 82 N# [id number] GENDER: Female ENCOUNTER PHYSICIAN: Dr. Javier Zaldivar M.D. ADMISSION DIAGNOSIS: - Orthopaedic Disorders 08 - Unilateral Hip Fracture (08.11) left femoral neck fracture. EATING: EATING - STEP 1: Does the patient require the assistance of a person or device, or need extra time when eating? Yes. EATING - STEP 2: Does the patient require the assistance of a helper? No, patient only requires an assistive device, O R s/he takes more than reasonable time to eat, OR there is a safety concern, OR s/he requires modifie d food consistency EATING - SCORE: 6-NIKOLAS GROOMING: Comb/brush hair Wash, rinse, and dry face Wash, rinse, and dry hands GROOMING - STEP 1: Does the patient require the assistance of a person or device, or need extra time when grooming? Yes. GROOMING - STEP 2: Does the patient require the assistance of a helper? No. The patient only requires an assistive devic e, OR takes more than reasonable time to groom, OR there is a concern for safety as the patient groom s GROOMING - SCORE: 6-NIKOLAS BATHING: Activity did not occur on this shift BATHING - SCORE: 0-UNK DRESSING - UPPER BODY: Activity did not occur on this shift ARTICLES SCORE Total number of steps: 0 DRESSING - UPPER BODY - SCORE: 0-UNK DRESSING - LOWER BODY: Activity did not occur on this shift ARTICLES SCORE Total number of steps: 0 DRESSING - LOWER BODY - SCORE: 0-UNK TOILETING: TOILETING - STEP 1: Does the patient require the assistance of a person or device, or need extra time with toileting? Yes . TOILETING - STEP 2: Does the patient require the assistance of a helper? Yes. TOILETING - STEP 3: How much assistance does the patient require from the helper? Only supervision TOILETING - SCORE: 5-SUP BLADDER MANAGEMENT: BLADDER MANAGEMENT - STEP 1: Does the patient control the bladder completely and intentionally without equipment or devices or med ications, and is always continent? No. BLADDER MANAGEMENT - STEP 2: Does the patient require the assistance of a helper? Yes. BLADDER MANAGEMENT - STEP 3: How much assistance does the patient require from the helper? Only supervision, stand-by, cuing, or c oaxing BLADDER MANAGEMENT - SCORE: 5-SUP BLADDER MANAGEMENT - FREQUENCY OF ACCIDENTS: BLADDER MANAGEMENT(FA) - STEP 1: How many accidents has the patient had during the current shift? 0 BOWEL MANAGEMENT: BOWEL MANAGEMENT - STEP 1: Does the patient control bowels completely and intentionally without equipment devices or medications AND is always continent? No. BOWEL MANAGEMENT - STEP 2: Does the patient require the assistance of a helper? No, patient requires medication for control such as stool softeners, suppositories, laxatives, enemas, or OTC medications BOWEL MANAGEMENT - SCORE: 6-NIKOLAS BOWEL MANAGEMENT - FREQUENCY OF ACCIDENTS: BOWEL MANAGEMENT(FA) - STEP 1: How many accidents has the patient had during the current shift? 0 TRANSFERS: BED, CHAIR, WHEELCHAIR: TRANSFERS: BED, CHAIR, WHEELCHAIR - STEP 1: Does the patient require assistance of a person or device, or need extra time with bed, chair, or whe elchair transfers? Yes. TRANSFERS: BED, CHAIR, WHEELCHAIR - STEP 2: Does the patient require the assistance of a helper? Yes. TRANSFERS: BED, CHAIR, WHEELCHAIR - STEP 3: How much assistance does the patient require from the helper? Only supervision TRANSFERS: BED, CHAIR, WHEELCHAIR - SCORE: 5-SUP TRANSFERS: TOILET: TRANSFERS: TOILET - STEP 1: Does the patient require the assistance of a person or device, or need extra time with toilet transfe rs? Yes. TRANSFERS: TOILET - STEP 2: Does the patient require the assistance of a helper? No. Patient only requires an assistive device pena ch as a grab bar or special seat, OR s/he takes more than reasonable time to perform toilet transfers , OR there is a safety concern when s/he performs toilet transfers. TRANSFERS: TOILET - SCORE: 6-NIKOLAS TRANSFERS: SHOWER: Activity did not occur on this shift TRANSFERS: SHOWER - SCORE: 0-UNK TRANSFERS: TUB: Activity did not occur on this shift TRANSFERS: TUB - SCORE: 0-UNK LOCOMOTION: WALK: Activity did not occur on this shift LOCOMOTION: WALK - SCORE: 0-UNK LOCOMOTION: WHEELCHAIR: Activity did not occur on this shift LOCOMOTION: WHEELCHAIR - SCORE: 0-UNK COMPREHENSION: COMPREHENSION: TYPE: Both COMPREHENSION - STEP 1: Does the patient require help from a person or device, or need extra time to understand complex and a bstract ideas (such as current events, finances, discharge planning, medical issues, relationships, e tc)? Yes. COMPREHENSION - STEP 2: Does the patient require help to understand questions or statements about basic needs or ideas (such as hunger, thirst, sleep, safety, daily schedule, room location, or discomfort) half or more of the t rogelio? No. COMPREHENSION - STEP 3: How often does the patient need help to understand directions and conversation about basic needs? Les s than 10% of the time COMPREHENSION - SCORE: 5-SUP EXPRESSION EXPRESSION: TYPE: Both EXPRESSION - STEP 1: Does the patient require help from a person or device, or need extra time expressing complex and abst ract ideas (such as current events, finances, discharge planning, medical issues, relationships, etc) ? Yes. EXPRESSION - STEP 2: Does the patient require help to express basic necessities or ideas (such as hunger, thirst, sleep, s afety, daily schedule, room location, or discomfort) half or more of the time? No. EXPRESSION - STEP 3: How often does the patient need help to express directions and conversation about basic needs? Less t pastrana 10% of the time EXPRESSION - SCORE: 5-SUP SOCIAL INTERACTION: SOCIAL INTERACTION - STEP 1: Does the patient require a helper to interact with others in social and therapeutic situations? No. SOCIAL INTERACTION - STEP 2: Does the patient need extra time in social situations, OR does s/he interact with staff, other patien ts, and family members ONLY in structured environments, OR does s/he require medication for social in teraction? Yes, patient needs extra time SOCIAL INTERACTION - SCORE: 6-NIKOLAS PROBLEM SOLVING: PROBLEM SOLVING - STEP 1: Does the patient need help from a person or device, or need extra time to solve complex problems such as managing a checking account or confronting interpersonal problems? Yes. PROBLEM SOLVING - STEP 2: Does the patient solve basic routine problems half or more of the time? Yes. PROBLEM SOLVING - STEP 3: How often does the patient need help to solve basic routine problems? Less than 10% of the time PROBLEM SOLVING - SCORE: 5-SUP MEMORY: MEMORY - STEP 1: Does the patient need help from a person or device, or need extra time to remember frequently encount ered people, daily routines, and executing requests? Yes. MEMORY - STEP 2: How often does the patient need help to remember frequently encountered people, daily routines, and e xecuting requests? Less than 10% of the time MEMORY - SCORE: 5-SUP SIGNATURE PANEL: The following modified sections: Eating - Score, Grooming - Score, Bathing - Score, Dressing - Upper Body - Score, Dressing - Lower Body - Score, Toileting - Score, Bladder Management - Score, Bowel Man agement - Score, Transfers: Bed, Chair, Wheelchair - Score, Transfers: Toilet - Score, Transfers: Julianne wer - Score, Transfers: Tub - Score, Locomotion: Walk - Score, Locomotion: Wheelchair - Score, Compre hension - Score, Expression - Score, Social Interaction - Score, Problem Solving - Score, Memory - Sc ore were [electronically] signed by Jesusita FletcherNRoxann on SatFeb 27 2018 15:50:55 GMT-0600 (Cent[place] Standard Time)
== END 2018-02-27 15:35 | disposition home health service (06) | DRG 560 ==
LOC: 5TH 02-14 16:03
PROVIDERS: ADMIT Psychiatry & Neurology Neurology with Special Qualifications in Child Neurology; ATTEND Psychiatry & Neurology Neurology with Special Qualifications in Child Neurology
DX: S72.002D Fracture of unspecified part of neck of left femur, subsequent encounter for closed fracture with routine healing (principal); N39.0 Urinary tract infection, site not specified; F03.90 Unspecified dementia, unspecified severity, without behavioral disturbance, psychotic disturbance, mood disturbance, and anxiety; E87.6 Hypokalemia; E03.9 Hypothyroidism, unspecified
CPT/HCPCS: 36415; 70450; 80048; 81003; 82040; 83735; 84132; 84134; 85025; 87086; 87088; 92507; 92523; 94640; 97110; 97116; 97127; 97161; 97167; 97530; J1650; J7030; J7605

== ENCOUNTER 2018-03-26 07:08 | Day surgery (SDC) | payer OTHER ==
[2018-03-26] MEDS ORDERED: Phenylephrine HCl 10 MG/ML 1 ML VIAL ONE (07:23)
[2018-03-26] MEDS ORDERED: GLYCOPYRROLATE 0.2 MG/ML SYR ONE (07:23)
[2018-03-26] MEDS ORDERED: LIDOCAINE 4% TOP SOLUTION ONE (07:24)
[2018-03-26] MEDS ORDERED: LIDOCAINE 1% MPF 30 ML VIAL ONE (07:24)
[2018-03-26] MEDS ORDERED: LIDOCAINE VISCOUS 2% SOLN 15 ML UDC ONE (07:24)
[2018-03-26] MEDS ORDERED: Ringers Lactate 1,000 ML IV ONE (07:40)
[2018-03-26] MEDS ORDERED: LIDOCAINE 1% MPF 5 ML VIAL ONE (08:23)
[2018-03-26] MEDS ORDERED: PROPOFOL 200 MG/20 ML VIAL IV ONE (08:23)
--- NOTE | 2018-03-26 08:32 | P.OP ---
Date of Service: 03/26/18 (Asked to be with left upper lobe transbronchial biopsy in a lobe and BAL) Findings and Operative Technique Patient is 82 years of age evaluated by me for a large left upper lobe lung mass patient is an active smoker hence the reason for bronchoscopy After obtaining informed consent from the patient she was premedicated by anesthesia finding normal trachea normal makeda normal right and left-sided bronchial anatomy no endobronchial lesions visible multiple biopsies were obtained from the left upper lobe patient tolerated the procedure very well specimen sent off to pathology
--- NOTE | 2018-03-26 09:53 | RAD REPORT ---
EXAM DESCRIPTION: [facility] Single View03/26/2018 9:40 am CLINICAL HISTORY: Bronchoscopy. Lung mass COMPARISON: February 2018 FINDINGS: A pneumothorax is not seen status post bronchoscopy. No significant change in the left lung opacity
--- NOTE | 2018-03-26 09:56 | RAD REPORT ---
EXAM DESCRIPTION: RAD - FLUORO-GUIDE FOR BRONCH UPT1HR - 03/26/2018 8:45 am CLINICAL HISTORY: Left lung mass. Bronchoscopy. FINDINGS: A left bronchoscopy performed by Dr. Abel. Three fluoroscopic spot images are submitte d. Fluoroscopy time 2.5 minutes.
[2018-03-26 11:02] VITALS: BP 98/62; TEMP 97.3; O2SAT 97
== END 2018-03-26 10:05 | disposition home or self-care (01) ==
LOC: OR 07:08
PROVIDERS: ATTEND Internal Medicine Sleep Medicine
PROC: 0B9G8ZX Drainage of Left Upper Lung Lobe, Via Natural or Artificial Opening Endoscopic, Diagnostic (ICD-10-PCS; 2018-03-26)
PROC: 0BBG8ZX Excision of Left Upper Lung Lobe, Via Natural or Artificial Opening Endoscopic, Diagnostic (ICD-10-PCS; principal; 2018-03-26 08:00)
DX: C34.12 Malignant neoplasm of upper lobe, left bronchus or lung (principal); J44.9 Chronic obstructive pulmonary disease, unspecified; E03.9 Hypothyroidism, unspecified; F03.90 Unspecified dementia, unspecified severity, without behavioral disturbance, psychotic disturbance, mood disturbance, and anxiety; Z87.891 Personal history of nicotine dependence
CPT/HCPCS: 31624; 31628; 71045; 76000; 88108; 88305 ×2; J2370; J2704